=== PATIENT | male | born 1950 | race Caucasian/White ===

== ENCOUNTER 2017-09-28 17:55 | Emergency (ER) | payer OTHER ==
[~2017-09-28] VITALS: Ht 172.7 cm; Wt 102.0 kg
[~2017-09-28 17:55] MED LIST: ADVIN50050 INH; AMIO1TAB PO; ATOR-24 PO; CETI10TA84 PO; CMBIN INH; CRDCD240 PO; DXY/100 PO; GEMF600T5 PO; OXYSR20 PO; PRED20TA PO; PRLSR20 PO; SNG10 PO; TIOTCAP INH; WARF5TAB90 PO
[2017-09-28 17:56] VITALS: TEMP 36.8; Ht 172.7 cm; Wt 102.0 kg
[2017-09-28] MEDS ORDERED: ACETAMINOPHEN 500 MG TAB PO STA (18:18)
--- NOTE | 2017-09-28 18:27 | EMERGENCY ROOM VISIT NOTE ---
ED Visit Note First contact with patient: 18:11 CHIEF COMPLAINT: Left-sided rib pain HISTORY OF PRESENTING ILLNESS: This is a 66-year-old male who presents to the emergency department with complaint of left-sided rib pain that started today after an injury at 4 PM. Patient states that he was leaning over his tub to rinse his hair, and leaned onto his left anterior ribs, when he felt a "snap" and heard a "crack" followed by immediate pain in the front of his left-sided ribs. He states that the pain has been getting progressively worse since this injury, and he is having a lot of pain with breathing. Patient has a history of severe asthma/COPD, and states he has been on a prednisone taper for a recent asthma flare, states this is the second time he has been on prednisone this month, and he is prone to fractures because of the prednisone. He also is on Coumadin for history of A. fib. He does not feel more short of breath than usual and denies any cough or hemoptysis. He denies any dizziness or syncope. He denies any previously fractured ribs. REVIEW OF SYSTEMS: A complete 10 point review of systems was reviewed with the patient with pertinent positives and negatives as per history of present illness. All else were negative. PAST MEDICAL HISTORY: Reviewed in chart, see problem list below. SOCIAL HISTORY: Lives at home. He denies tobacco use. ALLERGIES: No known allergies. PHYSICAL EXAM: CONSTITUTIONAL: Pleasant and cooperative. No acute distress. Well appearing and well nourished. HEENT: Normocephalic, atraumatic. Pupils equal, round and reactive to light, EOMI. TMs normal. Pharynx normal. NECK: Supple, full active range of motion without discomfort. RESPIRATORY: Clear to auscultation bilaterally with no wheezing, crackles, rhonchi or stridor. Equal expansion bilaterally. CARDIOVASCULAR: Regular rate and rhythm with no murmurs, rubs or gallops. Normal peripheral perfusion. No edema. CHEST WALL: Tenderness to palpation of the left anterior and lateral ribs over and just below the nipple line. No ecchymosis, swelling, or abrasions. No palpable crepitus. GASTROINTESTINAL: Soft, nontender, nondistended. No palpable masses or HSM. Bowel sounds present in all quadrants. No CVA tenderness bilaterally. MUSCULOSKELETAL: Full range of motion of all joints without discomfort. INTEGUMENTARY: No rash or other significant dermatologic conditions noted. NEUROLOGIC: Alert and oriented X 4 with normal affect. Normal strength and sensation in all 4 extremities. No focal neurologic deficits noted. Normal speech. Normal gait observed. ED COURSE AND MEDICAL DECISION MAKING: CC: Patient presenting with complaint of left-sided rib pain DIFFERENTIAL DIAGNOSIS: Includes, but not limited to rib contusion, fracture, pneumothorax, hemothorax, costochondritis, among others. INTERPRETATION OF LABS: No leukocytosis, no anemia, normal platelets, no significant electrolyte abnormalities, normal renal function. Coagulation factors are therapeutic. IMAGING: CT (CHEST) THORAX WITH CLINICAL HISTORY: 66 years-old Male presenting with left rib pain, history of COPD, eval fracture, PTX, KACI. TECHNIQUE: Multidetector CT imaging of the chest was performed after the administration of intravenous contrast. IV contrast: 90 mL of Optiray 320. A dose lowering technique was used consistent with the principles of ALARA (as low as reasonably achievable). COMPARISON: 01/10/2006. CT DOSE (mGy.cm): The estimated cumulative dose is 752.31 mGy.cm. FINDINGS: Line Analyst topogram: Cardiomegaly. Hyperinflation. On soft tissue windows, coarse calcification noted in the left lobe of the thyroid. Thyroid otherwise normal. No axillary, supraclavicular, hilar, or mediastinal lymphadenopathy. Normal aorta. Multichamber enlargement of the heart. Coronary artery calcification. No pericardial or pleural effusion. Cholecystectomy clips noted. Moderate parenchymal atrophy of the pancreas. Hepatic veins not yet opacified. Several renal cysts noted. On lung windows, bronchial wall thickening and mild bronchiectasis most prominent in the right lower lobe. Respiratory motion artifact limits evaluation of the lung parenchyma. Focal consolidation in the medial basal left lower lobe measuring 3.2 cm in diameter. Few surrounding nodular foci. Incidental note made of an azygos fissure. Scattered tree-in-bud opacities in the anterior segment of the right upper lobe with associated mild bronchiectasis. Trace apical emphysema. Hyperinflation. Vague centrilobular nodules are also suggested at the apices. Central airways patent although subsegmental debris is noted in left lower lobe bronchi. No pneumothorax. On bone windows, degenerative changes of the spine. Superior endplate concavity at L1, unchanged since 2005. IMPRESSION: 1. Focal consolidation in the left lower lobe concerning for pneumonia. This should be followed to resolution to ensure there is no underlying neoplasm. 2. Multifocal bronchiectasis with limited tree-in-bud opacities. This is nonspecific but could suggest a history of chronic indolent infection such as mycobacterium avium intracellulare among other etiologies. Tree-in-bud opacities have significantly decreased since the prior exam. 3. Mild changes of smoking related lung injury likely present with trace emphysema, bronchitis and respiratory bronchiolitis. MEDICATION RECONCILIATION: I attest that I have personally reviewed the patient 's current medication list. INITIAL VITAL SIGNS REVIEW: I reviewed the patient's initial vital signs and interpret them as follows: T: Afebrile; BP: Hypertensive; HR: Within normal limits; RR: Within normal limits; Pulse Ox: Within normal limits on room air. Blood pressure screening: The patient was found to have an elevated blood pressure, which was felt to be situational. SUMMARY: Patient was evaluated at bedside, history and physical exam performed. Patient is alert and oriented, no acute distress, but does appear uncomfortable , resting calmly in the stretcher. Patient has tenderness to palpation of the left anterior and lateral ribs just below the nipple line. There is no left upper quadrant tenderness to palpation. Orders were placed at bedside for labs, p.o. Tylenol for pain, CT chest with IV contrast to evaluate for rib fracture or other trauma. Patient discussed with Dr. Pearl, who agrees with my assessment and plan. Labs and imaging reviewed as above, unremarkable. No evidence for pneumothorax or hemothorax. No obvious rib fractures noted on CT. CT does note a left lower lobe pneumonia, which does appear to be new when compared to previous imaging. Patient states that he started taking his rescue pack of doxycycline 2 days ago , but has only been taking 1 tablet per day, he did have one dose this morning. Patient was given an additional dose of doxycycline in the ED, and a prescription for doxycycline was sent to the pharmacy for continued treatment of his pneumonia. Patient continues to complain of pain, he was given a dose of p.o. oxycodone. Patient reassessed multiple times throughout ED stay, patient has remained stable, his pain is improved with the oxycodone, and he feels well to go home. Patient was given an incentive spirometer and was educated regarding its use. Small Rx for oxycodone was sent to the pharmacy for improved management of the patient's pain, he was educated regarding this medication. Patient was updated on all results and plan for discharge, he was encouraged to follow closely with his PC and to also follow-up with his supply chain analyst peer Patient was also given strict return precautions should his symptoms worsen, he verbalized understanding. Patient was discharged home in stable condition and ambulatory. Problem List Medical Problems: (1) ACUTE RESPIRATORY FAILURE Status: Resolved (2) ASTHMA, UNSPECIFIED, W (ACUTE) EXACERBATION Status: Chronic (3) ATRIAL FIBRILLATION Status: Chronic (4) HYPERTENSION NOS Status: Chronic (5) OBESITY, NOS Status: Chronic (6) PNEUMONIA, ORGANISM NOS Status: Resolved Current/Historical Medications Scheduled Amiodarone HCl (Pacerone), 200 MG PO DAILY Atorvastatin (Lipitor), 40 MG PO DAILY Cetirizine (Zyrtec), 10 MG PO DAILY Diltiazem Hcl Cd (Cardizem Cd *), 240 MG PO BID Doxycycline Hyclate (Vibramycin), 100 MG PO BID Fluticasone Prop/Salmeterol (Advair Diskus 500/50 Mcg *), 1 PUFF INH BID Gemfibrozil (Lopid), 600 MG PO BID Montelukast (Singulair *), 10 MG PO DAILY Omeprazole (Prilosec), 20 MG PO DAILY Oxycodone Hcl (Oxycontin (Ext Rel) *), 20 MG PO Q12 Tiotropium [place] (Spiriva Handihaler), 1 CAP INH DAILY Warfarin Sodium (Coumadin), 5 MG PO DAILY Scheduled PRN Doxycycline Hyclate (Doxycycline Hyclate), 100 MG PO Q12 PRN for COPD RESCUE PACK Ipratropium/Albuterol (Combivent *), 1 PUFFS INH Q6 PRN for cough,wheeze,sob, chest tightne Oxycodone Ir (Roxicodone Ir), 1 TAB PO Q4H PRN for svr Prednisone (Prednisone), 2 TAB PO UD PRN for COPD/ASTHMA RESCUE PACK Allergies Coded Allergies: No Known Allergies (Verified , 08/19/13) Vital Signs Date Time Temp Pulse Resp B/P (MAP) Pulse Ox O2 Delivery O2 Flow Rate FiO2 09/28/17 21:16 51 18 146/69 91 Room Air 8/22/18 19:54 53 18 144/70 92 Room Air 09/28/17 17:56 36.8 63 20 170/70 92 Room Air Laboratory Results 09/28/17 19:00 Red Blood Count 4.75, Mean Corpuscular Volume 90.1, Mean Corpuscular Hemoglobin 28.4, Mean Corpuscular Hemoglobin Concent 31.5, Mean Platelet Volume 9.8, Neutrophils (%) (Auto) 83.9, Lymphocytes (%) (Auto) 11.2, Monocytes (%) (Auto) 3.2, Eosinophils (%) (Auto) 0.3, Basophils (%) (Auto) 0.1, Neutrophils # (Auto) 6.31, Lymphocytes # (Auto) 0.84, Monocytes # (Auto) 0.24, Eosinophils # (Auto) 0.02, Basophils # (Auto) 0.01 09/28/17 19:00 Test 09/28/17 19:00 White Blood Count 7.52 K/uL (4.8-10.8) Red Blood Count 4.75 M/uL (4.7-6.1) Hemoglobin 13.5 g/dL (14.0-18.0) Hematocrit 42.8 % (42-52) Mean Corpuscular Volume 90.1 fL (80-100) Mean Corpuscular Hemoglobin 28.4 pg (25-34) Mean Corpuscular Hemoglobin Concent 31.5 g/dl (32-36) Platelet Count 204 K/uL (130-400) Mean Platelet Volume 9.8 fL (7.4-10.4) Neutrophils (%) (Auto) 83.9 % Lymphocytes (%) (Auto) 11.2 % Monocytes (%) (Auto) 3.2 % Eosinophils (%) (Auto) 0.3 % Basophils (%) (Auto) 0.1 % Neutrophils # (Auto) 6.31 K/uL (1.4-6.5) Lymphocytes # (Auto) 0.84 K/uL (1.2-3.4) Monocytes # (Auto) 0.24 K/uL (0.11-0.59) Eosinophils # (Auto) 0.02 K/uL (0-0.5) Basophils # (Auto) 0.01 K/uL (0-0.2) RDW Standard Deviation 47.6 fL (36.4-46.3) RDW Coefficient of Variation 14.4 % (11.5-14.5) Immature Granulocyte % (Auto) 1.3 % Immature Granulocyte # (Auto) 0.10 K/uL (0.00-0.02) Prothrombin Time 30.0 SECONDS (9.0-12.0) Prothromb Time International Ratio 2.9 (0.9-1.1) Anion Gap 7.0 mmol/L (3-11) Est Creatinine Clear Calc Drug Dose 68.4 ml/min Estimated GFR () 70.5 Estimated GFR (Non- 60.8 BUN/Creatinine Ratio 17.8 (10-20) Calcium Level 8.8 mg/dl (8.5-10.1) Medications Administered Medications (Trade) Dose Ordered Sig/Kareen Route Start Time Stop Time Status Last Admin Dose Admin Acetaminophen (Tylenol Tab) 1,000 mg NOW STAT PO 09/28/17 18:18 09/28/17 18:20 DC 09/28/17 18:59 1,000 MG Oxycodone HCl (Roxicodone Immediate Rel Tab) 5 mg NOW STAT PO 09/28/17 20:36 09/28/17 20:42 DC 09/28/17 20:48 5 MG Oxycodone HCl (Roxicodone Immediate Rel 5MG Home Pack) 1 homepack UD ONCE PO 09/28/17 20:45 09/28/17 20:46 DC 09/28/17 20:48 1 HOMEPACK Doxycycline Hyclate (Vibramycin Cap) 100 mg ONE ONCE PO 09/28/17 20:45 09/28/17 20:46 DC 09/28/17 20:48 100 MG Departure Information Impression Primary Impression: Contusion of rib on left side Additional Impression: LLL pneumonia Dispostion Home / Self-Care Condition GOOD Prescriptions Doxycycline Hyclate (VIBRAMYCIN) 100 Mg Cap 100 MG PO BID for 9 Days, #18 CAP Prov: Anne Marie Lucero CRNP 09/28/17 Oxycodone Ir (Roxicodone Ir) 5 Mg Tab 1 TAB PO Q4H Y for svr, #15 TAB For Initial Treatment Prov: Anne Marie Lucero CRNP 09/28/17 Referrals Paris Lizama M.D. (PCP) Patient Instructions ED Contusion Vs Minor Fx Rib, ED Pneumonia Adult, [facility] Additional Instructions You have been evaluated and treated in the Emergency Department for your rib pain. You were found to have a left-sided pneumonia on imaging today. You were prescribed doxycycline to be taken twice a day for 9 more days. This is an antibiotic to treat your pneumonia. All antibiotics have the potential to cause diarrhea. Stop this medication and contact a medical provider if you were to develop any significant adverse side effects including: wheezing, shortness of breath, passing out, vomiting, or a diffuse rash. Always take antibiotics as directed and COMPLETE the ENTIRE course regardless of the improvement of your symptoms. You have been prescribed oxycodone 5 mg tablets to be taken 1 tablet every 4-6 hours as needed for SEVERE pain. This is a narcotic medication. You cannot drive or consume alcohol while on this medicine. This medicine should only be used for pain that cannot be controlled with [id number] pain medicines. For additional pain control, you may take Extra strength (500mg/tab) Tylenol ( acetaminophen) 1-2 tabs every 6-8 hours as needed. Do not exceed 6 tablets in a 24 hour period. Avoid taking more than 3 grams (3000 mg) of Tylenol per day. This includes any other sources of acetaminophen you may take on a regular basis. If this is an acute injury, ice can be applied to the area of pain for the first 3 days to help decrease pain and inflammation. After the first 3 days, a heating pad can be used over the area for continued soothing relief. You should schedule a follow-up appointment in 1-2 days with your Primary Care Provider for further evaluation and treatment of your rib pain and pneumonia. You should also schedule a follow up with your supply chain analyst (lung specialist). Hugging a pillow while coughing or sneezing can help to reduce your pain. Be sure to continue taking occasional deep breaths and use the incentive spirometer as instructed to help expand your lungs to reduce the risk of developing worsening pneumonia. Return to the Emergency Department if your current symptoms worsen, or if you develop any of the following symptoms: Severe worsening pain, shortness of breath or inability to catch her breath, coughing up blood, development of a wet cough, development of fevers/chills/feeling ill, severe dizziness or passing out, or any other concerns. Problem Qualifiers Primary Impression: Contusion of rib on left side Encounter type: initial encounter Qualified Codes: S20.212A - Contusion of left front wall of thorax, initial encounter Additional Impression: LLL pneumonia Pneumonia type: due to unspecified organism Qualified Codes: J18.1 - Lobar pneumonia, unspecified organism
[2017-09-28] MEDS ORDERED: OPTIRAY 320 IV PRN (18:30)
[2017-09-28 19:21] LABS: BASO % 0.1 %; BASO ABS # 0.01 K/uL (0-0.2); EOS % 0.3 %; EOS ABS # 0.02 K/uL (0-0.5); HEMATOCRIT 42.8 % (42-52); HEMOGLOBIN 13.5 g/dL (14.0-18.0); LYMPH % 11.2 %; LYMPH ABS # 0.84 K/uL (1.2-3.4); MEAN CELL VOLUME 90.1 fL (80-100); MEAN CORPUSCULAR HEMOGLOBIN 28.4 pg (25-34); MEAN CORPUSCULAR HGB CONC 31.5 g/dl (32-36); MEAN PLATELET VOLUME 9.8 fL (7.4-10.4); MONO % 3.2 %; MONO ABS # 0.24 K/uL (0.11-0.59); NEUT % 83.9 %; NEUT ABS # 6.31 K/uL (1.4-6.5); PLATELET COUNT 204 K/uL (130-400); RED CELL DISTRIBUTION WIDTH CV 14.4 % (11.5-14.5); RED CELL DISTRIBUTION WIDTH SD 47.6 fL (36.4-46.3); WHITE BLOOD COUNT 7.52 K/uL (4.8-10.8)
[2017-09-28 19:36] LABS: INR 2.9 (0.9-1.1)
[2017-09-28 19:42] LABS: CALCIUM 8.8 mg/dl (8.5-10.1); CREATININE 1.23 mg/dl (0.60-1.40); POTASSIUM 4.2 mmol/L (3.5-5.1)
--- NOTE | 2017-09-28 20:25 | DIAGNOSTIC IMAGING REPORT ---
CT (CHEST) THORAX WITH CLINICAL HISTORY: 66 years-old Male presenting with left rib pain, history of COPD, eval fracture, PTX, KACI. TECHNIQUE: Multidetector CT imaging of the chest was performed after the administration of intravenous contrast. IV contrast: 90 mL of Optiray 320. A dose lowering technique was used consistent with the principles of ALARA (as low as reasonably achievable). COMPARISON: 01/10/2006. CT DOSE (mGy.cm): The estimated cumulative dose is 752.31 mGy.cm. FINDINGS: Cover Assembler topogram: Cardiomegaly. Hyperinflation. On soft tissue windows, coarse calcification noted in the left lobe of the thyroid. Thyroid otherwise normal. No axillary, supraclavicular, hilar, or mediastinal lymphadenopathy. Normal aorta. Multichamber enlargement of the heart. Coronary artery calcification. No pericardial or pleural effusion. Cholecystectomy clips noted. Moderate parenchymal atrophy of the pancreas. Hepatic veins not yet opacified. Several renal cysts noted. On lung windows, bronchial wall thickening and mild bronchiectasis most prominent in the right lower lobe. Respiratory motion artifact limits evaluation of the lung parenchyma. Focal consolidation in the medial basal left lower lobe measuring 3.2 cm in diameter. Few surrounding nodular foci. Incidental note made of an azygos fissure. Scattered tree-in-bud opacities in the anterior segment of the right upper lobe with associated mild bronchiectasis. Trace apical emphysema. Hyperinflation. Vague centrilobular nodules are also suggested at the apices. Central airways patent although subsegmental debris is noted in left lower lobe bronchi. No pneumothorax. On bone windows, degenerative changes of the spine. Superior endplate concavity at L1, unchanged since 2005. IMPRESSION: 1. Focal consolidation in the left lower lobe concerning for pneumonia. This should be followed to resolution to ensure there is no underlying neoplasm. 2. Multifocal bronchiectasis with limited tree-in-bud opacities. This is nonspecific but could suggest a history of chronic indolent infection such as mycobacterium avium intracellulare among other etiologies. Tree-in-bud opacities have significantly decreased since the prior exam. 3. Mild changes of smoking related lung injury likely present with trace emphysema, bronchitis and respiratory bronchiolitis. Electronically signed by: Chucky Lux M.D. 09/28/2017 8:24 PM Dictated Date/Time: 09/28/2017 8:17 PM
[2017-09-28] MEDS ORDERED: OXYCODONE HCL IR 5 MG TAB (IMMEDIATE RELEASE) PO STA (20:36)
[2017-09-28] MEDS ORDERED: DOXYCYCLINE HYCLATE 100 MG CAP PO ONE (20:45)
[2017-09-28] MEDS ORDERED: OXYCODONE IR HOME PACK PO ONE (20:45)
[2017-09-28] MEDS ORDERED: DOXY100C PO (21:01)
[2017-09-28] MEDS ORDERED: OXYC-90 PO (21:01)
--- NOTE | 2017-09-28 21:07 | EMERGENCY ROOM VISIT NOTE ---
ED Visit Note First contact with patient: 18:11 Staff note: I have reviewed the Patients chart and have discussed this case with my PA. I generally agree with the ED note and findings.
[2017-09-28 21:16] VITALS: BP 146/69; PULSE 51; O2SAT 91
== END 2017-09-28 21:26 | disposition home or self-care (01) ==
LOC: C.EDB 17:56 → C.EDD 21:26
DX: S20.212A Contusion of left front wall of thorax, initial encounter (principal); W22.8XXA Striking against or struck by other objects, initial encounter; Y92.012 Bathroom of single-family (private) house as the place of occurrence of the external cause; J18.1 Lobar pneumonia, unspecified organism; J45.909 Unspecified asthma, uncomplicated; I48.91 Unspecified atrial fibrillation; I10 Essential (primary) hypertension; J44.9 Chronic obstructive pulmonary disease, unspecified; Z79.52 Long term (current) use of systemic steroids; Z79.01 Long term (current) use of anticoagulants; Z79.899 Other long term (current) drug therapy

== ENCOUNTER 2020-05-21 17:24 | Inpatient (IN) ==
[2020-05-21 18:08] LABS: Basophils # (auto) 0.01 K/uL (0-0.2); Basophils % (auto) 0.1 %; Eosinophils # (auto) 0.06 K/uL (0-0.5); Eosinophils % (auto) 0.8 %; Hematocrit (blood only) 43.1 % (42-52); Hemoglobin 14.1 g/dL (14.0-18.0); Immature Granulocytes # (auto) 0.08 K/uL (0.00-0.02); Immature Granulocytes % (auto) 1.1 %; Lymphocytes % (auto) 12.4 %; Mean Corpuscular Hemoglobin 29.9 pg (25-34); Mean Corpuscular Hgb Conc 32.7 g/dL (32-36); Mean Corpuscular Volume 91.5 fL (80-100); Monocytes % (auto) 2.8 %; Neutrophils # (auto) 6.02 K/uL (1.4-6.5); Neutrophils % (auto) 82.8 %; Platelet Count 214 K/uL (130-400); RDW Coefficient of Variation 14.1 % (11.5-14.5); RDW Standard Deviation 47.7 fL (36.4-46.3); Red Blood Count 4.71 M/uL (4.7-6.1); White Blood Count 7.27 K/uL (4.8-10.8)
[2020-05-21 18:10] LABS: INR 2.4 (0.9-1.1); Partial Thromboplastin Ratio 1.3; Prothrombin Time 22.8 Seconds (9.0-12.0)
--- NOTE | 2020-05-21 18:20 | XRay Report ---
XR chest 1V portable CLINICAL HISTORY: Atypical chest pain. COMPARISON STUDY: Chest CT October 28, 2017. FINDINGS: There is no pneumothorax or pleural effusion. Cardiomegaly is unchanged. No consolidation i s identified to suggest pneumonia. The appearance of the chest is unchanged. IMPRESSION: No acute cardiopulmonary findings. No change in appearance of the chest. ACT 112: Negative or not required by law. Electronically signed by: Milan Oneal M.D. 05/21/2020 6:18 PM
[2020-05-21] MEDS ORDERED: NITROGLYCERIN SL 0.4 MG/TAB TAB SL STA (18:24)
[2020-05-21 18:28] LABS: Alanine Aminotransferase 34 U/L (12-78); Albumin Globulin Ratio 1.1 (0.9-2); Albumin Level 3.8 gm/dl (3.4-5.0); Alkaline Phosphatase 92 U/L (45-117); Aspartate Aminotransferase 18 U/L (15-37); BUN Creatinine Ratio 18.8 (10-20); Blood Urea Nitrogen 25 mg/dl (7-18); Calcium 9.3 mg/dl (8.5-10.1); Carbon Dioxide 29 mmol/L (21-32); Chloride 107 mmol/L (98-107); Est GFR (African American) 61.6; Est GFR (Non-African American) 53.2; Globulin 3.6 gm/dl (2.5-4.0); Glucose 118 mg/dl (70-99); Potassium 4.7 mmol/L (3.5-5.1); Sodium 140 mmol/L (136-145); Total Protein 7.4 gm/dl (6.4-8.2); Troponin I < 0.015 ng/ml (0-0.045)
[2020-05-21 19:27] LABS: Influenza A virus by PCR Negative (Neg); Influenza B virus by PCR Negative (Neg); RSV by PCR Negative (Neg); SARS CoV2 RNA(COVID-19) InHosp NEGATIVE (Negative)
[2020-05-21 19:34] LABS: Magnesium 1.9 mg/dl (1.8-2.4); Thyroid Stimulating Hormone 1.15 uIu/ml (0.300-4.500)
[2020-05-21] MEDS ORDERED: HYDROCODONE/ACETAMINOPHEN 7.5/325MG TAB PO STA (21:29)
--- NOTE | 2020-05-21 21:53 | History & Physical Report ---
Date of Service May 21, 2020 Assessment & Plan (1) Paroxysmal atrial fibrillation: PAF On Coumadin Chest pain Pt is 69 y/o M with PMH paroxysmal atrial fibrillation on amiodarone and Coumadin, nonischemic cardiomyopathy, nonobstructive CAD, asthma, h/o SVT s/p ablation, dyslipidemia, chronic back pain presented to ER with c/o Irregular heart beat and chest pressure x 1 day In ER afebrile, P: 65, R: 20, BP: 188/114 down to 142/68, 93% on RA. No leukocytosis. Initial troponin: negative. INR: 2.4. +afib. was given nitro SL x1 with moderate relief chest pressure -Current rate controlled -Monitor on tele -Continue home diltiazem 240mg BID (Pt Rx'd BID, however had been taking once [facility]) -Continue Coumadin -INR in AM -Lopressor prn HR>120 -Repeat EKG in am -Will trend troponin -Echo -lipid panel in am. Continue statin -Cardiology consult (2) Asthma: Recent asthma flare with increased wheezing and SOB. Pt started prednisone rescue pack with improvement CXR: no acute infiltrate. COVID 19 PCR and Influenza PCR are negative -Continue prednisone taper -Xopenex prn -Continue home inhalers (3) HTN (hypertension): -Continue diltiazem, losartan (4) HLD (hyperlipidemia): -Continue statin, gemfibrozil (5) Nonischemic cardiomyopathy: Nonobstructive CAD 2013 echo: EF: 40%, moderate global hypokinesis -Update echo (6) Chronic back pain: -Continue hydrocodone prn DVT Prophylaxis -On Coumadin, INR is therapeutic Full Code as per discussion with pt Follows with Dr Lizama for routine care Pt was seen and care coordinated with Dr Lowe. See addendum History of Present Illness Chief Complaint: "irregular heart beat" Primary Care Provider: Paris Lizama MD Pt is 69 y/o M with PMH paroxysmal atrial fibrillation on amiodarone and Coumadin, nonischemic cardiomyopathy, nonobstructive CAD, asthma, h/o SVT s/p ablation, dyslipidemia, chronic back pain presented to ER with c/o Irregular heart beat and chest pressure. Pt reports h/o paroxysmal A-fib and has intermittent episodes of sensation irregular heartbeat with mid chest pressure that lasts minutes to an hour and resolves. Pt states last night starting with palpitation and mid chest pressure that is non-radiating. Denies diaphoresis, dizziness. States felt pulse and irregular and his home pulse ox reading pulse from 60s -120's. Pt with recent cardiology visit with Dr Haider and in office EKG reported Afib rate 100 with nonspecific t wave abnormality. Of note at that time pt was to be taking diltiazem BID, however was only taking once daily. Pt reports for past week has been taking Dilitiazem BID. Pt reports increased wheezing and SOB with exertion and he started prednisone taper rescue pack. He currently has one day of 30mg remaining then goes to 20mg daily x 4 days, then 10mg daily x 4 days. He has not felt the need to use albuterol/combivent. He states in past he felt that those worsened his symptoms. Pt reports less SOB and wheezing since starting prednisone and feels he is back to his baseline. (pt states has chronic wheeze). Reports mild BLE edema. Denies fever/chills, N/V/D/C, RODRIGEZ, dizziness, syncope, vision changes, neck pain, orthopnea, hemoptysis, sore throat, choking, otalgia, rhinorrhea, abdominal pain, paresthesias, weakness, extremity weakness, rashes, urinary symptoms. Allergies Allergy/AdvReac Type Severity Reaction Status Date / Time cat dander Allergy Intermediate SNEEZING, Verified 05/21/20 19:43 CONGESTION pollen extracts Allergy Intermediate SNEEZING, Verified 05/21/20 19:43 CONGESTION Home Medications Medication Instructions Recorded Confirmed Type albuterol sulfate See Rx Instructions CONTINUOUS 09/18/18 05/21/20 History NEBULIZATION .COMPLEX PRN #3 ml amiodarone 200 mg tablet 200 mg PO DAILY tab 09/18/18 05/21/20 History atorvastatin 40 mg tablet 40 mg PO HS tab 09/18/18 05/21/20 History cetirizine 10 mg tablet 10 mg PO DAILY tab 09/18/18 05/21/20 History diltiazem HCl 240 mg 240 mg PO BID cap 09/18/18 05/21/20 History capsule,extended release 24 hr fluticasone propionate 50 2 sprays INTRANASAL DAILY #1 gm 09/18/18 05/21/20 History mcg/actuation nasal spray,suspension gemfibrozil 600 mg tablet 600 mg PO AC tab 09/18/18 05/21/20 History hydrocodone 7.5 mg-acetaminophen 1 tab PO Q6H PRN tab 09/18/18 05/21/20 History 325 mg tablet montelukast 10 mg tablet 10 mg PO DAILY tab 09/18/18 05/21/20 History omalizumab 150 mg subcutaneous 0 mg SUBCUT Q4WK #1 ea 09/18/18 05/21/20 History solution omeprazole 20 mg capsule,delayed 20 mg PO DAILYBB cap 09/18/18 05/21/20 History release oxybutynin chloride 5 mg tablet 5 mg PO DAILY tab 09/18/18 05/21/20 History prednisone 10 mg tablet 10 mg PO .COMPLEX PRN tab 09/18/18 05/21/20 History ipratropium 20 mcg-albuterol 100 See Rx Instructions .ROUTE 01/29/19 05/21/20 Rx mcg/actuation mist for inhalation .COMPLEX #3 inhaler azelastine [Astelin] 2 spray INTRANASAL BID PRN 05/21/20 05/21/20 History doxycycline hyclate 100 mg PO BID PRN 05/21/20 05/21/20 History fluticasone furoate-vilanterol 1 inh INHALATION BID 05/21/20 05/21/20 History [Breo Ellipta] losartan 50 mg PO DAILY 05/21/20 05/21/20 History omega-3 fatty acids 1,000 mg PO DAILY 05/21/20 05/21/20 History warfarin 2.5 mg PO DAILY 05/21/20 05/21/20 History Past Med/Surg History Medical History (Updated 05/21/20 @ 22:38 by Oc Velasquez M.D.) Asthma Chronic back pain GERD (gastroesophageal reflux disease) History of paroxysmal supraventricular tachycardia S/P ablation in 2009 HLD (hyperlipidemia) HTN (hypertension) Nonischemic cardiomyopathy 2013 echo: EF: 40%, moderate global hypokinesis Paroxysmal atrial fibrillation Surgical History H/O hernia repair S/P appendectomy S/P cholecystectomy Family History Other Asthma Social History (Updated 05/21/20 @ 21:59 by Nupur Smith PA-C) Smoking Status: Never smoker Second Hand Exposure: No; Do You Dip or Chew Tobacco: No; Tobacco Cessation Education Requested by Patient: No Hx Alcohol Use: No Hx Substance Use: No Preferred Language: Cuban Communication Ability: Effective Traveling Accountant Required: No Beliefs That Will Affect Care: None marital status: Current Living Situation: Family Current Living Situation Comment: Lives with two sons current occupational status: disabled Other Information That Helps Us Care for You: No Feels Safe at Home: Yes Safety Concerns: Feels Safe At This Time Assistive Devices: Denture - Upper Review of Systems Review of Systems: All systems reviewed & are unremarkable except as noted in HPI & below Physical Exam Physical Exam: General: no distress, obese Head: normocephalic, atraumatic Eyes: PERRL, EOM's intact, conjunctiva non-injected, anicteric ENT: normal inspection external ears, nose, mucous membranes moist Neck: supple, trachea midline Lungs:no respiratory distress, +scattered wheezing, no rhonchi/rales CV: irregularly irregular, rate 68, 1+ pretibial edema Abd: normal BS, protuberant, soft, non-tender Ext: no cyanosis, no calf tenderness Neuro: A&O x 3, no focal deficits noted, normal affect Skin: warm, dry Results & Data Results & Data ([facility]) Vital Signs (Past 12 Hours) Vital Signs Temp Pulse Pulse Resp BP BP Pulse Ox 05/21/20 21:01 58 L 15 142/68 H 93 05/21/20 21:00 59 L 24 93 05/21/20 20:31 42 L 20 146/65 H 92 05/21/20 20:30 56 L 15 92 05/21/20 20:00 63 20 123/67 92 05/21/20 19:30 42 L 17 94 05/21/20 19:14 93 05/21/20 19:02 63 14 92 05/21/20 19:01 67 13 120/63 92 05/21/20 19:00 64 14 92 05/21/20 18:40 72 13 142/70 H 92 05/21/20 18:39 69 12 142/70 H 93 05/21/20 18:30 78 16 92 05/21/20 18:27 84 19 92 05/21/20 18:19 75 19 228/170 H 92 05/21/20 18:01 70 20 221/87 H 98 05/21/20 17:34 36.8 C 65 20 188/114 H 92 Laboratory Results Short CBC 05/21/20 Range/Units 17:50 WBC 7.27 (4.8-10.8) K/uL Hgb 14.1 (14.0-18.0) g/dL Hct 43.1 (42-52) % Plt Count 214 (130-400) K/uL BMP 05/21/20 17:50 Sodium 140 Potassium 4.7 Chloride 107 Carbon Dioxide 29 BUN 25 H Creatinine 1.35 Glucose 118 H Calcium 9.3 Cardiac Enzymes 05/21/20 Range/Units 17:50 Troponin I < 0.015 (0-0.045) ng/ml Liver Function 05/21/20 Range/Units 17:50 Total Bilirubin 1.0 (0.2-1) mg/dl AST 18 (15-37) U/L ALT 34 (12-78) U/L Alkaline Phosphatase 92 (45-117) U/L Albumin 3.8 (3.4-5.0) gm/dl Diagnostic Findings Chest X-Ray 05/21/20 17:50 XR chest 1V portable CLINICAL HISTORY: Atypical chest pain. COMPARISON STUDY: Chest CT October 28, 2017. FINDINGS: There is no pneumothorax or pleural effusion. Cardiomegaly is unchanged. No consolidation is identified to suggest pneumonia. The appearance of the chest is unchanged. IMPRESSION: No acute cardiopulmonary findings. No change in appearance of the chest. ACT 112: Negative or not required by law. Electronically signed by: Milan Oneal M.D. 05/21/2020 6:18 PM Code Status & VTE Plan VTE Prophylaxis Plan VTE Prophylaxis will be ordered: Yes Supervising Physician Co-Signing Physician Notes Care coordinated with Nupur Smith PA-C. Agree with above note. Patient seen and examined. Please refer to her notes for full details. Vital signs reviewed. Physical exam: General exam: Alert and oriented. Not in acute distress. CVS: S1 and S2 heard, irregular rate and rhythm, no murmurs. RS: Clear to auscultation, no wheezing or crackles. ABD: Soft, bowel sounds present, nontender, no distention. OPEN DEVELOPER OPERATOR: Nonfocal. EXT: No edema, no erythema. Labs: Reviewed. Assessment and plan: 69M with hx of PAF, Hx of SVT s/p ablation, Non obstructive CAd, Hx of non ishemic cardiomyopathy prsents with feeling of irregular heart rate asscoaited with tacycardia and bradycardia. Also HAd chest discomfort in lowe chest which is resolved now. PAf Tachy starla syndrome? says had HR in 120 range and then it was in 30's. Currently heart rats in 40. Holding acrdizem on amiodarone and coumadin inr 2.4 will follow troponin, inr and echo cardiology consult monitor in med/tele chest pain resolved follow troponin and echo. prolonged qt avoid qt prolonging drugs. Chronic systolic chf on losartan ef 40% not on any diuretics will monitor Asthma currently stable complete prednisone taper Other diagnosis and plan of care as per Nupur Smith PA-C. Ed carlos MD.
--- NOTE | 2020-05-21 22:29 | Emergency Department Note ---
Impression & Plan Chest pain, Paroxysmal atrial fibrillation, Hypertensive urgency ED Provider Note Provider: Oc Velasquez MD DATE OF SERVICE: 05/21/2020 CHIEF COMPLAINT: Chest pain, irregular heartbeat HISTORY OF PRESENT ILLNESS: Patient is a 69-year-old with a past medical history of paroxysmal atrial fibrillation on amiodarone and Coumadin, nonischemic cardiopathy, CAD, SVT status post ablation, asthma, chronic back pain presenting complaining of an irregular heartbeat over the last approximately 1 to 2 days with chest pain developing overnight. States he monitors his heart rate at home with his pulse ox and has seen his high the 120s and his lowest 30s. States he developed some mid to slightly epigastric chest discomfort without associated nausea vomiting or diarrhea. States the pain is a little bit worse with deep breathing. Denies radiation to the back. States he has had some slight w orsening of his chronic shortness of breath as well. Denies significant new leg swelling. Denies any fainting or trauma. Denies recent illness. Is suffering with the grief of the recent loss of his several months ago. Patient follows with [facility] cardiology and states he has been taking his medication per his recommendations including twice daily diltiazem. Patient did recently start on a prednisone taper for the breathing and states his breathing has improved some with this. REVIEW OF SYSTEMS: A total of 10 review of systems was obtained and negative except as stated above in the HPI. PAST MEDICAL HISTORY: As noted above MEDICATIONS: Reviewed home medications SOCIAL HISTORY: Lives at home, recently PHYSICAL EXAM: GENERAL: alert and oriented seated on the stretcher. Head: normocephalic and atraumatic EYES: No injection, discharge or icterus. NECK: Trachea midline. Supple. ENT: Mucous membranes pink and moist. LUNGS: Airway patent. No retractions. Breath sounds clear with faint scattered wheeze HEART: Irregular rate and rhythm. No chest wall tenderness ABDOMEN: Soft and non-tender, without guarding or rebound. SKIN: Acyanotic, warm, dry, without rashes EXTREMITIES: Without significant tenderness or deformity with trace bilateral pedal edema. NEUROLOGICAL: No focal deficits. No aphasia. No facial droop or slurred speech. Ambulatory. EK bpm appears to be rapid atrial fibrillation. No acute ST segment elevation noted. QTC 542. EKG #2: 71 bpm sinus rhythm with occasional PVC. QTC 510. No acute ST segment elevation. CONTINUOUS CARDIAC MONITORING: was ordered and showed a heart rate of 40s-110s bpm in atrial fibrillation versus sinus rhythm PVC versus sinus bradycardia Patient's laboratory studies and imaging reviewed. Differential includes Cardiac ischemia, aortic dissection, pulmonary embolism, pneumothorax, pneumonia, pericarditis, myocarditis, esophageal rupture, GERD, cholecystitis, pancreatitis, musculoskeletal, as well as other pathologies. IMPRESSION/MEDICAL DECISION MAKING: Patient significantly hypertensive with chest discomfort here. Given a dose of nitroglycerin for this. Patient on Coumadin. EKG initially rapid A. fib but by the time evaluate in the room by myself to the weight caused by high volume in the department, the patient's with a rate controlled appears to be sinus rhythm with occasional PVC. At other times upon reevaluation the patient was in a sinus bradycardia. Patient's chest pain resolved and blood pressure significant improved with 1 dose of nitroglycerin. States he still felt just a little bit off when he walked to the bathroom but was able to complete this. Doubt aortic dissection given the significant improvement with blood pressure control of his pain. Doubt PE given the anticoagulation. Chest X without significant fluid overload or pneumonia. Covid test was negative. No significant leukocytosis and no anemia. No evidence of significant thyroid dysfunction or pancreatitis based on labs. No evidence acute hepatitis based on labs. Benign abdomen. Doubt acute abdominal pathology given his exam. Given the patient's report of variable heart rate and heart rate here vastly ranging from the 40s to the 110s at times as well as a significant hypertension initially felt that further evaluation would be reasonable and the patient was in agreement. Question of some component this could be to recent respiratory issues and the steroids used. Hospitalist was alerted DIAGNOSIS: Chest pain, shortness of breath, hypertensive urgency DISPOSITION: Hospitalist will evaluate Patient was agreeable with this plan. Past Med/Surg History Medical History (Updated 05/21/20 @ 22:38 by Oc Velasquez M.D.) Asthma Chronic back pain GERD (gastroesophageal reflux disease) History of paroxysmal supraventricular tachycardia S/P ablation in 2009 HLD (hyperlipidemia) HTN (hypertension) Nonischemic cardiomyopathy 2013 echo: EF: 40%, moderate global hypokinesis Paroxysmal atrial fibrillation Surgical History H/O hernia repair S/P appendectomy S/P cholecystectomy Family History Other Asthma Social History (Updated 05/21/20 @ 21:59 by Nupur Smith PA-C) Smoking Status: Never smoker Hx Alcohol Use: Yes Alcohol Intake Frequency: Monthly or Less Hx Substance Use: No marital status: Current Living Situation: Alone current occupational status: disabled Feels Safe at Home: Yes Allergies Allergies Allergy/AdvReac Type Severity Reaction Status Date / Time cat dander Allergy Intermediate SNEEZING, Verified 05/21/20 19:43 CONGESTION pollen extracts Allergy Intermediate SNEEZING, Verified 05/21/20 19:43 CONGESTION Home Meds Home Medications Medication Instructions Recorded Confirmed albuterol sulfate See Rx Instructions CONTINUOUS 09/18/18 05/21/20 NEBULIZATION .COMPLEX PRN #3 ml amiodarone 200 mg tablet 200 mg PO DAILY tab 09/18/18 05/21/20 atorvastatin 40 mg tablet 40 mg PO HS tab 09/18/18 05/21/20 cetirizine 10 mg tablet 10 mg PO DAILY tab 09/18/18 05/21/20 diltiazem HCl 240 mg 240 mg PO BID cap 09/18/18 05/21/20 capsule,extended release 24 hr fluticasone propionate 50 2 sprays INTRANASAL DAILY #1 gm 09/18/18 05/21/20 mcg/actuation nasal spray,suspension gemfibrozil 600 mg tablet 600 mg PO AC tab 09/18/18 05/21/20 hydrocodone 7.5 mg-acetaminophen 1 tab PO Q6H PRN tab 09/18/18 05/21/20 325 mg tablet montelukast 10 mg tablet 10 mg PO DAILY tab 09/18/18 05/21/20 omalizumab 150 mg subcutaneous 0 mg SUBCUT Q4WK #1 ea 09/18/18 05/21/20 solution omeprazole 20 mg capsule,delayed 20 mg PO DAILYBB cap 09/18/18 05/21/20 release oxybutynin chloride 5 mg tablet 5 mg PO DAILY tab 09/18/18 05/21/20 prednisone 10 mg tablet 10 mg PO .COMPLEX PRN tab 09/18/18 05/21/20 azelastine [Astelin] 2 spray INTRANASAL BID PRN 05/21/20 05/21/20 doxycycline hyclate 100 mg PO BID PRN 05/21/20 05/21/20 fluticasone furoate-vilanterol 1 inh INHALATION BID 05/21/20 05/21/20 [Breo Ellipta] losartan 50 mg PO DAILY 05/21/20 05/21/20 omega-3 fatty acids 1,000 mg PO DAILY 05/21/20 05/21/20 warfarin 2.5 mg PO DAILY 05/21/20 05/21/20 Previous Rx's Medication Instructions Recorded ipratropium 20 mcg-albuterol 100 See Rx Instructions .ROUTE 01/29/19 mcg/actuation mist for inhalation .COMPLEX #3 inhaler Results & Data (ED) Vital Signs Vital Signs - 24 hr 05/21/20 17:34 05/21/20 18:01 05/21/20 18:19 Temperature 36.8 C Temperature Source Temporal Artery Scan Pulse Rate 65 75 Pulse Rate [Left Finger] 70 Pulse Rate from SpO2 Sensor 38 L Respiratory Rate 20 20 19 Respiratory Effort / Characteristics Non-Labored Spontaneous Respiratory Depth Normal Blood Pressure 188/114 H 228/170 H Blood Pressure [Right Arm] 221/87 H Blood Pressure Mean 138 189 Blood Pressure Mean [Right Arm] 131 Blood Pressure Position [Right Arm] Sitting Pulse Oximetry 92 98 92 Oxygen Delivery Method Room Air Room Air Sepsis Recent Fever Within 48 Hours No Sepsis New/Unexplained Change in Mental Status No Sepsis Action Taken by Nursing No Action Required 05/21/20 18:27 05/21/20 18:30 05/21/20 18:39 Temperature Temperature Source Pulse Rate 84 78 Pulse Rate [Left Finger] 69 Pulse Rate from SpO2 Sensor 37 L 37 L Respiratory Rate 19 16 12 Respiratory Effort / Characteristics Respiratory Depth Blood Pressure Blood Pressure [Right Arm] 142/70 H Blood Pressure Mean Blood Pressure Mean [Right Arm] 94 Blood Pressure Position [Right Arm] Pulse Oximetry 92 92 93 Oxygen Delivery Method Room Air Sepsis Recent Fever Within 48 Hours Sepsis New/Unexplained Change in Mental Status Sepsis Action Taken by Nursing 05/21/20 18:40 05/21/20 19:00 05/21/20 19:01 Temperature Temperature Source Pulse Rate 72 64 67 Pulse Rate [Left Finger] Pulse Rate from SpO2 Sensor 53 L 40 L 38 L Respiratory Rate 13 14 13 Respiratory Effort / Characteristics Respiratory Depth Blood Pressure 142/70 H 120/63 Blood Pressure [Right Arm] Blood Pressure Mean 94 82 Blood Pressure Mean [Right Arm] Blood Pressure Position [Right Arm] Pulse Oximetry 92 92 92 Oxygen Delivery Method Sepsis Recent Fever Within 48 Hours Sepsis New/Unexplained Change in Mental Status Sepsis Action Taken by Nursing 05/21/20 19:02 05/21/20 19:14 05/21/20 19:30 Temperature Temperature Source Pulse Rate 63 42 L Pulse Rate [Left Finger] Pulse Rate from SpO2 Sensor 39 L 41 L Respiratory Rate 14 17 Respiratory Effort / Characteristics Respiratory Depth Blood Pressure Blood Pressure [Right Arm] Blood Pressure Mean Blood Pressure Mean [Right Arm] Blood Pressure Position [Right Arm] Pulse Oximetry 92 93 94 Oxygen Delivery Method Room Air Sepsis Recent Fever Within 48 Hours Sepsis New/Unexplained Change in Mental Status Sepsis Action Taken by Nursing 05/21/20 20:00 05/21/20 20:30 05/21/20 20:31 Temperature Temperature Source Pulse Rate 63 56 L 42 L Pulse Rate [Left Finger] Pulse Rate from SpO2 Sensor 42 L 42 L 42 L Respiratory Rate 20 15 20 Respiratory Effort / Characteristics Respiratory Depth Blood Pressure 123/67 146/65 H Blood Pressure [Right Arm] Blood Pressure Mean 85 92 Blood Pressure Mean [Right Arm] Blood Pressure Position [Right Arm] Pulse Oximetry 92 92 92 Oxygen Delivery Method Sepsis Recent Fever Within 48 Hours Sepsis New/Unexplained Change in Mental Status Sepsis Action Taken by Nursing 05/21/20 21:00 05/21/20 21:01 Temperature Temperature Source Pulse Rate 59 L 58 L Pulse Rate [Left Finger] Pulse Rate from SpO2 Sensor 40 L 40 L Respiratory Rate 24 15 Respiratory Effort / Characteristics Respiratory Depth Blood Pressure 142/68 H Blood Pressure [Right Arm] Blood Pressure Mean 92 Blood Pressure Mean [Right Arm] Blood Pressure Position [Right Arm] Pulse Oximetry 93 93 Oxygen Delivery Method Sepsis Recent Fever Within 48 Hours Sepsis New/Unexplained Change in Mental Status Sepsis Action Taken by Nursing Laboratory Data Result diagrams: 05/21/20 17:50 05/21/20 17:50 Lab Results 05/21/20 05/21/20 05/21/20 Range/Units 17:50 17:50 17:50 WBC 7.27 (4.8-10.8) K/uL RBC 4.71 (4.7-6.1) M/uL Hgb 14.1 (14.0-18.0) g/dL Hct 43.1 (42-52) % MCV 91.5 (80-100) fL MCH 29.9 (25-34) pg MCHC 32.7 (32-36) g/dL RDW Std Deviation 47.7 H (36.4-46.3) fL RDW Coeff of Danyell 14.1 (11.5-14.5) % Plt Count 214 (130-400) K/uL MPV 10.0 (7.4-10.4) fL Immature Gran % (Auto) 1.1 % Neut % (Auto) 82.8 % Lymph % (Auto) 12.4 % Frontier % (Auto) 2.8 % Eos % (Auto) 0.8 % Baso % (Auto) 0.1 % Neut # (Auto) 6.02 (1.4-6.5) K/uL Lymph # (Auto) 0.90 L (1.2-3.4) K/uL Frontier # (Auto) 0.20 (0.11-0.59) K/uL Eos # (Auto) 0.06 (0-0.5) K/uL Baso # (Auto) 0.01 (0-0.2) K/uL Immature Gran # (Auto) 0.08 H (0.00-0.02) K/uL PT 22.8 H (9.0-12.0) Seconds INR 2.4 H (0.9-1.1) APTT 35.0 H (21.0-31.0) Seconds PTT Ratio 1.3 Sodium 140 (136-145) mmol/L Potassium 4.7 (3.5-5.1) mmol/L Chloride 107 (98-107) mmol/L Carbon Dioxide 29 (21-32) mmol/L Anion Gap 4.0 (3-11) BUN 25 H (7-18) mg/dl Creatinine 1.35 (0.6-1.4) mg/dl Est Cr Clr Drug Dosing Not Reportable Est GFR ( Amer) 61.6 Est GFR (Non-Af Amer) 53.2 BUN/Creatinine Ratio 18.8 (10-20) Glucose 118 H (70-99) mg/dl Calcium 9.3 (8.5-10.1) mg/dl Magnesium (1.8-2.4) mg/dl Total Bilirubin 1.0 (0.2-1) mg/dl AST 18 (15-37) U/L ALT 34 (12-78) U/L Alkaline Phosphatase 92 (45-117) U/L Troponin I < 0.015 (0-0.045) ng/ml Total Protein 7.4 (6.4-8.2) gm/dl Albumin 3.8 (3.4-5.0) gm/dl Globulin 3.6 (2.5-4.0) gm/dl Albumin/Globulin Ratio 1.1 (0.9-2) Lipase (73-393) U/L TSH (0.300-4.500) uIu/ml Specimen Hemolysis COVID-19 Eval Order SARS-CoV-2 (PCR) (Negative) Influenza Type A (PCR) (Neg) Influenza Type B (PCR) (Neg) RSV (RT-PCR) (Neg) 05/21/20 05/21/20 05/21/20 Range/Units 18:25 18:25 18:55 WBC (4.8-10.8) K/uL RBC (4.7-6.1) M/uL Hgb (14.0-18.0) g/dL Hct (42-52) % MCV (80-100) fL MCH (25-34) pg MCHC (32-36) g/dL RDW Std Deviation (36.4-46.3) fL RDW Coeff of Danyell (11.5-14.5) % Plt Count (130-400) K/uL MPV (7.4-10.4) fL Immature Gran % (Auto) % Neut % (Auto) % Lymph % (Auto) % Frontier % (Auto) % Eos % (Auto) % Baso % (Auto) % Neut # (Auto) (1.4-6.5) K/uL Lymph # (Auto) (1.2-3.4) K/uL Frontier # (Auto) (0.11-0.59) K/uL Eos # (Auto) (0-0.5) K/uL Baso # (Auto) (0-0.2) K/uL Immature Gran # (Auto) (0.00-0.02) K/uL PT (9.0-12.0) Seconds INR (0.9-1.1) APTT (21.0-31.0) Seconds PTT Ratio Sodium (136-145) mmol/L Potassium (3.5-5.1) mmol/L Chloride (98-107) mmol/L Carbon Dioxide (21-32) mmol/L Anion Gap (3-11) BUN (7-18) mg/dl Creatinine (0.6-1.4) mg/dl Est Cr Clr Drug Dosing Est GFR ( Amer) Est GFR (Non-Af Amer) BUN/Creatinine Ratio (10-20) Glucose (70-99) mg/dl Calcium (8.5-10.1) mg/dl Magnesium 1.9 (1.8-2.4) mg/dl Total Bilirubin (0.2-1) mg/dl AST (15-37) U/L ALT (12-78) U/L Alkaline Phosphatase (45-117) U/L Troponin I (0-0.045) ng/ml Total Protein (6.4-8.2) gm/dl Albumin (3.4-5.0) gm/dl Globulin (2.5-4.0) gm/dl Albumin/Globulin Ratio (0.9-2) Lipase 85 (73-393) U/L TSH 1.150 (0.300-4.500) uIu/ml Specimen Hemolysis COVID-19 Eval Order [facility] at [facility] SARS-CoV-2 (PCR) NEGATIVE (Negative) Influenza Type A (PCR) Negative (Neg) Influenza Type B (PCR) Negative (Neg) RSV (RT-PCR) Negative (Neg) Administered Medications Discontinued Medications Hydrocodone Bitart/Acetaminophen (Hydrocodone/Acetaminophen 7.5/325mg Tab) 1 tab PO NOW STA Stop: 05/21/20 21:30 Last Admin: 05/21/20 21:43 Dose: 1 tab Documented by: [id number] Nitroglycerin (Nitroglycerin Sl 0.4 Mg/Tab Tab) 0.4 mg SL NOW STA Stop: 05/21/20 18:25 Last Admin: 05/21/20 18:29 Dose: 0.4 mg Documented by: [id number] Imaging Data Radiologist's Impression: Chest X-Ray 05/21/20 17:50 XR chest 1V portable CLINICAL HISTORY: Atypical chest pain. COMPARISON STUDY: Chest CT October 28, 2017. FINDINGS: There is no pneumothorax or pleural effusion. Cardiomegaly is unchanged. No consolidation is identified to suggest pneumonia. The appearance of the chest is unchanged. IMPRESSION: No acute cardiopulmonary findings. No change in appearance of the chest. ACT 112: Negative or not required by law. Electronically signed by: Milan Oneal M.D. 05/21/2020 6:18 PM Discharge Plan Visit Data Chief Complaint: Arrhythmia/Palpitations Stated Complaint: IRREGULAR HEART BEAT, ABDOMINAL PAIN ED Provider: Oc Velasquez Discharge Problem: Chest pain, Paroxysmal atrial fibrillation, Hypertensive urgency Patient Disposition: Being Evaluated by Hospitalist Forms Stand Alone Forms: [facility] Prescriptions Prescriptions: No Action ipratropium-albuterol [Combivent Respimat] 20-100 mcg/actuation mist See Rx Instructions .ROUTE .COMPLEX Qty: 3 RF: 3 albuterol sulfate 2.5 mg /3 mL (0.083 %) solution for nebulization See Rx Instructions continuous nebulization .COMPLEX PRN (Reason: shortness of breath or wheezing) Qty: 3 RF: 0 amiodarone 200 mg tablet 200 mg PO DAILY RF: 0 atorvastatin 40 mg tablet 40 mg PO HS RF: 0 cetirizine 10 mg tablet 10 mg PO DAILY RF: 0 diltiazem HCl 240 mg capsule,extended release 24hr 240 mg PO BID RF: 0 fluticasone propionate 50 mcg/actuation spray,suspension 2 sprays intranasal DAILY Qty: 1 RF: 0 gemfibrozil 600 mg tablet 600 mg PO AC RF: 0 hydrocodone-acetaminophen 7.5-325 mg tablet 1 tab PO Q6H PRN (Reason: pain) RF: 0 montelukast 10 mg tablet 10 mg PO DAILY RF: 0 omeprazole 20 mg capsule,delayed release(DR/EC) 20 mg PO DAILYBB RF: 0 oxybutynin chloride 5 mg tablet 5 mg PO DAILY RF: 0 prednisone 10 mg tablet 10 mg PO .COMPLEX PRN (Reason: RESCUE KIT) RF: 0 Xolair 150 mg recon soln 0 mg subcut Q4WK Qty: 1 RF: 0 losartan 50 mg Tablet 50 mg PO DAILY RF: 0 doxycycline hyclate 100 mg Capsule 100 mg PO BID PRN (Reason: RESCUE KIT) RF: 0 omega-3 fatty acids 1,000 mg Capsule 1,000 mg PO DAILY RF: 0 warfarin 2.5 mg tablet 2.5 mg PO DAILY RF: 0 azelastine [Astelin] 137 mcg (0.1 %) Aerosol,[place] 2 spray INTRANASAL BID PRN (Reason: NEEDED) RF: 0 Breo Ellipta 100-25 mcg/dose Blister With Device 1 inh INHALATION BID RF: 0 Referrals Referrals: Paris Lizama MD [Primary Care Provider] -
[2020-05-21] MEDS ORDERED: NITROGLYCERIN SL 0.4 MG/TAB TAB SL PRN (23:54)
[2020-05-21] MEDS ORDERED: NON-FORMULARY MEDICATION (Azelastine 137 mcg (0.1 %) Aerosol,Spray) INTNAS PRN (23:54)
[2020-05-21] MEDS ORDERED: ACETAMINOPHEN 325 MG TAB PO PRN (23:54)
[2020-05-21] MEDS ORDERED: dilTIAZem HCL 240 MG CAPCR PO SCH (23:54)
[2020-05-21] MEDS ORDERED: LEVALBUTEROL 1.25MG/0.5ML NEB NEB PRN (23:54)
[2020-05-21] MEDS ORDERED: METOPROLOL TARTRATE 1 MG/ML VIAL IV PRN (23:54)
[2020-05-22] MEDS ORDERED: IPRATROPIUM BROMIDE HFA INHALER INH PRN (00:30)
[2020-05-22] MEDS ORDERED: ALBUTEROL HFA 8 GM INHALER INH PRN (00:30)
[2020-05-22] MEDS ORDERED: amLODIPine BESYLATE 5 MG TAB PO ONE (00:57)
[2020-05-22] MEDS ORDERED: HYDROCODONE/ACETAMINOPHEN 7.5/325MG TAB PO PRN (03:00)
[2020-05-22] MEDS: PANTOprazole 40 MG TAB PO SCH (05:39)
[2020-05-22 06:38] LABS: Hematocrit (blood only) 37.9 % (42-52); Hemoglobin 12.6 g/dL (14.0-18.0); Mean Corpuscular Hgb Conc 33.2 g/dL (32-36); Mean Corpuscular Volume 90.2 fL (80-100); Mean Platelet Volume 9.4 fL (7.4-10.4); Platelet Count 206 K/uL (130-400); RDW Standard Deviation 46.3 fL (36.4-46.3); White Blood Count 9.74 K/uL (4.8-10.8)
[2020-05-22 06:49] LABS: INR 2.5 (0.9-1.1); Prothrombin Time 23.8 Seconds (9.0-12.0)
[2020-05-22 07:08] LABS: Blood Urea Nitrogen 24 mg/dl (7-18); Calcium 8.6 mg/dl (8.5-10.1); Carbon Dioxide 29 mmol/L (21-32); Chloride 107 mmol/L (98-107); Cholesterol 143 mg/dl (0-200); Creatinine Clr Calc Pharmacy 76.8 ml/min; Est GFR (Non-African American) 68.1; Glucose 87 mg/dl (70-99); Potassium 4.1 mmol/L (3.5-5.1); Sodium 140 mmol/L (136-145); Triglycerides 146 mg/dl (0-150); VLDL Cholesterol 29 mg/dl
[2020-05-22 07:12] LABS: Chol HDL Ratio 3; HDL Cholesterol 53 mg/dl; LDL Cholesterol Calculated 61 mg/dl; Troponin I < 0.015 ng/ml (0-0.045)
[2020-05-22] MEDS ORDERED: gemfibroziL 600 MG TAB PO SCH (07:30)
[2020-05-22] MEDS: FLUTICASONE/VILANTEROL 100/25MCG 14 PUFFS/INHALER INH SCH (08:01)
[2020-05-22] MEDS: FLUTICASONE PROPIONATE NA SPR 16 GM BTL NAE SCH (08:03)
[2020-05-22] MEDS: CETIRIZINE HCL 10 MG TABLET PO SCH (08:03)
[2020-05-22] MEDS: MONTELUKAST SODIUM 10 MG TABLET PO SCH (08:03)
[2020-05-22] MEDS: OXYBUTYNIN CHLORIDE 5 MG TAB PO SCH (08:03)
[2020-05-22] MEDS ORDERED: LOSARTAN POTASSIUM 50 MG TAB PO SCH (09:00)
[2020-05-22] MEDS ORDERED: predniSONE 10 MG TABLET PO SCH (09:00)
[2020-05-22] MEDS ORDERED: AMIODARONE 200 MG TAB PO SCH (09:00)
--- NOTE | 2020-05-22 10:40 | Cardiology Consultation ---
Date of Consultation May 22, 2020 Assessment & Plan (1) Chest pain: Patient is a 69-year-old male with underlying issues as outlined above including hypertension, nonischemic cardiomyopathy, paroxysmal atrial fibrillation and chronic obstructive lung disease who presents with symptoms of abdominal and chest pressure and tachypalpitations after initiating a course of therapy for COPD exacerbation. Assessment notable for hypertensive urgency but no acute cardiac ischemia by EKG or enzyme criteria. Echocardiogram demonstrates overall improved LV systolic function in comparison to prior studies. Patient has had some difficulties with his medications due to cost and emotional overlay Recommendations/plan: Increase amiodarone to 200 mg twice per day for control of arrhythmias, maintain chronic anticoagulation Resume diltiazem 240 mg once per day for hypertension rhythm control. Concerns regarding bradycardia present reflected only sinus bradycardia with no significant pauses. Reported heart rates of 40 reflect R to R interval increase in association with ventricular ectopy on single beats Treat hypertension by increasing losartan to 100 mg/day in addition to resuming diltiazem. Will give single dose of diuretic given mild abdominal distention, increased IVC size and weight gain Continue bronchodilators and treatment of underlying pulmonary disease Given use of diltiazem and amiodarone as well as an atorvastatin will discontinue gemfibrozil, continue atorvastatin current dosing Patient has been unable to self schedule for Covid vaccine. He should receive assistance in scheduling prior to discharge (2) Hypertensive urgency: (3) Paroxysmal atrial fibrillation: (4) Nonischemic cardiomyopathy: (5) HLD (hyperlipidemia): (6) Coronary artery disease: History of Present Illness Reason for Consultation: Chest pain, paroxysmal atrial fibrillation Requesting Physician: Dr. Carlson Attending Physician: Kassi Carlson MD History of Present Illness Patient is a 69-year-old male whose ongoing issues include 1. Paroxysmal atrial fibrillation generally controlled in sinus rhythm with combination of diltiazem and amiodarone 2. Nonischemic cardiomyopathy with initially severe LV dysfunction now near normal 3. Chronic obstructive lung disease 4. Nonobstructive coronary artery disease, last cardiac catheterization August 2013 5. Obesity 6. Chronic atrial ventricular ectopy 7. Hypertension 8. Hyperlipidemia Patient seen in referral after admission for symptoms of tachypalpitations and chest pain. He notes significant changes in the last several months including loss of significant other as well as loss of income which is resulted in reduced compliance with medical therapies. In the last week he has had exacerbation of underlying lung disease and was begun on prednisone taper. Yesterday patient experienced symptoms of chest pressure and abdominal pressure was nearly persistent. Symptoms were associated with intermittent tachypalpitations and patient presented to the emergency room where he was found to be in atrial fibrillation with rapid response. Patient spontaneously converted to sinus rhythm and is remained in sinus and sinus bradycardia overnight. No profound bradycardia arrhythmias or pauses observed Patient currently comfortable this morning other than the indigestion type sensation mid abdomen. No recent fevers or chills no productive cough. No melena hematochezia dysuria hematuria. Has been taking anticoagulation as prescribed. Patient is aware of a gradual weight gain of 10 to 15 pounds no signs of edema or orthopnea. Does feel emotional stress is tied into current complaints. Telemetry since admission has demonstrated sinus rhythm with atrial and ventricular ectopy. EKGs without acute ischemic changes troponins negative Echocardiogram demonstrates improved LV systolic function in comparison to prior study now near normal with underlying diastolic dysfunction Allergies Allergy/AdvReac Type Severity Reaction Status Date / Time cat dander Allergy Intermediate SNEEZING, Verified 05/21/20 19:43 CONGESTION pollen extracts Allergy Intermediate SNEEZING, Verified 05/21/20 19:43 CONGESTION Home Medications Medication Instructions Recorded Confirmed Type albuterol sulfate See Rx Instructions CONTINUOUS 09/18/18 05/21/20 History NEBULIZATION .COMPLEX PRN #3 ml amiodarone 200 mg tablet 200 mg PO DAILY tab 09/18/18 05/21/20 History atorvastatin 40 mg tablet 40 mg PO HS tab 09/18/18 05/21/20 History cetirizine 10 mg tablet 10 mg PO DAILY tab 09/18/18 05/21/20 History diltiazem HCl 240 mg 240 mg PO BID cap 09/18/18 05/21/20 History capsule,extended release 24 hr fluticasone propionate 50 2 sprays INTRANASAL DAILY #1 gm 09/18/18 05/21/20 History mcg/actuation nasal spray,suspension gemfibrozil 600 mg tablet 600 mg PO AC tab 09/18/18 05/21/20 History hydrocodone 7.5 mg-acetaminophen 1 tab PO Q6H PRN tab 09/18/18 05/21/20 History 325 mg tablet montelukast 10 mg tablet 10 mg PO DAILY tab 09/18/18 05/21/20 History omalizumab 150 mg subcutaneous 0 mg SUBCUT Q4WK #1 ea 09/18/18 05/21/20 History solution omeprazole 20 mg capsule,delayed 20 mg PO DAILYBB cap 09/18/18 05/21/20 History release oxybutynin chloride 5 mg tablet 5 mg PO DAILY tab 09/18/18 05/21/20 History prednisone 10 mg tablet 10 mg PO .COMPLEX PRN tab 09/18/18 05/21/20 History ipratropium 20 mcg-albuterol 100 See Rx Instructions .ROUTE 01/29/19 05/21/20 Rx mcg/actuation mist for inhalation .COMPLEX #3 inhaler azelastine [Astelin] 2 spray INTRANASAL BID PRN 05/21/20 05/21/20 History doxycycline hyclate 100 mg PO BID PRN 05/21/20 05/21/20 History fluticasone furoate-vilanterol 1 inh INHALATION BID 05/21/20 05/21/20 History [Breo Ellipta] losartan 50 mg PO DAILY 05/21/20 05/21/20 History omega-3 fatty acids 1,000 mg PO DAILY 05/21/20 05/21/20 History warfarin 2.5 mg PO DAILY 05/21/20 05/21/20 History Patient History Medical History Asthma Chronic back pain GERD (gastroesophageal reflux disease) History of paroxysmal supraventricular tachycardia S/P ablation in 2009 HLD (hyperlipidemia) HTN (hypertension) Nonischemic cardiomyopathy 2013 echo: EF: 40%, moderate global hypokinesis Paroxysmal atrial fibrillation Surgical History H/O hernia repair S/P appendectomy S/P cholecystectomy Family History Other Asthma Social History Smoking Status: Never smoker Second Hand Exposure: No; Do You Dip or Chew Tobacco: No; Tobacco Cessation Education Requested by Patient: No Hx Alcohol Use: No Hx Substance Use: No Preferred Language: Armenian Communication Ability: Effective Video Production Assistant Required: No Beliefs That Will Affect Care: None marital status: Current Living Situation: Family Current Living Situation Comment: Lives with two sons current occupational status: disabled Other Information That Helps Us Care for You: No Feels Safe at Home: Yes Safety Concerns: Feels Safe At This Time Assistive Devices: Denture - Upper Review of Systems Review of Systems: All systems reviewed & are unremarkable except as noted in HPI & below Physical Exam Constitutional: + obese; no acute distress Eyes: PERRL, conjunctivae normal, anicteric sclerae ENMT: external ear and nose normal, oropharynx normal Neck: trachea midline, no thyromegaly + thick neck Respiratory: Auscultation: + wheezes (Scattered with increased with cough especially anterior) Cardiovascular: Rate/Rhythm: regular rate and regular rhythm Heart Sounds: normal S1 and normal S2; no gallop and no murmur Palpation: normal PMI Vessels: normal carotid upstroke and radial pulses present; no JVD and no carotid bruit Extremities: no edema Gastrointestinal (Abdomen): normal bowel sounds, soft, nontender, no hepato splenomegaly Musculoskeletal: no cyanosis or clubbing, extremities motor strength 5/5 Skin: no rashes, warm and dry Neurologic: PERRL, EOMI, accommodation nl, no face palsy, no dysarthria Psychiatric: A+Ox3, euthymic affect Results & Data ([facility]) Vital Signs (Past 12 Hours) Vital Signs Temp Pulse Pulse Resp BP Pulse Ox Pulse Ox 05/22/20 07:34 36.6 C 55 L 18 186/78 H 95 05/22/20 04:08 44 L 05/22/20 03:15 36.9 C 51 L 18 156/76 H 92 05/22/20 02:08 48 L 18 167/82 H 93 05/22/20 00:37 37.0 C 46 L 20 198/94 H 96 05/21/20 23:54 37.0 C 61 20 199/75 H 96 96 Laboratory Results Laboratory Results - last 24 hr 05/21/20 05/21/20 05/21/20 17:50 17:50 17:50 WBC 7.27 RBC 4.71 Hgb 14.1 Hct 43.1 MCV 91.5 MCH 29.9 MCHC 32.7 RDW Std Deviation 47.7 H RDW Coeff of Danyell 14.1 Plt Count 214 MPV 10.0 Immature Gran % (Auto) 1.1 Neut % (Auto) 82.8 Lymph % (Auto) 12.4 [place] % (Auto) 2.8 Eos % (Auto) 0.8 Baso % (Auto) 0.1 Neut # (Auto) 6.02 Lymph # (Auto) 0.90 L [place] # (Auto) 0.20 Eos # (Auto) 0.06 Baso # (Auto) 0.01 Immature Gran # (Auto) 0.08 H PT 22.8 H INR 2.4 H APTT 35.0 H PTT Ratio 1.3 Sodium 140 Potassium 4.7 Chloride 107 Carbon Dioxide 29 Anion Gap 4.0 BUN 25 H Creatinine 1.35 Est Cr Clr Drug Dosing Not Reportable Est GFR ( Amer) 61.6 Est GFR (Non-Af Amer) 53.2 BUN/Creatinine Ratio 18.8 Glucose 118 H Calcium 9.3 Magnesium Total Bilirubin 1.0 AST 18 ALT 34 Alkaline Phosphatase 92 Troponin I < 0.015 Total Protein 7.4 Albumin 3.8 Globulin 3.6 Albumin/Globulin Ratio 1.1 Triglycerides Cholesterol LDL Cholesterol, Calc VLDL Cholesterol, Calc HDL Cholesterol Cholesterol/HDL Ratio Lipase TSH Specimen Hemolysis COVID-19 Eval Order SARS-CoV-2 (PCR) Influenza Type A (PCR) Influenza Type B (PCR) RSV (RT-PCR) 05/21/20 05/21/20 05/21/20 18:25 18:25 18:55 WBC RBC Hgb Hct MCV MCH MCHC RDW Std Deviation RDW Coeff of Danyell Plt Count MPV Immature Gran % (Auto) Neut % (Auto) Lymph % (Auto) [place] % (Auto) Eos % (Auto) Baso % (Auto) Neut # (Auto) Lymph # (Auto) [place] # (Auto) Eos # (Auto) Baso # (Auto) Immature Gran # (Auto) PT INR APTT PTT Ratio Sodium Potassium Chloride Carbon Dioxide Anion Gap BUN Creatinine Est Cr Clr Drug Dosing Est GFR ( Amer) Est GFR (Non-Af Amer) BUN/Creatinine Ratio Glucose Calcium Magnesium 1.9 Total Bilirubin AST ALT Alkaline Phosphatase Troponin I Total Protein Albumin Globulin Albumin/Globulin Ratio Triglycerides Cholesterol LDL Cholesterol, Calc VLDL Cholesterol, Calc HDL Cholesterol Cholesterol/HDL Ratio Lipase 85 TSH 1.150 Specimen Hemolysis COVID-19 Eval Order CovFluRsv at [facility] SARS-CoV-2 (PCR) NEGATIVE Influenza Type A (PCR) Negative Influenza Type B (PCR) Negative RSV (RT-PCR) Negative 05/22/20 05/22/20 05/22/20 00:29 06:19 06:19 WBC 9.74 RBC 4.20 L Hgb 12.6 L Hct 37.9 L MCV 90.2 MCH 30.0 MCHC 33.2 RDW Std Deviation 46.3 RDW Coeff of Danyell 14.0 Plt Count 206 MPV 9.4 Immature Gran % (Auto) Neut % (Auto) Lymph % (Auto) [place] % (Auto) Eos % (Auto) Baso % (Auto) Neut # (Auto) Lymph # (Auto) [place] # (Auto) Eos # (Auto) Baso # (Auto) Immature Gran # (Auto) PT 23.8 H INR 2.5 H APTT PTT Ratio Sodium Potassium Chloride Carbon Dioxide Anion Gap BUN Creatinine Est Cr Clr Drug Dosing Est GFR ( Amer) Est GFR (Non-Af Amer) BUN/Creatinine Ratio Glucose Calcium Magnesium Total Bilirubin AST ALT Alkaline Phosphatase Troponin I < 0.015 Total Protein Albumin Globulin Albumin/Globulin Ratio Triglycerides Cholesterol LDL Cholesterol, Calc VLDL Cholesterol, Calc HDL Cholesterol Cholesterol/HDL Ratio Lipase TSH Specimen Hemolysis COVID-19 Eval Order SARS-CoV-2 (PCR) Influenza Type A (PCR) Influenza Type B (PCR) RSV (RT-PCR) 05/22/20 06:19 WBC RBC Hgb Hct MCV MCH MCHC RDW Std Deviation RDW Coeff of Danyell Plt Count MPV Immature Gran % (Auto) Neut % (Auto) Lymph % (Auto) [place] % (Auto) Eos % (Auto) Baso % (Auto) Neut # (Auto) Lymph # (Auto) [place] # (Auto) Eos # (Auto) Baso # (Auto) Immature Gran # (Auto) PT INR APTT PTT Ratio Sodium 140 Potassium 4.1 Chloride 107 Carbon Dioxide 29 Anion Gap 4.0 BUN 24 H Creatinine 1.10 Est Cr Clr Drug Dosing 76.8 Est GFR ( Amer) 79.0 Est GFR (Non-Af Amer) 68.1 BUN/Creatinine Ratio 22.0 H Glucose 87 Calcium 8.6 Magnesium 2.0 Total Bilirubin AST ALT Alkaline Phosphatase Troponin I < 0.015 Total Protein Albumin Globulin Albumin/Globulin Ratio Triglycerides 146 Cholesterol 143 LDL Cholesterol, Calc 61 VLDL Cholesterol, Calc 29 HDL Cholesterol 53 Cholesterol/HDL Ratio 3 Lipase TSH Specimen Hemolysis COVID-19 Eval Order SARS-CoV-2 (PCR) Influenza Type A (PCR) Influenza Type B (PCR) RSV (RT-PCR) (1) Chest pain Chest pain type: unspecified Qualified Code(s): R07.9 - Chest pain, unspecified
[2020-05-22] MEDS ORDERED: FUROSEMIDE 20 MG TAB PO ONE (11:11)
[2020-05-22] MEDS: dilTIAZem HCL 240 MG CAPCR PO SCH (11:55)
[2020-05-22] MEDS ORDERED: XOPENEX/ATROVENT 1.25mg/0.5MG NEB COMBO NEB ONE (13:50)
[2020-05-22] MEDS ORDERED: IPRATROPIUM BROMIDE NEB SOLN 0.02% 2.5 ML VIAL INH ONE (13:51)
[2020-05-22] MEDS ORDERED: LEVALBUTEROL 1.25MG/0.5ML NEB INH ONE (14:00)
--- NOTE | 2020-05-22 15:16 | Hospitalist Progress Note ---
Date of Service May 22, 2020 Assessment & Plan (1) Paroxysmal atrial fibrillation: Pt is 69 y/o M with PMH paroxysmal atrial fibrillation on amiodarone and Coumadin, nonischemic cardiomyopathy, nonobstructive CAD, asthma, h/o SVT s/p ablation, dyslipidemia, chronic back pain presented to ER with c/o Irregular heart beat and chest pressure x 1 day Chest pain Secondary to A. fib RVR Currently heart rate with controlled with sinus rhythm Symptom has completely resolved, patient denies of chest heaviness or chest discomfort since admission Appreciate input from cardiology recommends to increase amiodarone to 200 mg twice daily, resume Cardizem to 40 mg once daily for hypertension/rhythm control Patient is continued with chronic anticoagulation with Coumadin Hypertensive urgency: Losartan dose increased to 50 mg twice daily Patient is continued with Cardizem Paroxysmal atrial fibrillation: Currently heart rate and rhythm controlled after adjusting of med HLD (hyperlipidemia): gemfibrozil discontinued by cardiology for drug interaction with diltiazem and amiodarone continue atorvastatin current dosing (2) Asthma: Recent asthma flare with increased wheezing and SOB. Pt started prednisone rescue pack with improvement CXR: no acute infiltrate. COVID 19 PCR and Influenza PCR are negative -Continue prednisone taper Ordered for nebulizer treatment with Xopenex Frequent PAC/PAT: Premature atrial tachycardia Possible secondary to underlying lung disease, Continue nebulizer treatment Medication for rhythm control adjusted as outlined above Monitor in telemetry (3) HTN (hypertension): -Continue diltiazem, losartan (4) HLD (hyperlipidemia): -Continue statin, Gemfibrozil discontinued secondary to drug interaction (5) Nonischemic cardiomyopathy: Nonobstructive CAD Repeat echo shows diastolic dysfunction, no wall motion abnormality (6) Chronic back pain: -Continue hydrocodone prn DVT Prophylaxis -On Coumadin, INR is therapeutic Full Code as per discussion with pt Disposition: Expected to be discharged home when medically stable Admission and Anticipated Discharge Date Admission Date: May 21, 2020 Subjective Follow-up visit for paroxysmal A. fib Patient denies of palpitation, no chest discomfort or chest heaviness Reports improvement of shortness of breath/dyspnea on exertion since yesterday No fever or chills Does not have any cough Review of Systems Review of Systems: All systems reviewed & are unremarkable except as noted in Subjective Physical Exam Physical Exam: Physical exam: General: No acute distress, alert awake oriented x3 Obese HEENT: PERRLA, EOMI, Heart: Regular S1-S2, no carotid bruit, no JVD, no lower extremity edema Lungs: Diminished breath sound, no wheeze or rales auscultated Abdomen: Soft nontender, no organomegaly Extremity: No cyanosis, no deformity, normal strength 5 out of 5 with upper and lower Neuro: No focal neurological deficit normal speech, normal visual field, Motor strength : normal both upper and lower extremity, sensation intact Psych: Alert awake oriented x3, normal affect Results & Data Results & Data ([facility]) Vital Signs (Past 12 Hours) Vital Signs Temp Pulse Pulse Resp BP Pulse Ox 05/22/20 15:11 58 L 18 93 05/22/20 15:00 36.7 C 41 L 18 159/65 H 93 05/22/20 11:48 36.7 C 52 L 18 146/70 H 92 05/22/20 07:34 36.6 C 55 L 18 186/78 H 95 05/22/20 04:08 44 L
[2020-05-22] MEDS ORDERED: WARFARIN SOD 2.5 MG TAB PO SCH (16:00)
[2020-05-22] MEDS: AMIODARONE 200 MG TAB PO SCH (20:37)
[2020-05-22] MEDS: LOSARTAN POTASSIUM 50 MG TAB PO SCH (20:37)
[2020-05-22] MEDS ORDERED: ATORVASTATIN 40 MG TAB PO SCH (21:00)
--- NOTE | 2020-05-23 06:06 | Electrocardiogram Report ---
Test Reason : Blood Pressure : / mmHG Vent. Rate : 119 BPM Atrial Rate : 234 BPM P-R Int : 000 ms QRS Dur : 100 ms QT Int : 386 ms P-R-T Axes : 000 061 048 degrees QTc Int : 542 ms Poor data quality, interpretation may be adversely affected Atrial fibrillation with rapid ventricular response Nonspecific ST abnormality Abnormal ECG When compared with ECG of 28-OCT-2017 19:07, Atrial fibrillation has replaced Sinus rhythm Vent. rate has increased BY 57 BPM T wave inversion no longer evident in Anterolateral leads Confirmed by Jm Rothman ([id number]) on 05/23/2020 6:06:23 AM Referred By: Chester Haider Confirmed By:Jm Rothman
--- NOTE | 2020-05-23 06:08 | Electrocardiogram Report ---
Test Reason : Blood Pressure : / mmHG Vent. Rate : 071 BPM Atrial Rate : 060 BPM P-R Int : 164 ms QRS Dur : 084 ms QT Int : 470 ms P-R-T Axes : 075 055 071 degrees QTc Int : 510 ms Sinus rhythm with frequent Premature ventricular complexes Septal infarct , age undetermined Prolonged QT Abnormal ECG When compared with ECG of 21-MAY-2020 17:39, Sinus rhythm has replaced Atrial fibrillation Vent. rate has decreased BY 48 BPM Septal infarct is now Present Confirmed by Jm Rothman ([id number]) on 05/23/2020 6:08:12 AM Referred By: Chester Haider Confirmed By:Jm Rothman
[2020-05-23] MEDS: PANTOprazole 40 MG TAB PO SCH (06:14)
--- NOTE | 2020-05-23 06:25 | Electrocardiogram Report ---
Test Reason : Blood Pressure : / mmHG Vent. Rate : 058 BPM Atrial Rate : 051 BPM P-R Int : 162 ms QRS Dur : 106 ms QT Int : 502 ms P-R-T Axes : 075 051 069 degrees QTc Int : 492 ms Sinus bradycardia Premature atrial complexes with aberrant conduction Nonspecific T wave abnormality Prolonged QT Abnormal ECG When compared with ECG of 21-May-2020 18:44, Septal infarct is no longer Present Confirmed by Jm Rothman ([id number]) on 05/23/2020 6:25:07 AM Referred By: Chester Haider Confirmed By:Jm Rothman
[2020-05-23 07:27] LABS: INR 2.3 (0.9-1.1); Prothrombin Time 21.9 Seconds (9.0-12.0)
[2020-05-23] MEDS: FLUTICASONE PROPIONATE NA SPR 16 GM BTL NAE SCH (08:03)
[2020-05-23] MEDS: FLUTICASONE/VILANTEROL 100/25MCG 14 PUFFS/INHALER INH SCH (08:03)
[2020-05-23] MEDS: CETIRIZINE HCL 10 MG TABLET PO SCH (08:07)
[2020-05-23] MEDS: OXYBUTYNIN CHLORIDE 5 MG TAB PO SCH (08:07)
[2020-05-23] MEDS: MONTELUKAST SODIUM 10 MG TABLET PO SCH (08:07)
[2020-05-23] MEDS: LOSARTAN POTASSIUM 50 MG TAB PO SCH (08:08)
[2020-05-23] MEDS ORDERED: predniSONE 20 MG TAB PO SCH (09:00)
--- NOTE | 2020-05-23 10:40 | Cardiology Progress Note ---
Date of Service May 23, 2020 Assessment & Plan (1) Chest pain: Patient is a 69-year-old male with underlying issues as outlined above including hypertension, nonischemic cardiomyopathy, paroxysmal atrial fibrillation and chronic obstructive lung disease who presents with symptoms of abdominal and chest pressure and tachypalpitations after initiating a course of therapy for COPD exacerbation. Assessment notable for hypertensive urgency but no acute cardiac ischemia by EKG or enzyme criteria. Echocardiogram demonstrates overall improved LV systolic function in comparison to prior studies. Patient has had some difficulties with his medications due to cost and emotional overlay Recommendations/plan: Continue amiodarone 200 mg twice per day.. Concerns regarding bradycardia present reflected only sinus bradycardia with no significant pauses. Reported heart rates of 40 reflect R to R interval increase in association with ventricular ectopy on single beats Change diltiazem dosing to 240 mg p.m. hopefully aid in early a.m. arrhythmias Continue increased dose of losartan 50 twice daily Check BMP today given brisk response to single dose of oral furosemide yesterday. Will likely require once or twice weekly dosing post discharge but will not order Will need close clinical follow-up with cardiology post discharge reestablishment with coag clinic (2) Hypertensive urgency: (3) Paroxysmal atrial fibrillation: (4) Nonischemic cardiomyopathy: (5) HLD (hyperlipidemia): (6) Coronary artery disease: Admission and Anticipated Discharge Date Admission Date: May 21, 2020 Subjective Patient was seen and examined, chart, medications, telemetry reviewed Feels improved overnight. No wheezing or cough. Had brisk response to oral diuretic single dose with weight down 2 kg Blood pressure is much better control Did have an episode of approximate 1-1/2 hours of atrial fibrillation at 615 this morning with spontaneous return to sinus rhythm. Patient unaware Amiodarone held due to lower heart rate. No profound bradycardia arrhythmias on review of telemetry No chest pains or discomfort no dizziness or lightheadedness. Review of Systems Review of Systems: All systems reviewed & are unremarkable except as noted in HPI & below Physical Exam Constitutional: + obese; no acute distress Eyes: PERRL, conjunctivae normal, anicteric sclerae ENMT: external ear and nose normal, oropharynx normal Neck: trachea midline, no thyromegaly + thick neck Respiratory: Auscultation: no wheezes (Improved from day prior) Cardiovascular: Rate/Rhythm: regular rate and regular rhythm Heart Sounds: normal S1 and normal S2; no gallop and no murmur Palpation: normal PMI Vessels: normal carotid upstroke and radial pulses present; no JVD and no carotid bruit Extremities: no edema Gastrointestinal (Abdomen): normal bowel sounds, soft, nontender, no hepatosplenomegaly Musculoskeletal: no cyanosis or clubbing, extremities motor strength 5/5 Skin: no rashes, warm and dry Neurologic: PERRL, EOMI, accommodation nl, no face palsy, no dysarthria Psychiatric: A+Ox3, euthymic affect Results & Data ([facility]) Vital Signs (Past 12 Hours) Vital Signs Temp Pulse Pulse Resp BP BP Pulse Ox 05/23/20 07:35 36.6 C 16 137/87 94 05/23/20 04:21 36.8 C 49 L 18 146/77 H 92 05/22/20 23:00 36.4 C L 52 L 18 138/70 92 05/22/20 22:44 56 L Laboratory Results Laboratory Results - last 24 hr 05/23/20 07:03 PT 21.9 H INR 2.3 H (1) Chest pain Chest pain type: unspecified Qualified Code(s): R07.9 - Chest pain, unspecified
[2020-05-23] MEDS: AMIODARONE 200 MG TAB PO SCH ×2 (10:55→11:21)
[2020-05-23] MEDS: dilTIAZem HCL 240 MG CAPCR PO SCH (10:55)
[2020-05-23 11:41] LABS: BUN Creatinine Ratio 20.5 (10-20); Calcium 8.5 mg/dl (8.5-10.1); Creatinine Clr Calc Pharmacy 66.9 ml/min; Est GFR (African American) 67.7; Est GFR (Non-African American) 58.4
--- NOTE | 2020-05-23 14:32 | Discharge Summary ---
Date of Service May 23, 2020 Admission HPI Per Admitting Provider Pt is 69 y/o M with PMH paroxysmal atrial fibrillation on amiodarone and Coumadin, nonischemic cardiomyopathy, nonobstructive CAD, asthma, h/o SVT s/p ablation, dyslipidemia, chronic back pain presented to ER with c/o Irregular heart beat and chest pressure. Pt reports h/o paroxysmal A-fib and has intermittent episodes of sensation irregular heartbeat with mid chest pressure that lasts minutes to an hour and resolves. Pt states last night starting with palpitation and mid chest pressure that is non-radiating. Denies diaphoresis, dizziness. States felt pulse and irregular and his home pulse ox reading pulse from 60s -120's. Pt with recent cardiology visit with Dr Haider and in office EKG reported Afib rate 100 with nonspecific t wave abnormality. Of note at that time pt was to be taking diltiazem BID, however was only taking once daily. Pt reports for past week has been taking Dilitiazem BID. Pt reports increased wheezing and SOB with exertion and he started prednisone taper rescue pack. He currently has one day of 30mg remaining then goes to 20mg daily x 4 days, then 10mg daily x 4 days. He has not felt the need to use albuterol/combivent. He states in past he felt that those worsened his symptoms. Pt reports less SOB and wheezing since starting prednisone and feels he is back to his baseline. (pt states has chronic wheeze). Reports mild BLE edema. Denies fever/chills, N/V/D/C, RODRIGEZ, dizziness, syncope, vision changes, neck pain, orthopnea, hemoptysis, sore throat, choking, otalgia, rhinorrhea, abdominal pain, paresthesias, weakness, extremity weakness, rashes, urinary symptoms. Principal Diagnosis Atrial Fibrillation chronic asthma/COPD Hypertensive urgency -resolved Discharge Exam Physical exam: General: No acute distress, alert awake oriented x3 HEENT: PERRLA, EOMI, Heart: Regular S1-S2, no carotid bruit, no JVD, no lower extremity edema Lungs: Clear to auscultate, no wheeze or rales Abdomen: Soft nontender, no organomegaly Extremity: No cyanosis, no deformity, normal strength 5 out of 5 with upper and lower Neuro: No focal neurological deficit normal speech, normal visual field, Motor strength : normal both upper and lower extremity, sensation intact Psych: Alert awake oriented x3, normal affect Discharge Data Allergies Allergy/AdvReac Type Severity Reaction Status Date / Time cat dander Allergy Intermediate SNEEZING, Verified 05/21/20 19:43 CONGESTION pollen extracts Allergy Intermediate SNEEZING, Verified 05/21/20 19:43 CONGESTION Consultations 05/21/20 19:44 ED Decision to Admit Stat 05/22/20 08:00 Consult Cardiology Routine Hospital Course (1) Paroxysmal atrial fibrillation: Pt is 69 y/o M with PMH paroxysmal atrial fibrillation on amiodarone and Coumadin, nonischemic cardiomyopathy, nonobstructive CAD, asthma, h/o SVT s/p ablation, dyslipidemia, chronic back pain presented to ER with c/o Irregular heart beat and chest pressure x 1 day Chest pain no further complain Secondary to A. fib RVR Currently heart rate with controlled with sinus rhythm Symptom has completely resolved, patient denies of chest heaviness or chest discomfort since admission Appreciate input from cardiology recommends to increase amiodarone to 200 mg twice daily, cardizem dose adjusted to 240 mg HS to prevent morning arrythmia Patient is continued with chronic anticoagulation with Coumadin INR theraputic appreciate input from Cardiology stable to be discharged home with above change of meds Hypertensive urgency: on Losartan 50 mg PO BID Patient is continued with Cardizem Paroxysmal atrial fibrillation: Currently heart rate and rhythm controlled after adjusting of med HLD (hyperlipidemia): gemfibrozil discontinued by cardiology for drug interaction with diltiazem and amiodarone continue atorvastatin current dosing (2) Asthma: Recent asthma flare with increased wheezing and SOB. Pt started prednisone rescue pack with improvement CXR: no acute infiltrate. COVID 19 PCR and Influenza PCR are negative -Continue prednisone taper Ordered for nebulizer treatment with Xopenex Frequent PAC/PAT: Premature atrial tachycardia Possible secondary to underlying lung disease, cont PO Cardizem 240 hs /amiodarone dose increased to 200 mg BID (3) HTN (hypertension): -Continue diltiazem, losartan (4) HLD (hyperlipidemia): -Continue statin, Gemfibrozil discontinued secondary to drug interaction (5) Nonischemic cardiomyopathy: Nonobstructive CAD Repeat echo shows diastolic dysfunction, no wall motion abnormality (6) Chronic back pain: -Continue hydrocodone prn DVT Prophylaxis -On Coumadin, INR is therapeutic Full Code as per discussion with pt Disposition: stable to be discharged home today Total Time Total Time Spent Total Time Spent (In Minutes): approx 40 mins Total Time Includes: Examination of the Patient, Discharge Planning and Medication Reconciliation Discharge Plan Discharge Items Patient Disposition: Home - Self-Care Reason For Visit: CP Discharge Diagnosis: Atrial Fibrillation chronic asthma/COPD Hypertensive urgency -resolved Activity: Resume your previous activity Non-emergency contact: Primary Care Provider Call non-emergency contact if: you have any medication questions Follow-up/Referrals: Paris Lizama MD [Primary Care Provider] - (Date & Time 05/27/2020 11:00 AM Provider William Martinez MD Department General Internal Medicine [facility] Covid 19 Vaccination: 05/28/2020 1:00 PM Covid19 Vaccine 1st Dose Department [address] ) Diet: Heart Healthy [facility] Attending Provider Instructions: Please take all medications as instructed on discharge list below. It is recommended that you follow-up with your primary care physician within 1-2 weeks of hospital discharge to ensure you are still doing well. Please call if you have any questions or problems. You can reach a [facility] hospitalist on duty at [facility] 24 hours a day by calling [phone] Kamilla [employer] Provider Instructions: Medication changes : please take Cardizem tablet at night ( once daily ) Your Amiodarone tablet 200 mg increased to twice daily ( you were taking it once daily ) New Medication added for blood pressure control Losartan 50 mg tablet twice daily Do not take Gemfibrozil -it can cause drug interaction between Amiodarone on higher dose Pending Studies at Discharge: No Stand-Alone Forms: My [facility], Smoking Cessation Medications and DC Order Prescriptions: New losartan 50 mg Tablet 50 mg PO BID Qty: 60 RF: 0 diltiazem HCl 240 mg capsule,extended release 24hr 240 mg PO PM Qty: 30 RF: 0 Continued ipratropium-albuterol [Combivent Respimat] 20-100 mcg/actuation mist See Rx Instructions .ROUTE .COMPLEX Qty: 3 RF: 3 albuterol sulfate 2.5 mg /3 mL (0.083 %) solution for nebulization See Rx Instructions continuous nebulization .COMPLEX PRN (Reason: shortness of breath or wheezing) Qty: 3 RF: 0 atorvastatin 40 mg tablet 40 mg PO HS RF: 0 cetirizine 10 mg tablet 10 mg PO DAILY RF: 0 fluticasone propionate 50 mcg/actuation spray,suspension 2 sprays intranasal DAILY Qty: 1 RF: 0 hydrocodone-acetaminophen 7.5-325 mg tablet 1 tab PO Q6H PRN (Reason: pain) RF: 0 montelukast 10 mg tablet 10 mg PO DAILY RF: 0 omeprazole 20 mg capsule,delayed release(DR/EC) 20 mg PO DAILYBB RF: 0 oxybutynin chloride 5 mg tablet 5 mg PO DAILY RF: 0 omalizumab 150 mg recon soln 0 mg subcut Q4WK Qty: 1 RF: 0 doxycycline hyclate 100 mg Capsule 100 mg PO BID PRN (Reason: RESCUE KIT) RF: 0 omega-3 fatty acids 1,000 mg Capsule 1,000 mg PO DAILY RF: 0 warfarin 2.5 mg tablet 2.5 mg PO DAILY RF: 0 azelastine 137 mcg (0.1 %) Aerosol,[place] 2 spray INTRANASAL BID PRN (Reason: NEEDED) RF: 0 Breo Ellipta 100-25 mcg/dose Blister With Device 1 inh INHALATION BID RF: 0 Changed amiodarone 200 mg tablet 200 mg PO BID Qty: 60 RF: 0 Discontinued diltiazem HCl 240 mg capsule,extended release 24hr 240 mg PO BID RF: 0 gemfibrozil 600 mg tablet 600 mg PO AC RF: 0 prednisone 10 mg tablet 10 mg PO .COMPLEX PRN (Reason: RESCUE KIT) RF: 0 Discharge Orders: Discharge Order (Routine); Ordered 05/23/20 Ordered By: Kassi Carlson Admission Data Admit Date/Time: 05/21/20 21:02 Attending Provider: Kassi Carlson Admit Provider: Ed Lowe Primary Care Provider: Paris Lizama Other Providers: Ed Lowe ; Magdaleno Lara Other Interventions: Discharge Summary Assessment (RN) Last Done: 05/23/20 12:51
[2020-05-23] MEDS ORDERED: dilTIAZem HCL 240 MG CAPCR PO SCH (21:00)
== END 2020-05-23 14:45 | disposition home or self-care (01) | DRG 309 ==
LOC: ED 17:24 → 2N 21:02 → SUATTDRO 21:02 → 2N 23:42

== ENCOUNTER 2020-09-30 13:49 | Inpatient (IN) ==
--- NOTE | 2020-09-30 14:26 | Emergency Department Note ---
Impression & Plan Hypoxia, Breath shortness ED Provider Note NAME: JUDITH CROWDER AGE: 69 SEX: M : 1950 ARRIVES VIA: Walk-In INFORMANT: Patient ED PROVIDER(S): Perez Pearl DO CHIEF COMPLAINT: Shortness of breath HPI: Patient is a 69-year-old male who presents the ER for shortness of breath. Patient notes that this has been present for the past 3 months. Is associated with a cough which is slightly changed over the past 24 hours and has gotten thicker. He denies any headache or change in vision. No belly pain, nausea, vomiting, or diarrhea. He notes he is following with cardiology and he had a monitor which showed that he had a 3-second pause and they are trying to set him up for a pacemaker. He notes his shortness of breath is only with exertion and recently over the past 24 hours has been staying much longer after he exerts himself. This is very atypical. Does not normally wear oxygen. ROS: See above HPI for pertinent positives & negatives. A total of 10 systems reviewed and were otherwise negative. PAST MEDICAL HISTORY:See Below PAST SURGICAL HISTORY:See Below FAMILY HISTORY:See Below SOCIAL HISTORY:See Below HOME MEDICATIONS:See Below ALLERGIES:See Below VITALS:See Below PHYSICAL EXAMINATION: GENERAL: Sitting up in bed, alert, well appearing, well nourished, no distress, non-toxic EYE EXAM: normal conjunctiva. OROPHARYNX: no exudate, no erythema, lips, buccal mucosa, and tongue normal and mucous membranes are moist NECK: supple, no nuchal rigidity, no adenopathy, non-tender LUNGS: Clear to auscultation. Normal chest wall mechanics HEART: no murmurs, S1 normal and S2 normal ABDOMEN: abdomen soft, non-tender, normo-active bowel sounds, no masses, no rebound or guarding. UPPER EXTREMITIES: upper extremities are grossly normal. LOWER EXTREMITIES: Pitting edema bilateral lower extremities NEURO EXAM: Normal sensorium, cranial nerves II-XII grossly intact, normal speech, no gross weakness of arms, no gross weakness of legs. MEDICAL DECISION MAKING: Patient is a 69-year-old male who presents ER for exertional shortness of breath which has been worsening over the past several months. IV was established blood work is obtained. He was hypoxic at 83% on room air. He does not wear oxygen. He was placed on 3 L nasal cannula. IV was established blood work was obtained. Labs show no significant leukocytosis or anemia. INR at 4.3. Considered PE but did not pursue any further with a significantly elevated INR. BMP slightly elevated chloride. LFTs bilirubin were unremarkable. Lipase was normal. Troponin was negative. proBNP only 78. Covid was negative. Chest x-ray appears unchanged from previous. EKG was nondiagnostic. He was updated bedside. He was never smoker. There is no wheezing. He was discussed with the hospitalist admitted for further work-up. Triage Nursing notes reviewed. Limited review of prior medical records performed Vital Signs: reviewed and remarkable for bradycardia Differential diagnosis: Differential diagnoses includes but is not limited to pneumonia, bronchitis, COPD/Asthma exacerbation, pneumothorax, pulmonary embolism, congestive heart failure, acute coronary syndrome ER treatment provided: See below Diagnostics interpreted by me: ECG: Sinus bradycardia rate of 59 Normal axis Poor baseline QTC 447 Cardiac Monitoring: An order was placed for continuous cardiac monitoring. The monitor shows a rate of 52 with sinus rhythm. Laboratory studies: As stated above and show below. Imaging studies: Portable AP upright 1 view the chest shows no focal infiltrate or pneumothorax Consultation(s): none Procedures: none Critical Care: I have personally spent 33 minutes of critical care time in the direct management of this patient. This includes bedside care, interpretation of diagnostic studies, and testing, discussion with consultants, patient, and [facility] members, and other required patient management activities. This 33 minutes is in excess of all separately billable procedures. Past Med/Surg History Medical History Asthma Chronic back pain GERD (gastroesophageal reflux disease) History of paroxysmal supraventricular tachycardia S/P ablation in 2009 HLD (hyperlipidemia) HTN (hypertension) Nonischemic cardiomyopathy 2013 echo: EF: 40%, moderate global hypokinesis Paroxysmal atrial fibrillation Surgical History H/O hernia repair S/P appendectomy S/P cholecystectomy Family History Other Asthma Social History Smoking Status: Never smoker Second Hand Exposure: No; Hx Alcohol Use: No Hx Substance Use: No Preferred Language: Malay Communication Ability: Effective Radiation Oncology Manager Required: No Beliefs That Will Affect Care: None marital status: Current Living Situation: Family Current Living Situation Comment: Lives with two sons current occupational status: disabled Feels Safe at Home: Yes Assistive Devices: None Allergies Allergies Allergy/AdvReac Type Severity Reaction Status Date / Time cat dander Allergy Intermediate SNEEZING, Verified 09/30/20 16:05 CONGESTION pollen extracts Allergy Intermediate SNEEZING, Verified 09/30/20 16:05 CONGESTION Home Meds Home Medications Medication Instructions Recorded Confirmed albuterol sulfate See Rx Instructions CONTINUOUS 09/18/18 09/30/20 NEBULIZATION .COMPLEX PRN #3 ml cetirizine 10 mg tablet 10 mg PO DAILY tab 09/18/18 09/30/20 fluticasone propionate 50 2 sprays INTRANASAL DAILY #1 gm 09/18/18 09/30/20 mcg/actuation nasal spray,suspension hydrocodone 7.5 mg-acetaminophen 1 tab PO Q6H PRN tab 09/18/18 09/30/20 325 mg tablet montelukast 10 mg tablet 10 mg PO DAILY tab 09/18/18 09/30/20 omalizumab 150 mg subcutaneous 0 mg SUBCUT Q4WK #1 ea 09/18/18 09/30/20 solution omeprazole 20 mg capsule,delayed 20 mg PO DAILYBB cap 09/18/18 09/30/20 release azelastine 137 mcg (0.1 %) nasal 2 spray INTRANASAL BID PRN 05/21/20 09/30/20 spray aerosol doxycycline hyclate 100 mg capsule 100 mg PO BID PRN 05/21/20 09/30/20 fluticasone furoate 100 1 inh INHALATION BID 05/21/20 09/30/20 mcg-vilanterol 25 mcg/dose inhalation powder (Breo Ellipta) omega-3 fatty acids 1,000 mg 1,000 mg PO DAILY 05/21/20 09/30/20 capsule warfarin 2.5 mg tablet 2.5 mg PO DAILY 05/21/20 09/30/20 amiodarone 200 mg tablet 200 mg PO DAILY 09/30/20 09/30/20 atorvastatin 80 mg tablet 80 mg PO HS 09/30/20 09/30/20 furosemide 20 mg tablet 20 mg PO .1-2 TIMES PER WEEK 09/30/20 09/30/20 ipratropium 20 mcg-albuterol 100 1 puff INHALATION Q6 PRN 09/30/20 09/30/20 mcg/actuation mist for inhalation (Combivent Respimat) losartan 50 mg tablet 50 mg PO DAILY 09/30/20 09/30/20 Previous Rx's Medication Instructions Recorded diltiazem HCl 240 mg 240 mg PO PM #30 cap 05/23/20 capsule,extended release 24 hr Results & Data (ED) Vital Signs Vital Signs - 24 hr 09/30/20 13:50 09/30/20 13:55 09/30/20 14:07 Temperature 36.9 C Temperature Source Temporal Artery Scan Pulse Rate 56 L 59 L Pulse Rate [Right Finger] Pulse Rate from SpO2 Sensor Respiratory Rate 15 26 H Respiratory Effort / Characteristics Non-Labored Spontaneous Respiratory Depth Normal Blood Pressure 139/74 Blood Pressure Mean 95 Blood Pressure Position Sitting Pulse Oximetry 90 Oxygen Delivery Method Nasal Cannula Room Air Oxygen Flow Rate 2 Sepsis Recent Fever Within 48 Hours No Sepsis New/Unexplained Change in Mental Status N/A Sepsis Action Taken by Nursing No Action Required 09/30/20 14:25 09/30/20 15:00 09/30/20 15:31 Temperature Temperature Source Pulse Rate 50 L 51 L Pulse Rate [Right Finger] Pulse Rate from SpO2 Sensor 50 L 51 L Respiratory Rate 17 22 Respiratory Effort / Characteristics Respiratory Depth Blood Pressure 163/82 H 144/77 H Blood Pressure Mean 109 99 Blood Pressure Position Pulse Oximetry 96 96 96 Oxygen Delivery Method Nasal Cannula Oxygen Flow Rate 2 Sepsis Recent Fever Within 48 Hours Sepsis New/Unexplained Change in Mental Status Sepsis Action Taken by Nursing 09/30/20 16:01 09/30/20 16:31 09/30/20 17:24 Temperature Temperature Source Pulse Rate 54 L 49 L Pulse Rate [Right Finger] 58 L Pulse Rate from SpO2 Sensor 54 L 49 L Respiratory Rate 18 16 18 Respiratory Effort / Characteristics Non-Labored Spontaneous Respiratory Depth Blood Pressure 143/86 H 154/90 H Blood Pressure Mean 105 111 Blood Pressure Position Pulse Oximetry 96 95 95 Oxygen Delivery Method Nasal Cannula Oxygen Flow Rate 2 Sepsis Recent Fever Within 48 Hours Sepsis New/Unexplained Change in Mental Status Sepsis Action Taken by Nursing Laboratory Data Result diagrams: 09/30/20 14:39 09/30/20 14:39 Lab Results 09/30/20 09/30/20 09/30/20 Range/Units 14:39 14:39 14:39 WBC 8.52 (4.8-10.8) K/uL RBC 4.45 L (4.7-6.1) M/uL Hgb 13.5 L (14.0-18.0) g/dL Hct 41.4 L (42-52) % MCV 93.0 (80-100) fL MCH 30.3 (25-34) pg MCHC 32.6 (32-36) g/dL RDW Std Deviation 51.6 H (36.4-46.3) fL RDW Coeff of Danyell 15.1 H (11.5-14.5) % Plt Count 166 (130-400) K/uL MPV 9.8 (7.4-10.4) fL Immature Gran % (Auto) 0.4 % Neut % (Auto) 87.9 % Lymph % (Auto) 8.8 % Frederick % (Auto) 1.8 % Eos % (Auto) 0.7 % Baso % (Auto) 0.4 % Neut # (Auto) 7.50 H (1.4-6.5) K/uL Lymph # (Auto) 0.75 L (1.2-3.4) K/uL Frederick # (Auto) 0.15 (0.11-0.59) K/uL Eos # (Auto) 0.06 (0-0.5) K/uL Baso # (Auto) 0.03 (0-0.2) K/uL Immature Gran # (Auto) 0.03 H (0.00-0.02) K/uL PT 39.1 H (9.0-12.0) Seconds INR 4.3 H (0.9-1.1) APTT 44.3 H (21.0-31.0) Seconds PTT Ratio 1.7 Sodium 143 (136-145) mmol/L Potassium 4.7 (3.5-5.1) mmol/L Chloride 108 H (98-107) mmol/L Carbon Dioxide 31 (21-32) mmol/L Anion Gap 4.0 (3-11) BUN 16 (7-18) mg/dl Creatinine 1.21 (0.6-1.4) mg/dl Est Cr Clr Drug Dosing 66.2 ml/min Est GFR ( Amer) 70.4 ml/min Est GFR (Non-Af Amer) 60.7 ml/min BUN/Creatinine Ratio 13.3 (10-20) Glucose 127 H (70-99) mg/dl Calcium 9.1 (8.5-10.1) mg/dl Total Bilirubin 0.9 (0.2-1) mg/dl AST 34 (15-37) U/L ALT 66 (12-78) U/L Alkaline Phosphatase 98 (45-117) U/L Troponin I < 0.015 (0-0.045) ng/ml NT-Pro-B Natriuret Pep (0-900) pg/ml Total Protein 7.4 (6.4-8.2) gm/dl Albumin 3.6 (3.4-5.0) gm/dl Globulin 3.8 (2.5-4.0) gm/dl Albumin/Globulin Ratio 0.9 (0.9-2) Lipase 117 (73-393) U/L Procalcitonin (0-0.5) ng/ml TSH (0.300-4.500) uIu/ml COVID-19 Eval Order SARS-CoV-2 (PCR) (Negative) 09/30/20 09/30/20 09/30/20 Range/Units 14:39 14:39 15:16 WBC (4.8-10.8) K/uL RBC (4.7-6.1) M/uL Hgb (14.0-18.0) g/dL Hct (42-52) % MCV (80-100) fL MCH (25-34) pg MCHC (32-36) g/dL RDW Std Deviation (36.4-46.3) fL RDW Coeff of Danyell (11.5-14.5) % Plt Count (130-400) K/uL MPV (7.4-10.4) fL Immature Gran % (Auto) % Neut % (Auto) % Lymph % (Auto) % Frederick % (Auto) % Eos % (Auto) % Baso % (Auto) % Neut # (Auto) (1.4-6.5) K/uL Lymph # (Auto) (1.2-3.4) K/uL Frederick # (Auto) (0.11-0.59) K/uL Eos # (Auto) (0-0.5) K/uL Baso # (Auto) (0-0.2) K/uL Immature Gran # (Auto) (0.00-0.02) K/uL PT (9.0-12.0) Seconds INR (0.9-1.1) APTT (21.0-31.0) Seconds PTT Ratio Sodium (136-145) mmol/L Potassium (3.5-5.1) mmol/L Chloride (98-107) mmol/L Carbon Dioxide (21-32) mmol/L Anion Gap (3-11) BUN (7-18) mg/dl Creatinine (0.6-1.4) mg/dl Est Cr Clr Drug Dosing ml/min Est GFR ( Amer) ml/min Est GFR (Non-Af Amer) ml/min BUN/Creatinine Ratio (10-20) Glucose (70-99) mg/dl Calcium (8.5-10.1) mg/dl Total Bilirubin (0.2-1) mg/dl AST (15-37) U/L ALT (12-78) U/L Alkaline Phosphatase (45-117) U/L Troponin I (0-0.045) ng/ml NT-Pro-B Natriuret Pep 78 (0-900) pg/ml Total Protein (6.4-8.2) gm/dl Albumin (3.4-5.0) gm/dl Globulin (2.5-4.0) gm/dl Albumin/Globulin Ratio (0.9-2) Lipase (73-393) U/L Procalcitonin < 0.05 (0-0.5) ng/ml TSH 2.610 (0.300-4.500) uIu/ml COVID-19 Eval Order Covid19 at [facility] SARS-CoV-2 (PCR) (Negative) 09/30/20 Range/Units 15:16 WBC (4.8-10.8) K/uL RBC (4.7-6.1) M/uL Hgb (14.0-18.0) g/dL Hct (42-52) % MCV (80-100) fL MCH (25-34) pg MCHC (32-36) g/dL RDW Std Deviation (36.4-46.3) fL RDW Coeff of Danyell (11.5-14.5) % Plt Count (130-400) K/uL MPV (7.4-10.4) fL Immature Gran % (Auto) % Neut % (Auto) % Lymph % (Auto) % Frederick % (Auto) % Eos % (Auto) % Baso % (Auto) % Neut # (Auto) (1.4-6.5) K/uL Lymph # (Auto) (1.2-3.4) K/uL Frederick # (Auto) (0.11-0.59) K/uL Eos # (Auto) (0-0.5) K/uL Baso # (Auto) (0-0.2) K/uL Immature Gran # (Auto) (0.00-0.02) K/uL PT (9.0-12.0) Seconds INR (0.9-1.1) APTT (21.0-31.0) Seconds PTT Ratio Sodium (136-145) mmol/L Potassium (3.5-5.1) mmol/L Chloride (98-107) mmol/L Carbon Dioxide (21-32) mmol/L Anion Gap (3-11) BUN (7-18) mg/dl Creatinine (0.6-1.4) mg/dl Est Cr Clr Drug Dosing ml/min Est GFR ( Amer) ml/min Est GFR (Non-Af Amer) ml/min BUN/Creatinine Ratio (10-20) Glucose (70-99) mg/dl Calcium (8.5-10.1) mg/dl Total Bilirubin (0.2-1) mg/dl AST (15-37) U/L ALT (12-78) U/L Alkaline Phosphatase (45-117) U/L Troponin I (0-0.045) ng/ml NT-Pro-B Natriuret Pep (0-900) pg/ml Total Protein (6.4-8.2) gm/dl Albumin (3.4-5.0) gm/dl Globulin (2.5-4.0) gm/dl Albumin/Globulin Ratio (0.9-2) Lipase (73-393) U/L Procalcitonin (0-0.5) ng/ml TSH (0.300-4.500) uIu/ml COVID-19 Eval Order SARS-CoV-2 (PCR) NEGATIVE (Negative) Administered Medications Discontinued Medications Albuterol (Albut/Ipratrop 3mg/0.5mg Neb 3 Ml Vial) 3 ml NEB NOW STA Stop: 09/30/20 17:14 Last Admin: 09/30/20 17:24 Dose: 3 ml Documented by: [id number] Furosemide (Furosemide 40 Mg/4 Ml Vial) 20 mg IV NOW STA Stop: 09/30/20 17:14 Last Admin: 09/30/20 17:32 Dose: 20 mg Documented by: [id number] Methylprednisolone (Methylprednisolone 125 Mg/2 Ml Vial) 60 mg IV NOW STA Stop: 09/30/20 17:14 Last Admin: 09/30/20 17:32 Dose: 60 mg Documented by: [id number] Imaging Data Radiologist's Impression: Chest X-Ray 09/30/20 14:25 XR chest 1V portable CLINICAL HISTORY: Chest pain. COMPARISON STUDY: Chest CT October 28, 2017. Chest radiograph May 21, 2020. FINDINGS: Lung volumes are normal. Incidental note is made of an azygos fissure. There is no pneumothorax or pleural effusion. Cardiomegaly is unchanged. There is no consolidation. No evidence for pulmonary edema. The appearance of the chest is unchanged. Subtle lower lung interstitial thickening is unchanged. IMPRESSION: No acute cardiopulmonary findings. No change in appearance of the chest. ACT 112: Negative or not required by law. Electronically signed by: Milan Oneal M.D. 09/30/2020 3:52 PM Discharge Plan Visit Data Chief Complaint: Chest Pain Stated Complaint: CHEST PAIN ED Provider: Perez Pearl Discharge Problem: Hypoxia, Breath shortness Forms Stand Alone Forms: My [facility] Prescriptions Prescriptions: No Action albuterol sulfate 2.5 mg /3 mL (0.083 %) solution for nebulization See Rx Instructions continuous nebulization .COMPLEX PRN (Reason: shortness of breath or wheezing) Qty: 3 RF: 0 cetirizine 10 mg tablet 10 mg PO DAILY RF: 0 fluticasone propionate 50 mcg/actuation spray,suspension 2 sprays intranasal DAILY Qty: 1 RF: 0 hydrocodone-acetaminophen 7.5-325 mg tablet 1 tab PO Q6H PRN (Reason: pain) RF: 0 montelukast 10 mg tablet 10 mg PO DAILY RF: 0 omeprazole 20 mg capsule,delayed release(DR/EC) 20 mg PO DAILYBB RF: 0 omalizumab 150 mg recon soln 0 mg subcut Q4WK Qty: 1 RF: 0 doxycycline hyclate 100 mg Capsule 100 mg PO BID PRN (Reason: RESCUE KIT) RF: 0 omega-3 fatty acids 1,000 mg Capsule 1,000 mg PO DAILY RF: 0 warfarin 2.5 mg tablet 2.5 mg PO DAILY RF: 0 azelastine 137 mcg (0.1 %) Aerosol,[place] 2 spray INTRANASAL BID PRN (Reason: NEEDED) RF: 0 Breo Ellipta 100-25 mcg/dose Blister With Device 1 inh INHALATION BID RF: 0 diltiazem HCl 240 mg capsule,extended release 24hr 240 mg PO PM Qty: 30 RF: 0 atorvastatin 80 mg tablet 80 mg PO HS RF: 0 furosemide 20 mg tablet 20 mg PO .1-2 TIMES PER WEEK RF: 0 Combivent Respimat 20-100 mcg/actuation mist 1 puff inhalation Q6 PRN (Reason: as needed) RF: 0 losartan 50 mg tablet 50 mg PO DAILY RF: 0 amiodarone 200 mg tablet 200 mg PO DAILY RF: 0 Referrals Referrals: Paris Lizama MD [Primary Care Provider] -
[2020-09-30 14:49] LABS: Basophils # (auto) 0.03 K/uL (0-0.2); Basophils % (auto) 0.4 %; Eosinophils # (auto) 0.06 K/uL (0-0.5); Eosinophils % (auto) 0.7 %; Hematocrit (blood only) 41.4 % (42-52); Hemoglobin 13.5 g/dL (14.0-18.0); Immature Granulocytes # (auto) 0.03 K/uL (0.00-0.02); Immature Granulocytes % (auto) 0.4 %; Lymphocytes # (auto) 0.75 K/uL (1.2-3.4); Lymphocytes % (auto) 8.8 %; Mean Corpuscular Hemoglobin 30.3 pg (25-34); Mean Corpuscular Hgb Conc 32.6 g/dL (32-36); Mean Platelet Volume 9.8 fL (7.4-10.4); Monocytes # (auto) 0.15 K/uL (0.11-0.59); Monocytes % (auto) 1.8 %; Neutrophils % (auto) 87.9 %; Platelet Count 166 K/uL (130-400); RDW Coefficient of Variation 15.1 % (11.5-14.5); RDW Standard Deviation 51.6 fL (36.4-46.3); Red Blood Count 4.45 M/uL (4.7-6.1); White Blood Count 8.52 K/uL (4.8-10.8)
[2020-09-30 15:06] LABS: Alanine Aminotransferase 66 U/L (12-78); Albumin Level 3.6 gm/dl (3.4-5.0); Aspartate Aminotransferase 34 U/L (15-37); BUN Creatinine Ratio 13.3 (10-20); Blood Urea Nitrogen 16 mg/dl (7-18); Calcium 9.1 mg/dl (8.5-10.1); Carbon Dioxide 31 mmol/L (21-32); Chloride 108 mmol/L (98-107); Creatinine Clr Calc Pharmacy 66.2 ml/min; Est GFR (African American) 70.4 ml/min; Est GFR (Non-African American) 60.7 ml/min; Glucose 127 mg/dl (70-99); Lipase 117 U/L (73-393); Potassium 4.7 mmol/L (3.5-5.1); Sodium 143 mmol/L (136-145)
[2020-09-30 15:10] LABS: INR 4.3 (0.9-1.1); Partial Thromboplastin Ratio 1.7; Partial Thromboplastin Time 44.3 Seconds (21.0-31.0); Prothrombin Time 39.1 Seconds (9.0-12.0)
[2020-09-30 15:11] LABS: Albumin Globulin Ratio 0.9 (0.9-2); Alkaline Phosphatase 98 U/L (45-117); Bilirubin,Total 0.9 mg/dl (0.2-1); Globulin 3.8 gm/dl (2.5-4.0); Total Protein 7.4 gm/dl (6.4-8.2); Troponin I < 0.015 ng/ml (0-0.045)
--- NOTE | 2020-09-30 15:53 | XRay Report ---
XR chest 1V portable CLINICAL HISTORY: Chest pain. COMPARISON STUDY: Chest CT October 28, 2017. Chest radiograph May 21, 2020. FINDINGS: Lung volumes are normal. Incidental note is made of an azygos fissure. There is no pneumoth orax or pleural effusion. Cardiomegaly is unchanged. There is no consolidation. No evidence for pulmo nary edema. The appearance of the chest is unchanged. Subtle lower lung interstitial thickening is un changed. IMPRESSION: No acute cardiopulmonary findings. No change in appearance of the chest. ACT 112: Negative or not required by law. Electronically signed by: Milan Oneal M.D. 09/30/2020 3:52 PM
[2020-09-30 17:01] LABS: Thyroid Stimulating Hormone 2.61 uIu/ml (0.300-4.500)
[2020-09-30] MEDS ORDERED: FUROSEMIDE 40 MG/4 ML VIAL IV STA (17:13)
[2020-09-30] MEDS ORDERED: ALBUT/IPRATROP 3MG/0.5MG NEB 3 ML VIAL NEB STA (17:13)
[2020-09-30] MEDS ORDERED: methylPREDNISolone 125 MG/2 ML VIAL IV STA (17:13)
--- NOTE | 2020-09-30 17:52 | History & Physical Report ---
Date of Service September 30, 2020 Assessment & Plan (1) Hypoxia: (2) SOB (shortness of breath): (3) COPD exacerbation: Plan: This is a 69-year-old male who has significant past medical history of PAF anticoagulated on warfarin, nonobstructive CAD, HTN, HLD, history of nonischemic cardiomyopathy ejection fraction now improved, prediabetes, COPD, CKD stage III who presents ED secondary to worsening shortness of breath for months. Sx consistent with COPD exac. Pt with increased sputum production, SOB and hypoxia. Give solu-medrol 60mg IV x 1 now (pt took home dose of oral prednisone this morning) Duoneb x 1. Give IV lasix 20mg x 1 03/11 to lower ext edema. Last PFT 2018 revealed severe obstructive disease. CXR negative for infection admit to PCU (03/11 to known TBS w/o pacemaker placement yet) solumedrol 60mg IV x 1 now; then 40mg IV bid doxycycline 100mg po bid pulmonary toilet with incentive spirometry, duoneb continue breo consult pulm pt may benefit from 2 step prior to discharge as he may require chronic o2 - he states home o2 ranges 88-92 on room air (4) Tachy-starla syndrome: Plan: pt recently seen by cardiology Dr. Swain concern for TBS, zio patch in 05/2020 revealed episodes of pauses x 2, longest 3.3 sec recommendation is for pacemaker placement, pt still deciding given increase in SOB will consult our cardiology colleagues I feel most SOB sx related to pulmonary etiology but will appreciate their input keep on PCU and monitor on tele for arrhythmia (5) Paroxysmal atrial fibrillation: Plan: INR supratherapeutic hold warfarin this evening (home regimen 2.5mg daily) repeat INR in a.m. 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 Paris Lizama FULL CODE Pt was seen and examined in collaboration with Dr. Dill, please see addendum History of Present Illness Chief Complaint: SOB x months. Primary Care Provider: Paris Lizama MD This is a 69-year-old male who has significant past medical history of PAF anticoagulated on warfarin, nonobstructive CAD, HTN, HLD, history of nonischemic cardiomyopathy ejection fraction now improved, prediabetes, COPD, CKD stage III who presents ED secondary to worsening shortness of breath for months. He complains of chronic shortness with exertion but has noticed a progressive decline in breathing status over the last 2 to 3 months. Over the last 2 to 3 months he has noticed increasing shortness of breath with decreasing in activity. This morning when he woke up just walking from the kitchen to the living room made him extremely short of breath requiring him to rest. Symptoms improve and resolve with rest. He further complains of a chronic productive cough but states of late has noted his cough to be increasingly more productive and sputum is purulent. He has known severe asthma/COPD and is a nontobacco user. He has been compliant with Breo and has been taking Combivent 2-3 times a day which does help his symptoms intermittently. He also has been taking albuterol approximately once a day, due to lack of supply. He is concerned with the worsening of his breathing. Also of significance he is following with electrophysiology due to abnormal Zio patch in May 2020. There is concern for tachybradycardia syndrome for which 2 pauses were noted, 1 of 3.3 seconds. He was seen by Dr. Swain on 09/09 who recommended pacemaker placement. Patient elicits that it could have been done the next day, but patient declined and is currently, "thinking about it." He denies any fever, chills, sweats, lightheadedness, dizziness, chest pain, shortness breath at rest, hemoptysis, nausea, vomiting, abdominal pain, change in bowel or urinary habits He denies any weight change, but does have mild lower extremity swelling which is chronic per patient. He feels it is not worse. He has been compliant with his medications. In ED patient made hemodynamically stable although was mildly hypoxic requiring 2 L of oxygen. CBC notable for H&H 13.5 and 41.4, to BC 8.52 glucose 166 INR 4.3, BUN 16, creatinine 1.21, proBNP 78, procal WNL. Chest x-ray negative for acute abnormality. Of significance Last PFT noted 12/20/2018 severe obstructive airway disease with FVC 100% of predicted FEV1 was 44% of predicted. He follows with Editing Intern Dr. Salvador and receives Xolair injections. Allergies Allergy/AdvReac Type Severity Reaction Status Date / Time cat dander Allergy Intermediate SNEEZING, Verified 09/30/20 16:05 CONGESTION pollen extracts Allergy Intermediate SNEEZING, Verified 09/30/20 16:05 CONGESTION Home Medications Medication Instructions Recorded Confirmed Type albuterol sulfate See Rx Instructions CONTINUOUS 09/18/18 09/30/20 History NEBULIZATION .COMPLEX PRN #3 ml cetirizine 10 mg tablet 10 mg PO DAILY tab 09/18/18 09/30/20 History fluticasone propionate 50 2 sprays INTRANASAL DAILY #1 gm 09/18/18 09/30/20 History mcg/actuation nasal spray,suspension hydrocodone 7.5 mg-acetaminophen 1 tab PO Q6H PRN tab 09/18/18 09/30/20 History 325 mg tablet montelukast 10 mg tablet 10 mg PO DAILY tab 09/18/18 09/30/20 History omalizumab 150 mg subcutaneous 0 mg SUBCUT Q4WK #1 ea 09/18/18 09/30/20 History solution omeprazole 20 mg capsule,delayed 20 mg PO DAILYBB cap 09/18/18 09/30/20 History release azelastine 137 mcg (0.1 %) nasal 2 spray INTRANASAL BID PRN 05/21/20 09/30/20 History spray aerosol doxycycline hyclate 100 mg capsule 100 mg PO BID PRN 05/21/20 09/30/20 History fluticasone furoate 100 1 inh INHALATION BID 05/21/20 09/30/20 History mcg-vilanterol 25 mcg/dose inhalation powder (Breo Ellipta) omega-3 fatty acids 1,000 mg 1,000 mg PO DAILY 05/21/20 09/30/20 History capsule warfarin 2.5 mg tablet 2.5 mg PO DAILY 05/21/20 09/30/20 History diltiazem HCl 240 mg 240 mg PO PM #30 cap 05/23/20 09/30/20 Rx capsule,extended release 24 hr amiodarone 200 mg tablet 200 mg PO DAILY 09/30/20 09/30/20 History atorvastatin 80 mg tablet 80 mg PO HS 09/30/20 09/30/20 History furosemide 20 mg tablet 20 mg PO .1-2 TIMES PER WEEK 09/30/20 09/30/20 History ipratropium 20 mcg-albuterol 100 1 puff INHALATION Q6 PRN 09/30/20 09/30/20 History mcg/actuation mist for inhalation (Combivent Respimat) losartan 50 mg tablet 50 mg PO DAILY 09/30/20 09/30/20 History Past Med/Surg History Medical History Asthma Chronic back pain GERD (gastroesophageal reflux disease) History of paroxysmal supraventricular tachycardia S/P ablation in 2009 HLD (hyperlipidemia) HTN (hypertension) Nonischemic cardiomyopathy 2013 echo: EF: 40%, moderate global hypokinesis Paroxysmal atrial fibrillation Surgical History H/O hernia repair S/P appendectomy S/P cholecystectomy Family History Other Asthma Social History Smoking Status: Never smoker Second Hand Exposure: No; Hx Alcohol Use: No Hx Substance Use: No Preferred Language: Armenian Communication Ability: Effective Assembler Engine Required: No Beliefs That Will Affect Care: None marital status: Current Living Situation: Family Current Living Situation Comment: Lives with two sons current occupational status: disabled Other Information That Helps Us Care for You: No Feels Safe at Home: Yes Safety Concerns: Feels Safe At This Time Assistive Devices: None Review of Systems Review of Systems: All systems reviewed & are unremarkable except as noted in HPI & below Physical Exam Physical Exam: Constitutional: WD/WN, M, nontoxic appearing, vitals as above, NAD, sitting up in bed, pleasant, conversing easily Head: Normocephalic, Atraumatic Eyes: PERRL, conjunctivae normal, anicteric sclerae ENMT: external ear and nose normal, oropharynx normal Neck: trachea midline, no thyromegaly normal visual inspection Respiratory: normal respiratory effort, decreased aeration throughout all lung kraus, prolonged exp phase with wheezing noted, no rales, rhonchi. Normal insp/exp effort, no accessory muscle use on 2L of O2 via NC Cardiovascular: RRR, no murmur, +1 pretibial/ankle edema Vessels: no JVD or carotid bruit Chest: normal inspection of chest Abdomen: normal bowel sounds, soft, nontender, no hepatosplenomegaly Musculoskeletal: no cyanosis or clubbing, extremities motor strength 5/5 Skin: no rashes, warm and dry normal turgor Neurologic: PERRL, EOMI, accommodation nl, no face palsy, no dysarthria CN's II-XI intact bilaterally and moves all extremities Psychiatric: A+Ox3, euthymic affect Lymphatic: no cervical or axillary lymphadenopathy : deferred Results & Data Results & Data ([facility]) Vital Signs (Past 12 Hours) Vital Signs Temp Pulse Resp BP Pulse Ox 09/30/20 16:01 54 L 18 143/86 H 96 09/30/20 15:31 51 L 22 144/77 H 96 09/30/20 15:00 50 L 17 163/82 H 96 09/30/20 14:25 96 09/30/20 14:07 36.9 C 59 L 26 H 90 09/30/20 13:55 56 L 15 139/74 Diagnostic Findings Chest X-Ray 09/30/20 14:25 XR chest 1V portable CLINICAL HISTORY: Chest pain. COMPARISON STUDY: Chest CT October 28, 2017. Chest radiograph May 21, 2020. FINDINGS: Lung volumes are normal. Incidental note is made of an azygos fissure. There is no pneumothorax or pleural effusion. Cardiomegaly is unchanged. There is no consolidation. No evidence for pulmonary edema. The appearance of the chest is unchanged. Subtle lower lung interstitial thickening is unchanged. IMPRESSION: No acute cardiopulmonary findings. No change in appearance of the chest. ACT 112: Negative or not required by law. Electronically signed by: Milan Oneal M.D. 09/30/2020 3:52 PM Medications Administered Medication List Discontinued Medications Albuterol (Albut/Ipratrop 3mg/0.5mg Neb 3 Ml Vial) 3 ml NEB NOW STA Stop: 09/30/20 17:14 Last Admin: 09/30/20 17:24 Dose: 3 ml Documented by: [id number] Furosemide (Furosemide 40 Mg/4 Ml Vial) 20 mg IV NOW STA Stop: 09/30/20 17:14 Last Admin: 09/30/20 17:32 Dose: 20 mg Documented by: [id number] Methylprednisolone (Methylprednisolone 125 Mg/2 Ml Vial) 60 mg IV NOW STA Stop: 09/30/20 17:14 Last Admin: 09/30/20 17:32 Dose: 60 mg Documented by: [id number] ECG Rate (beats per minute): 59 Rhythm: sinus bradycardia Findings: + nonspecific-ST abn COVID-19 Results Results COVID-19 Adm Lab Results: RBC 4.29 M/uL (4.7-6.1) L 10/01/20 WBC 8.20 K/uL (4.8-10.8) 10/01/20 Hgb 12.7 g/dL (14.0-18.0) L 10/01/20 Hct 38.6 % (42-52) L 10/01/20 Plt Count 174 K/uL (130-400) 10/01/20 Neutrophils (%) (Auto) 87.0 % 10/01/20 Lymphocytes (%) (Auto) 10.2 % 10/01/20 Monocytes # (Auto) 0.21 K/uL (0.11-0.59) 10/01/20 Eosinophils # (Auto) 0.00 K/uL (0-0.5) 10/01/20 Immature Granulocyte % (Auto) 0.2 % 10/01/20 Neutrophils # (Auto) 7.13 K/uL (1.4-6.5) H 10/01/20 Lymphocytes # (Auto) 0.84 K/uL (1.2-3.4) L 10/01/20 Monocytes # (Auto) 0.21 K/uL (0.11-0.59) 10/01/20 Eosinophils # (Auto) 0.00 K/uL (0-0.5) 10/01/20 Basophils # (Auto) 0.00 K/uL (0-0.2) 10/01/20 Immature Granulocyte # (Auto) 0.02 K/uL (0.00-0.02) 10/01/20 Na 142 mmol/L (136-145) 10/01/20 K 4.3 mmol/L (3.5-5.1) 10/01/20 Cl 106 mmol/L (98-107) 10/01/20 CO2 27 mmol/L (21-32) 10/01/20 Anion Gap 9.0 (3-11) 10/01/20 BUN 20 mg/dl (7-18) H 10/01/20 Creatinine 1.25 mg/dl (0.6-1.4) 10/01/20 BUN/Creatinine Ratio 16.2 (10-20) 10/01/20 Glucose Level 121 mg/dl (70-99) H 10/01/20 Ca 9.1 mg/dl (8.5-10.1) 10/01/20 Total Bilirubin 0.9 mg/dl (0.2-1) 09/30/20 AST/SGOT 34 U/L (15-37) 09/30/20 ALT/SGPT 66 U/L (12-78) 09/30/20 Alkaline Phosphatase 98 U/L (45-117) 09/30/20 Total Protein 7.4 gm/dl (6.4-8.2) 09/30/20 Albumin 3.6 gm/dl (3.4-5.0) 09/30/20 Globulin 3.8 gm/dl (2.5-4.0) 09/30/20 Albumin/Globulin Ratio 0.9 (0.9-2) 09/30/20 Troponin I < 0.015 ng/ml (0-0.045) 09/30/20 NM-[id number]-Type Natriuretic Pep 78 pg/ml (0-900) 09/30/20 Procalcitonin < 0.05 ng/ml (0-0.5) 09/30/20 PTT 44.3 Seconds (21.0-31.0) H 09/30/20 INR 3.6 (0.9-1.1) H 10/01/20 COVID-19 PCR NEGATIVE (Negative) 09/30/20 Chest X-Ray 09/30/20 Code Status & VTE Plan Code Status Full Code VTE Prophylaxis Plan VTE Prophylaxis will be ordered: No Supervising Physician Co-Signing Physician Notes Attending Addendum: care coordinated with RAMOS Denney please refer to her notes for full details, I agree with her notes patient seen and examined, records reviewed by myself as well on exam, patient seen sitting up in bed, comfortable, not in distress on 2 L NC states he has not ambulated yet to determine if he still has dyspnea on exertion otherwise, no dyspnea at rest during exam no other symptoms VS noted and reviewed oriented x 3, not in distress, speaks in sentences with no effort nor accessory muscle use normal rate, regular rhythm, no murmurs mild expiratory wheeze bilaterally non distended, soft, nontender mild bipedal edema, erythema, warmth no neuro deficits WBC 8.2 Hg 12 Crea 1.25 cxr: FINDINGS: Lung volumes are normal. Incidental note is made of an azygos fissure. There is no pneumothorax or pleural effusion. Cardiomegaly is unchanged. There is no consolidation. No evidence for pulmonary edema. The appearance of the chest is unchanged. Subtle lower lung interstitial thickening is unchanged. IMPRESSION: No acute cardiopulmonary findings. No change in appearance of the chest. ASSESSMENT AND PLAN HYPOXIA, DYSPNEA ON EXERTION LIKELY SECONDARY TO COPD EXACERBATION POSSIBLE MILD ACUTE CHF COMPONENT - Solumedrol, Nebs, Doxycycline - Lasix 20mg IV one dose - Pulm and Cardio consult other diagnoses and plan of care as per RAMOS Denney notes Jorge Dill MD
[2020-09-30] MEDS ORDERED: ACETAMINOPHEN 325 MG TAB PO PRN (18:35)
[2020-09-30] MEDS ORDERED: IPRATROPIUM BROMIDE/ALBUTEROL respimat INH INH PRN (18:35)
[2020-09-30] MEDS ORDERED: POLYETHYLENE (MIRALAX) 17 GM PACK PO PRN (18:35)
[2020-09-30] MEDS ORDERED: MAGNESIUM HYDROXIDE SUSP 30 ML UDC PO PRN (18:35)
[2020-09-30] MEDS ORDERED: ONDANSETRON INJ 2 MG/ML 2 ML VIAL IV PRN (18:35)
[2020-09-30] MEDS ORDERED: ALUMINUM/MAGNESIUM SUSP 30 ML UDC PO PRN (18:35)
[2020-09-30] MEDS ORDERED: Albuterol HFA 8 GM Inhaler (Combivent Respimat P&T Subs) INH PRN (19:14)
[2020-09-30] MEDS ORDERED: Ipratropium HFA Inhaler (Combivent Respimat P&T Subs) INH PRN (19:14)
[2020-09-30] MEDS: ALBUT/IPRATROP 3MG/0.5MG NEB 3 ML VIAL NEB SCH (19:23)
[2020-09-30] MEDS: ATORVASTATIN 40 MG TAB PO SCH (22:51)
[2020-09-30] MEDS: DOXYCYCLINE HYCLATE 100 MG CAP PO SCH (22:52)
[2020-09-30] MEDS: dilTIAZem HCL 240 MG CAPCR PO SCH (22:52)
[2020-09-30] MEDS: FLUTICASONE/VILANTEROL 100/25MCG 14 PUFFS/INHALER INH SCH (22:53)
[2020-09-30] MEDS: HYDROCODONE/ACETAMINOPHEN 7.5/325MG TAB PO PRN (22:58)
[2020-10-01] MEDS: AZELASTINE SCH ×4 (00:23→21:12)
[2020-10-01] MEDS: PANTOprazole 40 MG TAB PO SCH (06:13)
[2020-10-01] MEDS: HYDROCODONE/ACETAMINOPHEN 7.5/325MG TAB PO PRN ×2 (06:13→19:58)
[2020-10-01 06:18] LABS: Hematocrit (blood only) 38.6 % (42-52); Hemoglobin 12.7 g/dL (14.0-18.0); Immature Granulocytes # (auto) 0.02 K/uL (0.00-0.02); Immature Granulocytes % (auto) 0.2 %; Lymphocytes # (auto) 0.84 K/uL (1.2-3.4); Lymphocytes % (auto) 10.2 %; Mean Corpuscular Hemoglobin 29.6 pg (25-34); Mean Corpuscular Hgb Conc 32.9 g/dL (32-36); Mean Platelet Volume 10.1 fL (7.4-10.4); Monocytes # (auto) 0.21 K/uL (0.11-0.59); Monocytes % (auto) 2.6 %; Neutrophils # (auto) 7.13 K/uL (1.4-6.5); Platelet Count 174 K/uL (130-400); RDW Coefficient of Variation 15.1 % (11.5-14.5); RDW Standard Deviation 48.8 fL (36.4-46.3); Red Blood Count 4.29 M/uL (4.7-6.1)
[2020-10-01 06:37] LABS: INR 3.6 (0.9-1.1); Prothrombin Time 32.6 Seconds (9.0-12.0)
[2020-10-01 06:52] LABS: BUN Creatinine Ratio 16.2 (10-20); Calcium 9.1 mg/dl (8.5-10.1); Creatinine Clr Calc Pharmacy 64.6 ml/min; Est GFR (African American) 67.7 ml/min; Est GFR (Non-African American) 58.4 ml/min; Magnesium 1.9 mg/dl (1.8-2.4); Potassium 4.3 mmol/L (3.5-5.1)
[2020-10-01] MEDS: ALBUT/IPRATROP 3MG/0.5MG NEB 3 ML VIAL NEB SCH ×4 (07:10→19:21)
[2020-10-01] MEDS ORDERED: methylPREDNISolone 40 MG in SYRINGE 0 ML IV SCH (08:00)
[2020-10-01] MEDS: CETIRIZINE HCL 10 MG TABLET PO SCH (08:15)
[2020-10-01] MEDS: OMEGA-3 (PURIFIED FISH OIL) 1 GM CAP PO SCH (08:16)
[2020-10-01] MEDS: FLUTICASONE PROPIONATE NA SPR 16 GM BTL SCH (08:17)
[2020-10-01] MEDS: LOSARTAN POTASSIUM 50 MG TAB PO SCH (08:18)
[2020-10-01] MEDS: MONTELUKAST SODIUM 10 MG TABLET PO SCH (08:18)
[2020-10-01] MEDS: FLUTICASONE/VILANTEROL 100/25MCG 14 PUFFS/INHALER INH SCH ×2 (08:19→19:59)
[2020-10-01] MEDS: DOXYCYCLINE HYCLATE 100 MG CAP PO SCH ×2 (08:57→21:12)
[2020-10-01] MEDS ORDERED: AMIODARONE 200 MG TAB PO SCH (09:00)
[2020-10-01] MEDS ORDERED: dilTIAZem HCl 60 MG TAB PO ONE (10:10)
--- NOTE | 2020-10-01 10:19 | Cardiology Consultation ---
Date of Consultation October 01, 2020 Assessment & Plan (1) COPD exacerbation: (2) Paroxysmal atrial fibrillation: (3) Tachy-starla syndrome: Electrocardiogram performed yesterday at 1416 with tracing reviewed independently revealed sinus bradycardia 59 bpm, nonspecific repolarization changes noted unchanged compared to previous baseline, QTC 447 ms. Sinus bradycardia in sinus rhythm noted overnight on telemetry with rates in the range of 50 to 60 bpm. The patient had recently been reassessed by electrophysiology (Dr. Swain) as an outpatient. There are concerns of his recent easy fatigability may be related to tachycardia-bradycardia syndrome. A 14-day manager monitoring was pe rformed in May, with predominant rhythm of sinus bradycardia, average heart of 50 bpm, paroxysmal atrial fibrillation, 12% burden noted with average atrial fibrillation rate of 91 bpm. 2 pauses occurred, the longest of which was 3.3 seconds. Frequent supraventricular ectopy was noted. Elective pacemaker implantation was discussed the patient, and he has been thinking about this. At present we will continue diltiazem. One time dose of short acting as his CD was held for HR less than 60 overnight. I changed the hold parameter to hold for less than 50 bpm. Discontinue amiodarone. As noted, the patient has been on this medication since 2011. He had previously undergone a tricuspid isthmus ablation for treatment of right-sided typical atrial flutter, which was effective, but had recurrent episodes of symptomatic atrial fibrillation, and as previously documented in his notes, although he has been considered to be a poor candidate for amiodarone due to his underlying lung disease, it has been the only effective medication noted. He is not a candidate for A1c agent given his underlying coronary heart disease and past cardiomyopathy. Sotalol is likely to worsen his wheezing and cause fluid retention. And is considered a poor candidate for dofetilide due to past issues with regards to concerns of his QT interval, need for antibiotic therapy, and I think cost would be a limiting factor for this medication as well. The patient and I both have concerns with regards to his risk of amiodarone toxicity moving forward, and therefore I have discontinued amiodarone. Future considerations include placing permanent pacemaker, and if atrial fibrillation episodes persist and are symptomatic despite escalation of calcium channel kenyon, trial of cardioselective beta-kenyon, could consider an AV junction ablation in the future. Hold coumadin for supratherapeutic INR of 4.3 on presentation 3.6 today. With all this being said, I believe the actual substrate for what brought him to the hospital is a lung exacerbation, and would continue his course of corticosteroids. As noted he had previously been hospitalized with concerns of congestive heart failure, and his been prescribed furosemide to take 1 to 2 days/week on an as- needed basis, he is not examined is being volume overloaded at present. History of Present Illness Reason for Consultation: Shortness of breath, history of atrial fibrillation, tachycardia-bradycardia syndrome Requesting Physician: Praveena Benjamin PA-C of the [facility] service Attending Physician: Govind Brasher MD History of Present Illness Mr Springer is a 69-year-old male who presented via the emergency room yesterday due to worsening shortness of breath. He is well-known to the undersigned as I have followed him as an outpatient since November,. He has a longstanding history of chronic obstructive pulmonary disease with what in the past has been described as a reactive airway component. Referring back to my initial consultation from November 2008 he described at that time that his brother due to complications of an asthma attack at the age of 49. He has a longstanding history of highly symptomatic atrial arrhythmias including paroxysmal atrial fibrillation and atrial flutter, and in [id number] he had been seen by the undersigned on multiple occasions for recurrent tachycardia. At the time of his November 2008 visit he was treated with diltiazem CD 240 mg daily and Multaq 400 mg twice daily. He was referred to [facility] electrophysiology and underwent cavotricuspid isthmus ablation of atrial flutter in July, performed by Dr. Ortiz. He has a history of what was previously deemed a nonischemic cardiomyopathy, with presentation of congestive heart failure, moderate left ventricular systolic dysfunction in 2013, cardiac catheterization performed at that time it [facility] in 2013 revealed nonobstructive coronary heart disease 50% mid LAD, which was relatively unchanged compared to his previous cardiac catheterization dating back to 2008. With medical therapy, his left ventricular ejection fraction improved, LVEF 50 to 55% May,, grade 2 diastolic dysfunction noted at that time, Doppler findings do not suggest pulmonary hypertension. He presents this hospital stay with worsening shortness of breath. He states his last course of prednisone was several weeks ago. He notes breathlessness with minimal activity such as walking. As previously described, as long time significant other, kary, after a long illness in the fall 2019, and Mr Gian had a very difficult time after that in terms of grief, and also had financial difficulties. He had been off his medications for quite some time but has been doing better to this regard recently. Allergies Allergy/AdvReac Type Severity Reaction Status Date / Time cat dander Allergy Intermediate SNEEZING, Verified 09/30/20 16:05 CONGESTION pollen extracts Allergy Intermediate SNEEZING, Verified 09/30/20 16:05 CONGESTION Home Medications Medication Instructions Recorded Confirmed Type albuterol sulfate See Rx Instructions CONTINUOUS 09/18/18 09/30/20 History NEBULIZATION .COMPLEX PRN #3 ml cetirizine 10 mg tablet 10 mg PO DAILY tab 09/18/18 09/30/20 History fluticasone propionate 50 2 sprays INTRANASAL DAILY #1 gm 09/18/18 09/30/20 History mcg/actuation nasal spray,suspension hydrocodone 7.5 mg-acetaminophen 1 tab PO Q6H PRN tab 09/18/18 09/30/20 History 325 mg tablet montelukast 10 mg tablet 10 mg PO DAILY tab 09/18/18 09/30/20 History omalizumab 150 mg subcutaneous 0 mg SUBCUT Q4WK #1 ea 09/18/18 09/30/20 History solution omeprazole 20 mg capsule,delayed 20 mg PO DAILYBB cap 09/18/18 09/30/20 History release azelastine 137 mcg (0.1 %) nasal 2 spray INTRANASAL BID PRN 05/21/20 09/30/20 History spray aerosol doxycycline hyclate 100 mg capsule 100 mg PO BID PRN 05/21/20 09/30/20 History fluticasone furoate 100 1 inh INHALATION BID 05/21/20 09/30/20 History mcg-vilanterol 25 mcg/dose inhalation powder (Breo Ellipta) omega-3 fatty acids 1,000 mg 1,000 mg PO DAILY 05/21/20 09/30/20 History capsule warfarin 2.5 mg tablet 2.5 mg PO DAILY 05/21/20 09/30/20 History diltiazem HCl 240 mg 240 mg PO PM #30 cap 05/23/20 09/30/20 Rx capsule,extended release 24 hr amiodarone 200 mg tablet 200 mg PO DAILY 09/30/20 09/30/20 History atorvastatin 80 mg tablet 80 mg PO HS 09/30/20 09/30/20 History furosemide 20 mg tablet 20 mg PO .1-2 TIMES PER WEEK 09/30/20 09/30/20 History ipratropium 20 mcg-albuterol 100 1 puff INHALATION Q6 PRN 09/30/20 09/30/20 History mcg/actuation mist for inhalation (Combivent Respimat) losartan 50 mg tablet 50 mg PO DAILY 09/30/20 09/30/20 History Patient History Medical History Asthma Chronic back pain GERD (gastroesophageal reflux disease) History of paroxysmal supraventricular tachycardia S/P ablation in 2009 HLD (hyperlipidemia) HTN (hypertension) Nonischemic cardiomyopathy 2013 echo: EF: 40%, moderate global hypokinesis Paroxysmal atrial fibrillation Surgical History H/O hernia repair S/P appendectomy S/P cholecystectomy Family History Other Asthma Social History Smoking Status: Never smoker Second Hand Exposure: No; Hx Alcohol Use: No Hx Substance Use: No Preferred Language: Mongolian Communication Ability: Effective Hand Alterations Seamstress Required: No Beliefs That Will Affect Care: None marital status: Current Living Situation: Family Current Living Situation Comment: Lives with two sons current occupational status: disabled Other Information That Helps Us Care for You: No Feels Safe at Home: Yes Safety Concerns: Feels Safe At This Time Assistive Devices: None Review of Systems Review of Systems: All systems reviewed & are unremarkable except as noted in HPI & below Physical Exam Physical Exam: Temp Pulse Resp BP Pulse Ox 36.5 C 57 L 16 180/92 H 93 10/01/20 08:06 10/01/20 11:10 10/01/20 11:10 10/01/20 08:06 10/01/20 11:10 Constitutional: + obese; no acute distress Respiratory: Auscultation: + wheezes (Bilateral mid and apical wheezing) Cardiovascular: RRR, no murmur, no edema Gastrointestinal (Abdomen): normal bowel sounds, soft, nontender, no hepatosplenomegaly Neurologic: PERRL, EOMI, accommodation nl, no face palsy, no dysarthria Results & Data ([facility]) Vital Signs (Past 12 Hours) Vital Signs Temp Pulse Pulse Resp BP Pulse Ox 10/01/20 08:06 36.5 C 72 22 180/92 H 91 10/01/20 07:11 59 L 16 91 10/01/20 02:29 36.7 C 57 L 20 167/78 H 95 09/30/20 23:01 36.8 C 58 L 18 156/78 H 96 09/30/20 23:00 64
--- NOTE | 2020-10-01 16:24 | CT Scan Report ---
CT OF THE CHEST WITHOUT IV CONTRAST CLINICAL HISTORY: Shortness of breath. Evaluate for infiltrate. COMPARISON STUDY: Chest CT October 28, 2017. Chest radiograph September 30, 2020. CT DOSE: 834.13 mGy.cm TECHNIQUE: Axial images of the chest were obtained without IV contrast. Images were reviewed in the axial, sagittal, and coronal planes. IV contrast was not administered for this examination. Automat ed exposure control was utilized for the study. A dose lowering technique was utilized adhering to t he principles of ALARA. FINDINGS: No enlarged axillary, mediastinal or hilar lymph nodes are present. Cardiac size is at the upper limits of normal. There is moderate coronary artery calcification. There is no pneumothorax or pleural effusion. The central airways are patent. Note is made of lower lobe predominant bronchial w all thickening with bronchiectasis and scattered tree-in-bud nodules, decreased in extent when compar ed to prior chest CT of October 28, 2017. No confluent consolidation is present. There are no suspi cious pulmonary nodules. There is mild multifocal mucus plugging. No acute fracture or suspicious les ion is identified within visualized portions of the bony thorax. The gallbladder is surgically absent . IMPRESSION: Lower lobe predominant bronchial wall thickening, mild bronchiectasis, mucus plugging an d scattered tree-in-bud nodules, decreased in extent when compared to prior CT of October 28, 2017. The findings favor an infectious process which may be chronic. The CT appearance is nonspecific but could be seen in the setting of an atypical mycobacterial infection. ACT 112: Negative or not required by law. Electronically signed by: Milan Oneal M.D. 10/01/2020 4:23 PM
[2020-10-01] MEDS: methylPREDNISolone 40 MG in SYRINGE 0 ML IV SCH (16:29)
--- NOTE | 2020-10-01 17:42 | Hospitalist Progress Note ---
Date of Service October 01, 2020 Assessment & Plan (1) Hypoxia: (2) SOB (shortness of breath): (3) COPD exacerbation: Plan: Patient is a 69 yr male with H/O PAF anticoagulated on warfarin, nonobstructive CAD, HTN, HLD, history of nonischemic cardiomyopathy ejection fraction now improved, prediabetes, COPD, CKD stage III who presents ED secondary to worsening shortness of breath for months. Acute COPD Exacerbation Saturating Low 90s on room air CXR:No acute cardiopulmonary findings. No change in appearance of the chest. Last PFT 2018 revealed severe obstructive disease. Continue IV Solumderol Continue Nebs Continue home inhalers Pulmonology Consulted On doxycycline 100mg po bid Continue pulmonary hygiene May need 2 step prior to discharge (4) Tachy-starla syndrome: Plan: Tachybradycardia syndrome Recently evaluated by cardiology Dr. 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 last echo 05/2020 EF 50 to 55%, grade 2 diastolic dysfunction, RV mildly dilated, mild MR and TR continue atorvastatin, losartan On lasix 20mg 1-2x/wk at home (7) HTN (hypertension): Plan: BP mildly elevated continue losartan, diltiazem monitor (8) DVT prophylaxis: Plan: SQ Lovenox Code Status FULL CODE Admission and Anticipated Discharge Date Admission Date: September 30, 2020 Subjective Patient is seen and examined at bedside States having dyspnea on minimal exertion Less cough today Offers no other complaints Denies chest pain, dizziness, nausea, abdominal pain Review of Systems Review of Systems: All systems reviewed & are unremarkable except as noted in Subjective Physical Exam Physical Exam: Physical Exam: Vitals signs as noted above General Appearance:Obese, no apparent distress Head: normocephalic, Atraumatic Eyes: normal inspection, EOMI Neck: supple, Trachea midline Respiratory/Chest: Decreased breath sounds, B/L minimal wheezing Cardiovascular: S1, S2, No murmur Abdomen/GI:Soft, Non tender, Bowel sounds present Extremities/Musculoskeletal:normal inspection, 1+ B/L LE edema Neurologic/Psych:AAOX3, grossly no focal neurological deficits Skin: normal color, warm Results & Data Results & Data ([facility]) Vital Signs (Past 12 Hours) Vital Signs Temp Pulse Pulse Resp BP Pulse Ox 10/01/20 15:47 36.6 C 65 17 146/72 H 93 10/01/20 15:32 60 18 92 10/01/20 11:33 36.5 C 65 21 173/79 H 93 10/01/20 11:10 57 L 16 93 10/01/20 08:06 36.5 C 72 22 180/92 H 91 10/01/20 08:00 63 10/01/20 07:11 59 L 16 91 Laboratory Results Short CBC 10/01/20 Range/Units 05:39 WBC 8.20 (4.8-10.8) K/uL Hgb 12.7 L (14.0-18.0) g/dL Hct 38.6 L (42-52) % Plt Count 174 (130-400) K/uL BMP 10/01/20 05:39 Sodium 142 Potassium 4.3 Chloride 106 Carbon Dioxide 27 BUN 20 H Creatinine 1.25 Glucose 121 H Calcium 9.1
--- NOTE | 2020-10-01 18:21 | Pulmonary Consultation ---
Date of Consultation October 01, 2020 Assessment & Plan (1) SOB (shortness of breath): (2) Asthma: CT chest 10/01/2020 personally reviewed: Necessary right upper accessory lobe Cylindrical bronchiectasis appreciated right upper lobe small cysts appreciated bilaterally upper and lower lobes, bronchiectasis bilateral lower lobes No mediastinal adenopathy --Shortness of breath Multifactorial HFpEF grade 2 diastolic dysfunction, EF 55%, along with asthma playing a role Patient also has bronchiectasis appreciated even on the CAT scan 2017 --Bilateral bronchiectasis with mucous plugging ADAM is a possibility I will order AFB sputum I will also order autoimmune work-up with rheumatoid factor anti-CCP Alpha-1 antitrypsin level --Asthma Patient is on Breo at home Recommend increasing the Breo dose to 200-25 General daily basis PFTs as an outpatient Absolute eosinophil count 60, has been as high as 270 back 10/28/2017 --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 fib On amiodarone Plan: Follow-up autoimmune work-up Continue with steroids Add flutter valve and Mucinex Please note the above document was generated using voice recognition software. It may contain grammatical, syntax or spelling errors.Any formal questions or concerns about the content, text or information contained within the body of this dictation should be directly addressed to the provider for clarification. History of Present Illness Attending Physician: Govind Brasher MD History of Present Illness 69-year-old male past medical history of paroxysmal A. fib on warfarin, hypertension, dyslipidemia, history of nonischemic cardiomyopathy with HFpEF, asthma/COPD presented to the hospital with complaints of shortness of breath going progressively worse since last couple of weeks. Pulmonary consulted for the same At the time of examination patient stated since last couple of weeks he has not started to notice increased swelling in his legs. He was also getting progressively short of breath. It was associated with wheezing. Denied any chest pain or dizziness at the time. Has been coughing but is not bringing up any phlegm. Has chest congestion. Feels that he is unable to bring up phlegm. Denies any hemoptysis. Has gained weight in the last couple of months. Social history: Non-smoker. 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 No exposure to any chemicals or fumes Pets: Dog. No birds or poultry nearby Allergies Allergy/AdvReac Type Severity Reaction Status Date / Time cat dander Allergy Intermediate SNEEZING, Verified 09/30/20 16:05 CONGESTION pollen extracts Allergy Intermediate SNEEZING, Verified 09/30/20 16:05 CONGESTION Home Medications Medication Instructions Recorded Confirmed Type albuterol sulfate See Rx Instructions CONTINUOUS 09/18/18 09/30/20 History NEBULIZATION .COMPLEX PRN #3 ml cetirizine 10 mg tablet 10 mg PO DAILY tab 09/18/18 09/30/20 History fluticasone propionate 50 2 sprays INTRANASAL DAILY #1 gm 09/18/18 09/30/20 History mcg/actuation nasal spray,suspension hydrocodone 7.5 mg-acetaminophen 1 tab PO Q6H PRN tab 09/18/18 09/30/20 History 325 mg tablet montelukast 10 mg tablet 10 mg PO DAILY tab 09/18/18 09/30/20 History omalizumab 150 mg subcutaneous 0 mg SUBCUT Q4WK #1 ea 09/18/18 09/30/20 History solution omeprazole 20 mg capsule,delayed 20 mg PO DAILYBB cap 09/18/18 09/30/20 History release azelastine 137 mcg (0.1 %) nasal 2 spray INTRANASAL BID PRN 05/21/20 09/30/20 History spray aerosol doxycycline hyclate 100 mg capsule 100 mg PO BID PRN 05/21/20 09/30/20 History fluticasone furoate 100 1 inh INHALATION BID 05/21/20 09/30/20 History mcg-vilanterol 25 mcg/dose inhalation powder (Breo Ellipta) omega-3 fatty acids 1,000 mg 1,000 mg PO DAILY 05/21/20 09/30/20 History capsule warfarin 2.5 mg tablet 2.5 mg PO DAILY 05/21/20 09/30/20 History diltiazem HCl 240 mg 240 mg PO PM #30 cap 05/23/20 09/30/20 Rx capsule,extended release 24 hr amiodarone 200 mg tablet 200 mg PO DAILY 09/30/20 09/30/20 History atorvastatin 80 mg tablet 80 mg PO HS 09/30/20 09/30/20 History furosemide 20 mg tablet 20 mg PO .1-2 TIMES PER WEEK 09/30/20 09/30/20 History ipratropium 20 mcg-albuterol 100 1 puff INHALATION Q6 PRN 09/30/20 09/30/20 History mcg/actuation mist for inhalation (Combivent Respimat) losartan 50 mg tablet 50 mg PO DAILY 09/30/20 09/30/20 History Patient History Medical History Asthma Chronic back pain GERD (gastroesophageal reflux disease) History of paroxysmal supraventricular tachycardia S/P ablation in 2009 HLD (hyperlipidemia) HTN (hypertension) Nonischemic cardiomyopathy 2013 echo: EF: 40%, moderate global hypokinesis Paroxysmal atrial fibrillation Surgical History H/O hernia repair S/P appendectomy S/P cholecystectomy Family History Other Asthma Social History Smoking Status: Never smoker Second Hand Exposure: No; Hx Alcohol Use: No Hx Substance Use: No Preferred Language: Micronesian Communication Ability: Effective Insole Channeler Required: No Beliefs That Will Affect Care: None marital status: Current Living Situation: Family Current Living Situation Comment: Lives with two sons current occupational status: disabled Other Information That Helps Us Care for You: No Feels Safe at Home: Yes Safety Concerns: Feels Safe At This Time Assistive Devices: None Review of Systems Review of Systems: All systems reviewed & are unremarkable except as noted in HPI & below Physical Exam Physical Exam: Constitutional: No acute distress HEENT: EOMI, PERRLA, thick neck Respiratory system: Decreased air entry bilaterally, no wheeze, no rhonchi, minimal crackles bilateral lower lobes CVS: S1-S2 positive, no murmurs or gallops, distant heart sounds Abdomen: Soft, nontender, nondistended, positive bowel sounds x4, obese Extremities: +2 pulses bilaterally radialis/ dorsalis pedis, no cyanosis, +1 pitting edema bilateral lower extremity Neuro: Awake alert oriented x3 Psych: Normal mood and affect G/U: No Parry Skin: no rashes, warm and dry Lymphatic: no cervical or axillary lymphadenopathy Results & Data Results & Data ([facility]) Vital Signs (Past 12 Hours) Vital Signs Temp Pulse Pulse Resp BP Pulse Ox 10/01/20 15:47 36.6 C 65 17 146/72 H 93 10/01/20 15:32 60 18 92 10/01/20 11:33 36.5 C 65 21 173/79 H 93 10/01/20 11:10 57 L 16 93 10/01/20 08:06 36.5 C 72 22 180/92 H 91 10/01/20 08:00 63 10/01/20 07:11 59 L 16 91 10/01/20 05:39 10/01/20 05:39 PG Care Time/CCT Total # of Minutes Spent Total Time Spent with Patient: Total time spent is greater than 50% in coordination of care (as documented) at patient's floor/unit and/or counseling patient: Coding Level of Care Code 55043 Initial Inpt Care Lvl 3 Diagnoses SOB (shortness of breath) R06.02 Asthma J45.909
[2020-10-01] MEDS: dilTIAZem HCL 240 MG CAPCR PO SCH (19:58)
[2020-10-01] MEDS: ATORVASTATIN 40 MG TAB PO SCH (19:58)
[2020-10-01] MEDS: guaiFENesin 600 MG TABCR PO SCH (21:12)
[2020-10-02] MEDS: methylPREDNISolone 40 MG in SYRINGE 0 ML IV SCH ×2 (04:30→15:59)
[2020-10-02] MEDS: PANTOprazole 40 MG TAB PO SCH (04:31)
[2020-10-02 06:18] LABS: INR 3.3 (0.9-1.1); Prothrombin Time 30.2 Seconds (9.0-12.0)
[2020-10-02] MEDS: ALBUT/IPRATROP 3MG/0.5MG NEB 3 ML VIAL NEB SCH ×4 (07:21→19:48)
[2020-10-02] MEDS: AZELASTINE SCH ×2 (08:14→15:24)
[2020-10-02] MEDS: FLUTICASONE PROPIONATE NA SPR 16 GM BTL SCH (08:15)
[2020-10-02] MEDS: LOSARTAN POTASSIUM 50 MG TAB PO SCH (08:15)
[2020-10-02] MEDS: DOXYCYCLINE HYCLATE 100 MG CAP PO SCH ×2 (08:16→21:10)
[2020-10-02] MEDS: CETIRIZINE HCL 10 MG TABLET PO SCH (08:16)
[2020-10-02] MEDS: MONTELUKAST SODIUM 10 MG TABLET PO SCH (08:16)
[2020-10-02] MEDS: FLUTICASONE/VILANTEROL 100/25MCG 14 PUFFS/INHALER INH SCH ×2 (08:17→21:11)
[2020-10-02] MEDS: guaiFENesin 600 MG TABCR PO SCH ×2 (08:17→21:11)
[2020-10-02] MEDS: OMEGA-3 (PURIFIED FISH OIL) 1 GM CAP PO SCH (08:17)
--- NOTE | 2020-10-02 10:03 | Pulmonology Progress Note ---
Date of Service October 02, 2020 Assessment & Plan (1) SOB (shortness of breath): (2) Asthma: Plan: CT chest 10/01/2020 personally reviewed: Accessary right upper accessory lobe Cylindrical bronchiectasis appreciated right upper lobe small cysts appreciated bilaterally upper and lower lobes, bronchiectasis bilateral lower lobes No mediastinal adenopathy --Shortness of breath Multifactorial HFpEF grade 2 diastolic dysfunction, EF 55%, along with asthma playing a role Patient also has bronchiectasis appreciated even on the CAT scan 2017 --Bilateral bronchiectasis with mucous plugging ADAM is a possibility Follow-up AFB sputum I will also order autoimmune work-up with rheumatoid factor anti-CCP Alpha-1 antitrypsin level --Asthma Patient is on Breo at home Recommend increasing the Breo dose to 200-25 daily basis PFTs as an outpatient Absolute eosinophil count 60, has been as high as 270 back 10/28/2017 --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 fib On amiodarone Plan: Follow-up autoimmune work-up Continue with steroids Continue with flutter well, Mucinex. Hypertonic saline nebulized will also be added for the bronchiectasis Trial of BiPAP / nightly Please note the above document was generated using voice recognition software. It may contain grammatical, syntax or spelling errors.Any formal questions or concerns about the content, text or information contained within the body of this dictation should be directly addressed to the provider for clarification. Admission and Anticipated Discharge Date Admission Date: September 30, 2020 Subjective Patient seen and examined at bedside. No acute distress, no symptoms overnight. Patient said he is doing okay. He was getting breathing treatment at time of examination He is diuresing well. Denies any chest pain, no headache, no nausea, no vomiting. Fair appetite. Review of Systems Review of Systems: All systems reviewed & are unremarkable except as noted in Subjective Physical Exam Physical Exam: Constitutional: No acute distress HEENT: EOMI, PERRLA, thick neck Respiratory system: Decreased air entry bilaterally, no wheeze, no rhonchi, minimal crackles bilateral lower lobes CVS: S1-S2 positive, no murmurs or gallops, distant heart sounds Abdomen: Soft, nontender, nondistended, positive bowel sounds x4, obese Extremities: +2 pulses bilaterally radialis/ dorsalis pedis, no cyanosis, +1 pitting edema bilateral lower extremity Neuro: Awake alert oriented x3 Psych: Normal mood and affect G/U: No Parry Skin: no rashes, warm and dry Lymphatic: no cervical or axillary lymphadenopathy Results & Data Results & Data ([facility]) Vital Signs (Past 12 Hours) Vital Signs Temp Pulse Pulse Resp BP Pulse Ox 10/02/20 07:59 36.6 C 58 L 20 164/90 H 93 10/02/20 07:21 56 L 18 94 10/02/20 04:30 36.6 C 55 L 18 128/56 L 94 10/01/20 23:16 58 L 10/01/20 23:04 36.7 C 55 L 16 143/76 H 93 10/01/20 05:39 10/01/20 05:39 PG Care Time/CCT Total # of Minutes Spent Total Time Spent with Patient: Total time spent is greater than 50% in coordination of care (as documented) at patient's floor/unit and/or counseling patient: Coding Level of Care Code 94079 Subseq Hosp Care Lvl 3 Diagnoses SOB (shortness of breath) R06.02 Asthma J45.909
[2020-10-02] MEDS ORDERED: METOPROLOL TARTRATE 25 MG TAB PO ONE (14:37)
--- NOTE | 2020-10-02 14:41 | Cardiology Progress Note ---
Date of Service October 02, 2020 Assessment & Plan (1) COPD exacerbation: (2) Paroxysmal atrial fibrillation: (3) Tachy-starla syndrome: Plan: No imminent need for pacemaker at present. Through process of shared decision making, the patient and I discussed his ongoi ng use of amiodarone, and for now he elects to remain off of it. Case discussed with Dr. Bai of pulmonary, bronchiectasis noted on CT, without evident CT findings to suggest amiodarone toxicity however in an effort to avoid future potential lung toxicity will proceed without amiodarone for now. Continue chronic dose of diltiazem. Add low-dose metoprolol tartrate with caution. From atrial fibrillation standpoint, future considerations include pacemaker implantation to allow titration of AV yessenia blockers, and AV junction ablation if necessary in the future. Hypertensioncontinue losartan, diltiazem, and metoprolol. If blood pressure remains elevated tomorrow we will consider a dose of furosemide. Admission and Anticipated Discharge Date Admission Date: September 30, 2020 Subjective Patient seen in cardiology follow-up of his chief complaint of shortness of clover th. He states that perhaps he feels a little bit better, but he has really not walked much. Telemetry reveals sinus rhythm in the 60s and 70s with occasional isolated PVCs. No sustained arrhythmias, no atrial fibrillation or atrial flutter. Review of Systems Review of Systems: All systems reviewed & are unremarkable except as noted in HPI & below Physical Exam Physical Exam: Temp Pulse Resp BP Pulse Ox 36.5 C 57 L 16 180/92 H 93 10/01/20 08:06 10/01/20 11:10 10/01/20 11:10 10/01/20 08:06 10/01/20 11:10 Constitutional: + obese; no acute distress Respiratory: Auscultation: + wheezes (Mild bilateral apical wheezing, improved compared to 10/01) Cardiovascular: RRR, no murmur, no edema Gastrointestinal (Abdomen): normal bowel sounds, soft, nontender, no hepatosplenomegaly Neurologic: PERRL, EOMI, accommodation nl, no face palsy, no dysarthria Results & Data ([facility]) Vital Signs (Past 12 Hours) Vital Signs Temp Pulse Resp BP Pulse Ox 10/02/20 12:05 36.4 C L 69 20 167/94 H 92 10/02/20 10:53 78 18 93 10/02/20 07:59 36.6 C 58 L 20 164/90 H 93 10/02/20 07:21 56 L 18 94 10/02/20 04:30 36.6 C 55 L 18 128/56 L 94
--- NOTE | 2020-10-02 17:54 | Hospitalist Progress Note ---
Date of Service October 02, 2020 Assessment & Plan (1) Hypoxia: (2) SOB (shortness of breath): (3) COPD exacerbation: Plan: Patient is a 69 yr male with H/O PAF anticoagulated on warfarin, nonobstructive CAD, HTN, HLD, history of nonischemic cardiomyopathy ejection fraction now improved, prediabetes, COPD, CKD stage III who presents ED secondary to worsening shortness of breath for months. Acute COPD Exacerbation B/L bronchiectasis with mucous plugging DD: ADAM -CT Chest:Lower lobe predominant bronchial wall thickening, mild bronchiectasis, mucus plugging and scattered tree-in-bud nodules, decreased in extent when compared to prior CT of October 28, 2017. The findings favor an infectious process which may be chronic. The CT appearance is nonspecific but could be seen in the setting of an atypical mycobacterial infection. -Last PFT 2018 revealed severe obstructive disease. -Sputum AFB pending -Immunoglobulin work-up, alpha-1 antitrypsin levels pending Continue IV Solumderol Continue Nebs Continue home inhalers Appreciate Pulmonology Input On doxycycline 100mg po bid Continue pulmonary hygiene May need 2 step prior to discharge Increased Breo to 200-25 daily Consider adding Incruse Needs PFTs as outpatient Right upper lobe fissure ? congenital (4) Tachy-starla syndrome: Plan: Tachybradycardia syndrome Recently evaluated by cardiology Dr. 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 last echo 05/2020 EF 50 to 55%, grade 2 diastolic dysfunction, RV mildly dilated, mild MR and TR continue atorvastatin, losartan On lasix 20mg 1-2x/wk at home (7) HTN (hypertension): Plan: BP mildly elevated continue losartan, diltiazem Added Metoprolol monitor (8) DVT prophylaxis: Plan: INR supratherapeutic Resume coumadin as able Code Status FULL CODE Admission and Anticipated Discharge Date Admission Date: September 30, 2020 Subjective Patient is seen and examined at bedside Less cough today No significant dyspnea on minimal exertion Denies chest pain, dizziness, nausea, abdominal pain Offers no other complaints Review of Systems Review of Systems: All systems reviewed & are unremarkable except as noted in Subjective Physical Exam Physical Exam: Physical Exam: Vitals signs as noted above General Appearance:Obese, no apparent distress Head: normocephalic, Atraumatic Eyes: normal inspection, EOMI Neck: supple, Trachea midline Respiratory/Chest: Decreased breath sounds, CTA Cardiovascular: S1, S2, No murmur Abdomen/GI:Soft, Non tender, Bowel sounds present Extremities/Musculoskeletal:normal inspection, 1+ B/L LE edema Neurologic/Psych:AAOX3, grossly no focal neurological deficits Skin: normal color, warm Results & Data Results & Data ([facility]) Vital Signs (Past 12 Hours) Vital Signs Temp Pulse Resp BP Pulse Ox 10/02/20 16:27 36.6 C 54 L 16 160/87 H 94 10/02/20 15:04 55 L 18 93 10/02/20 12:05 36.4 C L 69 20 167/94 H 92 10/02/20 10:53 78 18 93 10/02/20 07:59 36.6 C 58 L 20 164/90 H 93 10/02/20 07:21 56 L 18 94
[2020-10-02] MEDS: SODIUM CHLOR 7% 4 ML NEB NEB SCH (19:48)
[2020-10-02] MEDS: dilTIAZem HCL 240 MG CAPCR PO SCH (21:10)
[2020-10-02] MEDS: ATORVASTATIN 40 MG TAB PO SCH (21:12)
[2020-10-03] MEDS: methylPREDNISolone 40 MG in SYRINGE 0 ML IV SCH (04:38)
[2020-10-03] MEDS: AZELASTINE SCH ×2 (04:38→08:04)
[2020-10-03 06:11] LABS: Hematocrit (blood only) 38.8 % (42-52); Hemoglobin 12.6 g/dL (14.0-18.0); Immature Granulocytes # (auto) 0.08 K/uL (0.00-0.02); Immature Granulocytes % (auto) 0.5 %; Lymphocytes # (auto) 0.82 K/uL (1.2-3.4); Lymphocytes % (auto) 5.1 %; Mean Corpuscular Hemoglobin 29.7 pg (25-34); Mean Corpuscular Hgb Conc 32.5 g/dL (32-36); Mean Corpuscular Volume 91.5 fL (80-100); Mean Platelet Volume 9.8 fL (7.4-10.4); Monocytes # (auto) 0.77 K/uL (0.11-0.59); Monocytes % (auto) 4.7 %; Neutrophils # (auto) 14.56 K/uL (1.4-6.5); Neutrophils % (auto) 89.7 %; Platelet Count 186 K/uL (130-400); RDW Coefficient of Variation 15.9 % (11.5-14.5); RDW Standard Deviation 53.3 fL (36.4-46.3); Red Blood Count 4.24 M/uL (4.7-6.1); White Blood Count 16.23 K/uL (4.8-10.8)
[2020-10-03 06:20] LABS: INR 2.9 (0.9-1.1); Prothrombin Time 27.4 Seconds (9.0-12.0)
[2020-10-03] MEDS: PANTOprazole 40 MG TAB PO SCH (06:22)
[2020-10-03 06:45] LABS: BUN Creatinine Ratio 24.9 (10-20); Calcium 9.2 mg/dl (8.5-10.1); Creatinine Clr Calc Pharmacy 54.6 ml/min; Est GFR (African American) 55.2 ml/min; Est GFR (Non-African American) 47.6 ml/min; Potassium 4.5 mmol/L (3.5-5.1)
[2020-10-03] MEDS: HYDROCODONE/ACETAMINOPHEN 7.5/325MG TAB PO PRN (07:18)
[2020-10-03] MEDS: ALBUT/IPRATROP 3MG/0.5MG NEB 3 ML VIAL NEB SCH ×3 (07:20→16:07)
[2020-10-03] MEDS: SODIUM CHLOR 7% 4 ML NEB NEB SCH (07:20)
[2020-10-03] MEDS: FLUTICASONE PROPIONATE NA SPR 16 GM BTL SCH (08:05)
[2020-10-03] MEDS: MONTELUKAST SODIUM 10 MG TABLET PO SCH (08:07)
[2020-10-03] MEDS: LOSARTAN POTASSIUM 50 MG TAB PO SCH (08:08)
[2020-10-03] MEDS: DOXYCYCLINE HYCLATE 100 MG CAP PO SCH (08:09)
[2020-10-03] MEDS: guaiFENesin 600 MG TABCR PO SCH (08:09)
[2020-10-03] MEDS: CETIRIZINE HCL 10 MG TABLET PO SCH (08:09)
[2020-10-03] MEDS: OMEGA-3 (PURIFIED FISH OIL) 1 GM CAP PO SCH (08:09)
[2020-10-03] MEDS ORDERED: FLUTICASONE/VILANTEROL 200/25MCG 14 PUFFS/INHALER INH SCH (09:00)
[2020-10-03] MEDS ORDERED: METOPROLOL TARTRATE 25 MG TAB PO SCH (09:00)
--- NOTE | 2020-10-03 12:27 | Cardiology Progress Note ---
Date of Service October 03, 2020 Assessment & Plan (1) COPD exacerbation: (2) Paroxysmal atrial fibrillation: (3) Tachy-starla syndrome: Plan: No imminent need for pacemaker at present. Through process of shared decision making, the patient and I discussed his ongoi ng use of amiodarone, and for now he elects to remain off of it. Case discussed with Dr. Bai of pulmonary, bronchiectasis noted on CT, without evident CT findings to suggest amiodarone toxicity however in an effort to avoid future potential lung toxicity will proceed without amiodarone for now. Discharge on prior to hospital dose of diltiazem CD, 240 mg daily, Toprol tartrate 12.5 mg twice daily. From atrial fibrillation standpoint, future considerations include pacemaker implantation to allow titration of AV yessenia blockers, and AV junction ablation if necessary in the future. But at present this does not need to be addressed this hospital stay. Hypertensioncontinue losartan, diltiazem, and metoprolol. BP improved. Admission and Anticipated Discharge Date Admission Date: September 30, 2020 Subjective Patient seen in follow-up of his chief complaint of shortness of breath. He believes he is trending toward improvement. Sinus bradycardia in sinus rhythm in the 50s to 60s noted on telemetry. Physical Exam Physical Exam: Temp Pulse Resp BP Pulse Ox 36.5 C 57 L 16 180/92 H 93 10/01/20 08:06 10/01/20 11:10 10/01/20 11:10 10/01/20 08:06 10/01/20 11:10 Constitutional: + obese; no acute distress Respiratory: Auscultation: + wheezes (Mild bilateral apical wheezing, improved compared to 10/01) Cardiovascular: RRR, no murmur, no edema Gastrointestinal (Abdomen): normal bowel sounds, soft, nontender, no hepatosplenomegaly Neurologic: PERRL, EOMI, accommodation nl, no face palsy, no dysarthria Results & Data ([facility]) Vital Signs (Past 12 Hours) Vital Signs Temp Pulse Pulse Resp BP Pulse Ox 10/03/20 11:14 51 L 18 94 10/03/20 07:42 50 L 10/03/20 07:21 76 18 95 10/03/20 07:00 36.8 C 86 18 120/63 95 10/03/20 03:32 36.5 C 53 L 18 146/74 H 93 10/03/20 01:50 66 15 94 10/03/20 00:38 51 L Laboratory Results INR 2.9
--- NOTE | 2020-10-03 12:38 | Pulmonology Progress Note ---
Date of Service October 03, 2020 Assessment & Plan (1) SOB (shortness of breath): (2) Asthma: Plan: CT chest 10/01/2020 personally reviewed: Accessary right upper accessory lobe Cylindrical bronchiectasis appreciated right upper lobe small cysts appreciated bilaterally upper and lower lobes, bronchiectasis bilateral lower lobes No mediastinal adenopathy --Shortness of breath Multifactorial HFpEF grade 2 diastolic dysfunction, EF 55%, along with asthma playing a role Patient also has bronchiectasis appreciated even on the CAT scan 2017 --Bilateral bronchiectasis with mucous plugging ADAM is a possibility Follow-up AFB sputum autoimmune work-up with rheumatoid factor anti-CCP ordered Alpha-1 antitrypsin level --Asthma Patient is on Breo at home PFTs as an outpatient Absolute eosinophil count 60, has been as high as 270 back 10/28/2017 --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 fib On amiodarone Plan: Follow-up autoimmune work-up Patient is Breo at home. On discharge I would recommend Trelegy [address] Breo to be used on a daily basis Start tapering prednisone as of tomorrow, 40 mg for 3 days followed by 20 mg for 3 days and then stop Patient will benefit from PFTs as an outpatient Recommend continuing with hypertonic saline nebulized for bronchiectasis along with flutter valve Patient will benefit from outpatient polysomnography. No further recommendations from pulmonary perspective. Please call directly with any questions. Please note the above document was generated using voice recognition software. It may contain grammatical, syntax or spelling errors.Any formal questions or concerns about the content, text or information contained within the body of this dictation should be directly addressed to the provider for clarification. Admission and Anticipated Discharge Date Admission Date: September 30, 2020 Subjective Seen and examined examined at bedside. No acute distress. Vitals events overnight. Patient was having breakfast just prior to examination Says that the breathing is better controlled. Did try to use BiPAP at night but was not able to tolerate it well. Denies any chest pain, no headache, no nausea, no vomiting. Fair appetite. Has been urinating well. Review of Systems Review of Systems: All systems reviewed & are unremarkable except as noted in Subjective Physical Exam Physical Exam: Constitutional: No acute distress HEENT: EOMI, PERRLA, thick neck Respiratory system: Decreased air entry bilaterally, positive wheezing, no rhonchi, minimal crackles bilateral lower lobes CVS: S1-S2 positive, no murmurs or gallops, distant heart sounds Abdomen: Soft, nontender, nondistended, positive bowel sounds x4, obese Extremities: +2 pulses bilaterally radialis/ dorsalis pedis, no cyanosis, +1 pitting edema bilateral lower extremity Neuro: Awake alert oriented x3 Psych: Normal mood and affect G/U: No Parry Skin: no rashes, warm and dry Lymphatic: no cervical or axillary lymphadenopathy Results & Data Results & Data ([facility]) Vital Signs (Past 12 Hours) Vital Signs Temp Pulse Pulse Resp BP Pulse Ox 10/03/20 11:14 51 L 18 94 10/03/20 07:42 50 L 10/03/20 07:21 76 18 95 10/03/20 07:00 36.8 C 86 18 120/63 95 10/03/20 03:32 36.5 C 53 L 18 146/74 H 93 10/03/20 01:50 66 15 94 10/03/20 00:38 51 L 10/03/20 05:25 10/03/20 05:25 PG Care Time/CCT Total # of Minutes Spent Total Time Spent with Patient: Total time spent is greater than 50% in coordination of care (as documented) at patient's floor/unit and/or counseling patient: Coding Level of Care Code 13402 Subseq Hosp Care Lvl 3 Diagnoses SOB (shortness of breath) R06.02 Asthma J45.909
--- NOTE | 2020-10-03 13:35 | Hospitalist Progress Note ---
Date of Service October 03, 2020 Assessment & Plan (1) Hypoxia: (2) SOB (shortness of breath): (3) COPD exacerbation: Plan: Patient is a 69 yr male with H/O PAF anticoagulated on warfarin, nonobstructive CAD, HTN, HLD, history of nonischemic cardiomyopathy ejection fraction now improved, prediabetes, COPD, CKD stage III who presents ED secondary to worsening shortness of breath for months. Acute COPD Exacerbation B/L bronchiectasis with mucous plugging DD: ADAM -CT Chest:Lower lobe predominant bronchial wall thickening, mild bronchiectasis, mucus plugging and scattered tree-in-bud nodules, decreased in extent when compared to prior CT of October 28, 2017. The findings favor an infectious process which may be chronic. The CT appearance is nonspecific but could be seen in the setting of an atypical mycobacterial infection. -Last PFT 2018 revealed severe obstructive disease. -Sputum AFB pending -Immunoglobulin work-up, alpha-1 antitrypsin levels pending Received IV Solumderol--Plan to transition to Prednisone upon discharge Continue Nebs Continue home inhalers Appreciate Pulmonology Input On doxycycline 100mg po bid Continue pulmonary hygiene Change Breo to Trelegy 200 as recommended by Pulm. Needs PFTs as outpatient Needs follow-up with pulmonology upon discharge Also needs outpatient polysomnography. Right upper lobe fissure ? congenital (4) Tachy-starla syndrome: Plan: Tachybradycardia syndrome Recently evaluated by cardiology Dr. 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 Cough only minimal Dyspnea resolved Denies chest pain, dizziness, nausea, abdominal pain Offers no other complaints Review of Systems Review of Systems: All systems reviewed & are unremarkable except as noted in Subjective Physical Exam Physical Exam: Physical Exam: Vitals signs as noted above General Appearance:Obese, no apparent distress Head: normocephalic, Atraumatic Eyes: normal inspection, EOMI Neck: supple, Trachea midline Respiratory/Chest: Decreased breath sounds, CTA Cardiovascular: S1, S2, No murmur Abdomen/GI:Soft, Non tender, Bowel sounds present Extremities/Musculoskeletal:normal inspection, 1+ B/L LE edema Neurologic/Psych:AAOX3, grossly no focal neurological deficits Skin: normal color, warm Results & Data Results & Data ([facility]) Vital Signs (Past 12 Hours) Vital Signs Temp Pulse Pulse Resp BP Pulse Ox 10/03/20 11:14 51 L 18 94 10/03/20 11:00 36.8 C 72 16 142/76 H 92 10/03/20 07:42 50 L 10/03/20 07:21 76 18 95 10/03/20 07:00 36.8 C 86 18 120/63 95 10/03/20 03:32 36.5 C 53 L 18 146/74 H 93 10/03/20 01:50 66 15 94 Laboratory Results Short CBC 10/03/20 Range/Units 05:25 WBC 16.23 H (4.8-10.8) K/uL Hgb 12.6 L (14.0-18.0) g/dL Hct 38.8 L (42-52) % Plt Count 186 (130-400) K/uL BMP 10/03/20 05:25 Sodium 140 Potassium 4.5 Chloride 109 H Carbon Dioxide 27 BUN 37 H D Creatinine 1.48 H Glucose 108 H Calcium 9.2
--- NOTE | 2020-10-03 13:49 | Discharge Summary ---
Date of Service October 03, 2020 Admission HPI Per Admitting Provider This is a 69-year-old male who has significant past medical history of PAF anticoagulated on warfarin, nonobstructive CAD, HTN, HLD, history of nonischemic cardiomyopathy ejection fraction now improved, prediabetes, COPD, CKD stage III who presents ED secondary to worsening shortness of breath for months. He complains of chronic shortness with exertion but has noticed a progressive decline in breathing status over the last 2 to 3 months. Over the last 2 to 3 months he has noticed increasing shortness of breath with decreasing in activity. This morning when he woke up just walking from the kitchen to the living room made him extremely short of breath requiring him to rest. Symptoms improve and resolve with rest. He further complains of a chronic productive cough but states of late has noted his cough to be increasingly more productive and sputum is purulent. He has known severe asthma/COPD and is a nontobacco user. He has been compliant with Breo and has been taking Combivent 2-3 times a day which does help his symptoms intermittently. He also has been taking albuterol approximately once a day, due to lack of supply. He is concerned with the worsening of his breathing. Also of significance he is following with electrophysiology due to abnormal Zio patch in May 2020. There is concern for tachybradycardia syndrome for which 2 pauses were noted, 1 of 3.3 seconds. He was seen by Dr. Swain on 09/09 who recommended pacemaker placement. Patient elicits that it could have been done the next day, but patient declined and is currently, "thinking about it." He denies any fever, chills, sweats, lightheadedness, dizziness, chest pain, shortness breath at rest, hemoptysis, nausea, vomiting, abdominal pain, change in bowel or urinary habits He denies any weight change, but does have mild lower extremity swelling which is chronic per patient. He feels it is not worse. He has been compliant with his medications. In ED patient made hemodynamically stable although was mildly hypoxic requiring 2 L of oxygen. CBC notable for H&H 13.5 and 41.4, to BC 8.52 glucose 166 INR 4.3, BUN 16, creatinine 1.21, proBNP 78, procal WNL. Chest x-ray negative for acute abnormality. Of significance Last PFT noted 12/20/2018 severe obstructive airway disease with FVC 100% of predicted FEV1 was 44% of predicted. He follows with Telecommunicator Dr. Salvador and receives Xolair injections. Admission Exam Per Admitting Provider Constitutional: WD/WN, M, nontoxic appearing, vitals as above, NAD, sitting up in bed, pleasant, conversing easily Head: Normocephalic, Atraumatic Eyes: PERRL, conjunctivae normal, anicteric sclerae ENMT: external ear and nose normal, oropharynx normal Neck: trachea midline, no thyromegaly normal visual inspection Respiratory: normal respiratory effort, decreased aeration throughout all lung kraus, prolonged exp phase with wheezing noted, no rales, rhonchi. Normal insp/exp effort, no accessory muscle use on 2L of O2 via NC Cardiovascular: RRR, no murmur, +1 pretibial/ankle edema Vessels: no JVD or carotid bruit Chest: normal inspection of chest Abdomen: normal bowel sounds, soft, nontender, no hepatosplenomegaly Musculoskeletal: no cyanosis or clubbing, extremities motor strength 5/5 Skin: no rashes, warm and dry normal turgor Neurologic: PERRL, EOMI, accommodation nl, no face palsy, no dysarthria CN's II-XI intact bilaterally and moves all extremities Psychiatric: A+Ox3, euthymic affect Lymphatic: no cervical or axillary lymphadenopathy : deferred Principal Diagnosis Acute COPD Exacerbation Tachybradycardia syndrome Discharge Data Allergies Allergy/AdvReac Type Severity Reaction Status Date / Time cat dander Allergy Intermediate SNEEZING, Verified 09/30/20 16:05 CONGESTION pollen extracts Allergy Intermediate SNEEZING, Verified 09/30/20 16:05 CONGESTION Consultations 09/30/20 16:14 ED Decision to Admit Stat 09/30/20 17:24 Consult Pulmonology Routine 09/30/20 18:35 Consult Cardiology Routine Ordered Studies 10/01/20 14:35 CT chest diagnostic wo con Urgent Hospital Course (1) Hypoxia: (2) SOB (shortness of breath): (3) COPD exacerbation: Patient is a 69 yr male with H/O PAF anticoagulated on warfarin, nonobstructive CAD, HTN, HLD, history of nonischemic cardiomyopathy ejection fraction now improved, prediabetes, COPD, CKD stage III who presents ED secondary to worsening shortness of breath for months. Acute COPD Exacerbation B/L bronchiectasis with mucous plugging DD: ADAM -CT Chest:Lower lobe predominant bronchial wall thickening, mild bronchiectasis, mucus plugging and scattered tree-in-bud nodules, decreased in extent when compared to prior CT of October 28, 2017. The findings favor an infectious process which may be chronic. The CT appearance is nonspecific but could be seen in the setting of an atypical mycobacterial infection. -Last PFT 2018 revealed severe obstructive disease. -Sputum AFB pending -Immunoglobulin work-up, alpha-1 antitrypsin levels pending Received IV Solumderol--Plan to transition to Prednisone upon discharge Continue Nebs Continue home inhalers Appreciate Pulmonology Input On doxycycline 100mg po bid Continue pulmonary hygiene Change Breo to Trelegy 200 as recommended by Pulm. Needs PFTs as outpatient Needs follow-up with pulmonology upon discharge Also needs outpatient polysomnography. Right upper lobe fissure ? congenital (4) Tachy-starla syndrome: Tachybradycardia syndrome Recently evaluated by cardiology Dr. 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, EF now improved last echo 05/2020 EF 50 to 55%, grade 2 diastolic dysfunction, RV mildly dilated, mild MR and TR continue atorvastatin, losartan On lasix 20mg 1-2x/wk at home (7) HTN (hypertension): BP mildly elevated continue losartan, diltiazem Added Metoprolol monitor (8) DVT prophylaxis: INR therapeutic Resume Coumadin Code Status FULL CODE Total Time Total Time Spent Total Time Spent (In Minutes): 46 minutes Discharge Plan Discharge Items Patient Disposition: Home - Self-Care Reason For Visit: KNOWN TBS; SOB Discharge Diagnosis: Acute COPD Exacerbation Tachybradycardia syndrome Activity: Per Instructions section Exercise/Sports: Wait until after follow-up appointment Non-emergency contact: Primary Care Provider, Photography Assistant and [place] Actor Call non-emergency contact if: you have any medication questions, your symptoms worsen, your pain is concerning for you and you have a fever Follow-up/Referrals: Marialuisa Bai MD [Physician] - 10/30/20 11:15 am ([facility] Pulmonology Kamran Lyons PA-C) Chester Haider DO [Photography Assistant] - (Date & Time 10/22/2020 8:30 Ligia Haider [facility] Cardiology, [facility] ) Paris Lizama MD [Primary Care Provider] - (Date & Time 10/08/2020 10:40 Ligia Ramos [facility] General Internal Medicine [facility] ) Diet: Heart Healthy and Low Sodium (2gm) Addtl Attending Provider Instructions: Follow up with your primary care physician Dr. Paris Lizama on 10/08/2020 10:40 AM Follow-up with your senior recruitment consultant Dr. Haider as recommended Follow-up with your puppy trainer Dr. Bai in 4 weeks Follow-up with Coumadin clinic for monitoring your PT/INR and adjustment of Coumadin dosing as needed. Get lung function tests, polysomnography as outpatient as recommended by your puppy trainer. Prednisone Taper Course: Take prednisone 40 mg daily for 3 days, then 20 mg for 3 days and stop. --Your immunological work-up is pending at the time of discharge. Follow-up with your physician for results. Seek immediate medical attention if your symptoms reoccur or worsen Please take all medications as instructed on discharge list below. Please call if you have any questions or problems. You can reach a [facility] hospitalist on duty at [facility] 24 hours a day by calling [phone] Pending Studies at Discharge: Yes Studies:: Immunoglobulin work-up, alpha-1 antitrypsin levels Stand-Alone Forms: My [facility], Smoking Cessation Medications and DC Order Prescriptions: Anthony Baeza Ellipta 200-62.5-25 mcg blister with device 1 inh inhalation DAILY Qty: 60 RF: 0 doxycycline hyclate 100 mg Capsule 100 mg PO BID Qty: 4 RF: 0 metoprolol tartrate 25 mg Tablet 12.5 mg PO BID Qty: 60 RF: 1 prednisone 10 mg tablet 10 mg PO UD Qty: 18 RF: 0 Continued albuterol sulfate 2.5 mg /3 mL (0.083 %) solution for nebulization See Rx Instructions continuous nebulization .COMPLEX PRN (Reason: shortness of breath or wheezing) Qty: 3 RF: 0 cetirizine 10 mg tablet 10 mg PO DAILY RF: 0 hydrocodone-acetaminophen 7.5-325 mg tablet 1 tab PO Q6H PRN (Reason: pain) RF: 0 montelukast 10 mg tablet 10 mg PO DAILY RF: 0 omeprazole 20 mg capsule,delayed release(DR/EC) 20 mg PO DAILYBB RF: 0 omalizumab 150 mg recon soln 0 mg subcut Q4WK Qty: 1 RF: 0 omega-3 fatty acids 1,000 mg Capsule 1,000 mg PO DAILY RF: 0 warfarin 2.5 mg tablet 2.5 mg PO DAILY RF: 0 azelastine 137 mcg (0.1 %) Aerosol,Horatio 2 spray INTRANASAL BID PRN (Reason: NEEDED) RF: 0 diltiazem HCl 240 mg capsule,extended release 24hr 240 mg PO PM Qty: 30 RF: 0 atorvastatin 80 mg tablet 80 mg PO HS RF: 0 furosemide 20 mg tablet 20 mg PO .1-2 TIMES PER WEEK RF: 0 Combivent Respimat 20-100 mcg/actuation mist 1 puff inhalation Q6 PRN (Reason: as needed) RF: 0 losartan 50 mg tablet 50 mg PO DAILY RF: 0 Discontinued fluticasone propionate 50 mcg/actuation spray,suspension 2 sprays intranasal DAILY Qty: 1 RF: 0 doxycycline hyclate 100 mg Capsule 100 mg PO BID PRN (Reason: RESCUE KIT) RF: 0 Breo Ellipta 100-25 mcg/dose Blister With Device 1 inh INHALATION BID RF: 0 amiodarone 200 mg tablet 200 mg PO DAILY RF: 0 Discharge Orders: Discharge Order (Routine); Ordered 10/03/20 Ordered By: Govind Bynum/Other Patient Handouts: Shortness of Breath Coping Admission Data Admit Date/Time: 09/30/20 21:56 Attending Provider: Govind Brasher Admit Provider: Jorge Dill Primary Care Provider: Paris Lizama Other Providers: Marialuisa Bai ; Jorge Dill ; Chester Haider Other Interventions: Discharge Summary Assessment (RN) Last Done: 10/03/20 14:00
--- NOTE | 2020-10-03 15:33 | Electrocardiogram Report ---
Test Reason : Blood Pressure : / mmHG Vent. Rate : 059 BPM Atrial Rate : 059 BPM P-R Int : 172 ms QRS Dur : 098 ms QT Int : 452 ms P-R-T Axes : 064 057 043 degrees QTc Int : 447 ms Poor data quality, interpretation may be adversely affected Sinus bradycardia Nonspecific ST and T wave abnormality Abnormal ECG When compared with ECG of 22-MAY-2020 06:14, Premature atrial complexes are no longer Present Confirmed by Joshua Souza ([id number]) on 10/03/2020 3:33:20 PM Referred By: REFERRED SELF Confirmed By:Joshua Souza
[2020-10-03] MEDS ORDERED: WARFARIN SOD 1 MG TAB PO SCH (16:00)
[2020-10-04 00:05] LABS: Angiotensin Converting Enzyme 28 U/L (9-67); Anti Nuclear Antibody Screen NEGATIVE (NEGATIVE); Anti-SS-A <1.0 NEG AI (<1.0 NEG); Anti-SS-B <1.0 NEG AI (<1.0 NEG); Cyclic Citrullinated Pep IgG <16 UNITS; Rheumatoid Factor <14 IU/mL (<14)
[2020-10-04] MEDS ORDERED: predniSONE 20 MG TAB PO SCH (09:00)
[2020-10-13 01:31] LABS: Alpha 1 Antitrypsin 156 mg/dL (83-199)
== END 2020-10-03 16:58 | disposition home or self-care (01) | DRG 191 ==
LOC: ED 13:49 → 2S 13:49 → SUATTDRO 21:56

== ENCOUNTER 2021-03-01 10:32 | Inpatient (IN) ==
--- NOTE | 2021-03-01 11:08 | Emergency Department Note ---
Impression & Plan Acute respiratory failure with hypoxia, COVID-19, HTN (hypertension), HLD (hyperlipidemia), Acute exacerbation of chronic obstructive pulmonary disease (COPD) ED Provider Note NAME: JUDITH CROWDER AGE: 70 SEX: M : 1950 ARRIVES VIA: Walk-In INFORMANT: Patient, ED PROVIDER(S): Avery Shook MD Chief Complaint: Shortness of breath, cough HPI: Patient does present with above complaints. The patient did test positive for COVID on 113 but may be symptomatic just prior. The patient is vaccinated for COVID-19 but without booster. The patient believes that he got it from his son's he also had COVID-19. Patient states that he does have a history of COPD. The patient does have chronic lower extremity edema but this is unchanged from prior. Patient states he has been compliant with his medications. Patient denies any fevers or chills loss of taste or smell or decreased appetite. The patient does not smoke. Patient denies any recent travel but the son was not known sick contact. Patient denies any orthopnea. The patient denies any prior history of DVT or PE. The patient does take Coumadin for history of A. fib. The patient does follow with Dr. Kelley with cardiology. The patient denies any chest pains. The patient did have some dry heaves earlier in the week but denies any abdominal pain or vomiting. Patient has been able to have bowel movements and is urinating. The patient does state that he did have a pacemaker placed a month prior and this was due to palpitations. ROS: See HPI for pertinent positives and negatives. A total of 10 systems were reviewed and otherwise negative. Past medical history: See below Surgical history: See below Social history: See below Physical Exam: GENERAL: Mildly ill in appearance, wearing a mask, nasal cannula in place. EYE EXAM: Normal conjunctiva. PERRL, no anisocoria and EOM's grossly intact w/o pain. NECK: Supple, no nuchal rigidity, no adenopathy, non-tender. No signs of meningismus. LUNGS: Scant inspiratory and expiratory wheezes throughout with associated bibasilar crackles. Mild tachypnea noted. HEART: NSR, no MRG. ABDOMEN: Abdomen soft, non-tender, normo-active bowel sounds, no masses, no rebound or guarding. BACK: No CVA TTP. SKIN: No rashes and no bruising. UPPER EXTREMITIES: Upper extremities are grossly normal. LOWER EXTREMITIES: Grossly normal, 1-2+ bilateral symmetric lower extremity edema without any erythema NEURO EXAM: A&O x3, cranial nerves II-XII grossly intact, normal speech, moves all 4 extremities on command w/o issue. Differential diagnoses: Reactive airway disease, pneumonia, pneumothorax, COPD, CHF, infections, cardiac ischemia, pulmonary embolism, musculoskeletal, gastrointestinal, as well as other pathologies. Course: Patient was seen and evaluated the bedside. Full history physical exam was performed. [EKG interpreted by me] AV dual paced rhythm, rate of 80, QRS is normal, normal axis. Imaging Studies: See Below [Cardiac monitoring: An order was placed for continuous cardiac monitoring. The monitor shows a rate of 65 with paced rhythm.] MDM: Patient does present due to concern for shortness of breath. Blood work is obtained. Patient was treated symptomatically for COVID/COPD. Patient did receive steroids mag and duo nebs. The patient does have a white count of 7 with hemoglobin 13.1. Platelet count is unremarkable. Patient is therapeutic with anticoagulation INR 2.2. Kidney function unremarkable with normal electrolytes. Borderline elevations in AST and ALT. Troponin is not checked well. COVID-positive. Chest x-ray interstitial thickening unchanged from prior. Given the patient's hypoxia and oxygen requirement I did speak to the on-call hospitalist. Patient was admitted to the medicine service by Dr. Dill. Critical Care: I have personally spent 55 minutes of critical care time in direct management of this patient. This includes bedside care, interpretation of diagnostic studies, and testing, discussion with consultants, patient, and family members, and other require inpatient management activities. This 55 minutes is in excess of all separately billable procedures. Past Med/Surg History Medical History Chronic back pain Chronic diastolic heart failure CKD (chronic kidney disease), stage III GERD (gastroesophageal reflux disease) History of paroxysmal supraventricular tachycardia S/P ablation in 2009 HLD (hyperlipidemia) HTN (hypertension) Nocturnal dyspnea Nonischemic cardiomyopathy 2013 echo: EF: 40%, moderate global hypokinesis Paroxysmal atrial fibrillation Visit for monitoring Xolair therapy Surgical History H/O hernia repair S/P appendectomy S/P cholecystectomy Family History Other Asthma Social History Smoking Status: Never smoker Second Hand Exposure: No; Hx Alcohol Use: No Hx Substance Use: No Preferred Language: Sudanese Communication Ability: Effective 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 Beliefs That Will Affect Care: None marital status: Current Living Situation: Family Current Living Situation Comment: Lives with two sons current occupational status: disabled Other Information That Helps Us Care for You: No Feels Safe at Home: Yes Safety Concerns: Feels Safe At This Time Assistive Devices: Denture - Upper and Denture - Lower Immunizations: Vaccinated for COVID-19 but without booster Allergies Allergies Allergy/AdvReac Type Severity Reaction Status Date / Time cat dander Allergy Intermediate SNEEZING, Verified 09/30/20 16:05 CONGESTION pollen extracts Allergy Intermediate SNEEZING, Verified 09/30/20 16:05 CONGESTION morphine Allergy Unknown Verified 01/07/21 10:12 Home Meds Home Medications Medication Instructions Recorded Confirmed cetirizine 10 mg tablet 10 mg PO DAILY PRN tab 09/18/18 03/01/21 hydrocodone 7.5 mg-acetaminophen 1 tab PO Q6H PRN tab 09/18/18 03/01/21 325 mg tablet montelukast 10 mg tablet 10 mg PO DAILY tab 09/18/18 03/01/21 omeprazole 20 mg capsule,delayed 20 mg PO DAILYBB cap 09/18/18 03/01/21 release azelastine 137 mcg (0.1 %) nasal 2 spray INTRANASAL BID PRN 05/21/20 03/01/21 spray aerosol warfarin 2.5 mg tablet 2.5 mg PO [id number] 05/21/20 03/01/21 atorvastatin 80 mg tablet 80 mg PO HS 09/30/20 03/01/21 losartan 50 mg tablet 50 mg PO DAILY 09/30/20 03/01/21 doxycycline hyclate 100 mg tablet 100 mg PO BID PRN 01/07/21 03/01/21 oxybutynin chloride 5 mg tablet 5 mg PO TID 01/07/21 03/01/21 amiodarone 200 mg tablet 200 mg PO DAILY 03/01/21 03/01/21 metoprolol tartrate 25 mg tablet 12.5 mg PO BID 03/01/21 03/01/21 Previous Rx's Medication Instructions Recorded diltiazem HCl 240 mg 240 mg PO PM #30 cap 05/23/20 capsule,extended release 24 hr prednisone 10 mg tablet 10 mg PO UD #18 tab 10/03/20 fluticasone fur. 200 mcg-umeclid 1 inh INHALATION DAILY #60 ea 10/27/20 62.5 mcg-vilant 25 mcg inhalat.powder (Trelegy Ellipta) albuterol sulfate See Rx Instructions CONTINUOUS 11/04/20 NEBULIZATION .COMPLEX PRN #90 ml Results & Data (ED) Vital Signs Vital Signs - 24 hr 03/01/21 10:42 03/01/21 10:50 03/01/21 11:00 Temperature 36.8 C Temperature Source Temporal Artery Scan Pulse Rate 72 61 Pulse Rate [Apical] Pulse Rate from SpO2 Sensor 61 Respiratory Rate 20 22 Respiratory Effort / Characteristics Blood Pressure 153/91 H Blood Pressure Mean 111 Pulse Oximetry 90 86 L 94 Oxygen Delivery Method Room Air Nasal Cannula Nasal Cannula Oxygen Flow Rate 0 4 Sepsis Recent Fever Within 48 Hours No Sepsis New/Unexplained Change in Mental Status No Sepsis Action Taken by Nursing No Action Required Oxygen Flow Rate - Titration 2 Pulse Oximetry Post Tiitration 94 03/01/21 11:26 03/01/21 11:30 03/01/21 12:00 Temperature Temperature Source Pulse Rate 60 60 Pulse Rate [Apical] Pulse Rate from SpO2 Sensor 60 61 Respiratory Rate 19 22 Respiratory Effort / Characteristics Blood Pressure 146/66 H Blood Pressure Mean 92 Pulse Oximetry 96 93 Oxygen Delivery Method Nasal Cannula Nasal Cannula Nasal Cannula Oxygen Flow Rate 2 4 4 Sepsis Recent Fever Within 48 Hours Sepsis New/Unexplained Change in Mental Status Sepsis Action Taken by Nursing Oxygen Flow Rate - Titration Pulse Oximetry Post Tiitration 03/01/21 12:07 03/01/21 12:30 03/01/21 13:00 Temperature Temperature Source Pulse Rate 62 61 Pulse Rate [Apical] 60 Pulse Rate from SpO2 Sensor 62 62 Respiratory Rate 21 24 21 Respiratory Effort / Characteristics Spontaneous Blood Pressure 145/104 H Blood Pressure Mean 117 Pulse Oximetry 95 94 95 Oxygen Delivery Method Nasal Cannula Nebulizer Nasal Cannula Oxygen Flow Rate 2 6 3 Sepsis Recent Fever Within 48 Hours Sepsis New/Unexplained Change in Mental Status Sepsis Action Taken by Nursing Oxygen Flow Rate - Titration Pulse Oximetry Post Tiitration 03/01/21 13:30 Temperature Temperature Source Pulse Rate 82 Pulse Rate [Apical] Pulse Rate from SpO2 Sensor 81 Respiratory Rate 21 Respiratory Effort / Characteristics Blood Pressure Blood Pressure Mean Pulse Oximetry 91 Oxygen Delivery Method Nasal Cannula Oxygen Flow Rate 2 Sepsis Recent Fever Within 48 Hours Sepsis New/Unexplained Change in Mental Status Sepsis Action Taken by Nursing Oxygen Flow Rate - Titration Pulse Oximetry Post Tiitration Home Medications Current Medication List: was personally reviewed by me Laboratory Data Attestation: I reviewed the patient's lab results. Result diagrams: 03/01/21 11:45 03/01/21 11:45 Lab Results 03/01/21 03/01/21 03/01/21 Range/Units 11:45 11:45 11:45 WBC 7.58 (4.8-10.8) K/uL RBC 4.37 L (4.7-6.1) M/uL Hgb 13.1 L (14.0-18.0) g/dL Hct 41.0 L (42-52) % MCV 93.8 (80-100) fL MCH 30.0 (25-34) pg MCHC 32.0 (32-36) g/dL RDW Std Deviation 50.9 H (36.4-46.3) fL RDW Coeff of Danyell 14.9 H (11.5-14.5) % Plt Count 132 (130-400) K/uL MPV 9.8 (7.4-10.4) fL Immature Gran % (Auto) 0.4 % Neut % (Auto) 85.9 % Lymph % (Auto) 6.7 % [place] % (Auto) 6.7 % Eos % (Auto) 0.3 % Baso % (Auto) 0.0 % Neut # (Auto) 6.51 H (1.4-6.5) K/uL Lymph # (Auto) 0.51 L (1.2-3.4) K/uL [place] # (Auto) 0.51 (0.11-0.59) K/uL Eos # (Auto) 0.02 (0-0.5) K/uL Baso # (Auto) 0.00 (0-0.2) K/uL Immature Gran # (Auto) 0.03 H (0.00-0.02) K/uL PT 21.0 H (9.0-12.0) Seconds INR 2.2 H (0.9-1.1) APTT 40.6 H (21.0-31.0) Seconds PTT Ratio 1.5 Sodium 138 (136-145) mmol/L Potassium 4.1 (3.5-5.1) mmol/L Chloride 101 (98-107) mmol/L Carbon Dioxide 30 (21-32) mmol/L Anion Gap 7 (3-11) BUN 18 (6-23) mg/dl Creatinine 1.27 (0.6-1.4) mg/dl Est Cr Clr Drug Dosing 64.5 ml/min Est GFR ( Amer) 65.9 ml/min Est GFR (Non-Af Amer) 56.9 ml/min BUN/Creatinine Ratio 14.2 (10-20) Glucose 156 H (70-99(Fasting)) mg/dl Calcium 8.6 (8.5-10.1) mg/dl Magnesium 1.7 (1.7-2.4) mg/dl Total Bilirubin 0.7 (0.2-1.0) mg/dl AST 40 H (13-39) U/L ALT 56 H (7-52) U/L Alkaline Phosphatase 77 (34-104) U/L Troponin I < 0.03 (0-0.04) ng/ml C-Reactive Protein (0-0.5) mg/dl Total Protein 6.7 (6.0-8.3) gm/dl Albumin 3.7 (3.4-5.0) gm/dl Globulin 3.0 (2.5-4.0) gm/dl Albumin/Globulin Ratio 1.2 (0.9-2) SARS-CoV-2, RNA, NAAT (NEGATIVE) 03/01/21 03/01/21 Range/Units 11:45 11:45 WBC (4.8-10.8) K/uL RBC (4.7-6.1) M/uL Hgb (14.0-18.0) g/dL Hct (42-52) % MCV (80-100) fL MCH (25-34) pg MCHC (32-36) g/dL RDW Std Deviation (36.4-46.3) fL RDW Coeff of Danyell (11.5-14.5) % Plt Count (130-400) K/uL MPV (7.4-10.4) fL Immature Gran % (Auto) % Neut % (Auto) % Lymph % (Auto) % [place] % (Auto) % Eos % (Auto) % Baso % (Auto) % Neut # (Auto) (1.4-6.5) K/uL Lymph # (Auto) (1.2-3.4) K/uL [place] # (Auto) (0.11-0.59) K/uL Eos # (Auto) (0-0.5) K/uL Baso # (Auto) (0-0.2) K/uL Immature Gran # (Auto) (0.00-0.02) K/uL PT (9.0-12.0) Seconds INR (0.9-1.1) APTT (21.0-31.0) Seconds PTT Ratio Sodium (136-145) mmol/L Potassium (3.5-5.1) mmol/L Chloride (98-107) mmol/L Carbon Dioxide (21-32) mmol/L Anion Gap (3-11) BUN (6-23) mg/dl Creatinine (0.6-1.4) mg/dl Est Cr Clr Drug Dosing ml/min Est GFR ( Amer) ml/min Est GFR (Non-Af Amer) ml/min BUN/Creatinine Ratio (10-20) Glucose (70-99(Fasting)) mg/dl Calcium (8.5-10.1) mg/dl Magnesium (1.7-2.4) mg/dl Total Bilirubin (0.2-1.0) mg/dl AST (13-39) U/L ALT (7-52) U/L Alkaline Phosphatase (34-104) U/L Troponin I (0-0.04) ng/ml C-Reactive Protein 3.42 H (0-0.5) mg/dl Total Protein (6.0-8.3) gm/dl Albumin (3.4-5.0) gm/dl Globulin (2.5-4.0) gm/dl Albumin/Globulin Ratio (0.9-2) SARS-CoV-2, RNA, NAAT POSITIVE A* (NEGATIVE) Administered Medications Hydrocodone Bitart/Acetaminophen (Hydrocodone/Acetaminophen 7.5/325mg Tab) 1 tab PO Q6H PRN PRN Reason: pain Stop: 03/15/21 14:14 Last Admin: 03/01/21 16:53 Dose: 1 tab Documented by: [id number] Amiodarone HCl (Amiodarone 200 Mg Tab) 200 mg PO DAILY WILLY Stop: 03/31/21 14:44 Last Admin: 03/01/21 15:05 Dose: 200 mg Documented by: [id number] Losartan Potassium (Losartan Potassium 50 Mg Tab) 50 mg PO DAILY WILLY Stop: 03/31/21 14:14 Last Admin: 03/01/21 15:05 Dose: 50 mg Documented by: [id number] Metoprolol Tartrate (Metoprolol Tartrate 25 Mg Tab) 12.5 mg PO BID WILLY Stop: 03/31/21 14:44 Last Admin: 03/01/21 15:05 Dose: 12.5 mg Documented by: [id number] Warfarin Sodium (Warfarin Sod 2.5 Mg Tab) 2.5 mg PO [id number] WILLY Stop: 03/31/21 15:59 Last Admin: 03/01/21 16:52 Dose: 2.5 mg Documented by: [id number] Discontinued Medications Albuterol (Albut/Ipratrop 3mg/0.5mg Neb 3 Ml Vial) 12 ml INH ONE STA Stop: 03/01/21 11:16 Last Admin: 03/01/21 12:07 Dose: 12 ml Documented by: [id number] Magnesium Sulfate/Dextrose (Magnesium Sulfate / D5w) 1 gm in 100 mls @ 50 mls/hr IV ONE ONE Stop: 03/01/21 13:14 Last Infusion: 03/01/21 12:53 Dose: 0 mls/hr Documented by: [id number] Admin: 03/01/21 11:51 Dose: 50 mls/hr Documented by: [id number] Methylprednisolone (Methylprednisolone 125 Mg/2 Ml Vial) 125 mg IV NOW STA Stop: 03/01/21 11:16 Last Admin: 03/01/21 11:48 Dose: 125 mg Documented by: [id number] Imaging Data Radiologist's Impression: Chest X-Ray 03/01/21 11:15 XR chest 1V portable CLINICAL HISTORY: Dyspnea TECHNIQUE: Single frontal radiograph of the chest was obtained. Comparison: Comparison is made to chest one view 01/07/2021 FINDINGS: No lines and tubes are seen. Cardiomegaly is noted. Azygos fissure is incidentally noted. Interstitial thickening is seen in the bilateral lower lungs. No evidence of pleural effusion or pneumothorax. IMPRESSION: Stable interstitial thickening in the bilateral lower lungs. ACT 112: Negative or not required by law. Electronically signed by: David Martin M.D. 03/01/2021 12:08 PM Discharge Plan Visit Data Chief Complaint: Shortness of Breath/Dyspnea Stated Complaint: SOB,+COVID 02/19 Discharge Problem: Acute respiratory failure with hypoxia, COVID-19, HTN (hypertension), HLD (hyperlipidemia), Acute exacerbation of chronic obstructive pulmonary disease (COPD) Discharge Instructions Interventions: ED Discharge Assessment Last Done: 03/01/21 14:20
[2021-03-01] MEDS ORDERED: ALBUT/IPRATROP 3MG/0.5MG NEB 3 ML VIAL INH STA (11:15)
[2021-03-01] MEDS ORDERED: MAGNESIUM SULFATE / D5W 1 GM/100 ML BAG IV ONE (11:15)
[2021-03-01] MEDS ORDERED: methylPREDNISolone 125 MG/2 ML VIAL IV STA (11:15)
[2021-03-01 11:59] LABS: Eosinophils # (auto) 0.02 K/uL (0-0.5); Eosinophils % (auto) 0.3 %; Hemoglobin 13.1 g/dL (14.0-18.0); Immature Granulocytes # (auto) 0.03 K/uL (0.00-0.02); Immature Granulocytes % (auto) 0.4 %; Lymphocytes # (auto) 0.51 K/uL (1.2-3.4); Lymphocytes % (auto) 6.7 %; Mean Corpuscular Volume 93.8 fL (80-100); Mean Platelet Volume 9.8 fL (7.4-10.4); Monocytes # (auto) 0.51 K/uL (0.11-0.59); Monocytes % (auto) 6.7 %; Neutrophils # (auto) 6.51 K/uL (1.4-6.5); Neutrophils % (auto) 85.9 %; Platelet Count 132 K/uL (130-400); RDW Coefficient of Variation 14.9 % (11.5-14.5); RDW Standard Deviation 50.9 fL (36.4-46.3); Red Blood Count 4.37 M/uL (4.7-6.1); White Blood Count 7.58 K/uL (4.8-10.8)
[2021-03-01 12:10] LABS: INR 2.2 (0.9-1.1); Partial Thromboplastin Ratio 1.5; Partial Thromboplastin Time 40.6 Seconds (21.0-31.0)
--- NOTE | 2021-03-01 12:10 | XRay Report ---
XR chest 1V portable CLINICAL HISTORY: Dyspnea TECHNIQUE: Single frontal radiograph of the chest was obtained. Comparison: Comparison is made to chest one view 01/07/2021 FINDINGS: No lines and tubes are seen. Cardiomegaly is noted. Azygos fissure is incidentally noted. Interstitia l thickening is seen in the bilateral lower lungs. No evidence of pleural effusion or pneumothorax. IMPRESSION: Stable interstitial thickening in the bilateral lower lungs. ACT 112: Negative or not required by law. Electronically signed by: David Martin M.D. 03/01/2021 12:08 PM
[2021-03-01 12:23] LABS: Troponin I < 0.03 ng/ml (0-0.04)
[2021-03-01 12:28] LABS: Alanine Aminotransferase 56 U/L (7-52); Albumin Globulin Ratio 1.2 (0.9-2); Albumin Level 3.7 gm/dl (3.4-5.0); Alkaline Phosphatase 77 U/L (34-104); Anion Gap 7 (3-11); Aspartate Aminotransferase 40 U/L (13-39); BUN Creatinine Ratio 14.2 (10-20); Bilirubin,Total 0.7 mg/dl (0.2-1.0); Blood Urea Nitrogen 18 mg/dl (6-23); Calcium 8.6 mg/dl (8.5-10.1); Carbon Dioxide 30 mmol/L (21-32); Chloride 101 mmol/L (98-107); Creatinine Clr Calc Pharmacy 64.5 ml/min; Est GFR (African American) 65.9 ml/min; Est GFR (Non-African American) 56.9 ml/min; Glucose 156 mg/dl (70-99(Fasting)); Magnesium 1.7 mg/dl (1.7-2.4); Potassium 4.1 mmol/L (3.5-5.1); Sodium 138 mmol/L (136-145); Total Protein 6.7 gm/dl (6.0-8.3)
--- NOTE | 2021-03-01 13:49 | History & Physical Report ---
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 Acute hypoxic respiratory failure Covid 19 pneumonia Underlying severe asthma and COPD Positive home test 02/19, symptomatic since 02/16 Hypoxic at 86% on room air, improved to 94 on 2L NC CXR with stable interstitial thickening in the bilateral lower lungs Has been on 4 days of prednisone taper and doxycycline as an outpatient Given 125mg IV solu-medrol today. Continue with IV dexamethasone Outside of window for remdesivir Continue home nebs, inhalers, supplemental O2 Covid isolation precautions Tachy-starla syndrome S/p dual chamber permanent pacemaker Jan [address] Swain Device interrogated on 01/16/21showing an 89.2% atrial pacing burden Paroxysmal Atrial fibrillation, A flutter History of highly symptomatic atrial arrhythmias per recent cards note Continue amiodarone AM, diltiazem HS, Lopressor BID - given missed AM doses Therapeutic on coumadin for anticoag- continue, daily INRs Chronic back pain Continue home [place] Q6H PRN, bowel regimen HTN Normotensive. Continue losartan, Lopressor CAD Non-obstructive CAD on cath from 01/20. Continue statin, lopressor Chronic diastolic HF PRN Lasix on home med rec, has not been requiring CKD III Cr 1.27 today, at baseline. Continue to monitor with daily BMP Severe GREGG, not on CPAP In the midst of outpatient stress test, recommended to use 2L NC O2 HS DVT Ppx: Coumadin Code status: FULL PCP: Lizama Dispo: Admitted to med/tele Patient seen in collaboration with Dr. Dill. Please see addendum. 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 Started having symptoms of lethargy on 02/19 with positive home rapid test. Patient is vaccinated for COVID- 19 but without booster.Since then has noted worsening SOB and chest tightness. Also had dry heaves this morning but denies any persistent nausea or abdominal pain. Appetite has been fine. Not on oxygen at baseline. Started a rescue prednisone taper at home and completed 5 days - took 40mg x 2 days, 30mg x 2 days and 20mg x 1 day. Also started rescue doxycycline 100mg BID 4 days ago. No fever, chills, body aches, nausea, vomiting, abdominal pain, dysuria, diarrhea or constipation. Did not take any home medications today prior to arrival. Allergies Allergy/AdvReac Type Severity Reaction Status Date / Time cat dander Allergy Intermediate SNEEZING, Verified 09/30/20 16:05 CONGESTION pollen extracts Allergy Intermediate SNEEZING, Verified 09/30/20 16:05 CONGESTION morphine Allergy Unknown Verified 01/07/21 10:12 Home Medications Medication Instructions Recorded Confirmed Type cetirizine 10 mg tablet 10 mg PO DAILY PRN tab 09/18/18 03/01/21 History hydrocodone 7.5 mg-acetaminophen 1 tab PO Q6H PRN tab 09/18/18 03/01/21 History 325 mg tablet montelukast 10 mg tablet 10 mg PO DAILY tab 09/18/18 03/01/21 History omeprazole 20 mg capsule,delayed 20 mg PO DAILYBB cap 09/18/18 03/01/21 History release azelastine 137 mcg (0.1 %) nasal 2 spray INTRANASAL BID PRN 05/21/20 03/01/21 History spray aerosol warfarin 2.5 mg tablet 2.5 mg PO [id number] 05/21/20 03/01/21 History diltiazem HCl 240 mg 240 mg PO PM #30 cap 05/23/20 03/01/21 Rx capsule,extended release 24 hr atorvastatin 80 mg tablet 80 mg PO HS 09/30/20 03/01/21 History losartan 50 mg tablet 50 mg PO DAILY 09/30/20 03/01/21 History prednisone 10 mg tablet 10 mg PO UD #18 tab 10/03/20 03/01/21 Rx fluticasone fur. 200 mcg-umeclid 1 inh INHALATION DAILY #60 ea 10/27/20 03/01/21 Rx 62.5 mcg-vilant 25 mcg inhalat.powder (Trelegy Ellipta) albuterol sulfate See Rx Instructions CONTINUOUS 11/04/20 03/01/21 Rx NEBULIZATION .COMPLEX PRN #90 ml doxycycline hyclate 100 mg tablet 100 mg PO BID PRN 01/07/21 03/01/21 History oxybutynin chloride 5 mg tablet 5 mg PO TID 01/07/21 03/01/21 History amiodarone 200 mg tablet 200 mg PO DAILY 03/01/21 03/01/21 History metoprolol tartrate 25 mg tablet 12.5 mg PO BID 03/01/21 03/01/21 History Past Med/Surg History Medical History Chronic back pain Chronic diastolic heart failure CKD (chronic kidney disease), stage III GERD (gastroesophageal reflux disease) History of paroxysmal supraventricular tachycardia S/P ablation in 2009 HLD (hyperlipidemia) HTN (hypertension) Nocturnal dyspnea Nonischemic cardiomyopathy 2013 echo: EF: 40%, moderate global hypokinesis Paroxysmal atrial fibrillation Visit for monitoring Xolair therapy Surgical History H/O hernia repair S/P appendectomy S/P cholecystectomy Family History Other Asthma Social History Smoking Status: Never smoker Second Hand Exposure: No; Hx Alcohol Use: No Hx Substance Use: No Preferred Language: Maltese Communication Ability: Effective Scrap Handler Required: No Beliefs That Will Affect Care: None marital status: Current Living Situation: Family Current Living Situation Comment: Lives with two sons current occupational status: disabled How many Children do You have: 2 Other Information That Helps Us Care for You: No Feels Safe at Home: Yes Safety Concerns: Feels Safe At This Time Assistive Devices: Nebulizer Review of Systems Review of Systems: At least ten systems reviewed and negative except as noted in the HPI. Physical Exam Physical Exam: Please see Dr. Dill's addendum for physical exam. Results & Data Results & Data ([facility]) Vital Signs (Past 12 Hours) Vital Signs Temp Pulse Pulse Resp BP Pulse Ox 03/01/21 13:00 61 21 145/104 H 95 03/01/21 12:30 62 24 94 03/01/21 12:07 60 21 95 03/01/21 12:00 60 22 146/66 H 93 03/01/21 11:30 60 19 96 03/01/21 11:00 61 22 94 03/01/21 10:50 86 L 03/01/21 10:42 36.8 C 72 20 153/91 H 90 Laboratory Results Short CBC 03/01/21 Range/Units 11:45 WBC 7.58 (4.8-10.8) K/uL Hgb 13.1 L (14.0-18.0) g/dL Hct 41.0 L (42-52) % Plt Count 132 (130-400) K/uL BMP 03/01/21 11:45 Sodium 138 Potassium 4.1 Chloride 101 Carbon Dioxide 30 BUN 18 Creatinine 1.27 Glucose 156 H Calcium 8.6 Cardiac Enzymes 03/01/21 Range/Units 11:45 Troponin I < 0.03 (0-0.04) ng/ml Liver Function 03/01/21 Range/Units 11:45 Total Bilirubin 0.7 (0.2-1.0) mg/dl AST 40 H (13-39) U/L ALT 56 H (7-52) U/L Alkaline Phosphatase 77 (34-104) U/L Albumin 3.7 (3.4-5.0) gm/dl Diagnostic Findings Chest X-Ray 03/01/21 11:15 XR chest 1V portable CLINICAL HISTORY: Dyspnea TECHNIQUE: Single frontal radiograph of the chest was obtained. Comparison: Comparison is made to chest one view 01/07/2021 FINDINGS: No lines and tubes are seen. Cardiomegaly is noted. Azygos fissure is incidentally noted. Interstitial thickening is seen in the bilateral lower lungs. No evidence of pleural effusion or pneumothorax. IMPRESSION: Stable interstitial thickening in the bilateral lower lungs. ACT 112: Negative or not required by law. Electronically signed by: David Martin M.D. 03/01/2021 12:08 PM Supervising Physician Co-Signing Physician Notes Attending Addendum: delayed entry date of service noted above care coordinated with RANDI Wilkinson please refer to her notes for full details, I agree with her notes patient seen and examined, records reviewed by myself as well on exam, patient sitting up in bed, on 2 L of oxygen via nasal cannula Comfortable, not in distress States he feels improved compared to earlier Has cough productive of white sputum No chest pain, leg pain no other symptoms VS noted and reviewed oriented x3, not in distress, speaks in sentences with no effort nor accessory muscle use normal rate, regular rhythm, no murmurs Positive mild wheeze scattered bilaterally non distended, soft, nontender no bipedal edema, erythema, warmth no neuro deficits All labs noted and reviewed ASSESSMENT AND PLAN Acute hypoxic respiratory failure secondary to COVID-19 pneumonia COPD exacerbation, acute, secondary to above Decadron started Patient out of the window for remdesivir Mucinex, incentive spirometry, flutter valve, already on Coumadin Proximal atrial fibrillation Continue usual medications including Coumadin other diagnoses and plan of care as per RANDI Wilkinson's notes Jorge Dill MD
[2021-03-01] MEDS ORDERED: HYDROCODONE/ACETAMINOPHEN 7.5/325MG TAB PO PRN (14:14)
[2021-03-01] MEDS: LOSARTAN POTASSIUM 50 MG TAB PO SCH (15:05)
[2021-03-01] MEDS: METOPROLOL TARTRATE 25 MG TAB PO SCH ×2 (15:05→22:21)
[2021-03-01] MEDS: AMIODARONE 200 MG TAB PO SCH (15:05)
[2021-03-01] MEDS ORDERED: CETIRIZINE HCL 10 MG TABLET PO PRN (15:43)
[2021-03-01] MEDS ORDERED: POLYETHYLENE (MIRALAX) 17 GM PACK PO PRN (15:43)
[2021-03-01] MEDS ORDERED: ACETAMINOPHEN 325 MG TAB PO PRN (15:43)
[2021-03-01] MEDS ORDERED: ONDANSETRON INJ 2 MG/ML 2 ML VIAL IV PRN (15:43)
[2021-03-01] MEDS ORDERED: ALBUTEROL 0.083% NEBU SOLN 3 ML VIAL NEB PRN (15:43)
[2021-03-01] MEDS: WARFARIN SOD 2.5 MG TAB PO SCH (16:52)
[2021-03-01] MEDS: HYDROCODONE/ACETAMINOPHEN 7.5/325MG TAB PO PRN (16:53)
[2021-03-01] MEDS ORDERED: FUROSEMIDE INJ 20 MG/2 ML VIAL IV ONE (17:09)
--- NOTE | 2021-03-01 20:27 | Electrocardiogram Report ---
Test Reason : Blood Pressure : / mmHG Vent. Rate : 080 BPM Atrial Rate : 082 BPM P-R Int : 000 ms QRS Dur : 096 ms QT Int : 442 ms P-R-T Axes : 000 048 052 degrees QTc Int : 509 ms Poor data quality, interpretation may be adversely affected AV dual-paced rhythm Abnormal ECG When compared with ECG of 07-JAN-2021 11:14, Electronic ventricular pacemaker has replaced Electronic atrial pacemaker Confirmed by Nicola Goncalves ([id number]) on 03/01/2021 8:26:58 PM Referred By: REFERRED SELF Confirmed By:Shree Goncalves
[2021-03-01] MEDS ORDERED: METOPROLOL TARTRATE 25 MG TAB PO SCH (21:00)
[2021-03-01] MEDS: OXYBUTYNIN CHLORIDE 5 MG TAB PO SCH (22:20)
[2021-03-01] MEDS: ATORVASTATIN 40 MG TAB PO SCH (22:21)
[2021-03-01] MEDS: dilTIAZem HCL 240 MG CAPCR PO SCH (22:22)
[2021-03-02] MEDS: PANTOprazole 40 MG TAB PO SCH (06:13)
[2021-03-02 06:44] LABS: Hematocrit (blood only) 41.2 % (42-52); Hemoglobin 13.3 g/dL (14.0-18.0); Mean Corpuscular Hemoglobin 29.8 pg (25-34); Mean Corpuscular Hgb Conc 32.3 g/dL (32-36); Mean Corpuscular Volume 92.4 fL (80-100); Mean Platelet Volume 10.4 fL (7.4-10.4); Platelet Count 152 K/uL (130-400); RDW Coefficient of Variation 14.9 % (11.5-14.5); RDW Standard Deviation 50.2 fL (36.4-46.3); Red Blood Count 4.46 M/uL (4.7-6.1); White Blood Count 5.06 K/uL (4.8-10.8)
[2021-03-02 06:57] LABS: Prothrombin Time 18.9 Seconds (9.0-12.0)
[2021-03-02 07:04] LABS: BUN Creatinine Ratio 19.2 (10-20); Calcium 8.9 mg/dl (8.5-10.1); Creatinine Clr Calc Pharmacy 67.6 ml/min; Est GFR (African American) 70.6 ml/min; Est GFR (Non-African American) 60.9 ml/min; Potassium 4.5 mmol/L (3.5-5.1)
[2021-03-02] MEDS: dexAMETHasone 6 MG in SYRINGE 0 ML IV SCH (08:16)
[2021-03-02] MEDS: METOPROLOL TARTRATE 25 MG TAB PO SCH ×2 (08:17→19:59)
[2021-03-02] MEDS: AMIODARONE 200 MG TAB PO SCH (08:18)
[2021-03-02] MEDS: UMECLIDINIUM/VILANTEROL 62.5/25MCG 7 PUFFS/INHALER INH SCH (08:19)
[2021-03-02] MEDS: LOSARTAN POTASSIUM 50 MG TAB PO SCH (08:19)
[2021-03-02] MEDS: FLUTICASONE FUROATE 100MCG 14 PUFFS/INHALER INH SCH (08:20)
[2021-03-02] MEDS: OXYBUTYNIN CHLORIDE 5 MG TAB PO SCH ×3 (08:21→19:59)
[2021-03-02] MEDS: MONTELUKAST SODIUM 10 MG TABLET PO SCH (08:24)
[2021-03-02] MEDS: HYDROCODONE/ACETAMINOPHEN 7.5/325MG TAB PO PRN ×2 (08:35→20:07)
[2021-03-02] MEDS ORDERED: AMIODARONE 200 MG TAB PO SCH (09:00)
[2021-03-02] MEDS: guaiFENesin 600 MG TABCR PO SCH ×2 (10:14→19:58)
[2021-03-02] MEDS: WARFARIN SOD 2.5 MG TAB PO SCH (16:11)
--- NOTE | 2021-03-02 17:33 | Hospitalist Progress Note ---
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 Acute hypoxic respiratory failure Covid 19 pneumonia Underlying severe asthma and COPD Positive home test 02/19, symptomatic since 02/16 Hypoxic at 86% on room air, improved to 94 on 2L NC CXR with stable interstitial thickening in the bilateral lower lungs Has been on 4 days of prednisone taper and doxycycline as an outpatient Given 125mg IV solu-medrol today. Continue with IV dexamethasone Outside of window for remdesivir Continue home nebs, inhalers, supplemental O2 Covid isolation precautions 03/02/2021 Patient remains on 2 L of nasal cannula, 94% O2 saturation Decadron day #2 Out of the window of remdesivir Continue Mucinex, incentive spirometry, flutter valve Give Lasix 20 mg IV Monitor closely Tachy-starla syndrome S/p dual chamber permanent pacemaker Jan [address] Swain Device interrogated on 01/16/21showing an 89.2% atrial pacing burden Paroxysmal Atrial fibrillation, A flutter History of highly symptomatic atrial arrhythmias per recent cards note Continue amiodarone AM, diltiazem HS, Lopressor BID -INR 2.0 Monitor Chronic back pain Continue home [place] Q6H PRN, bowel regimen HTN Normotensive. Continue losartan, Lopressor CAD Non-obstructive CAD on cath from 01/20. Continue statin, lopressor Chronic diastolic HF PRN Lasix on home med rec, has not been requiring CKD III Cr 1.27 today, at baseline. Continue to monitor with daily BMP Severe GREGG, not on CPAP In the midst of outpatient stress test, recommended to use 2L NC O2 HS DVT Ppx: Coumadin Code status: FULL PCP: Dl Dispo: anticipate d/c home when medically stable may need O2 supplement at rest and ambulation Admission and Anticipated Discharge Date Admission Date: March 01, 2021 Subjective Follow-up for acute hypoxic respiratory failure, sleep exacerbation, COVID-19 pneumonia, etc. Seen sitting up in bedside chair, on 2 L of oxygen, comfortable, not in distress States he continues to feel improved No active shortness of breath, cough improving No chest pain, leg pain No abdominal pain, nausea vomiting No other symptoms Review of Systems Review of Systems: all noted and negative except for above Physical Exam Physical Exam: General- oriented x 3, not in distress, speaks in sentences with no effort or accessory muscle use Eyes- anicteric Neck- no JVD Lungs-faint wheeze bilaterally, diminished but overall good air entry bilaterally Heart- normal rate, regular rhythm; no murmurs Abdomen- normal bowel sounds, nondistended, soft, nontender Extremities- trace pretibial edema, no calf tenderness Neuro- alert, oriented x 3; no gross focal neurologic deficits Skin- warm & dry Results & Data Results & Data ([facility]) Vital Signs (Past 12 Hours) Vital Signs Temp Pulse Pulse Resp BP Pulse Ox 03/02/21 15:28 36.4 C L 67 19 120/79 92 03/02/21 12:16 102 H 03/02/21 11:16 36.8 C 67 21 136/81 94 03/02/21 06:32 36.6 C 94 H 22 161/98 H 92 all noted and reviewed including below (1) HTN (hypertension) Hypertension type: unspecified Qualified Code(s): I10 - Essential (primary) hypertension
[2021-03-02] MEDS ORDERED: FUROSEMIDE 20 MG TAB PO ONE (17:35)
[2021-03-02] MEDS: DOXYCYCLINE HYCLATE 100 MG CAP PO SCH (19:57)
[2021-03-02] MEDS: ATORVASTATIN 40 MG TAB PO SCH (19:59)
[2021-03-02] MEDS: dilTIAZem HCL 240 MG CAPCR PO SCH (19:59)
[2021-03-03 06:31] LABS: Hematocrit (blood only) 40.3 % (42-52); Mean Corpuscular Hemoglobin 29.6 pg (25-34); Mean Corpuscular Hgb Conc 32.3 g/dL (32-36); Mean Corpuscular Volume 91.8 fL (80-100); Mean Platelet Volume 9.8 fL (7.4-10.4); Platelet Count 151 K/uL (130-400); RDW Coefficient of Variation 14.9 % (11.5-14.5); RDW Standard Deviation 50.4 fL (36.4-46.3); Red Blood Count 4.39 M/uL (4.7-6.1); White Blood Count 12.49 K/uL (4.8-10.8)
[2021-03-03] MEDS: PANTOprazole 40 MG TAB PO SCH (06:39)
[2021-03-03 06:40] LABS: INR 2.7 (0.9-1.1); Prothrombin Time 25.7 Seconds (9.0-12.0)
[2021-03-03 06:58] LABS: Calcium 8.8 mg/dl (8.5-10.1); Creatinine Clr Calc Pharmacy 78.6 ml/min; Est GFR (African American) 84.9 ml/min; Est GFR (Non-African American) 73.3 ml/min; Potassium 4.9 mmol/L (3.5-5.1)
[2021-03-03] MEDS: METOPROLOL TARTRATE 25 MG TAB PO SCH ×2 (09:54→20:56)
[2021-03-03] MEDS: MONTELUKAST SODIUM 10 MG TABLET PO SCH (09:54)
[2021-03-03] MEDS: OXYBUTYNIN CHLORIDE 5 MG TAB PO SCH ×3 (09:54→20:56)
[2021-03-03] MEDS: DOXYCYCLINE HYCLATE 100 MG CAP PO SCH ×2 (09:54→21:00)
[2021-03-03] MEDS: guaiFENesin 600 MG TABCR PO SCH ×2 (09:55→20:58)
[2021-03-03] MEDS: LOSARTAN POTASSIUM 50 MG TAB PO SCH (09:55)
[2021-03-03] MEDS: AMIODARONE 200 MG TAB PO SCH (09:55)
[2021-03-03] MEDS: UMECLIDINIUM/VILANTEROL 62.5/25MCG 7 PUFFS/INHALER INH SCH (09:55)
[2021-03-03] MEDS: dexAMETHasone 6 MG in SYRINGE 0 ML IV SCH (09:55)
[2021-03-03] MEDS: FLUTICASONE FUROATE 100MCG 14 PUFFS/INHALER INH SCH (09:56)
--- NOTE | 2021-03-03 14:42 | Hospitalist Progress Note ---
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 Acute hypoxic respiratory failure Covid 19 pneumonia Underlying severe asthma and COPD Positive home test 02/19, symptomatic since 02/16 Hypoxic at 86% on room air, improved to 94 on 2L NC CXR with stable interstitial thickening in the bilateral lower lungs Has been on 4 days of prednisone taper and doxycycline as an outpatient Given 125mg IV solu-medrol today. Continue with IV dexamethasone Outside of window for remdesivir Continue home nebs, inhalers, supplemental O2 Covid isolation precautions 03/03/2021 Patient remains on 2 L of nasal cannula, 94% O2 saturation Decadron day #3 Out of the window of remdesivir Continue Mucinex, incentive spirometry, flutter valve Given Lasix 20 mg IV x 2 improving overall, continue to monitor for any deterioration in the next 1 to 2 days Complete Decadron p.o. course on discharge Also two-step exercise test Tachy-staral syndrome S/p dual chamber permanent pacemaker Jan [address] Swain Device interrogated on 01/16/21showing an 89.2% atrial pacing burden Paroxysmal Atrial fibrillation, A flutter History of highly symptomatic atrial arrhythmias per recent cards note Continue amiodarone AM, diltiazem HS, Lopressor BID -INR 2.7 Monitor Chronic back pain Continue home [place] Q6H PRN, bowel regimen HTN Normotensive. Continue losartan, Lopressor CAD Non-obstructive CAD on cath from 01/20. Continue statin, lopressor Chronic diastolic HF given Lasix 20mg IV x 2 for mild leg edema may need Lasix 20mg every other day on discharge CKD III Cr 1.0 Severe GREGG, not on CPAP In the midst of outpatient stress test, recommended to use 2L NC O2 HS DVT Ppx: Coumadin Code status: FULL PCP: Dl Dispo: anticipate d/c home when medically stable Will need two-step O2 exercise test upon discharge Admission and Anticipated Discharge Date Admission Date: March 01, 2021 Subjective Follow-up for COVID-19 pneumonia, acute hypoxic respiratory failure, etc. Seen resting in bed, comfortable, on 2 L of oxygen by nasal cannula Not in distress States he feels that he is continue to improve Breathing easier Less cough No chest pain, palpitation, dizziness abdominal pain, nausea vomiting, leg pain No other symptoms Review of Systems Review of Systems: all noted and negative except for above Physical Exam Physical Exam: General- oriented x 3, not in distress, speaks in sentences with no effort or accessory muscle use Eyes- anicteric Neck- no JVD Lungs-mild rales at the bases, no wheezing, good air entry bilaterally, no crackles Heart- normal rate, regular rhythm; no murmurs Abdomen- normal bowel sounds, nondistended, soft, nontender Extremities- no pretibial edema, no calf tenderness Neuro- alert, oriented x 3; no gross focal neurologic deficits Skin- warm & dry Results & Data Results & Data ([facility]) Vital Signs (Past 12 Hours) Vital Signs Temp Pulse Pulse Resp BP BP Pulse Ox 03/03/21 11:07 36.6 C 67 19 118/74 94 03/03/21 10:15 60 03/03/21 07:35 36.5 C 75 20 160/96 H 91 03/03/21 02:38 36.5 C 64 16 145/72 H 96 all noted and reviewed including below (1) HTN (hypertension) Hypertension type: unspecified Qualified Code(s): I10 - Essential (primary) hypertension
[2021-03-03] MEDS: HYDROCODONE/ACETAMINOPHEN 7.5/325MG TAB PO PRN (18:51)
[2021-03-03] MEDS: dilTIAZem HCL 240 MG CAPCR PO SCH (20:58)
[2021-03-03] MEDS: ATORVASTATIN 40 MG TAB PO SCH (20:58)
[2021-03-04] MEDS: PANTOprazole 40 MG TAB PO SCH (05:56)
[2021-03-04] MEDS: ALBUTEROL 0.083% NEBU SOLN 3 ML VIAL NEB PRN ×2 (06:01→08:12)
[2021-03-04] MEDS ORDERED: CHLORASEPTIC 1.4% SOLN 180 ML BTL MT PRN (06:02)
[2021-03-04] MEDS ORDERED: ALBUTEROL 0.083% NEBU SOLN 3 ML VIAL NEB SCH (07:00)
[2021-03-04] MEDS: FLUTICASONE FUROATE 100MCG 14 PUFFS/INHALER INH SCH (08:35)
[2021-03-04] MEDS: guaiFENesin 600 MG TABCR PO SCH ×2 (08:35→20:52)
[2021-03-04] MEDS: LOSARTAN POTASSIUM 50 MG TAB PO SCH (08:35)
[2021-03-04] MEDS: dexAMETHasone 6 MG in SYRINGE 0 ML IV SCH (08:35)
[2021-03-04] MEDS: OXYBUTYNIN CHLORIDE 5 MG TAB PO SCH ×3 (08:36→20:50)
[2021-03-04] MEDS: METOPROLOL TARTRATE 25 MG TAB PO SCH ×2 (08:36→20:51)
[2021-03-04] MEDS: UMECLIDINIUM/VILANTEROL 62.5/25MCG 7 PUFFS/INHALER INH SCH (08:36)
[2021-03-04] MEDS: MONTELUKAST SODIUM 10 MG TABLET PO SCH (08:36)
[2021-03-04] MEDS: AMIODARONE 200 MG TAB PO SCH (08:36)
[2021-03-04] MEDS: DOXYCYCLINE HYCLATE 100 MG CAP PO SCH ×2 (09:29→21:08)
[2021-03-04] MEDS: WARFARIN SOD 2.5 MG TAB PO SCH (16:05)
--- NOTE | 2021-03-04 19:35 | Hospitalist Progress Note ---
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 Acute hypoxic respiratory failure Covid 19 pneumonia Underlying severe asthma and COPD Positive home test 02/19, symptomatic since 02/16 Hypoxic at 86% on room air, improved to 94 on 2L NC CXR with stable interstitial thickening in the bilateral lower lungs He was on 4 days of prednisone taper and doxycycline as an outpatient Given 125mg IV solu-medrol today. Continue with IV dexamethasone Tested positive for COVID-19 Vaccinated but did not receive the booster dose Continue IV Decadron day 4 Does not meet the criteria for remdesivir due to symptoms onset duration Continue incentive spirometry and flutter valve and Mucinex Continue oxygen supplement We will consider two-step exercise prior to discharge Continue monitor closely i Tachy-starla syndrome S/p dual chamber permanent pacemaker Jan [address] Swain Device interrogated on 01/16/21showing an 89.2% atrial pacing burden Paroxysmal Atrial fibrillation, A flutter History of highly symptomatic atrial arrhythmias per recent cards note Continue amiodarone AM, diltiazem HS, Lopressor BID -INR 2.7 Monitor Chronic back pain Continue home [place] Q6H PRN, bowel regimen HTN Normotensive. Continue losartan, Lopressor CAD Non-obstructive CAD on cath from 01/20. Continue statin, lopressor Chronic diastolic HF given Lasix 20mg IV x 2 for mild leg edema may need Lasix 20mg every other day on discharge CKD III Cr 1.0 Severe GREGG, not on CPAP In the midst of outpatient stress test, recommended to use 2L NC O2 HS DVT Ppx: Coumadin Code status: FULL PCP: Dl Dispo: anticipate d/c home when medically stable Will need two-step O2 exercise test upon discharge Admission and Anticipated Discharge Date Admission Date: March 01, 2021 Subjective Patient was seen and examined for follow-up of shortness of breath due to COVID- 19 Sitting in chair with no acute distress Patient is very anxious to go home. He already made up his mind to leave tomorrow morning He is very reluctant to use oxygen supplement if needed when discharge Denies any chest pain, palpitation, dizziness, shortness of breath. Review of Systems Review of Systems: All systems reviewed & are unremarkable except as noted in Subjective Physical Exam Physical Exam: General- No acute distress Head- atraumatic Eyes- PERRL, EOMI, ENT- oropharynx clear Neck- supple, no JVD Lungs- +diminished breath sound Heart- regular rhythm; no murmur Abdomen- normal bowel sounds, soft, nontender Extremities- no calf tenderness Neuro- alert, oriented x 3; PERRL, EOMI; no facial palsy; no dysarthria Skin- warm & dry Results & Data Results & Data ([facility]) Vital Signs (Past 12 Hours) Vital Signs Temp Pulse Pulse Resp BP Pulse Ox 03/04/21 19:00 36.5 C 70 20 137/76 97 03/04/21 16:34 81 03/04/21 15:08 36.6 C 77 20 133/78 90 03/04/21 11:24 36.6 C 95 H 20 130/76 90 03/04/21 08:15 95 H 18 90 (1) HTN (hypertension) Hypertension type: unspecified Qualified Code(s): I10 - Essential (primary) hypertension
[2021-03-04] MEDS: dilTIAZem HCL 240 MG CAPCR PO SCH (20:52)
[2021-03-04] MEDS: ATORVASTATIN 40 MG TAB PO SCH (20:52)
[2021-03-04] MEDS: HYDROCODONE/ACETAMINOPHEN 7.5/325MG TAB PO PRN (21:08)
[2021-03-05 04:19] VITALS: O2SAT 92
[2021-03-05] MEDS: PANTOprazole 40 MG TAB PO SCH (05:52)
[2021-03-05] MEDS: LOSARTAN POTASSIUM 50 MG TAB PO SCH (08:17)
[2021-03-05] MEDS: guaiFENesin 600 MG TABCR PO SCH (08:17)
[2021-03-05] MEDS: AMIODARONE 200 MG TAB PO SCH (08:17)
[2021-03-05] MEDS: MONTELUKAST SODIUM 10 MG TABLET PO SCH (08:17)
[2021-03-05] MEDS: METOPROLOL TARTRATE 25 MG TAB PO SCH (08:17)
[2021-03-05] MEDS: OXYBUTYNIN CHLORIDE 5 MG TAB PO SCH (08:17)
[2021-03-05] MEDS: dexAMETHasone 6 MG in SYRINGE 0 ML IV SCH (08:18)
[2021-03-05] MEDS: FLUTICASONE FUROATE 100MCG 14 PUFFS/INHALER INH SCH (08:18)
[2021-03-05] MEDS: UMECLIDINIUM/VILANTEROL 62.5/25MCG 7 PUFFS/INHALER INH SCH (08:18)
[2021-03-05] MEDS: DOXYCYCLINE HYCLATE 100 MG CAP PO SCH (09:18)
[2021-03-05 11:40] VITALS: PULSE 74; TEMP 98.1
--- NOTE | 2021-03-05 13:45 | Discharge Summary ---
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 Started having symptoms of lethargy on 02/19 with positive home rapid test. Patient is vaccinated for COVID- 19 but without booster.Since then has noted worsening SOB and chest tightness. Also had dry heaves this morning but denies any persistent nausea or abdominal pain. Appetite has been fine. Not on oxygen at baseline. Started a rescue prednisone taper at home and completed 5 days - took 40mg x 2 days, 30mg x 2 days and 20mg x 1 day. Also started rescue doxycycline 100mg BID 4 days ago. No fever, chills, body aches, nausea, vomiting, abdominal pain, dysuria, diarrhea or constipation. Did not take any home medications today prior to arrival. Admission Exam Per Admitting Provider General: oriented x3, not in distress, speaks in sentences with no effort nor accessory muscle use normal rate, regular rhythm, no murmurs Positive mild wheeze scattered bilaterally non distended, soft, nontender no bipedal edema, erythema, warmth no neuro deficits Principal Diagnosis (1) Acute respiratory failure with hypoxia: (2) COVID-19: (3) Severe persistent asthma, poorly-controlled: (4) Tachy-starla syndrome: (5) Paroxysmal atrial fibrillation: (6) Chronic back pain: (7) HTN (hypertension): (8) Coronary artery disease: (9) Chronic diastolic heart failure: (10) CKD (chronic kidney disease), stage III: (11) Severe obstructive sleep apnea Discharge Data Allergies Allergy/AdvReac Type Severity Reaction Status Date / Time cat dander Allergy Intermediate SNEEZING, Verified 09/30/20 16:05 CONGESTION pollen extracts Allergy Intermediate SNEEZING, Verified 09/30/20 16:05 CONGESTION morphine Allergy Unknown Verified 01/07/21 10:12 Consultations 03/01/21 12:52 ED Decision to Admit Stat Ordered Studies XR chest 1V portable CLINICAL HISTORY: Dyspnea TECHNIQUE: Single frontal radiograph of the chest was obtained. Comparison: Comparison is made to chest one view 01/07/2021 FINDINGS: No lines and tubes are seen. Cardiomegaly is noted. Azygos fissure is incidentally noted. Interstitial thickening is seen in the bilateral lower lungs. No evidence of pleural effusion or pneumothorax. IMPRESSION: Stable interstitial thickening in the bilateral lower lungs. ACT 112: Negative or not required by law. Electronically signed by: David Martin M.D. 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 Acute hypoxic respiratory failure Covid 19 pneumonia Underlying severe asthma and COPD Positive home test 02/19, symptomatic since 02/16 Hypoxic at 86% on room air, improved to 94 on 2L NC CXR with stable interstitial thickening in the bilateral lower lungs He was on 4 days of prednisone taper and doxycycline as an outpatient Given 125mg IV solu-medrol today. Continue with IV dexamethasone Tested positive for COVID-19 Vaccinated but did not receive the booster dose Continue IV Decadron day 4 Does not meet the criteria for remdesivir due to symptoms onset duration Continue incentive spirometry and flutter valve and Mucinex Continue oxygen supplement two-step exercise done and pt requires 2 L oxygen with ambulation Continue monitor closely Tachy-starla syndrome S/p dual chamber permanent pacemaker Jan [address] Swain Device interrogated on 01/16/21showing an 89.2% atrial pacing burden Paroxysmal Atrial fibrillation, A flutter History of highly symptomatic atrial arrhythmias per recent cards note Continue amiodarone AM, diltiazem HS, Lopressor BID On Coumadin, INR 2.7 Continue monitor INR Chronic back pain Continue home Stanford Q6H PRN, bowel regimen HTN Normotensive. Continue losartan, Lopressor CAD Non-obstructive CAD on cath from 01/20. Continue statin, lopressor Chronic diastolic HF given Lasix 20mg IV x 2 for mild leg edema may need Lasix 20mg every other day on discharge CKD III Cr 1.0 Severe GREGG, not on CPAP In the midst of outpatient stress test, recommended to use 2L NC O2 HS DVT Ppx: Coumadin Code status: FULL PCP: Dl Dispo: anticipate d/c home when medically stable Total Time Total Time Spent Total Time Spent (In Minutes): 35 minutes Discharge Plan Discharge Items Patient Disposition: Home - Self-Care Reason For Visit: HYPOXIA, COVID Discharge Diagnosis: (1) Acute respiratory failure with hypoxia: (2) COVID-19: (3) Severe persistent asthma, poorly-controlled: (4) Tachy-starla syndrome: (5) Paroxysmal atrial fibrillation: (6) Chronic back pain: (7) HTN (hypertension): (8) Coronary artery disease: (9) Chronic diastolic heart failure: (10) CKD (chronic kidney disease), stage III: (11) Severe obstructive sleep apnea: Activity: Resume your previous activity Non-emergency contact: Primary Care Provider Call non-emergency contact if: you have any medication questions and your symptoms worsen Follow-up/Referrals: Paris Lizama MD [Primary Care Provider] - (Date & Time 03/12/2021 9:00 AM Provider Paris Lizama MD Department General Internal Medicine [facility] ) Diet: Heart Healthy Addtl Attending Provider Instructions: Follow up with your primary care provider on 03/12/2021 @ 9:00 AM at the General Internal Medicine [facility] Follow up with the coumadin clinic to monitor PT/INR Continue oxygen supplement with 2 liter nasal canula oxygen supplement Continue incentive spirometry and flutter valve Continue to wear mask and practice social distance Seek medical attention if your symptoms worsening or develop any shortness of breath Fall precaution Home Isolation COVID-19 Instructions The following information about Home Isolation is from the CDC Website: https://www.cdc.gov/coronavirus/2019-ncov/hcp/khpskkrb-agueqea-dmdasb.html Stay home except to get medical care People who are mildly ill with COVID-19 are able to isolate at home during their illness. You should restrict activities outside your home, except for getting medical care. Do not go to work, school, or public areas. Avoid using public transportation, ride-sharing, or taxis. Separate yourself from other people and animals in your home People: As much as possible, you should stay in a specific room and away from other people in your home. Also, you should use a separate bathroom, if available. Animals: You should restrict contact with pets and other animals while you are sick with COVID-19, just like you would around other people. Although there have not been reports of pets or other animals becoming sick with COVID-19, it is still recommended that people sick with COVID-19 limit contact with animals until more information is known about the virus. When possible, have another member of your household care for your animals while you are sick. If you are sick with COVID-19, avoid contact with your pet, including petting, snuggling, being kissed or licked, and sharing food. If you must care for your pet or be around animals while you are sick, wash your hands before and after you interact with pets and wear a face mask. Call ahead before visiting your doctor If you have a medical appointment, call the healthcare provider and tell them that you have or may have COVID-19. This will help the healthcare providers office take steps to keep other people from getting infected or exposed. Wear a face mask You should wear a face mask when you are around other people (e.g., sharing a room or vehicle) or pets and before you enter a healthcare providers office. If you are not able to wear a face mask (for example, because it causes trouble breathing), then people who live with you should not stay in the same room with you, or they should wear a face mask if they enter your room. Cover your coughs and sneezes Cover your mouth and nose with a tissue when you cough or sneeze. Throw used tissues in a lined trash can. Immediately wash your hands with soap and water for at least 20 seconds or, if soap and water are not available, clean your hands with an alcohol-based hand general supervisor that contains at least 60% alcohol. Clean your hands often Wash your hands often with soap and water for at least 20 seconds, especially after blowing your nose, coughing, or sneezing; going to the bathroom; and before eating or preparing food. If soap and water are not readily available, use an alcohol-based hand general supervisor with at least 60% alcohol, covering all surfaces of your hands and rubbing them together until they feel dry. Soap and water are the best option if hands are visibly dirty. Avoid touching your eyes, nose, and mouth with unwashed hands. Avoid sharing personal household items You should not share dishes, drinking glasses, cups, eating utensils, towels, or bedding with other people or pets in your home. After using these items, they should be washed thoroughly with soap and water. Clean all high-touch surfaces everyday High touch surfaces include counters, tabletops, doorknobs, bathroom fixtures, toilets, phones, keyboards, tablets, and bedside tables. Also, clean any surfaces that may have blood, stool, or body fluids on them. Use a household cleaning spray or wipe, according to the label instructions. Labels contain instructions for safe and effective use of the cleaning product including precautions you should take when applying the product, such as wearing gloves and making sure you have good ventilation during use of the product. Monitor your symptoms Seek prompt medical attention if your illness is worsening (e.g., difficulty breathing).Beforeseeking care, call your healthcare provider and tell them that you have, or are being evaluated for, COVID-19. Put on a face mask before you enter the facility. These steps will help the healthcare providers office to keep other people in the office or waiting room from getting infected or exposed. Ask your healthcare provider to call the local or state health department. Persons who are placed under active monitoring or facilitated self- monitoring should follow instructions provided by their local health department or occupational health professionals, as appropriate. When working with your local health department check their available hours. If you have a medical emergency and need to call 911, notify the dispatch personnel that you have, or are being evaluated for COVID-19. If possible, put on a face mask before emergency medical services arrive. Discontinuing home isolation Patients with confirmed COVID-19 should remain under home isolation precautions until the risk of secondary transmission to others is thought to be low. The decision to discontinue home isolation precautions should be made on a [id number] basis, in consultation with healthcare providers and state and local health departments. Coronavirus disease 2019 (COVID-19) is a virus that causes a respiratory illness. It is caused by a coronavirus called 2019 novel coronavirus (2019- nCoV). There are many types of coronavirus. Coronaviruses are a very common cause of bronchitis. They may sometimes cause lung infection(pneumonia). Symptoms can range from mild to severe respiratory illness. These viruses are also foundin some animals. COVID-19 was first found in people in [facility], in late 2018. In 2019, several cases of COVID-19 have been confirmed in the [place] Public health officials are working to find the source. How the virus spreads is not yet fully known. It may be spread through droplets of fluid that a person coughs or sneezes into the air. It may be spread if you touch a surface with virus on it, such as a handle or object, and then touch your mouth. What are the symptoms of COVID-19? Some people have no symptoms or mild symptoms. Symptoms may appear 2 to 14 days after contact with the virus. Symptoms can include: Fever Coughing Trouble breathing What are possible complications from COVID-19? In many cases, this virus can cause infection (pneumonia) in both lungs. In some cases, this can cause . How is COVID-19 diagnosed? Your healthcare provider will ask about your symptoms. He or she will also ask about your recent travel and contact with sick people. Testing for the virus is only done through the CDC. If yourhealthcare provider thinks you may have COVID- 19, he or she will work with your local health department and the CDC on testing. Follow all instructions from your healthcare provider. COVID-19 is diagnosed by: Nasal and throat swab. A cotton-tipped swab is wiped inside your nose or throat. This is done to check for viruses in your nasal mucus. Sputum culture. A small sample of mucus coughed from your lungs (sputum) is collected if you have a cough. It is checked for the virus. How is COVID-19 treated? There is currently no medicine to treat the virus. Treatment is done to help your body while it fights the virus. This is known as supportive care. Supportive care may include: Pain medicine. These include acetaminophen and ibuprofen. They are used to help ease pain and reduce fever. Bed rest. This helps your body fight the illness. For severe illness, you may need to stay in the hospital. Care during severe illness may include: IV (intravenous) fluids.These are given through a vein to help keep your body hydrated. Oxygen. Supplemental oxygen or ventilation with a breathing machine (ventilator) may be given. This is done to keep enough oxygen in your body. Are you at risk for COVID-19? If youve been to a place where people have been sick with this virus, you are at risk for infection. You are at risk if you: Recently traveled to an affected area Had contact with a sick person who recently traveled to this area Had contact with a person who was diagnosed with COVID-19 How can COVID-19 be prevented? There is no vaccine yet. The best prevention is to not have contact with the virus. The CDC advises that people should not travel to areas where there are COVID-19 outbreaks right now for any reason that is not urgent. To help prevent spreading the infection, wash your hands often, or use an alcohol-basedhand general supervisor. If you are in an area with COVID-19: Wash your hands often. Or use an alcohol-based hand general supervisor often. Only touch your eyes, nose, or mouth with clean hands. Dont have contact with people who are sick. Follow local instructions about being in public. For example, you may be told to not use public transport for a period of time. Stay away from markets that have live or animals. Wash your hands after touching any animals. Don't touch animals that may be sick. Dont share eating or drinking tools with sick people. Dont kiss someone who is sick. Clean surfaces often with disinfectant. If you were in an area with COVID-19 in the last 14 days: Call your healthcare provider. He or she can talk with local health staff to see what action may be needed. Follow all instructions from your provider. Take your temperature every morning and evening for at least 14 days. This is to check for fever. Keep a record of the readings. Keep watch for symptoms of the virus. Tell your provider right away if you have symptoms. If you were in an area with COVID-19 and have a fever or other symptoms: Dont panic. Keep in mind that other illnesses can cause similar symptoms. Stay away from work, school, and public places. Limit physical contact with family members. Don't kiss anyone or share eating or drinking utensils. Clean surfaces you touch with disinfectant. This is to help prevent the virus from spreading. Call your healthcare provider. Explain that you have been exposed to COVID-19 and have symptoms. Do this before going to any hospital. Wait for instructions. Keep in mind that healthcare staff may wear protective equipment such as masks, gowns, gloves, and eye protection. You may be put in a separate room. This is to prevent the possible virus from spreading. Tell the healthcare staff about recent travel. This includes local travel on public transport. Staff may need to find other people you have been in contact with. Follow all instructions the healthcare staff give you. If you have been diagnosed with COVID-19 Follow all instructions from your healthcare provider. Dont leave your home, except to get medical care. Call your healthcare providers office before going. They can prepare and give you instructions. This will help prevent the virus from spreading. Dont go to work, school, or public areas. Dont use public transport or taxis. Stay away from other people in your home. Have them wear face masks around you. Dont share household items or food. Wear a face mask if you can. This includes at home or in a medical facility. Cover your face with a tissue when you cough or sneeze. Throw the tissue away. Wash your hands. Wash your hands often. Caregivers should: Follow all instructions from healthcare staff. Wear a face mask and protective clothing as advised. Wash hands often. Keep track of the sick persons symptoms. Clean surfaces, fabrics, and laundry thoroughly. Keep other people away from the sick person. When to call your healthcare provider Call your healthcare provider: If youve recently traveled and have symptoms If you have been diagnosed with COVID-19 and your symptoms are worse To learn more To find out more about COVID-19, visit the CDC website at www.cdc.gov/coronavirus/2019-ncov/index.html. 4365-[address] [employer] [place] [address]. All rights reserved. This information is not intended as a substitute for professional medical care. Always follow your healthcare professional's instructions. This information has been adapted from [employer] Pending Studies at Discharge: No Stand-Alone Forms: [facility], Smoking Cessation Medications and DC Order Prescriptions: New guaifenesin 200 mg tablet 200 mg PO TID PRN (Reason: congestion/cough) Qty: 30 RF: 0 Continued Trelegy Ellipta 200-62.5-25 mcg blister with device 1 inh inhalation DAILY Qty: 60 RF: 5 albuterol sulfate 2.5 mg /3 mL (0.083 %) solution for nebulization See Rx Instructions continuous nebulization .COMPLEX PRN (Reason: shortness of breath or wheezing) Qty: 90 RF: 11 cetirizine 10 mg tablet 10 mg PO DAILY PRN (Reason: Allergy Symptoms) RF: 0 hydrocodone-acetaminophen 7.5-325 mg tablet 1 tab PO Q6H PRN (Reason: pain) RF: 0 montelukast 10 mg tablet 10 mg PO DAILY RF: 0 omeprazole 20 mg capsule,delayed release(DR/EC) 20 mg PO DAILYBB RF: 0 amiodarone 200 mg tablet 200 mg PO DAILY RF: 0 metoprolol tartrate 25 mg tablet 12.5 mg PO BID RF: 0 prednisone 10 mg tablet 10 mg PO UD Qty: 13 RF: 0 warfarin 2.5 mg tablet 2.5 mg PO [id number] RF: 0 azelastine 137 mcg (0.1 %) Aerosol,[place] 2 spray INTRANASAL BID PRN (Reason: NEEDED) RF: 0 diltiazem HCl 240 mg capsule,extended release 24hr 240 mg PO PM Qty: 30 RF: 0 atorvastatin 80 mg tablet 80 mg PO HS RF: 0 losartan 50 mg tablet 50 mg PO DAILY RF: 0 oxybutynin chloride 5 mg Tablet 5 mg PO TID RF: 0 Discontinued doxycycline hyclate 100 mg Tablet 100 mg PO BID PRN (Reason: Respiratory Distress) RF: 0 Discharge Orders: Discharge Order (Routine); Ordered 03/05/21 Ordered By: Odessa Emmanuel Admission Data Admit Date/Time: 03/01/21 13:53 Attending Provider: Odessa Emmanuel Admit Provider: Jorge Dill Primary Care Provider: Paris Lizama Other Providers: Jorge Dill Other Interventions: Discharge Summary Assessment (RN) Last Done: 03/05/21 13:54
[2021-03-05 13:56] VITALS: BP 158/82
== END 2021-03-05 14:15 | disposition home or self-care (01) | DRG 177 ==
LOC: ED 10:32 → EDINP 13:53 → SUATTDRO 13:53 → 2W 19:43

== ENCOUNTER 2021-09-30 18:46 | Inpatient (IN) ==
[2021-09-30 19:24] LABS: Basophils # (auto) 0.05 K/uL (0-0.2); Basophils % (auto) 0.6 %; Eosinophils # (auto) 0.09 K/uL (0-0.50); Eosinophils % (auto) 1.1 %; Hematocrit (blood only) 41.1 % (40.1-51.0); Hemoglobin 13.5 g/dl (14.0-18.0); Immature Granulocytes # (auto) 0.12 K/uL (0.00-0.02); Immature Granulocytes % (auto) 1.5 %; Lymphocytes # (auto) 0.96 K/uL (1.2-3.4); Lymphocytes % (auto) 12.2 %; Mean Corpuscular Hemoglobin 29.5 pg (25.0-34.0); Mean Corpuscular Hgb Conc 32.8 g/dL (32.0-36.0); Mean Corpuscular Volume 89.9 fL (80.0-100.0); Monocytes # (auto) 0.37 K/uL (0.24-0.82); Monocytes % (auto) 4.7 %; Neutrophils # (auto) 6.27 K/uL (1.4-6.5); Neutrophils % (auto) 79.9 %; Platelet Count 187 K/uL (130-400); RDW Coefficient of Variation 15.2 % (11.5-14.5); RDW Standard Deviation 49.4 fL (36.4-46.3); Red Blood Count 4.57 M/uL (4.63-6.08); White Blood Count 7.86 K/ul (4.8-10.8)
--- NOTE | 2021-09-30 19:36 | XRay Report ---
XR chest 1V portable HISTORY: Atypical Chest Pain COMPARISON: Chest 03/01/2021. FINDINGS: No pneumothorax. Hyperexpanded lungs with apical predominant emphysematous changes. Interst itial thickening at the lung bases persists and favors vascular crowding from the emphysema. Otherwis e, no new focal lung consolidations to suggest pneumonia. No evidence for pulmonary edema. The heart remains mildly enlarged. Is left-sided dual-chamber pacemaker. IMPRESSION: No significant change compared to the prior study. No acute process. Cardiomegaly and emphysema again noted. ACT 112: Negative or not required by law. Electronically signed by: Ar Benson M.D. 09/30/2021 7:34 PM
[2021-09-30 19:37] LABS: INR 2.7 (0.9-1.1); Partial Thromboplastin Ratio 1.3; Prothrombin Time 27.4 Seconds (9.0-12.0)
[2021-09-30 20:02] LABS: Troponin I High Sensitivity 8.3 pg/ml (0-20)
[2021-09-30 20:03] LABS: Albumin Globulin Ratio 1.4 (0.9-2); BUN Creatinine Ratio 18.8 (10-20); Calcium 8.9 mg/dl (8.5-10.1); Creatinine Clr Calc Pharmacy 73.8 ml/min; Est GFR (African American) 76.7 ml/min; Est GFR (Non-African American) 66.2 ml/min; Globulin 2.8 gm/dl (2.5-4.0); Potassium 4.8 mmol/L (3.5-5.1); Total Protein 6.8 gm/dl (6.0-8.3)
[2021-09-30] MEDS ORDERED: methylPREDNISolone 125 MG/2 ML VIAL IV STA (22:24)
[2021-09-30] MEDS ORDERED: ALBUT/IPRATROP 3MG/0.5MG NEB 3 ML VIAL NEB STA (22:25)
--- NOTE | 2021-09-30 22:36 | Emergency Department Note ---
History of Present Illness General Chief complaint: Chest Pain Stated complaint: CHEST PAIN, SOB, BLURRY VISION Time Seen by Provider: 09/30/21 22:10 Source: patient and family (Son who is at the bedside) Mode of arrival: ambulatory Limitations: no limitations History of Present Illness Maximum Pain Intensity: 6 This patient is a 70-year-old male who has a history of asthma and CHF, comes in after having worsening of his breathing since last week and got acutely worse today. He has a burning in the central chest as well. He says he has pain across his chest. He gets this when he gets pneumonia and he was worried about that although he has had no cough or fever. He did have COVID at the end of last year. He denies any nausea or vomiting he felt generally weak in his legs earlier. He does have some chronic mild lower extremity edema which may have been a little bit worse so he took some fluid pills today he does have oxygen 2 L that he supposed to wear all the time but does not see, wears it as needed. He also has steroids and antibiotics that he takes if he has a flareup which he started 3 days ago. He is on Coumadin which she takes for A. fib and pacemaker. Denies history of PE or DVT. No syncope. No fall or trauma. He is use Combivent 3-4 times a day has not helped much. His symptoms are significantly worse when he walks. Home Medications Medication Instructions Recorded Confirmed Type cetirizine 10 mg tablet 10 mg PO DAILY 09/18/18 09/30/21 History hydrocodone 7.5 mg-acetaminophen 1 tab PO Q6H PRN pain 09/18/18 09/30/21 History 325 mg tablet montelukast 10 mg tablet 10 mg PO DAILY 09/18/18 09/30/21 History omeprazole 20 mg capsule,delayed 20 mg PO DAILYBB 09/18/18 09/30/21 History release warfarin 2.5 mg tablet 2.5 mg PO QPM 05/21/20 09/30/21 History diltiazem HCl 240 mg 240 mg PO PM #30 caps 05/23/20 09/30/21 Rx capsule,extended release 24 hr atorvastatin 80 mg tablet 80 mg PO HS 09/30/20 09/30/21 History losartan 50 mg tablet 50 mg PO BID 09/30/20 09/30/21 History oxybutynin chloride 5 mg tablet 5 mg PO TID 01/07/21 09/30/21 History amiodarone 200 mg tablet 200 mg PO QAM 03/01/21 09/30/21 History metoprolol tartrate 25 mg tablet 12.5 mg PO BID 03/01/21 09/30/21 History guaifenesin 200 mg tablet 200 mg PO TID PRN congestion/cough 03/05/21 09/30/21 Rx #30 tabs fluticasone fur. 200 mcg-umeclid 1 inh inhalation DAILY #60 ea 07/20/21 09/30/21 Rx 62.5 mcg-vilant 25 mcg inhalat.powder (Trelegy Ellipta) albuterol sulfate 2.5 mg/3 mL 3 mg continuous nebulization DAILY 09/30/21 09/30/21 History (0.083 %) solution for nebulization PRN shortness of breath or wheezing aluminum-mag hydroxide-simethicone 15 ml PO Q6 PRN indigestion or 09/30/21 09/30/21 History 400 mg-400 mg-40 mg/5 mL oral susp epigastric burning famotidine 20 mg tablet 20 mg PO QAM 09/30/21 09/30/21 History fluticasone propionate 50 2 spray intranasal QAM 09/30/21 09/30/21 History mcg/actuation nasal spray,suspension furosemide 20 mg tablet 20 mg PO .1-2 DAYS PER WEEK 09/30/21 09/30/21 History ipratropium 20 mcg-albuterol 100 1 puff inhalation .EVERY 4-6 HRS 09/30/21 09/30/21 History mcg/actuation mist for inhalation PRN respiratory sx omalizumab 150 mg/mL subcutaneous 1.2 mg subcut .EVERY 4 WEEKS 09/30/21 09/30/21 History syringe omega-3 fatty acids 1,000 mg 1,000 mg PO DAILY 09/30/21 09/30/21 History capsule potassium chloride 10 mEq 10 meq PO .TAKE WITH LASIX 09/30/21 09/30/21 History tablet,extended release(part/cryst) (Klor-Con M) prednisone 10 mg tablet 10 mg PO UD PRN rescue kit 09/30/21 09/30/21 History Allergies Allergy/AdvReac Type Severity Reaction Status Date / Time cat dander Allergy Intermediate SNEEZING, Verified 09/30/21 23:56 CONGESTION pollen extracts Allergy Intermediate SNEEZING, Verified 09/30/21 23:56 CONGESTION morphine Allergy Unknown Verified 09/30/21 23:56 Past Med/Surg History Medical History Acute exacerbation of chronic obstructive pulmonary disease (COPD) Acute respiratory failure with hypoxia COVID-19 GERD (gastroesophageal reflux disease) History of paroxysmal supraventricular tachycardia S/P ablation in 2009 HLD (hyperlipidemia) HTN (hypertension) Nocturnal dyspnea Nonischemic cardiomyopathy 2013 echo: EF: 40%, moderate global hypokinesis Paroxysmal atrial fibrillation Visit for monitoring Xolair therapy Surgical History H/O hernia repair S/P appendectomy S/P cholecystectomy Family History Other Asthma Social History Smoking Status: Never smoker Second Hand Exposure: No; Hx Alcohol Use: No Hx Substance Use: No Preferred Language: Swedish Communication Ability: Effective Hangar Attendant Required: No Beliefs That Will Affect Care: None marital status: Current Living Situation: Family Current Living Situation Comment: Lives with two sons current occupational status: disabled How many Children do You have: 2 Feels Safe at Home: Yes Assistive Devices: Oxygen - Continuous Review of Systems A total of 10 systems reviewed and were otherwise negative Physical Exam Vital Signs Vital Signs - 24 hr 09/30/21 18:48 09/30/21 22:41 09/30/21 22:41 Temperature 36.9 C Temperature Source Temporal Artery Scan Pulse Rate 97 H Pulse Rate [Finger] 61 Respiratory Rate 19 18 Respiratory Effort / Characteristics Non-Labored Spontaneous Non-Labored Spontaneous Respiratory Depth Normal Normal Blood Pressure 164/92 H Blood Pressure [Right Arm] 156/86 H Blood Pressure Mean 116 Blood Pressure Mean [Right Arm] 109 Blood Pressure Position [Right Arm] Sitting Pulse Oximetry 89 L 96 96 Oxygen Delivery Method Room Air Room Air Room Air Sepsis Recent Fever Within 48 Hours No Sepsis New/Unexplained Change in Mental Status N/A Sepsis Action Taken by Nursing No Action Required 09/30/21 23:43 09/30/21 23:43 10/01/21 00:30 Temperature Temperature Source Pulse Rate 74 Pulse Rate [Finger] 71 Respiratory Rate 18 18 Respiratory Effort / Characteristics Non-Labored Spontaneous Respiratory Depth Normal Blood Pressure Blood Pressure [Right Arm] 144/100 H Blood Pressure Mean Blood Pressure Mean [Right Arm] 114 Blood Pressure Position [Right Arm] Sitting Pulse Oximetry 94 94 93 Oxygen Delivery Method Room Air Room Air Room Air Sepsis Recent Fever Within 48 Hours Sepsis New/Unexplained Change in Mental Status Sepsis Action Taken by Nursing 10/01/21 00:32 Temperature Temperature Source Pulse Rate 65 Pulse Rate [Finger] Respiratory Rate 18 Respiratory Effort / Characteristics Respiratory Depth Blood Pressure Blood Pressure [Right Arm] Blood Pressure Mean Blood Pressure Mean [Right Arm] Blood Pressure Position [Right Arm] Pulse Oximetry 93 Oxygen Delivery Method Room Air Sepsis Recent Fever Within 48 Hours Sepsis New/Unexplained Change in Mental Status Sepsis Action Taken by Nursing General: Well developed well nourished older male who is wearing supplemental oxygen but in no acute distress, breathing comfortably on room air. Normal speech HEENT: Normal cephalic atraumatic. Pupils are equal round and reactive to light. Extraocular movements are intact. Oropharynx is pink with moist mucous membranes. No swelling of the mouth lips or tongue. Neck: Supple with a midline trachea. No meningeal signs or stiffness, no JVD or bruits. No Stridor. Chest: Tattered wheezes and faint breath sounds bilaterally. No retractions. No increased work of breathing. Heart: Regular rate and rhythm without murmurs or gallops. Abdomen: Soft nontender, nondistended without rebound guarding or rigidity. Extremities: No cyanosis clubbing. Trace to 1+ bilateral lower extremity edema. No calf tenderness or assymetry Spine/Back. Non tender to palpation. No CVA tenderness Skin: Good turgor without rashes. Neurologic exam: Cranial nerves two through 12 are intact. Motor and sensation are intact and symmetrical throughout. Course Administered Medications Discontinued Medications Albuterol (Albut/Ipratrop 3mg/0.5mg Neb 3 Ml Vial) 3 ml NEB NOW STA; Protocol Stop: 09/30/21 22:26 Last Admin: 09/30/21 22:38 Dose: 3 ml Documented By: CC Furosemide (Furosemide Inj 20 Mg/2 Ml Vial) 20 mg IV ONE ONE Stop: 10/01/21 00:04 Last Admin: 10/01/21 00:29 Dose: Not Given Documented By: CC Famotidine (Pepcid 20mg Iv Push) 20 mg in 5 mls @ 2.5 mls/min IV NOW STA Stop: 09/30/21 23:57 Last Admin: 10/01/21 00:27 Dose: 2.5 mls/min Documented By: CC Ioversol (Optiray 300 500ml) 112 ml IV ONCE ONE Stop: 09/30/21 23:10 Last Admin: 09/30/21 23:10 Dose: 112 ml Documented By: RHD Methylprednisolone (Methylprednisolone 125 Mg/2 Ml Vial) 125 mg IV NOW STA Stop: 09/30/21 22:25 Last Admin: 09/30/21 22:32 Dose: 125 mg Documented By: CC Medical Decision Making Differential Diagnosis COPD exacerbation, pneumonia, CHF, bronchitis, PE, acute coronary syndrome, arrhythmia, electrolyte or metabolic abnormality Medical Records Attestation: I reviewed the patient's medical records. Home Medications Current Medication List: was personally reviewed by me Laboratory Data Attestation: I reviewed the patient's lab results. Result diagrams: 09/30/21 19:13 09/30/21 19:13 Lab Results 09/30/21 09/30/21 09/30/21 Range/Units 19:13 19:13 19:13 WBC 7.86 (4.8-10.8) K/ul RBC 4.57 L (4.63-6.08) M/uL Hgb 13.5 L (14.0-18.0) g/dl Hct 41.1 (40.1-51.0) % MCV 89.9 (80.0-100.0) fL MCH 29.5 (25.0-34.0) pg MCHC 32.8 (32.0-36.0) g/dL RDW Std Deviation 49.4 H (36.4-46.3) fL RDW Coeff of Danyell 15.2 H (11.5-14.5) % Plt Count 187 (130-400) K/uL MPV 10.0 (9.4-12.4) fL Immature Gran % (Auto) 1.5 % Neut % (Auto) 79.9 % Lymph % (Auto) 12.2 % [place] % (Auto) 4.7 % Eos % (Auto) 1.1 % Baso % (Auto) 0.6 % Neut # (Auto) 6.27 (1.4-6.5) K/uL Lymph # (Auto) 0.96 L (1.2-3.4) K/uL [place] # (Auto) 0.37 (0.24-0.82) K/uL Eos # (Auto) 0.09 (0-0.50) K/uL Baso # (Auto) 0.05 (0-0.2) K/uL Immature Gran # (Auto) 0.12 H (0.00-0.02) K/uL PT 27.4 H (9.0-12.0) Seconds INR 2.7 H (0.9-1.1) APTT 37.0 H (21.0-31.0) Seconds PTT Ratio 1.3 ABG pH (7.35-7.45) ABG pCO2 (35-46) mmHg ABG pO2 (80-95) mmHg ABG HCO3 (19-24) mmol/L ABG O2 Saturation (90-95) % ABG Base Excess (-9-1.8) mEq/L [place] Test (Pos) Oxygen Given Sodium 139 (136-145) mmol/L Potassium 4.8 (3.5-5.1) mmol/L Chloride 105 (98-107) mmol/L Carbon Dioxide 27 (21-32) mmol/L Anion Gap 7 (3-11) BUN 21 (6-23) mg/dl Creatinine 1.12 (0.6-1.4) mg/dl Est Cr Clr Drug Dosing 73.8 ml/min Est GFR ( Amer) 76.7 ml/min Est GFR (Non-Af Amer) 66.2 ml/min BUN/Creatinine Ratio 18.8 (10-20) Glucose 131 H (70-99(Fasting)) mg/dl Calcium 8.9 (8.5-10.1) mg/dl Magnesium 2.1 (1.7-2.4) mg/dl Total Bilirubin 1.0 (0.2-1.0) mg/dl AST 24 (13-39) U/L ALT 34 (7-52) U/L Alkaline Phosphatase 99 (34-104) U/L Troponin I High Sens 8.3 (0-20) pg/ml B-Natriuretic Peptide (0-100) pg/ml Total Protein 6.8 (6.0-8.3) gm/dl Albumin 4.0 (3.4-5.0) gm/dl Globulin 2.8 (2.5-4.0) gm/dl Albumin/Globulin Ratio 1.4 (0.9-2) SARS-CoV-2, RNA, NAAT (NEGATIVE) 09/30/21 09/30/21 09/30/21 Range/Units 19:13 22:33 22:40 WBC (4.8-10.8) K/ul RBC (4.63-6.08) M/uL Hgb (14.0-18.0) g/dl Hct (40.1-51.0) % MCV (80.0-100.0) fL MCH (25.0-34.0) pg MCHC (32.0-36.0) g/dL RDW Std Deviation (36.4-46.3) fL RDW Coeff of Danyell (11.5-14.5) % Plt Count (130-400) K/uL MPV (9.4-12.4) fL Immature Gran % (Auto) % Neut % (Auto) % Lymph % (Auto) % [place] % (Auto) % Eos % (Auto) % Baso % (Auto) % Neut # (Auto) (1.4-6.5) K/uL Lymph # (Auto) (1.2-3.4) K/uL [place] # (Auto) (0.24-0.82) K/uL Eos # (Auto) (0-0.50) K/uL Baso # (Auto) (0-0.2) K/uL Immature Gran # (Auto) (0.00-0.02) K/uL PT (9.0-12.0) Seconds INR (0.9-1.1) APTT (21.0-31.0) Seconds PTT Ratio ABG pH (7.35-7.45) ABG pCO2 (35-46) mmHg ABG pO2 (80-95) mmHg ABG HCO3 (19-24) mmol/L ABG O2 Saturation (90-95) % ABG Base Excess (-9-1.8) mEq/L Grant Test (Pos) Oxygen Given Sodium (136-145) mmol/L Potassium (3.5-5.1) mmol/L Chloride (98-107) mmol/L Carbon Dioxide (21-32) mmol/L Anion Gap (3-11) BUN (6-23) mg/dl Creatinine (0.6-1.4) mg/dl Est Cr Clr Drug Dosing ml/min Est GFR ( Amer) ml/min Est GFR (Non-Af Amer) ml/min BUN/Creatinine Ratio (10-20) Glucose (70-99(Fasting)) mg/dl Calcium (8.5-10.1) mg/dl Magnesium (1.7-2.4) mg/dl Total Bilirubin (0.2-1.0) mg/dl AST (13-39) U/L ALT (7-52) U/L Alkaline Phosphatase (34-104) U/L Troponin I High Sens 6.5 (0-20) pg/ml B-Natriuretic Peptide 64 (0-100) pg/ml Total Protein (6.0-8.3) gm/dl Albumin (3.4-5.0) gm/dl Globulin (2.5-4.0) gm/dl Albumin/Globulin Ratio (0.9-2) SARS-CoV-2, RNA, NAAT NEGATIVE (NEGATIVE) 09/30/21 Range/Units 23:37 WBC (4.8-10.8) K/ul RBC (4.63-6.08) M/uL Hgb (14.0-18.0) g/dl Hct (40.1-51.0) % MCV (80.0-100.0) fL MCH (25.0-34.0) pg MCHC (32.0-36.0) g/dL RDW Std Deviation (36.4-46.3) fL RDW Coeff of Danyell (11.5-14.5) % Plt Count (130-400) K/uL MPV (9.4-12.4) fL Immature Gran % (Auto) % Neut % (Auto) % Lymph % (Auto) % [place] % (Auto) % Eos % (Auto) % Baso % (Auto) % Neut # (Auto) (1.4-6.5) K/uL Lymph # (Auto) (1.2-3.4) K/uL [place] # (Auto) (0.24-0.82) K/uL Eos # (Auto) (0-0.50) K/uL Baso # (Auto) (0-0.2) K/uL Immature Gran # (Auto) (0.00-0.02) K/uL PT (9.0-12.0) Seconds INR (0.9-1.1) APTT (21.0-31.0) Seconds PTT Ratio ABG pH 7.42 (7.35-7.45) ABG pCO2 48 H (35-46) mmHg ABG pO2 66 L (80-95) mmHg ABG HCO3 31 H (19-24) mmol/L ABG O2 Saturation 95.8 H (90-95) % ABG Base Excess 5.5 H (-9-1.8) mEq/L Grant Test Pos (Pos) Oxygen Given ROOM AIR Sodium (136-145) mmol/L Potassium (3.5-5.1) mmol/L Chloride (98-107) mmol/L Carbon Dioxide (21-32) mmol/L Anion Gap (3-11) BUN (6-23) mg/dl Creatinine (0.6-1.4) mg/dl Est Cr Clr Drug Dosing ml/min Est GFR ( Amer) ml/min Est GFR (Non-Af Amer) ml/min BUN/Creatinine Ratio (10-20) Glucose (70-99(Fasting)) mg/dl Calcium (8.5-10.1) mg/dl Magnesium (1.7-2.4) mg/dl Total Bilirubin (0.2-1.0) mg/dl AST (13-39) U/L ALT (7-52) U/L Alkaline Phosphatase (34-104) U/L Troponin I High Sens (0-20) pg/ml B-Natriuretic Peptide (0-100) pg/ml Total Protein (6.0-8.3) gm/dl Albumin (3.4-5.0) gm/dl Globulin (2.5-4.0) gm/dl Albumin/Globulin Ratio (0.9-2) SARS-CoV-2, RNA, NAAT (NEGATIVE) Imaging Data Attestation: I personally reviewed and interpreted this imaging study as follows: My Impression: Chest x-ray, cardiomegaly but no acute infiltrate, failure, pneumothorax seen. There is a pacemaker Radiologist's Impression: Chest X-Ray 09/30/21 18:53 XR chest 1V portable HISTORY: Atypical Chest Pain COMPARISON: Chest 03/01/2021. FINDINGS: No pneumothorax. Hyperexpanded lungs with apical predominant emphysematous changes. Interstitial thickening at the lung bases persists and favors vascular crowding from the emphysema. Otherwise, no new focal lung consolidations to suggest pneumonia. No evidence for pulmonary edema. The heart remains mildly enlarged. Is left-sided dual-chamber pacemaker. IMPRESSION: No significant change compared to the prior study. No acute process. Cardiomegaly and emphysema again noted. ACT 112: Negative or not required by law. Electronically signed by: Ar Benson M.D. 09/30/2021 7:34 PM Stat radCTA of the chest. No PE. There is some bronchiectasis. Please refer to report ECG Data Attestation: I personally reviewed and interpreted this ECG as follows: Indication: + chest pain and + SOB/dyspnea Rate (beats per minute): 61 Rhythm: + other (Atrial paced rhythm) ECG Intervals/blocks: + Normal QRS and + Normal QT ECG [place]: + Normal ECG ST segments: + Normal ST segments ECG Findings: no PACs or no PVCs Comparison ECG Date: from (03/01/21) Change: no significant change MDM Narrative This patient comes in as described above. He was placed on a compliance monitor room C2. He has a history of COPD and CHF as well as infections. He looks well at rest but he is hypoxemic and he is significantly symptomatic with exertion. I did order DuoNeb IV steroids 125 Solu-Medrol. He does have scattered wheezes. EKG shows a paced rhythm without any ischemic changes. Chest x-ray shows no acute congestive heart failure pneumonia or pneumothorax. his BNP is not elevated as well which would further go against a significant congestive heart failure component. He has no fever or white count to suggest infection. he has no significant anemia and has nothing to suggest electrolyte or metabolic abnormalities. I did also COVID test him and ordered a CTA of the chest. COVID testing was negative. CTA of the chest shows no PE there is some bronchiectasis. I think his symptoms are likely from reactive airway/COPD exacerbation he may have a CHF component as well. I did add a second troponin and it was also negative but acute coronary syndrome would also be still in the differential I have consulted Dr. Narvaez to see him in the ER for these measures and likely admission/observation. Continuous cardiac monitoring: Orders placed in EMR for continuous cardiac monitoring. Upon my interpretation the patient has been a paced rhythm with a rate of 70 Impression & Plan SOB (shortness of breath), Pacemaker, Asthma exacerbation, Hypoxemia, Lab test negative for COVID-19 virus Discharge Plan Visit Data Chief Complaint: Chest Pain Stated Complaint: CHEST PAIN, SOB, BLURRY VISION ED Provider: Andrew Gabriel Discharge Problem: SOB (shortness of breath), Pacemaker, Asthma exacerbation, Hypoxemia, Lab test negative for COVID-19 virus Forms Stand Alone Forms: My [facility] Prescriptions Prescriptions: No Action Trelegy Ellipta 200-62.5-25 mcg blister with device 1 inh inhalation DAILY Qty: 60 5RF cetirizine 10 mg tablet 10 mg PO DAILY hydrocodone-acetaminophen 7.5-325 mg tablet 1 tab PO Q6H PRN (Reason: pain) montelukast 10 mg tablet 10 mg PO DAILY omeprazole 20 mg capsule,delayed release(DR/EC) 20 mg PO DAILYBB Label Comments: 20 mg PO 1 hour prior to the first meal of the day; Rx Instructions: 20 mg PO 1 hour prior to the first meal of the day; amiodarone 200 mg tablet 200 mg PO QAM metoprolol tartrate 25 mg tablet 12.5 mg PO BID guaifenesin 200 mg tablet 200 mg PO TID PRN (Reason: congestion/cough) Qty: 30 0RF prednisone 10 mg tablet 10 mg PO UD PRN (Reason: rescue kit) Rx Instructions: take 4 tablets daily for 4 days, then 3 tablets daily for 4 days then 2 tablet daily for 4 days,1 daily for 4 days albuterol sulfate 2.5 mg /3 mL (0.083 %) solution for nebulization 3 mg continuous nebulization DAILY PRN (Reason: shortness of breath or wheezing) Rx Instructions: use in place of rescue inhaler omega-3 fatty acids 1,000 mg Capsule 1,000 mg PO DAILY famotidine 20 mg Tablet 20 mg PO QAM furosemide 20 mg tablet 20 mg PO .1-2 DAYS PER WEEK potassium chloride [Klor-Con M10] 10 mEq tablet,ER particles/crystals 10 meq PO .TAKE WITH LASIX Rx Instructions: take with furosemide 1 - 2 days per week fluticasone propionate [Flonase] 50 mcg/actuation [place],Suspension 2 spray INTRANASAL QAM Rx Instructions: administer into each nostril alum-mag hydroxide-simeth 400-400-40 mg/5 mL Suspension 15 ml PO Q6 PRN (Reason: indigestion or epigastric burning) ipratropium-albuterol 20-100 mcg/actuation Mist 1 puff INHALATION .EVERY 4-6 HRS MDD 6doses PRN (Reason: respiratory sx) Rx Instructions: space evenly during waking hours omalizumab 150 mg/mL Syringe 1.2 mg SUBCUT .EVERY 4 WEEKS warfarin 2.5 mg tablet 2.5 mg PO QPM Rx Instructions: take daily or as directed by [facility] diltiazem HCl 240 mg capsule,extended release 24hr 240 mg PO PM Qty: 30 0RF atorvastatin 80 mg tablet 80 mg PO HS losartan 50 mg tablet 50 mg PO BID oxybutynin chloride 5 mg Tablet 5 mg PO TID Referrals Referrals: Paris Lizama MD [Primary Care Provider] -
[2021-09-30] MEDS ORDERED: OPTIRAY 300 500mL IV ONE (23:09)
--- NOTE | 2021-09-30 23:15 | History & Physical Report ---
Date of Service September 30, 2021 Assessment & Plan (1) Acute hypoxemic respiratory failure: Plan: Multifactorial: COPD/asthma exacerbation, patient toxic/not septic Mild CHF, patient presenting with fluid retention symptoms, possible right-sided heart failure given normal BNP/absent congestion on CXR, hx GREGG/CPAP noncompliance secondary to financial constraints as per patient Epigastric discomfort secondary to uncontrolled GERD SSS status post PPM on Coumadin, paced rhythm, INR therapeutic hx nonobstructive CAD as per records hypertension, slight elevated hyperlipidemia on statin Rx prediabetes, hemoglobin A1c of 5.13 Jun 2021 chronic anemia, hemoglobin at baseline Medical telemetry Supplemental O2 Baseline ABG Steroid course, nebs RTC No indication for antibiotics right now. Pulmonary consult if without improvement IV Lasix 1 dose now, fluid restriction, strict I/Os, daily weights, CHF education Patient considering follow-up with [facility] sleep specialist upon discharge to review CPAP options given financial constraints Increase Pepcid dose to twice daily for now for uncontrolled GERD. Continue current PPI dose, increase to twice daily dosing if Pepcid dose change ineffective. DVT prophylaxis. Coumadin INR goal between 2 and 3 Full code Patient son requesting updates from providers. Claudia Cruz Jr Gian., contact #[phone]. Text document was generated using [employer] voice recognition software. It may contain grammatical or spelling errors. Kindly contact undersigned for clarification of any documentation item in question. History of Present Illness Chief Complaint: Worsening shortness of breath, epigastric discomfort Primary Care Provider: Paris Lizama MD History obtained from patient, family, and records. Medical history significant for chronic diastolic heart failure (EF 50 to 54%, TTE 2021), SSS status post PPM on Coumadin, nonobstructive CAD as per records, hypertension, hyperlipidemia, COPD/asthma, GERD, GREGG (CPAP noncompliance ), prediabetes, chronic anemia (baseline hemoglobin of 13), chronic back pain. Last confinement February 2021 for respiratory failure secondary to severe COVID-19 pneumonia. Patient completed Decadron course. 3 days history of dry cough symptoms associated with burning epigastric discomfort. No actual chest pain. Worsening shortness of breath. No known sick contacts. Patient completed COVID-19 vaccination. Patient son thinks he might be retaining fluid. Patient compliant with home medications. O2 sats noted to be 80s at home as per patient. Solu-Medrolsmith treatment given at the ER. MEDICAL HISTORY: SURGICAL HISTORY: cholecystectomy, appendectomy, PPM, hernia repair FAMILY HISTORY: There is a family history of asthma, sarcoidosis PERSONAL AND SOCIAL HISTORY: Nonsmoker. 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 Allergies Allergy/AdvReac Type Severity Reaction Status Date / Time cat dander Allergy Intermediate SNEEZING, Verified 09/30/21 23:56 CONGESTION pollen extracts Allergy Intermediate SNEEZING, Verified 09/30/21 23:56 CONGESTION morphine Allergy Unknown Verified 09/30/21 23:56 Home Medications Medication Instructions Recorded Confirmed Type cetirizine 10 mg tablet 10 mg PO DAILY 09/18/18 09/30/21 History hydrocodone 7.5 mg-acetaminophen 1 tab PO Q6H PRN pain 09/18/18 09/30/21 History 325 mg tablet montelukast 10 mg tablet 10 mg PO DAILY 09/18/18 09/30/21 History omeprazole 20 mg capsule,delayed 20 mg PO DAILYBB 09/18/18 09/30/21 History release warfarin 2.5 mg tablet 2.5 mg PO QPM 05/21/20 09/30/21 History diltiazem HCl 240 mg 240 mg PO PM #30 caps 05/23/20 09/30/21 Rx capsule,extended release 24 hr atorvastatin 80 mg tablet 80 mg PO HS 09/30/20 09/30/21 History losartan 50 mg tablet 50 mg PO BID 09/30/20 09/30/21 History oxybutynin chloride 5 mg tablet 5 mg PO TID 01/07/21 09/30/21 History amiodarone 200 mg tablet 200 mg PO QAM 03/01/21 09/30/21 History metoprolol tartrate 25 mg tablet 12.5 mg PO BID 03/01/21 09/30/21 History guaifenesin 200 mg tablet 200 mg PO TID PRN congestion/cough 03/05/21 09/30/21 Rx #30 tabs fluticasone fur. 200 mcg-umeclid 1 inh inhalation DAILY #60 ea 07/20/21 09/30/21 Rx 62.5 mcg-vilant 25 mcg inhalat.powder (Trelegy Ellipta) albuterol sulfate 2.5 mg/3 mL 3 mg continuous nebulization DAILY 09/30/21 09/30/21 History (0.083 %) solution for nebulization PRN shortness of breath or wheezing aluminum-mag hydroxide-simethicone 15 ml PO Q6 PRN indigestion or 09/30/21 09/30/21 History 400 mg-400 mg-40 mg/5 mL oral susp epigastric burning famotidine 20 mg tablet 20 mg PO QAM 09/30/21 09/30/21 History fluticasone propionate 50 2 spray intranasal QAM 09/30/21 09/30/21 History mcg/actuation nasal spray,suspension furosemide 20 mg tablet 20 mg PO .1-2 DAYS PER WEEK 09/30/21 09/30/21 History ipratropium 20 mcg-albuterol 100 1 puff inhalation .EVERY 4-6 HRS 09/30/21 History mcg/actuation mist for inhalation PRN respiratory sx omalizumab 150 mg/mL subcutaneous 1.2 mg subcut .EVERY 4 WEEKS 09/30/21 09/30/21 History syringe omega-3 fatty acids 1,000 mg 1,000 mg PO DAILY 09/30/21 09/30/21 History capsule potassium chloride 10 mEq 10 meq PO .TAKE WITH LASIX 09/30/21 09/30/21 History tablet,extended release(part/cryst) (Klor-Con M) prednisone 10 mg tablet 10 mg PO UD PRN rescue kit 09/30/21 09/30/21 History Past Med/Surg History Medical History Acute exacerbation of chronic obstructive pulmonary disease (COPD) Acute respiratory failure with hypoxia COVID-19 GERD (gastroesophageal reflux disease) History of paroxysmal supraventricular tachycardia S/P ablation in 2009 HLD (hyperlipidemia) HTN (hypertension) Nocturnal dyspnea Nonischemic cardiomyopathy 2013 echo: EF: 40%, moderate global hypokinesis Paroxysmal atrial fibrillation Visit for monitoring Xolair therapy Surgical History H/O hernia repair S/P appendectomy S/P cholecystectomy Family History Other Asthma Social History Smoking Status: Never smoker Second Hand Exposure: No; Hx Alcohol Use: Yes (occasionally) Alcohol type: wine Alcohol Intake Frequency: Monthly or Less Hx Substance Use: No Preferred Language: Mohawk Communication Ability: Effective Bellman Captain Required: No Beliefs That Will Affect Care: None marital status: Current Living Situation: Other Current Living Situation Comment: 2 sons and 1 sons gf current occupational status: disabled How many Children do You have: 2 Feels Safe at Home: Yes Assistive Devices: None Review of Systems 2 Review of Systems: As per HPI, all other systems reviewed and negative Physical Exam Physical Exam: GENERAL: Comfortable, pleasant, obese, slightly hard of hearing, no respiratory distress SKIN: Normal color, warm HEENT: [place] palpebral conjunctivae, no ptosis, moist buccal mucosa NECK : Supple, short neck, no tenderness CHEST : Decreased breath sounds, no tenderness HEART : RRR, no obvious murmurs ABDOMEN: Some distention, nontender EXTREMITIES : Minimal LE swelling, no LE tenderness, no other conspicuous deformities noted NEUROLOGIC : Coherent, no facial asymmetry, slightly hard of hearing, no other gross focality Results & Data Results & Data ([facility]) Vital Signs (Past 12 Hours) Vital Signs Temp Pulse Pulse Resp BP BP Pulse Ox 09/30/21 22:41 96 09/30/21 22:41 61 18 156/86 H 96 09/30/21 18:48 36.9 C 97 H 19 164/92 H 89 L O2 Del Method 09/30/21 22:41 Room Air 09/30/21 22:41 Room Air 09/30/21 18:48 Room Air Laboratory Results Laboratory Results WBC 9.92 K/ul (4.8-10.8) 10/01/21 05:59 RBC 4.68 M/uL (4.63-6.08) 10/01/21 05:59 Hgb 13.8 g/dl (14.0-18.0) L 10/01/21 05:59 Hct 41.7 % (40.1-51.0) 10/01/21 05:59 MCV 89.1 fL (80.0-100.0) 10/01/21 05:59 MCH 29.5 pg (25.0-34.0) 10/01/21 05:59 MCHC 33.1 g/dL (32.0-36.0) 10/01/21 05:59 RDW Std Deviation 48.9 fL (36.4-46.3) H 10/01/21 05:59 RDW Coeff of Danyell 15.0 % (11.5-14.5) H 10/01/21 05:59 Plt Count 192 K/uL (130-400) 10/01/21 05:59 MPV 10.0 fL (9.4-12.4) 10/01/21 05:59 Immature Gran % (Auto) 1.2 % 10/01/21 05:59 Neut % (Auto) 89.8 % 10/01/21 05:59 Lymph % (Auto) 8.3 % 10/01/21 05:59 Maverick % (Auto) 0.6 % 10/01/21 05:59 Eos % (Auto) 0.0 % 10/01/21 05:59 Baso % (Auto) 0.1 % 10/01/21 05:59 Neut # (Auto) 8.91 K/uL (1.4-6.5) H 10/01/21 05:59 Lymph # (Auto) 0.82 K/uL (1.2-3.4) L 10/01/21 05:59 Maverick # (Auto) 0.06 K/uL (0.24-0.82) L 10/01/21 05:59 Eos # (Auto) 0.00 K/uL (0-0.50) 10/01/21 05:59 Baso # (Auto) 0.01 K/uL (0-0.2) 10/01/21 05:59 Immature Gran # (Auto) 0.12 K/uL (0.00-0.02) H 10/01/21 05:59 PT 26.7 Seconds (9.0-12.0) H 10/01/21 05:59 INR 2.6 (0.9-1.1) H 10/01/21 05:59 APTT 37.0 Seconds (21.0-31.0) H 09/30/21 19:13 PTT Ratio 1.3 09/30/21 19:13 ABG pH 7.42 (7.35-7.45) 09/30/21 23:37 ABG pCO2 48 mmHg (35-46) H 09/30/21 23:37 ABG pO2 66 mmHg (80-95) L 09/30/21 23:37 ABG HCO3 31 mmol/L (19-24) H 09/30/21 23:37 ABG O2 Saturation 95.8 % (90-95) H 09/30/21 23:37 ABG Base Excess 5.5 mEq/L (-9-1.8) H 09/30/21 23:37 Grant Test Pos (Pos) 09/30/21 23:37 Oxygen Given ROOM AIR 09/30/21 23:37 Sodium 139 mmol/L (136-145) 10/01/21 05:59 Potassium 4.7 mmol/L (3.5-5.1) 10/01/21 05:59 Chloride 100 mmol/L (98-107) 10/01/21 05:59 Carbon Dioxide 31 mmol/L (21-32) 10/01/21 05:59 Anion Gap 8 (3-11) 10/01/21 05:59 BUN 23 mg/dl (6-23) 10/01/21 05:59 Creatinine 1.20 mg/dl (0.6-1.4) 10/01/21 05:59 Est Cr Clr Drug Dosing 68.8 ml/min 10/01/21 05:59 Est GFR ( Amer) 70.6 ml/min 10/01/21 05:59 Est GFR (Non-Af Amer) 60.9 ml/min 10/01/21 05:59 BUN/Creatinine Ratio 19.2 (10-20) 10/01/21 05:59 Glucose 159 mg/dl (70-99(Fasting)) H 10/01/21 05:59 Calcium 9.0 mg/dl (8.5-10.1) 10/01/21 05:59 Magnesium 2.1 mg/dl (1.7-2.4) 09/30/21 19:13 Total Bilirubin 1.0 mg/dl (0.2-1.0) 09/30/21 19:13 AST 24 U/L (13-39) 09/30/21 19:13 ALT 34 U/L (7-52) 09/30/21 19:13 Alkaline Phosphatase 99 U/L (34-104) 09/30/21 19:13 Troponin I High Sens 6.5 pg/ml (0-20) 09/30/21 22:33 B-Natriuretic Peptide 64 pg/ml (0-100) 09/30/21 19:13 Total Protein 6.8 gm/dl (6.0-8.3) 09/30/21 19:13 Albumin 4.0 gm/dl (3.4-5.0) 09/30/21 19:13 Globulin 2.8 gm/dl (2.5-4.0) 09/30/21 19:13 Albumin/Globulin Ratio 1.4 (0.9-2) 09/30/21 19:13 SARS-CoV-2, RNA, NAAT NEGATIVE (NEGATIVE) 09/30/21 22:40 Impressions Chest X-Ray 09/30/21 18:53 XR chest 1V portable HISTORY: Atypical Chest Pain COMPARISON: Chest 03/01/2021. FINDINGS: No pneumothorax. Hyperexpanded lungs with apical predominant emphysematous changes. Interstitial thickening at the lung bases persists and favors vascular crowding from the emphysema. Otherwise, no new focal lung consolidations to suggest pneumonia. No evidence for pulmonary edema. The heart remains mildly enlarged. Is left-sided dual-chamber pacemaker. IMPRESSION: No significant change compared to the prior study. No acute process. Cardiomeg armando and emphysema again noted. ACT 112: Negative or not required by law. Electronically signed by: Ar Benson M.D. 09/30/2021 7:[address] chest initial read: No acute pulmonaryembolismvisualized. Trace bilateral pleural effusionswith lower lobe predominant bronchiectasiswith minimal mucus plugging and mild multifocal opacities and tree-in-bud opacities in the basilar lower lobes, slightly increased fromprior. EKG as per my interpretation : Rate 60, paced rhythm
[2021-09-30 23:40] LABS: Magnesium 2.1 mg/dl (1.7-2.4)
[2021-09-30 23:44] LABS: Base Excess ABG 5.5 mEq/L (-9-1.8); HCO3 ABG 31 mmol/L (19-24); Oxygen Saturation ABG 95.8 % (90-95); PCO2 ABG 48 mmHg (35-46); PO2 ABG 66 mmHg (80-95); pH ABG 7.42 (7.35-7.45)
[2021-09-30 23:45] LABS: Allen Test Pos (Pos)
[2021-09-30] MEDS ORDERED: FAMOTIDINE 20MG IV PUSH 20 MG/5 ML SYR IV STA (23:56)
[2021-10-01] MEDS ORDERED: FUROSEMIDE INJ 20 MG/2 ML VIAL IV ONE (00:03)
[2021-10-01] MEDS ORDERED: guaiFENesin 200 MG TAB PO PRN (01:53)
[2021-10-01] MEDS ORDERED: ACETAMINOPHEN 325 MG TAB PO PRN (01:53)
[2021-10-01 06:27] LABS: Basophils # (auto) 0.01 K/uL (0-0.2); Basophils % (auto) 0.1 %; Hematocrit (blood only) 41.7 % (40.1-51.0); Hemoglobin 13.8 g/dl (14.0-18.0); Immature Granulocytes # (auto) 0.12 K/uL (0.00-0.02); Immature Granulocytes % (auto) 1.2 %; Lymphocytes # (auto) 0.82 K/uL (1.2-3.4); Lymphocytes % (auto) 8.3 %; Mean Corpuscular Hemoglobin 29.5 pg (25.0-34.0); Mean Corpuscular Hgb Conc 33.1 g/dL (32.0-36.0); Mean Corpuscular Volume 89.1 fL (80.0-100.0); Monocytes # (auto) 0.06 K/uL (0.24-0.82); Monocytes % (auto) 0.6 %; Neutrophils # (auto) 8.91 K/uL (1.4-6.5); Neutrophils % (auto) 89.8 %; Platelet Count 192 K/uL (130-400); RDW Standard Deviation 48.9 fL (36.4-46.3); Red Blood Count 4.68 M/uL (4.63-6.08); White Blood Count 9.92 K/ul (4.8-10.8)
--- NOTE | 2021-10-01 06:44 | CT Scan Report ---
CT ANGIOGRAPHY OF THE CHEST, PULMONARY EMBOLUS PROTOCOL CLINICAL HISTORY: Shortness of breath. Chest pain. Evaluate for pulmonary embolus. COMPARISON STUDY: Chest CT October 01, 2021. Chest radiograph performed earlier today. TECHNIQUE: Following IV administration of 112 mL of Optiray, helical axial images of the chest were o btained utilizing the pulmonary embolus protocol. Maximal intensity projections and sagittal and cor onal reformats were viewed on an independent 3D workstation. IV contrast was administered without co mplication. Automated exposure control was utilized for the study. A dose lowering technique was ut ilized adhering to the principles of ALARA. CT DOSE: 959.52 mGy.cm FINDINGS: Dual lead left subclavian pacer is in place. No pulmonary emboli are identified. There is no thoracic aortic dissection. Size of the heart is normal. There is moderate coronary artery calcifi cation. There is no pericardial effusion. No enlarged axillary, mediastinal or hilar lymph nodes are present. Note is made of lower lobe predominant bronchiectasis, bronchial wall thickening and scatter ed tree-in-bud nodules. These tree-in-bud nodules have increased since CT of October 01, 2020. A few n odular densities within the right lower lobe measure up to 8 mm. There is also likely infectious. No pneumothorax or pleural effusion is noted. No acute fracture within the bony thorax. Gallbladder is s urgically absent. Visualized portions of the upper abdomen are unremarkable. IMPRESSION: 1. No pulmonary emboli identified. 2. Lower lobe predominant bronchiectasis, bronchial wall thickening and tree in nodules which are inc reased since exam of October 01, 2020. The findings favor an infectious process which may be chronic. The appearance is nonspecific but could be seen in the setting of atypical mycobacterial infection. ACT 112: Negative or not required by law. Electronically signed by: Milan Oneal M.D. 10/01/2021 6:42 AM
[2021-10-01 06:54] LABS: INR 2.6 (0.9-1.1); Prothrombin Time 26.7 Seconds (9.0-12.0)
[2021-10-01] MEDS: IPRATROPIUM BROMIDE NEB SOLN 0.02% 2.5 ML VIAL INH SCH ×3 (06:54→20:28)
[2021-10-01] MEDS: LEVALBUTEROL 1.25MG/0.5ML NEB INH SCH ×3 (06:54→20:28)
[2021-10-01] MEDS ORDERED: XOPENEX/ATROVENT 1.25mg/0.5MG NEB COMBO NEB SCH (07:00)
[2021-10-01 07:03] LABS: BUN Creatinine Ratio 19.2 (10-20); Creatinine Clr Calc Pharmacy 68.8 ml/min; Est GFR (African American) 70.6 ml/min; Est GFR (Non-African American) 60.9 ml/min; Potassium 4.7 mmol/L (3.5-5.1)
[2021-10-01] MEDS: PANTOprazole 40 MG TAB PO SCH (07:18)
[2021-10-01] MEDS: FLUTICASONE FUROATE 200MCG 14 PUFFS/INHALER INH SCH (08:52)
[2021-10-01] MEDS: DOXYCYCLINE HYCLATE 100 MG CAP PO SCH ×2 (08:52→21:22)
[2021-10-01] MEDS: UMECLIDINIUM/VILANTEROL 62.5/25MCG 7 PUFFS/INHALER INH SCH (08:53)
[2021-10-01] MEDS: METOPROLOL TARTRATE 25 MG TAB PO SCH ×2 (08:54→21:21)
[2021-10-01] MEDS: guaiFENesin 600 MG TABCR PO SCH ×2 (08:55→21:23)
[2021-10-01] MEDS: predniSONE 20 MG TAB PO SCH (08:55)
[2021-10-01] MEDS: MONTELUKAST SODIUM 10 MG TABLET PO SCH (08:55)
[2021-10-01] MEDS: FAMOTIDINE 20 MG TAB PO SCH ×2 (08:56→21:22)
[2021-10-01] MEDS: LOSARTAN POTASSIUM 50 MG TAB PO SCH ×2 (08:56→21:22)
[2021-10-01] MEDS: OXYBUTYNIN CHLORIDE 5 MG TAB PO SCH ×3 (08:56→21:22)
[2021-10-01] MEDS: AMIODARONE 200 MG TAB PO SCH (08:57)
[2021-10-01] MEDS: CETIRIZINE HCL 10 MG TABLET PO SCH (08:57)
[2021-10-01] MEDS ORDERED: NON-FORMULARY MEDICATION (Fluticasone-Umeclidin-Vilanter [Trelegy Ellipta] 200-62.5-25 mcg INH SCH (09:00)
[2021-10-01] MEDS: FLUTICASONE PROPIONATE NA SPR 16 GM BTL SCH (09:12)
[2021-10-01] MEDS: HYDROCODONE/ACETAMINOPHEN 7.5/325MG TAB PO PRN ×2 (09:12→19:36)
[2021-10-01] MEDS: cefTRIAXone SODIUM 2,000 MG in DEXTROSE 5% 50 ML IV SCH (09:33)
--- NOTE | 2021-10-01 16:12 | Electrocardiogram Report ---
Test Reason : Blood Pressure : / mmHG Vent. Rate : 061 BPM Atrial Rate : 061 BPM P-R Int : 224 ms QRS Dur : 092 ms QT Int : 438 ms P-R-T Axes : 000 043 056 degrees QTc Int : 440 ms Poor data quality, interpretation may be adversely affected Atrial-paced rhythm with prolonged AV conduction Abnormal ECG When compared with ECG of 30-SEP-2021 19:05, No significant change was found Confirmed by Bart Galloway ([id number]) on 10/01/2021 4:12:43 PM Referred By: REFERRED SELF Confirmed By:Bart Galloway
--- NOTE | 2021-10-01 16:51 | Electrocardiogram Report ---
Test Reason : Blood Pressure : / mmHG Vent. Rate : 061 BPM Atrial Rate : 258 BPM P-R Int : 226 ms QRS Dur : 088 ms QT Int : 480 ms P-R-T Axes : 000 042 059 degrees QTc Int : 483 ms Poor data quality, interpretation may be adversely affected Atrial-paced rhythm with prolonged AV conduction Abnormal ECG When compared with ECG of 01-MAR-2021 11:33, Electronic atrial pacemaker has replaced Electronic ventricular pacemaker Confirmed by Bart Galloway ([id number]) on 10/01/2021 4:50:41 PM Referred By: REFERRED SELF Confirmed By:Bart Galloway
--- NOTE | 2021-10-01 17:42 | Hospitalist Progress Note ---
Date of Service October 01, 2021 Assessment & Plan (1) Acute hypoxemic respiratory failure: Plan: Multifactorial: COPD/asthma exacerbation -Patient denies any history of smoking -Currently off oxygen supplementation -CT chest: 1. No pulmonary emboli identified. 2. Lower lobe predominant bronchiectasis, bronchial wall thickening and tree in nodules which are increased since exam of October 01, 2020. The findings favor an infectious process which may be chronic. The appearance is nonspecific but could be seen in the setting of atypical mycobacterial infection. -Sputum culture: Pending Ceftriaxone plus doxycycline Continue nebs [id number] Continue prednisone 40 mg p.o. daily Will consult pulmonary service Epigastric discomfort secondary to uncontrolled GERD --Famotidine increased to twice daily SSS status post PPM on Coumadin, paced rhythm, INR therapeutic hx nonobstructive CAD as per records hypertension, slight elevated hyperlipidemia on statin Rx prediabetes, hemoglobin A1c of 5.13 Jun 2021 chronic anemia, hemoglobin at baseline DVT prophylaxis. Continue Coumadin Full code Disposition Anticipate discharge to home medically stable Will need two-step exercise stress Admission and Anticipated Discharge Date Admission Date: September 30, 2021 Subjective Follow-up for COPD exacerbation, etc. Seen sitting up in bedside chair, watching TV States he feels improved compared to admission Breathing is improving, has dry cough No chest pain, palpitations, dizziness No fevers or chills States he has not had any improvement with breathing with Trelegy Ellipta No other symptoms Review of Systems Review of Systems: all noted and negative except for above Physical Exam Physical Exam: General- oriented x 3, not in distress, speaks in sentences with no effort or accessory muscle use Eyes- anicteric Neck- no JVD Lungs-diminished breath sounds bilaterally, no wheezing No crackles Heart- normal rate, regular rhythm; no murmurs Abdomen- normal bowel sounds, nondistended, soft, nontender Extremities- no pretibial edema, no calf tenderness Neuro- alert, oriented x 3; no gross focal neurologic deficits Skin- warm & dry Results & Data Results & Data ([facility]) Vital Signs (Past 12 Hours) Vital Signs Pulse Resp BP Pulse Ox O2 Del Method 10/01/21 12:57 63 16 92 Room Air 10/01/21 07:21 70 20 144/83 H 92 Room Air 10/01/21 06:54 66 16 94 Room Air 10/01/21 06:28 64 17 150/90 H 95 Room Air all noted and reviewed including below
[2021-10-01] MEDS: dilTIAZem HCL 240 MG CAPCR PO SCH (21:22)
[2021-10-01] MEDS: ATORVASTATIN 40 MG TAB PO SCH (21:22)
[2021-10-02] MEDS: LEVALBUTEROL 1.25MG/0.5ML NEB INH SCH ×2 (01:08→07:04)
[2021-10-02] MEDS: IPRATROPIUM BROMIDE NEB SOLN 0.02% 2.5 ML VIAL INH SCH ×2 (01:09→07:04)
[2021-10-02] MEDS: HYDROCODONE/ACETAMINOPHEN 7.5/325MG TAB PO PRN ×2 (02:53→19:12)
[2021-10-02] MEDS: PANTOprazole 40 MG TAB PO SCH (06:29)
[2021-10-02 06:41] LABS: INR 2.7 (0.9-1.1); Prothrombin Time 27.7 Seconds (9.0-12.0)
[2021-10-02] MEDS ORDERED: IPRATROPIUM BROMIDE NEB SOLN 0.02% 2.5 ML VIAL INH PRN (07:36)
[2021-10-02] MEDS ORDERED: LEVALBUTEROL 1.25MG/0.5ML NEB INH PRN (07:45)
[2021-10-02] MEDS: METOPROLOL TARTRATE 25 MG TAB PO SCH ×2 (08:12→20:13)
[2021-10-02] MEDS: LOSARTAN POTASSIUM 50 MG TAB PO SCH ×2 (08:12→20:13)
[2021-10-02] MEDS: CETIRIZINE HCL 10 MG TABLET PO SCH (08:13)
[2021-10-02] MEDS: MONTELUKAST SODIUM 10 MG TABLET PO SCH (08:13)
[2021-10-02] MEDS: predniSONE 20 MG TAB PO SCH (08:13)
[2021-10-02] MEDS: OXYBUTYNIN CHLORIDE 5 MG TAB PO SCH ×3 (08:13→20:13)
[2021-10-02] MEDS: FAMOTIDINE 20 MG TAB PO SCH ×2 (08:13→20:14)
[2021-10-02] MEDS: AMIODARONE 200 MG TAB PO SCH (08:13)
[2021-10-02] MEDS: DOXYCYCLINE HYCLATE 100 MG CAP PO SCH ×2 (08:14→20:14)
[2021-10-02] MEDS: guaiFENesin 600 MG TABCR PO SCH ×2 (08:14→20:13)
[2021-10-02] MEDS: UMECLIDINIUM/VILANTEROL 62.5/25MCG 7 PUFFS/INHALER INH SCH (08:16)
[2021-10-02] MEDS: FLUTICASONE FUROATE 200MCG 14 PUFFS/INHALER INH SCH (08:17)
[2021-10-02] MEDS: FLUTICASONE PROPIONATE NA SPR 16 GM BTL SCH (08:17)
--- NOTE | 2021-10-02 08:17 | Pulmonary Consultation ---
Date of Consultation October 02, 2021 Assessment & Plan (1) Asthma-COPD overlap syndrome: (2) Asthma exacerbation: (3) SOB (shortness of breath): (4) GREGG (obstructive sleep apnea): (5) Morbid obesity: Plan CT chest 09/30/2021 personally reviewed: Accessory right upper lobe Tree-in-bud opacities appreciated in the right upper as well as bilateral lower lobes along with cylindrical bronchiectasis Small cysts appreciated bilaterally No mediastinal lymphadenopathy --Shortness of breath Multifactorial Asthma-COPD overlap syndrome exacerbation HFpEF grade 2 diastolic dysfunction, EF 55% Patient also has bronchiectasis appreciated even on the CAT scan 2017 --Bilateral bronchiectasis with mucous plugging There is worsening compared to CT chest done September 2020 ADAM is a possibility Continue with hypertonic saline nebulized and flutter valve Autoimmune work-up negative 10/01/2020 including RF, anti-CCP, SS A/B, PRISCILLA Alpha-1 antitrypsin level 156 on 10/03/2019 --Asthma-COPD overlap syndrome History of asthma since 5 years of age Used to work in [employer] for approximately 10 years On [employer] at home PFTs as an outpatient Patient is apparently getting Xolair shots every year as per the note from Dr. 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 fib On amiodarone Plan: Follow sputum culture as well as sputum AFB Add hypertonic saline nebulized treatment along with flutter valve CPAP with 11 cm H2O nightly Continue with diuresis to keep the patient negative balance Case was discussed with RN Tien Please note the above document was generated using voice recognition software. It may contain grammatical, syntax or spelling errors.Any formal questions or concerns about the content, text or information contained within the body of th is dictation should be directly addressed to the provider for clarification. History of Present Illness Attending Physician: Jorge Dill MD History of Present Illness 70-year-old male presented to the hospital with complaints of shortness of breath going progressively worse since last couple of weeks. Past medical history of paroxysmal A. fib on warfarin, hypertension, dyslipidemia, history of nonischemic cardiomyopathy with HFpEF, asthma/COPD, GREGG not on CPAP Pulmonary consulted for the same Patient said he has been having issues with his breathing for approximately 10- 14 days He started prednisone approximately 3 days ago but there was no benefit is the reason he came to the hospital Complains of chest tightness and wheezing. Denies any cough. Does complain of chest congestion unable to bring up the phlegm. No fever or chills No dysuria, no diarrhea No hematuria, no hematochezia No headache, no blurry vision Social history: Non-smoker.Used to work in [employer] in [place]. Worked for [employer] for approximately 10 years. No exposure to any chemicals or fumes Pets: Dog. No birds or poultry nearby Allergies Allergy/AdvReac Type Severity Reaction Status Date / Time cat dander Allergy Intermediate SNEEZING, Verified 09/30/21 23:56 CONGESTION pollen extracts Allergy Intermediate SNEEZING, Verified 09/30/21 23:56 CONGESTION morphine Allergy Unknown Verified 09/30/21 23:56 Home Medications Medication Instructions Recorded Confirmed Type cetirizine 10 mg tablet 10 mg PO DAILY 09/18/18 09/30/21 History hydrocodone 7.5 mg-acetaminophen 1 tab PO Q6H PRN pain 09/18/18 09/30/21 History 325 mg tablet montelukast 10 mg tablet 10 mg PO DAILY 09/18/18 09/30/21 History omeprazole 20 mg capsule,delayed 20 mg PO DAILYBB 09/18/18 09/30/21 History release warfarin 2.5 mg tablet 2.5 mg PO QPM 05/21/20 09/30/21 History diltiazem HCl 240 mg 240 mg PO PM #30 caps 05/23/20 09/30/21 Rx capsule,extended release 24 hr atorvastatin 80 mg tablet 80 mg PO HS 09/30/20 09/30/21 History losartan 50 mg tablet 50 mg PO BID 09/30/20 09/30/21 History oxybutynin chloride 5 mg tablet 5 mg PO TID 01/07/21 09/30/21 History amiodarone 200 mg tablet 200 mg PO QAM 03/01/21 09/30/21 History metoprolol tartrate 25 mg tablet 12.5 mg PO BID 03/01/21 09/30/21 History guaifenesin 200 mg tablet 200 mg PO TID PRN congestion/cough 03/05/21 09/30/21 Rx #30 tabs fluticasone fur. 200 mcg-umeclid 1 inh inhalation DAILY #60 ea 07/20/21 09/30/21 Rx 62.5 mcg-vilant 25 mcg inhalat.powder (Trelegy Ellipta) albuterol sulfate 2.5 mg/3 mL 3 mg continuous nebulization DAILY 09/30/21 09/30/21 History (0.083 %) solution for nebulization PRN shortness of breath or wheezing aluminum-mag hydroxide-simethicone 15 ml PO Q6 PRN indigestion or 09/30/21 09/30/21 History 400 mg-400 mg-40 mg/5 mL oral susp epigastric burning famotidine 20 mg tablet 20 mg PO QAM 09/30/21 09/30/21 History fluticasone propionate 50 2 spray intranasal QAM 09/30/21 09/30/21 History mcg/actuation nasal spray,suspension furosemide 20 mg tablet 20 mg PO .1-2 DAYS PER WEEK 09/30/21 09/30/21 History ipratropium 20 mcg-albuterol 100 1 puff inhalation .EVERY 4-6 HRS 09/30/21 09/30/21 History mcg/actuation mist for inhalation PRN respiratory sx omalizumab 150 mg/mL subcutaneous 1.2 mg subcut .EVERY 4 WEEKS 09/30/21 09/30/21 History syringe omega-3 fatty acids 1,000 mg 1,000 mg PO DAILY 09/30/21 09/30/21 History capsule potassium chloride 10 mEq 10 meq PO .TAKE WITH LASIX 09/30/21 09/30/21 History tablet,extended release(part/cryst) (Klor-Con M) prednisone 10 mg tablet 10 mg PO UD PRN rescue kit 09/30/21 09/30/21 History Patient History Medical History Acute exacerbation of chronic obstructive pulmonary disease (COPD) Acute respiratory failure with hypoxia COVID-19 GERD (gastroesophageal reflux disease) History of paroxysmal supraventricular tachycardia S/P ablation in 2009 HLD (hyperlipidemia) HTN (hypertension) Nocturnal dyspnea Nonischemic cardiomyopathy 2013 echo: EF: 40%, moderate global hypokinesis Paroxysmal atrial fibrillation Visit for monitoring Xolair therapy Surgical History H/O hernia repair S/P appendectomy S/P cholecystectomy Family History Other Asthma Social History Smoking Status: Never smoker Second Hand Exposure: No; Hx Alcohol Use: Yes (occasionally) Alcohol type: wine Alcohol Intake Frequency: Monthly or Less Hx Substance Use: No Preferred Language: Croatian Communication Ability: Effective Consulting Database Administrator Required: No Beliefs That Will Affect Care: None marital status: Current Living Situation: Other Current Living Situation Comment: 2 sons and 1 sons gf current occupational status: disabled How many Children do You have: 2 Feels Safe at Home: Yes Assistive Devices: None Review of Systems Review of Systems: All systems reviewed & are unremarkable except as noted in HPI & below Physical Exam Physical Exam: Constitutional: No acute distress HEENT: EOMI, PERRLA Respiratory system: Decreased air entry bilaterally, no rhonchi, mild expiratory wheeze, mild crackles bilateral lower lobes CVS: S1-S2 positive, no murmurs or gallops Abdomen: Soft, nontender, nondistended, positive bowel sounds x4, obese Extremities: +2 pulses bilaterally radialis/ dorsalis pedis, no cyanosis, +2 pitting edema bilateral lower extremity Neuro: Awake alert oriented x3 Psych: Normal mood and affect G/U: No Parry Skin: no rashes, warm and dry Lymphatic: no cervical or axillary lymphadenopathy Results & Data Results & Data ([facility]) Vital Signs (Past 12 Hours) Vital Signs Temp Pulse Pulse Resp BP Pulse Ox O2 Del Method 10/02/21 08:00 36.9 C 81 20 124/78 94 10/02/21 07:05 77 18 94 Room Air 10/02/21 02:58 36.7 C 66 18 129/64 93 Room Air 10/02/21 01:09 63 18 93 Room Air 10/01/21 22:45 65 10/01/21 23:13 36.6 C 71 18 126/73 92 Room Air 10/01/21 20:28 68 18 93 Room Air Laboratory Results 10/01/21 05:59 10/01/21 05:59 PG Care Time/CCT Total # of Minutes Spent Total Time Spent with Patient: Total time spent is greater than 50% in coordination of care (as documented) at patient's floor/unit and/or counseling patient: [place] [address] Initial Inpt Care Lvl 3 Patient Type New Diagnoses Asthma-COPD overlap syndrome J44.9 Asthma exacerbation J45.901 SOB (shortness of breath) R06.02 GREGG (obstructive sleep apnea) G47.33 Morbid obesity E66.01
[2021-10-02] MEDS ORDERED: FUROSEMIDE 40 MG/4 ML VIAL IV ONE (10:03)
[2021-10-02] MEDS: cefTRIAXone SODIUM 2,000 MG in DEXTROSE 5% 50 ML IV SCH (10:25)
--- NOTE | 2021-10-02 15:30 | Hospitalist Progress Note ---
Date of Service October 02, 2021 Assessment & Plan (1) Acute hypoxemic respiratory failure: Plan: Multifactorial: COPD/asthma exacerbation -Patient denies any history of smoking -Currently off oxygen supplementation -CT chest: 1. No pulmonary emboli identified. 2. Lower lobe predominant bronchiectasis, bronchial wall thickening and tree in nodules which are increased since exam of October 01, 2020. The findings favor an infectious process which may be chronic. The appearance is nonspecific but could be seen in the setting of atypical mycobacterial infection. -Sputum culture: Pending Gradually improving Ceftriaxone plus doxycycline Continue nebs [id number] Continue prednisone 40 mg p.o. daily Pulmonary service consulted Recommend to continue above treatment Recommend CPAP based on outpatient sleep studies Epigastric discomfort secondary to uncontrolled GERD --Famotidine increased to twice daily SSS status post PPM on Coumadin, paced rhythm, INR therapeutic hx nonobstructive CAD as per records hypertension, stable hyperlipidemia on statin Rx prediabetes, hemoglobin A1c of 5.13 Jun 2021 chronic anemia, hemoglobin at baseline DVT prophylaxis. Continue Coumadin Full code Disposition Anticipate discharge to home medically stable Will need two-step exercise stress Admission and Anticipated Discharge Date Admission Date: September 30, 2021 Subjective Follow-up for asthma/COPD exacerbation, diastolic CHF exacerbation, etc. Seen sitting up in bed, watching TV, comfortable, not in distress States he continues to feel better overall Breathing is improving, less cough, nonproductive, no chest pain, palpitations, dizziness No fevers or chills No other symptoms Review of Systems Review of Systems: all noted and negative except for above Physical Exam Physical Exam: General- oriented x 3, not in distress, speaks in sentences with no effort or accessory muscle use Eyes- anicteric Neck- no JVD Lungs-faint scattered wheeze bilaterally, good air entry bilaterally Heart- normal rate, regular rhythm; no murmurs Abdomen- normal bowel sounds, nondistended, soft, nontender Extremities-mild lower extremityedema, no calf tenderness Neuro- alert, oriented x 3; no gross focal neurologic deficits Skin- warm & dry Results & Data Results & Data ([facility]) Vital Signs (Past 12 Hours) Vital Signs Temp Pulse Resp BP Pulse Ox O2 Del Method 10/02/21 08:00 Room Air 10/02/21 08:00 36.9 C 81 20 124/78 94 10/02/21 07:05 77 18 94 Room Air all noted and reviewed including below
[2021-10-02] MEDS: SODIUM CHLOR 7% 4 ML NEB NEB SCH (19:26)
[2021-10-02] MEDS: ATORVASTATIN 40 MG TAB PO SCH (20:14)
[2021-10-02] MEDS: dilTIAZem HCL 240 MG CAPCR PO SCH (20:14)
[2021-10-03] MEDS: HYDROCODONE/ACETAMINOPHEN 7.5/325MG TAB PO PRN ×2 (01:24→11:46)
[2021-10-03] MEDS: PANTOprazole 40 MG TAB PO SCH (05:29)
[2021-10-03 06:24] LABS: INR 2.2 (0.9-1.1)
[2021-10-03] MEDS: SODIUM CHLOR 7% 4 ML NEB NEB SCH (07:39)
[2021-10-03 09:21] LABS: BUN Creatinine Ratio 26.5 (10-20); Calcium 9.2 mg/dl (8.5-10.1); Creatinine Clr Calc Pharmacy 45.3 ml/min; Est GFR (African American) 42.9 ml/min; Est GFR (Non-African American) 37.1 ml/min; Potassium 4.4 mmol/L (3.5-5.1)
[2021-10-03] MEDS: MONTELUKAST SODIUM 10 MG TABLET PO SCH (09:30)
[2021-10-03] MEDS: CETIRIZINE HCL 10 MG TABLET PO SCH (09:30)
[2021-10-03] MEDS: METOPROLOL TARTRATE 25 MG TAB PO SCH (09:30)
[2021-10-03] MEDS: predniSONE 20 MG TAB PO SCH (09:31)
[2021-10-03] MEDS: FLUTICASONE FUROATE 200MCG 14 PUFFS/INHALER INH SCH (09:31)
[2021-10-03] MEDS: LOSARTAN POTASSIUM 50 MG TAB PO SCH (09:31)
[2021-10-03] MEDS: UMECLIDINIUM/VILANTEROL 62.5/25MCG 7 PUFFS/INHALER INH SCH (09:31)
[2021-10-03] MEDS: FAMOTIDINE 20 MG TAB PO SCH (09:32)
[2021-10-03] MEDS: AMIODARONE 200 MG TAB PO SCH (09:32)
[2021-10-03] MEDS: DOXYCYCLINE HYCLATE 100 MG CAP PO SCH (09:32)
[2021-10-03] MEDS: guaiFENesin 600 MG TABCR PO SCH (09:32)
[2021-10-03] MEDS: FLUTICASONE PROPIONATE NA SPR 16 GM BTL SCH (09:33)
[2021-10-03] MEDS: OXYBUTYNIN CHLORIDE 5 MG TAB PO SCH (09:33)
[2021-10-03] MEDS: IPRATROPIUM BROMIDE NEB SOLN 0.02% 2.5 ML VIAL INH SCH ×2 (10:10→13:00)
[2021-10-03] MEDS: LEVALBUTEROL 1.25MG/0.5ML NEB INH SCH ×2 (10:10→13:00)
--- NOTE | 2021-10-03 10:25 | Pulmonology Progress Note ---
Date of Service October 03, 2021 Assessment & Plan (1) Asthma-COPD overlap syndrome: (2) Asthma exacerbation: (3) SOB (shortness of breath): (4) GREGG (obstructive sleep apnea): (5) Morbid obesity: Plan CT chest 09/30/2021 personally reviewed: Accessory right upper lobe Tree-in-bud opacities appreciated in the right upper as well as bilateral lower lobes along with cylindrical bronchiectasis Small cysts appreciated bilaterally No mediastinal lymphadenopathy --Shortness of breath Multifactorial Asthma-COPD overlap syndrome exacerbation HFpEF grade 2 diastolic dysfunction, EF 55% Patient also has bronchiectasis appreciated even on the CAT scan 2017 --Bilateral bronchiectasis with mucous plugging There is worsening compared to CT chest done September 2020 ADAM is a possibility Continue with hypertonic saline nebulized and flutter valve Autoimmune work-up negative 10/01/2020 including RF, anti-CCP, SS A/B, PRISCILLA Alpha-1 antitrypsin level 156 on 10/03/2019 --Asthma-COPD overlap syndrome History of asthma since 5 years of age Used to work in [employer] for approximately 10 years On [employer] at home PFTs as an outpatient Patient is apparently getting Xolair shots every year as per the note from Dr. 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 fib On amiodarone Plan: Recommend prednisone 40 mg for 3 days followed by 20 mg for 3 days and then stop Flutter valve along with hypertonic saline at home Check if the patient needs oxygen at home prior to discharge Case was discussed with RN Tien Please note the above document was generated using voice recognition software. It may contain grammatical, syntax or spelling errors.Any formal questions or concerns about the content, text or information contained within the body of this dictation should be directly addressed to the provider for clarification. Admission and Anticipated Discharge Date Admission Date: September 30, 2021 Subjective Patient seen and examined at bedside. No acute distress, no adverse events overnight. Overall he feels better. He says he always wheezes. He did use CPAP overnight and he did not like the nasal pillow. Denies any headache, no nausea, no vomiting Fair appetite Is able to bring up the phlegm. Review of Systems Review of Systems: All systems reviewed & are unremarkable except as noted in Subjective Physical Exam Physical Exam: Constitutional: No acute distress HEENT: EOMI, PERRLA Respiratory system: Decreased air entry bilaterally, no rhonchi, mild expiratory wheeze, mild crackles bilateral lower lobes CVS: S1-S2 positive, no murmurs or gallops Abdomen: Soft, nontender, nondistended, positive bowel sounds x4, obese Extremities: +2 pulses bilaterally radialis/ dorsalis pedis, no cyanosis, +2 pitting edema bilateral lower extremity Neuro: Awake alert oriented x3 Psych: Normal mood and affect G/U: No Parry Skin: no rashes, warm and dry Lymphatic: no cervical or axillary lymphadenopathy Results & Data Results & Data ([facility]) Vital Signs (Past 12 Hours) Vital Signs Temp Pulse Pulse Pulse Pulse Pulse Pulse 10/03/21 10:07 99 H 99 H 85 103 H 10/03/21 07:39 67 10/03/21 07:19 37.1 C 60 10/03/21 03:42 36.9 C 61 10/02/21 22:50 74 10/03/21 03:44 10/03/21 01:50 10/02/21 23:03 37.1 C 74 Pulse Resp Resp Resp Resp Resp Resp 10/03/21 10:07 80 20 20 18 18 16 10/03/21 07:39 16 10/03/21 07:19 19 10/03/21 03:42 20 10/02/21 22:50 10/03/21 03:44 16 10/03/21 01:50 22 10/02/21 23:03 20 BP BP Pulse Ox Pulse Ox Pulse Ox Pulse Ox Pulse Ox 10/03/21 10:07 88 L 91 87 L 90 10/03/21 07:39 96 10/03/21 07:19 118/71 92 10/03/21 03:42 155/79 H 94 10/02/21 22:50 10/03/21 03:44 10/03/21 01:50 95 10/02/21 23:03 114/69 92 Pulse Ox O2 Del Method O2 Flow Rate O2 Flow Rate O2 Flow Rate 10/03/21 10:07 92 1 2 10/03/21 07:39 Room Air 10/03/21 07:19 Room Air 10/03/21 03:42 BiPAP 10/02/21 22:50 10/03/21 03:44 2 10/03/21 01:50 2 10/02/21 23:03 Laboratory Results 10/01/21 05:59 10/03/21 05:38 PG Care Time/CCT Total # of Minutes Spent Total Time Spent with Patient: Total time spent is greater than 50% in coordination of care (as documented) at patient's floor/unit and/or counseling patient: Coding Level of Care Code 06080 Subseq Hosp Care Lvl 2 Diagnoses Asthma-COPD overlap syndrome J44.9 Asthma exacerbation J45.901 SOB (shortness of breath) R06.02 GREGG (obstructive sleep apnea) G47.33 Morbid obesity E66.01
[2021-10-03] MEDS: cefTRIAXone SODIUM 2,000 MG in DEXTROSE 5% 50 ML IV SCH (11:47)
[2021-10-03] MEDS ORDERED: SODIUM CHLORIDE 0.9% 1000ML 500 ML IV ONE (13:46)
--- NOTE | 2021-10-03 19:24 | Hospitalist Progress Note ---
Date of Service October 03, 2021 delayed entry date of service noted above Assessment & Plan (1) Acute hypoxemic respiratory failure: Plan: Multifactorial: COPD/asthma exacerbation -Patient denies any history of smoking -Currently off oxygen supplementation -CT chest: 1. No pulmonary emboli identified. 2. Lower lobe predominant bronchiectasis, bronchial wall thickening and tree in nodules which are increased since exam of October 01, 2020. The findings favor an infectious process which may be chronic. The appearance is nonspecific but could be seen in the setting of atypical mycobacterial infection. Gradually improved Wheezing resolved Given ceftriaxone plus doxycycline x2 days As well as nebs [id number] and prednisone 40 mg p.o. daily Pulmonary service consulted Recommend patient cleared for discharge Discharge medications: Prednisone taper 40 mg x 3 days, 20 mg for 3 days then stop Hypertonic saline nebs every 12 hours x14 days Doxycycline x5 more days to complete 7-day course Will need oxygen 2 L via nasal cannula while ambulating based on two-step exercise test performed while admitted Recommend CPAP based on outpatient sleep studies--> Nikhil bilingual patient support caseworker to be notified Follow-up with PCP in 1 week Possible acute diastolic heart failure Acute kidney injury Given Lasix x2 days Creatinine increased from 1.4-1.8 Hold Lasix for now Patient prefers to go home and follow-up with PCP this coming week Hold losartan, changed to hydralazine for now until creatinine improves Advised to increase fluid intake Check basic metabolic profile this coming week on follow-up with PCP Epigastric discomfort secondary to uncontrolled GERD --Famotidine increased to twice daily SSS status post PPM on Coumadin, paced rhythm, INR therapeutic hx nonobstructive CAD as per records hypertension, stable hyperlipidemia on statin Rx prediabetes, hemoglobin A1c of 5.13 Jun 2021 chronic anemia, hemoglobin at baseline DVT prophylaxis. Continue Coumadin Full code Disposition Discharge to home Follow-up with PCP in 1 week plan of care discussed with patient in detail and at length all questions answered he is understanding, agreeable, comfortable with the plan of care Admission and Anticipated Discharge Date Admission Date: September 30, 2021 Subjective ff up for asthma exacerbation, etc seen resting in bedside chair comfortable states he feels much better overall Breathing is better, coughing minimally No chest pain No problems with urination Review of Systems Review of Systems: all noted and negative except for above Physical Exam Physical Exam: General- oriented x 3, not in distress, speaks in sentences with no effort or accessory muscle use Eyes- anicteric Neck- no JVD Lungs- clear breath sounds bilaterally, no rales/wheezes Heart- normal rate, regular rhythm; no murmurs Abdomen- normal bowel sounds, nondistended, soft, nontender Extremities- no pretibial edema, no calf tenderness Neuro- alert, oriented x 3; no gross focal neurologic deficits Skin- warm & dry Results & Data Results & Data ([facility]) Vital Signs (Past 12 Hours) Vital Signs Temp Pulse Pulse Pulse Pulse Pulse Pulse 10/03/21 14:33 10/03/21 14:26 36.7 C 68 10/03/21 11:41 36.7 C 68 10/03/21 08:00 10/03/21 10:07 99 H 99 H 85 103 H 80 10/03/21 07:39 67 Resp Resp Resp Resp Resp Resp BP 10/03/21 14:33 137/74 10/03/21 14:26 19 10/03/21 11:41 19 94/59 L 10/03/21 08:00 10/03/21 10:07 20 20 18 18 16 10/03/21 07:39 16 Pulse Ox Pulse Ox Pulse Ox Pulse Ox Pulse Ox Pulse Ox O2 Del Method 10/03/21 14:33 10/03/21 14:26 92 10/03/21 11:41 92 Room Air 10/03/21 08:00 Room Air 10/03/21 10:07 88 L 91 87 L 90 92 10/03/21 07:39 96 Room Air O2 Flow Rate O2 Flow Rate 10/03/21 14:33 10/03/21 14:26 10/03/21 11:41 10/03/21 08:00 10/03/21 10:07 1 2 10/03/21 07:39 all noted and reviewed including below
--- NOTE | 2021-10-03 19:25 | Discharge Summary ---
Date of Service October 03, 2021 delayed entry date of service noted above Admission HPI Per Admitting Provider History obtained from patient, family, and records. Medical history significant for chronic diastolic heart failure (EF 50 to 54%, TTE 2021), SSS status post PPM on Coumadin, nonobstructive CAD as per records, hypertension, hyperlipidemia, COPD/asthma, GERD, GREGG (CPAP noncompliance ), prediabetes, chronic anemia (baseline hemoglobin of 13), chronic back pain. Last confinement February 2021 for respiratory failure secondary to severe COVID-19 pneumonia. Patient completed Decadron course. 3 days history of dry cough symptoms associated with burning epigastric discomfort. No actual chest pain. Worsening shortness of breath. No known sick contacts. Patient completed COVID-19 vaccination. Patient son thinks he might be retaining fluid. Patient compliant with home medications. O2 sats noted to be 80s at home as per patient. Solu-Medrol, neb treatment given at the ER. MEDICAL HISTORY: SURGICAL HISTORY: cholecystectomy, appendectomy, PPM, hernia repair FAMILY HISTORY: There is a family history of asthma, sarcoidosis PERSONAL AND SOCIAL HISTORY: Nonsmoker. 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 Principal Diagnosis ACUTE ASTHMA/COPD EXACERBATION MILD ACUTE ON CHRONIC DIASTOLIC CHF EXACERBATION Discharge Exam General- oriented x 3, not in distress, speaks in sentences with no effort or accessory muscle use Eyes- anicteric Neck- no JVD Lungs- clear breath sounds bilaterally, no rales/wheezes Heart- normal rate, regular rhythm; no murmurs Abdomen- normal bowel sounds, nondistended, soft, nontender Extremities- no pretibial edema, no calf tenderness Neuro- alert, oriented x 3; no gross focal neurologic deficits Skin- warm & dry Discharge Data Allergies Allergy/AdvReac Type Severity Reaction Status Date / Time cat dander Allergy Intermediate SNEEZING, Verified 09/30/21 23:56 CONGESTION pollen extracts Allergy Intermediate SNEEZING, Verified 09/30/21 23:56 CONGESTION morphine Allergy Unknown Verified 09/30/21 23:56 Consultations 09/30/21 23:17 ED Decision to Admit Stat 10/02/21 07:58 Consult Pulmonology Routine Ordered Studies 09/30/21 22:24 CT angio chest PE protocol Urgent COMPARISON STUDY: Chest CT October 01, 2021. Chest radiograph performed earlier today. TECHNIQUE: Following IV administration of 112 mL of Optiray, helical axial images of the chest were obtained utilizing the pulmonary embolus protocol. Maximal intensity projections and sagittal and coronal reformats were viewed on an independent 3D workstation. IV contrast was administered without complication. Automated exposure control was utilized for the study. A dose lowering technique was utilized adhering to the principles of ALARA. CT DOSE: 959.52 mGy.cm FINDINGS: Dual lead left subclavian pacer is in place. No pulmonary emboli are identified. There is no thoracic aortic dissection. Size of the heart is normal. There is moderate coronary artery calcification. There is no pericardial effusion. No enlarged axillary, mediastinal or hilar lymph nodes are present. Note is made of lower lobe predominant bronchiectasis, bronchial wall thickening and scattered tree-in-bud nodules. These tree-in-bud nodules have increased since CT of October 01, 2020. A few nodular densities within the right lower lobe measure up to 8 mm. There is also likely infectious. No pneumothorax or pleural effusion is noted. No acute fracture within the bony thorax. Gallbladder is surgically absent. Visualized portions of the upper abdomen are unremarkable. IMPRESSION: 1. No pulmonary emboli identified. 2. Lower lobe predominant bronchiectasis, bronchial wall thickening and tree in nodules which are increased since exam of October 01, 2020. The findings favor an infectious process which may be chronic. The appearance is nonspecific but could be seen in the setting of atypical mycobacterial infection. ACT 112: Negative or not required by law. Hospital Course (1) Acute hypoxemic respiratory failure: Multifactorial: COPD/asthma exacerbation -Patient denies any history of smoking -Currently off oxygen supplementation -CT chest: 1. No pulmonary emboli identified. 2. Lower lobe predominant bronchiectasis, bronchial wall thickening and tree in nodules which are increased since exam of October 01, 2020. The findings favor an infectious process which may be chronic. The appearance is nonspecific but could be seen in the setting of atypical mycobacterial infection. Gradually improved Wheezing resolved Given ceftriaxone plus doxycycline x2 days As well as nebs [id number] and prednisone 40 mg p.o. daily Pulmonary service consulted Recommend patient cleared for discharge Discharge medications: Prednisone taper 40 mg x 3 days, 20 mg for 3 days then stop Hypertonic saline nebs every 12 hours x14 days Doxycycline x5 more days to complete 7-day course Will need oxygen 2 L via nasal cannula while ambulating based on two-step exercise test performed while admitted Recommend CPAP based on outpatient sleep studies--> Nikhil telehealth case manager to be notified Follow-up with PCP in 1 week Possible acute diastolic heart failure Acute kidney injury Given Lasix x2 days Creatinine increased from 1.4-1.8 Hold Lasix for now Patient prefers to go home and follow-up with PCP this coming week Hold losartan, changed to hydralazine for now until creatinine improves Advised to increase fluid intake Check basic metabolic profile this coming week on follow-up with PCP Epigastric discomfort secondary to uncontrolled GERD --Famotidine increased to twice daily SSS status post PPM on Coumadin, paced rhythm, INR therapeutic hx nonobstructive CAD as per records hypertension, stable hyperlipidemia on statin Rx prediabetes, hemoglobin A1c of 5.13 Jun 2021 chronic anemia, hemoglobin at baseline DVT prophylaxis. Continue Coumadin Full code Disposition Discharge to home Follow-up with PCP in 1 week plan of care discussed with patient in detail and at length all questions answered he is understanding, agreeable, comfortable with the plan of care Total Time Total Time Spent Total Time Spent (In Minutes): >30 MINUTES Discharge Plan Discharge Items Patient Disposition: Home - Self-Care Reason For Visit: RESP FAILURE Discharge Diagnosis: ASTHMA/COPD EXACERBATION PNEUMONIA Activity: Resume your previous activity Activity Comment: INCREASE ACTIVITY GRADUALLY TOLERATED Driving/Machine Use: NO DRIVING UNTIL RE-EVALUATED AND ALLOWED BY PRIMARY CARE PHYSICIAN Non-emergency contact: Primary Care Provider Call non-emergency contact if: you have any medication questions, your symptoms worsen, your pain is not controlled, your pain is worsening, your pain is unusual for you, your pain is concerning for you and you have a fever Follow-up/Referrals: Marialuisa Bai MD [Physician] - Paris Lizama MD [Primary Care Provider] - Diet: Heart Healthy Addtl Attending Provider Instructions: PLEASE REFER TO YOUR NEW MEDICATION LIST AND FOLLOW INSTRUCTIONS CAREFULLY. YOUR NEW MEDICATIONS INCLUDE: PREDNISONE TAPER- steroids for asthma/copd exacerbation DOXYCYCLINE- antibiotic for pneumonia HYPERTONIC SALINE NEBULIZATION, MUCINEX- to loosen mucus in your lungs HYDRALAZINE- FOR BLOOD PRESSURE CONTROL DO NOT TAKE LASIX AND POTASSIUM FOR NOW. HOLD LOSARTAN FOR NOW, AND TAKE HYDRALAZINE INSTEAD. DO NOT TAKE ANY NEW MEDICINES WITHOUT TALKING TO YOUR PHYSICIAN. DRINK AT LEAST 8 GLASSES OF WATER PER DAY. CHECK YOUR BLOOD PRESSURE DAILY. CALL YOUR PRIMARY CARE PHYSICIAN IMMEDIATELY IF YOUR BLOOD PRESSURE (TOP NUMBER) IS PERSISTENTLY ABOVE 150. PLEASE CALL YOUR PRIMARY CARE PHYSICIAN OR RETURN TO THE ER IF WITH WORSENING OF SYMPTOMS, INCLUDING COUGH, SHORTNESS OF BREATH, CHEST PAIN, FEVER, CHANGES WITH URINATION. FOLLOW UP WITH PRIMARY CARE PHYSICIAN IN 1 WEEK. THE CLINIC WILL BE CALLING YOU SOON FOR THE APPOINTMENT SCHEDULE. FOLLOW UP WITH DR. BAI- LUNG SPECIALIST IN 2 WEEKS. PLS CALL HIS OFFICE TO SCHEDULE AN APPOINTMENT. CONTACT INFORMATION OUTLINED ABOVE. Pending Studies at Discharge: Yes Studies:: REPEAT BASIC METABOLIC PROFILE NEXT WEEK ON FF UP WITH YOUR PRIMARY CARE PHYSICIAN. Stand-Alone Forms: My [facility] Interventional Spine, Smoking Cessation Medications and DC Order Prescriptions: New prednisone 20 mg tablet 20 mg PO DAILY Qty: 9 0RF Rx Instructions: TAKE 40 MG X 3 DAYS, THEN 20MG X 3 DAYS, THEN STOP doxycycline hyclate 100 mg Capsule 100 mg PO BID 5 Days Qty: 10 0RF sodium chloride 7 % Solution For Nebulization 4 ml NEB BIDR 14 Days Qty: 112 1RF guaifenesin [Mucinex] 600 mg Tablet Extended Release 12hr 600 mg PO Q12 7 Days Qty: 14 0RF hydralazine 25 mg tablet 25 mg PO BID 14 Days Qty: 28 1RF Continued Trelegy Ellipta 200-62.5-25 mcg blister with device 1 inh inhalation DAILY Qty: 60 5RF cetirizine 10 mg tablet 10 mg PO DAILY hydrocodone-acetaminophen 7.5-325 mg tablet 1 tab PO Q6H PRN (Reason: pain) montelukast 10 mg tablet 10 mg PO DAILY omeprazole 20 mg capsule,delayed release(DR/EC) 20 mg PO DAILYBB Label Comments: 20 mg PO 1 hour prior to the first meal of the day; Rx Instructions: 20 mg PO 1 hour prior to the first meal of the day; amiodarone 200 mg tablet 200 mg PO QAM metoprolol tartrate 25 mg tablet 12.5 mg PO BID guaifenesin 200 mg tablet 200 mg PO TID PRN (Reason: congestion/cough) Qty: 30 0RF prednisone 10 mg tablet 10 mg PO UD PRN (Reason: rescue kit) Rx Instructions: take 4 tablets daily for 4 days, then 3 tablets daily for 4 days then 2 tablet daily for 4 days,1 daily for 4 days albuterol sulfate 2.5 mg /3 mL (0.083 %) solution for nebulization 3 mg continuous nebulization DAILY PRN (Reason: shortness of breath or wheezing) Rx Instructions: use in place of rescue inhaler omega-3 fatty acids 1,000 mg Capsule 1,000 mg PO DAILY famotidine 20 mg Tablet 20 mg PO QAM fluticasone propionate 50 mcg/actuation [place],Suspension 2 spray INTRANASAL QAM Rx Instructions: administer into each nostril alum-mag hydroxide-simeth 400-400-40 mg/5 mL Suspension 15 ml PO Q6 PRN (Reason: indigestion or epigastric burning) ipratropium-albuterol 20-100 mcg/actuation Mist 1 puff INHALATION .EVERY 4-6 HRS MDD 6doses PRN (Reason: respiratory sx) Rx Instructions: space evenly during waking hours omalizumab 150 mg/mL Syringe 1.2 mg SUBCUT .EVERY 4 WEEKS warfarin 2.5 mg tablet 2.5 mg PO QPM Rx Instructions: take daily or as directed by [facility] diltiazem HCl 240 mg capsule,extended release 24hr 240 mg PO PM Qty: 30 0RF atorvastatin 80 mg tablet 80 mg PO HS oxybutynin chloride 5 mg Tablet 5 mg PO TID Discontinued furosemide 20 mg tablet 20 mg PO .1-2 DAYS PER WEEK potassium chloride [Klor-Con M10] 10 mEq tablet,ER particles/crystals 10 meq PO .TAKE WITH LASIX Rx Instructions: take with furosemide 1 - 2 days per week losartan 50 mg tablet 50 mg PO BID Discharge Orders: Discharge Order (Routine); Ordered 10/03/21 Ordered By: Jorge Dill Admission Data Admit Date/Time: 09/30/21 23:59 Attending Provider: Jorge Dill Admit Provider: Rikki Dias Primary Care Provider: Paris Lizama Other Providers: Rikki Dias ; Marialuisa Bai Other Interventions: Discharge Summary Assessment (RN) Last Done: 10/03/21 14:26
== END 2021-10-03 15:45 | disposition home or self-care (01) | DRG 189 ==
LOC: ED 18:46 → EDINP 23:59 → 4W 10-01 14:46

== ENCOUNTER 2024-04-27 09:17 | Inpatient (IN) ==
[2024-04-27] MEDS: methylPREDNISolone 125 MG/2 ML VIAL IV STA (09:39)
[2024-04-27] MEDS: dilTIAZem HCl 5 MG/ML 5 ML VIAL IV STA (09:39)
[2024-04-27] MEDS: ALBUT/IPRATROP 3MG/0.5MG NEB 3 ML VIAL NEB STA (09:40)
--- NOTE | 2024-04-27 09:43 | Emergency Department Note ---
Impression & Plan Respiratory distress, Asthma exacerbation, Atrial fibrillation with rapid ventricular response, Pneumonia, Elevated lactic acid level ED Provider Note NAME: JUDITH CROWDER AGE: 73 SEX: M : 1950 ARRIVES VIA: Ambulance INFORMANT: [Patient] ED PROVIDER(S): [Guicho Everett MD] CHIEF COMPLAINT: Shortness of breath HISTORY OF PRESENT ILLNESS: The patient is a 73-year-old male who states that he has been short of breath for a week. He started a home pack of prednisone which seemed to help at first but since last evening, he has been even more short of breath. The patient states that this morning, he started an antibiotic which he has as a home back. The patient did have a nebulizer treatment earlier, this may have helped slightly. The patient states he has not taken any of his typical medications this morning. He also states that he stopped his diuretic a few days ago. The patient has had a somewhat productive cough, some blood-tinged sputum was seen. There has been no fever. No chest pain. He states that he was initially short of breath with exertion, now he feels short of breath just sitting still. PMHx/PSHx/Social Hx: See Below PHYSICAL EXAM: GENERAL: Patient is in mild respiratory distress. HEENT: No acute trauma, normocephalic atraumatic, mucous membranes moist, no nasal congestion. NECK: No stridor, no adenopathy, no meningismus, trachea is midline. LUNGS: Increased respiratory rate, mild respiratory distress, diminished breath sounds with some scattered wheezes. HEART: Markedly tachycardic and irregular. No obvious murmur. ABDOMEN: Soft, nontender, no peritonitis. EXTREMITIES: No cyanosis, full range of motion of all the joints without pain or difficulty. Mild bilateral pedal edema. NEUROLOGIC: Oriented x 3, no acute motor or sensory deficits, no focal weakness. SKIN: No jaundice, no diaphoresis. DIFFERENTIAL DIAGNOSIS: CHF, bronchitis, pneumonia, exacerbation of COPD, dysrhythmia, anemia, IL, among others. EMERGENCY DEPARTMENT PROCEDURES: MEDICAL DECISION MAKING: There is a mild leukocytosis, this could be from infection or just the stress of his presentation. There was a very subtle anemia. There was a normal platelet count. INR was elevated consistent with his warfarin use. VBG did not show any acidosis or CO2 retention. No renal failure or significant electrolyte abnormality. Lactic acid level was elevated, this lactic acid elevation could be secondary to infection versus hypoxia. There was no worrisome liver enzyme elevation. BNP was not elevated making CHF unlikely. ECG showed rapid atrial fibrillation without acute ST elevation. Cardiac enzyme testing x 1 was not consistent with acute cardiac injury. Patient appeared to be in a euthyroid state. Urinalysis showed possible infection versus contamination. No bacteria seen. Respiratory bio fire was negative. Chest film showed some congestion of both lower lungs, no CHF or pneumothorax. On exam, the patient was wheezing with diminished breath sounds. He was significantly tachycardic. He appeared in some mild respiratory distress. The patient was aggressively managed. He was given a DuoNeb. He received IV Solu-Medrol. He was given a bolus of diltiazem and placed on a diltiazem drip. He received IV ceftriaxone as empiric antibiotic coverage. With the above interventions, the patient does feel improved, he no longer appears in respiratory distress. He states he feels much more comfortable. His heart rate has decreased. The patient is in need of a hospital stay. His dyspnea is secondary to pneumonia/bronchitis with a flare of asthma coupled with his rapid atrial fibrillation. I did speak with the patient and case management, the on-call hospitalist was consulted. Of note, I did not give any IV fluids as the patient has a history of heart failure. He was never hypotensive. His symptoms improved with the interventions provided. Prior/Outside records/notes reviewed: Today's EMS notes describing his presentation and transport to this hospital. ECG per my interpretation: Indication was shortness of breath. The ECG shows a rapid atrial fibrillation with a rate of 174. There is diffuse nonspecific ST change. No ST elevation, no PVCs. The QTc is 411. Continuous Cardiac Monitoring per my interpretation: An order was placed for continuous cardiac monitoring. The monitor shows a rate of 165 with rapid atrial fibrillation. Imaging/x-ray results per my interpretation: Chronic Medical/Social conditions affecting care: Advanced age, history of asthma and atrial fibrillation Care/Management discussed with: Case management, the on-call hospitalist Level of care consideration(s): After review of the information above and other included data: --I believe the patient requires escalation of care to admission Critical Care Note: I have personally spent 49 minutes of critical care time in the direct management of this patient. This includes bedside care, interpretation of diagnostic studies, and testing, discussion with consultants, patient, and family members, and other required patient management activities. This 49 minutes is in excess of all separately billable procedures. DISPOSITION: Admission Past Med/Surg History Problem List (Updated 04/27/24 @ 17:18 by Guicho Everett MD) Elevated lactic acid level (Acute) Pneumonia (Acute) Atrial fibrillation with rapid ventricular response (Acute) Asthma exacerbation (Acute) Respiratory distress (Acute) Pneumonia Acute on chronic heart failure with preserved ejection fraction Chronic heart failure with preserved ejection fraction (HFpEF) Atrial fibrillation with RVR Encounter for pre-operative examination SOB (shortness of breath) (Acute) Asthma exacerbation (Acute) Hypoxemia (Acute) Lab test negative for COVID-19 virus (Acute) Acute hypoxemic respiratory failure Asthma-COPD overlap syndrome Morbid obesity Bronchiectasis Pacemaker (Acute) [facility] 01/2021. follows [address] Haider - unsure when it was last checked. GREGG (obstructive sleep apnea) no machine History of paroxysmal supraventricular tachycardia S/P ablation in 2009 Nonischemic cardiomyopathy 2013 echo: EF: 40%, moderate global hypokinesis GERD (gastroesophageal reflux disease) Medical History Hx of gastric ulcer On anticoagulant therapy History of COVID-19 treated at [facility] in 2021. no ventilator On home oxygen therapy 2lpm via n/c Chronic obstructive pulmonary disease Asthma Hx of medication noncompliance CKD (chronic kidney disease), stage III Chronic diastolic heart failure Severe obstructive sleep apnea Tachy-starla syndrome Chronic back pain Paroxysmal atrial fibrillation managed with medication, follows with Dr Haider HLD (hyperlipidemia) HTN (hypertension) Severe persistent asthma, poorly-controlled Coronary artery disease nonobstructive CAD Surgical History History of right cataract surgery S/P cardiac pacemaker procedure (01/2021) [employer] History of colonoscopy History of esophagogastroduodenoscopy (EGD) H/O hernia repair right inguinal hernia repair S/P cholecystectomy S/P appendectomy Family History Other Asthma No family history of adverse response to anesthesia Social History Smoking Status: Never smoker Second Hand Exposure: No; Do You Dip or Chew Tobacco: No; Hx Alcohol Use: Yes (occasionally) Alcohol type: wine Alcohol Intake Frequency: Monthly or Less Hx Substance Use: No Preferred Language: Citizen Of [place] Communication Ability: Effective 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 Required: No Beliefs That Will Affect Care: None marital status: Current Living Situation: Other Current Living Situation Comment: 2 sons and 1 sons gf current occupational status: disabled How many Children do You have: 2 Feels Safe at Home: Yes Assistive Devices: Glasses Allergies Allergies Allergy/AdvReac Type Severity Reaction Status Date / Time cat dander Allergy Intermediate SNEEZING, Verified 04/27/24 12:27 CONGESTION pollen extracts Allergy Intermediate SNEEZING, Verified 04/27/24 12:27 CONGESTION morphine Allergy Unknown Verified 04/27/24 12:27 Home Meds Home Medications Medication Instructions Recorded Confirmed cetirizine 10 mg tablet 10 mg PO QAM 09/18/18 04/27/24 montelukast 10 mg tablet 10 mg PO QAM 09/18/18 04/27/24 omeprazole 20 mg capsule,delayed 20 mg PO DAILYBB 09/18/18 04/27/24 release warfarin 2.5 mg tablet 2.5 mg PO [id number] 05/21/20 04/27/24 atorvastatin 80 mg tablet 80 mg PO QAM 09/30/20 04/27/24 metoprolol tartrate 25 mg tablet 25 mg PO TID 03/01/21 04/27/24 aluminum-mag hydroxide-simethicone 15 ml PO Q6 PRN indigestion or 09/30/21 04/27/24 400 mg-400 mg-40 mg/5 mL oral susp epigastric burning fluticasone propionate 50 2 spray intranasal QAM 09/30/21 04/27/24 mcg/actuation nasal spray,suspension cholecalciferol (vitamin D3) 25 25 mcg PO QAM 03/17/22 04/27/24 mcg (1,000 unit) tablet (Vitamin D3) doxycycline hyclate 100 mg capsule 100 mg PO BID PRN rescue kit 03/17/22 04/27/24 furosemide 20 mg tablet 20 mg PO 3XWK 03/17/22 04/27/24 albuterol sulfate 90 mcg/actuation 2 puff inhalation Q4H PRN 04/27/24 04/27/24 aerosol inhaler Wheezing/SOB fluticasone fur. 200 mcg-umeclid 1 inh inhalation DAILY 04/27/24 04/27/24 62.5 mcg-vilant 25 mcg inhalat.powder (Trelegy Ellipta) omalizumab 150 mg/mL subcutaneous 300 mg subcut MONTHLY 04/27/24 04/27/24 syringe (Xolair) sertraline 25 mg tablet 25 mg PO QAM 04/27/24 04/27/24 Previous Rx's Medication Instructions Recorded diltiazem HCl 240 mg 240 mg PO PM #30 caps 05/23/20 capsule,extended release 24 hr albuterol sulfate 2.5 mg/3 mL See Rx Instructions .Route 08/08/23 (0.083 %) solution for nebulization .COMPLEX #180 mL ipratropium 20 mcg-albuterol 100 See Rx Instructions .Route 10/03/23 mcg/actuation mist for inhalation .COMPLEX #4 grams (Combivent Respimat) prednisone 10 mg tablet See Rx Instructions .Route 04/24/24 .COMPLEX #40 tabs Results & Data (ED) Vital Signs Vital Signs - 24 hr 04/27/24 09:29 04/27/24 09:29 04/27/24 09:36 Temperature 36.9 C Temperature Source Oral Pulse Rate 145 H 161 H Pulse Rate [Apical] Respiratory Rate 22 Respiratory Effort / Characteristics Labored Labored Respiratory Depth Deep Respiratory Pattern Regular Regular Blood Pressure 122/94 Blood Pressure [Left Arm] Blood Pressure Mean 103 Blood Pressure Mean [Left Arm] Blood Pressure Position Lying Blood Pressure Position [Left Arm] Pulse Oximetry 92 Oxygen Delivery Method Room Air Room Air Oxygen Flow Rate Sepsis Recent Fever Within 48 Hours No Sepsis New/Unexplained Change in Mental Status No Sepsis Action Taken by Nursing Physician Notified Oxygen Flow Rate - Titration Pulse Oximetry Post Tiitration 04/27/24 09:51 04/27/24 10:13 04/27/24 10:22 Temperature Temperature Source Pulse Rate Pulse Rate [Apical] 152 H Respiratory Rate 22 Respiratory Effort / Characteristics Non-Labored Spontaneous Respiratory Depth Normal Respiratory Pattern Blood Pressure Blood Pressure [Left Arm] 136/81 Blood Pressure Mean Blood Pressure Mean [Left Arm] 99 Blood Pressure Position Blood Pressure Position [Left Arm] Sitting Pulse Oximetry 92 91 93 Oxygen Delivery Method Room Air Room Air Nasal Cannula Oxygen Flow Rate 3 Sepsis Recent Fever Within 48 Hours Sepsis New/Unexplained Change in Mental Status Sepsis Action Taken by Nursing Oxygen Flow Rate - Titration 3 Pulse Oximetry Post Tiitration 92 04/27/24 11:25 04/27/24 12:22 Temperature Temperature Source Pulse Rate Pulse Rate [Apical] 129 H 103 H Respiratory Rate 20 19 Respiratory Effort / Characteristics Non-Labored Spontaneous Non-Labored Spontaneous Respiratory Depth Normal Normal Respiratory Pattern Blood Pressure Blood Pressure [Left Arm] 135/90 135/76 Blood Pressure Mean Blood Pressure Mean [Left Arm] 105 95 Blood Pressure Position Blood Pressure Position [Left Arm] Sitting Sitting Pulse Oximetry 93 94 Oxygen Delivery Method Nasal Cannula Nasal Cannula Oxygen Flow Rate 3 2 Sepsis Recent Fever Within 48 Hours Sepsis New/Unexplained Change in Mental Status Sepsis Action Taken by Nursing Oxygen Flow Rate - Titration Pulse Oximetry Post Tiitration Home Medications Current Medication List: was personally reviewed by me Laboratory Data Attestation: I reviewed the patient's lab results. 04/27/24 09:04/27/24 09:25 Lab Results 04/27/24 04/27/24 04/27/24 Range/Units 09:25 09:26 09:59 WBC 11.20 H (4.8-10.8) K/ul RBC 4.76 (4.70-6.10) M/uL Hgb 13.5 L (14.0-18.0) g/dl Hct 41.6 L (42.0-52.0) % MCV 87.4 (80.0-100.0) fL MCH 28.4 (25.0-34.0) pg MCHC 32.5 (32.0-36.0) g/dL RDW Std Deviation 49.0 H (36.4-46.3) fL RDW Coeff of Danyell 15.3 H (11.5-14.5) % Plt Count 175 (130-400) K/uL MPV 10.3 (9.4-12.4) fL Immature Gran % (Auto) 0.5 % Neut % (Auto) 87.1 % Lymph % (Auto) 4.2 % [place] % (Auto) 7.8 % Eos % (Auto) 0.2 % Baso % (Auto) 0.2 % Neut # (Auto) 9.76 H (1.40-6.50) K/uL Lymph # (Auto) 0.47 L (1.20-3.40) K/uL [place] # (Auto) 0.87 H (0.11-0.59) K/uL Eos # (Auto) 0.02 (0.00-0.50) K/uL Baso # (Auto) 0.02 (0.00-0.20) K/uL Immature Gran # (Auto) 0.06 (0.01-0.20) K/uL PT 25.2 H (9.0-12.0) Seconds INR 2.5 H (0.9-1.1) APTT 33 H (21-31) Seconds PTT Ratio 1.2 VBG pH 7.41 (7.36-7.41) VBG pCO2 45 (38-50) mmHg VBG pO2 41 mmHg VBG HCO3 29 mmol/L VBG O2 Saturation 71.5 % VBG Base Excess 3.2 mEq/L Sodium 139 (136-145) mmol/L Potassium 3.7 (3.5-5.1) mmol/L Chloride 105 (98-107) mmol/L Carbon Dioxide 28 (21-32) mmol/L Anion Gap 6 (3-11) BUN 21 (6-23) mg/dl Creatinine 1.08 (0.6-1.4) mg/dl Est Cr Clr Drug Dosing 77.0 ml/min eGFR 72.46 BUN/Creatinine Ratio 19.4 (10-20) Glucose 143 H (70-99(Fasting)) mg/dl Lactate (0.4-2.0) mmol/L Calcium 8.6 (8.6-10.3) mg/dl Magnesium 1.7 (1.7-2.4) mg/dl Total Bilirubin 1.0 (0.2-1.0) mg/dl AST 15 (13-39) U/L ALT 19 (7-52) U/L Alkaline Phosphatase 82 (34-104) U/L Troponin I High Sens 9.2 (0-20) pg/ml B-Natriuretic Peptide 86 (0-100) pg/ml Total Protein 6.5 (6.0-8.3) gm/dl Albumin 3.8 (3.4-5.0) gm/dl Globulin 2.7 (2.5-4.0) gm/dl Albumin/Globulin Ratio 1.4 (0.9-2) Procalcitonin 0.05 (0-0.5) ng/ml Adenovirus (PCR) Not Detected (NotDetected) B. pertussis DNA (PCR) Not Detected (NotDetected) B.parapertussis DNA PCR Not Detected (NotDetected) C. pneumoniae DNA (PCR) Not Detected (NotDetected) Coronavirus OC43 (PCR) Not Detected (NotDetected) Coronavirus HKU1 (PCR) Not Detected (NotDetected) Coronavirus 229E (PCR) Not Detected (NotDetected) SARS-CoV-2 (PCR) Not Detected (NotDetected) Coronavirus NL63 (PCR) Not Detected (NotDetected) Human Metapneumovir PCR Not Detected (NotDetected) Influenza Type A (PCR) Not Detected (NotDetected) Influenza Type B (PCR) Not Detected (NotDetected) M. pneumoniae (PCR) Not Detected (NotDetected) Parainfluenza 1 (PCR) Not Detected (NotDetected) Parainfluenza 2 (PCR) Not Detected (NotDetected) Parainfluenza 3 (PCR) Not Detected (NotDetected) Parainfluenza 4 (PCR) Not Detected (NotDetected) RSV (PCR) Not Detected (NotDetected) Entero/Rhino (PCR) Not Detected (NotDetected) 04/27/24 Range/Units 10:55 WBC (4.8-10.8) K/ul RBC (4.70-6.10) M/uL Hgb (14.0-18.0) g/dl Hct (42.0-52.0) % MCV (80.0-100.0) fL MCH (25.0-34.0) pg MCHC (32.0-36.0) g/dL RDW Std Deviation (36.4-46.3) fL RDW Coeff of Danyell (11.5-14.5) % Plt Count (130-400) K/uL MPV (9.4-12.4) fL Immature Gran % (Auto) % Neut % (Auto) % Lymph % (Auto) % [place] % (Auto) % Eos % (Auto) % Baso % (Auto) % Neut # (Auto) (1.40-6.50) K/uL Lymph # (Auto) (1.20-3.40) K/uL [place] # (Auto) (0.11-0.59) K/uL Eos # (Auto) (0.00-0.50) K/uL Baso # (Auto) (0.00-0.20) K/uL Immature Gran # (Auto) (0.01-0.20) K/uL PT (9.0-12.0) Seconds INR (0.9-1.1) APTT (21-31) Seconds PTT Ratio VBG pH (7.36-7.41) VBG pCO2 (38-50) mmHg VBG pO2 mmHg VBG HCO3 mmol/L VBG O2 Saturation % VBG Base Excess mEq/L Sodium (136-145) mmol/L Potassium (3.5-5.1) mmol/L Chloride (98-107) mmol/L Carbon Dioxide (21-32) mmol/L Anion Gap (3-11) BUN (6-23) mg/dl Creatinine (0.6-1.4) mg/dl Est Cr Clr Drug Dosing ml/min eGFR BUN/Creatinine Ratio (10-20) Glucose (70-99(Fasting)) mg/dl Lactate 2.7 H* (0.4-2.0) mmol/L Calcium (8.6-10.3) mg/dl Magnesium (1.7-2.4) mg/dl Total Bilirubin (0.2-1.0) mg/dl AST (13-39) U/L ALT (7-52) U/L Alkaline Phosphatase (34-104) U/L Troponin I High Sens (0-20) pg/ml B-Natriuretic Peptide (0-100) pg/ml Total Protein (6.0-8.3) gm/dl Albumin (3.4-5.0) gm/dl Globulin (2.5-4.0) gm/dl Albumin/Globulin Ratio (0.9-2) Procalcitonin (0-0.5) ng/ml Adenovirus (PCR) (NotDetected) B. pertussis DNA (PCR) (NotDetected) B.parapertussis DNA PCR (NotDetected) C. pneumoniae DNA (PCR) (NotDetected) Coronavirus OC43 (PCR) (NotDetected) Coronavirus HKU1 (PCR) (NotDetected) Coronavirus 229E (PCR) (NotDetected) SARS-CoV-2 (PCR) (NotDetected) Coronavirus NL63 (PCR) (NotDetected) Human Metapneumovir PCR (NotDetected) Influenza Type A (PCR) (NotDetected) Influenza Type B (PCR) (NotDetected) M. pneumoniae (PCR) (NotDetected) Parainfluenza 1 (PCR) (NotDetected) Parainfluenza 2 (PCR) (NotDetected) Parainfluenza 3 (PCR) (NotDetected) Parainfluenza 4 (PCR) (NotDetected) RSV (PCR) (NotDetected) Entero/Rhino (PCR) (NotDetected) Administered Medications Discontinued Medications Albuterol (Albut/Ipratrop 3mg/0.5mg Neb 3 Ml Vial) 3 ml NEB NOW STA; Protocol Stop: 04/27/24 09:34 Last Admin: 04/27/24 09:40 Dose: 3 ml Documented By: LACI Diltiazem HCl (Diltiazem Hcl 5 Mg/Ml 5 Ml Vial) 15 mg IV NOW STA Stop: 04/27/24 09:37 Last Admin: 04/27/24 09:39 Dose: 15 mg Documented By: CC Co-signed By: SM Doxycycline Hyclate (Doxycycline Hyclate 100 Mg Cap) 100 mg PO NOW STA Stop: 04/27/24 13:10 Last Admin: 04/27/24 13:21 Dose: 100 mg Documented By: MR Diltiazem HCl 125 mg/ Dextrose 125 mls @ 0 mls/hr IV .Q0M [facility]; Protocol Stop: 05/27/24 09:44 Last Titration: 04/27/24 15:00 Dose: 0 mg/hr, 0 mls/hr Documented By: CC Co-signed By: BLD Titration: 04/27/24 11:53 Dose: 15 mg/hr, 15 mls/hr Documented By: CC Co-signed By: BLD Titration: 04/27/24 11:20 Dose: 10 mg/hr, 10 mls/hr Documented By: CC Co-signed By: LOVELY Admin: 04/27/24 10:17 Dose: 5 mg/hr, 5 mls/hr Documented By: CC Co-signed By: MR Ceftriaxone Sodium (Rocephin) 2,000 mg in 50 mls @ 100 mls/hr IV NOW STA Stop: 04/27/24 10:42 Last Infusion: 04/27/24 11:49 Dose: Infused Documented By: Admin: 04/27/24 11:12 Dose: 100 mls/hr Documented By: CC Magnesium Sulfate/Dextrose (Magnesium Sulfate / D5w) 1 gm in 100 mls @ 50 mls/hr IV ONE ONE Stop: 04/27/24 15:11 Last Infusion: 04/27/24 14:54 Dose: Infused Documented By: Admin: 04/27/24 13:21 Dose: 50 mls/hr Documented By: MR Sodium Chloride (Nss) 500 mls @ 999 mls/hr IV .Q31M ONE Stop: 04/27/24 13:52 Last Infusion: 04/27/24 15:52 Dose: Infused Documented By: Admin: 04/27/24 14:23 Dose: 999 mls/hr Documented By: CC Methylprednisolone (Methylprednisolone 125 Mg/2 Ml Vial) 60 mg IV NOW STA Stop: 04/27/24 09:38 Last Admin: 04/27/24 09:39 Dose: 60 mg Documented By: CC Metoprolol Tartrate (Metoprolol Tartrate 25 Mg Tab) 12.5 mg PO NOW STA Stop: 04/27/24 13:03 Last Admin: 04/27/24 13:21 Dose: 12.5 mg Documented By: MR Potassium Chloride (Potassium Chloride Crtab 20 Meq Tabcr) 40 meq PO NOW STA Stop: 04/27/24 13:13 Last Admin: 04/27/24 13:21 Dose: 40 meq Documented By: MR Imaging Data Radiologist's Impression: Chest X-Ray 04/27/24 09:26 XR chest 1V portable CLINICAL HISTORY: Dyspnea COMPARISON STUDY: 09/30/2021 FINDINGS: Stable pacemaker. Stable moderate cardiomegaly without pulmonary vascular congestion. There is interval mild stranding opacity in the lung bases. No other consolidation or pleural effusion. No pneumothorax. IMPRESSION: Mild atelectasis versus early pneumonia in the lung bases. ACT 112: Negative or not required by law. Electronically signed by: Florencio Damico M.D. 04/27/2024 10:07 AM Discharge Plan Visit Data Chief Complaint: Shortness of Breath/Dyspnea Stated Complaint: SOB ED Provider: Guicho Everett Discharge Problem: Respiratory distress, Asthma exacerbation, Atrial fibrillation with rapid ventricular response, Pneumonia, Elevated lactic acid level Patient Disposition: Admitted As Inpatient Condition: Serious Discharge Instructions Interventions: ED Discharge Assessment Last Done: 04/27/24 15:09 Discharge Problem: Asthma exacerbation Qualifiers: Asthma severity: moderate Asthma persistence: persistent Qualified Code(s): J 45.41 - Moderate persistent asthma with (acute) exacerbation Pneumonia Qualifiers: Pneumonia type: due to unspecified organism Laterality: bilateral Lung location: lower lobe of lung Qualified Code(s): J18.9 - Pneumonia, unspecified organism
[2024-04-27 10:05] LABS: Base Excess VBG 3.2 mEq/L; HCO3 VBG 29 mmol/L; Oxygen Saturation VBG 71.5 %; PCO2 VBG 45 mmHg (38-50); PO2 VBG 41 mmHg; pH VBG 7.41 (7.36-7.41)
--- NOTE | 2024-04-27 10:09 | XRay Report ---
XR chest 1V portable CLINICAL HISTORY: Dyspnea COMPARISON STUDY: 09/30/2021 FINDINGS: Stable pacemaker. Stable moderate cardiomegaly without pulmonary vascular congestion. There is interval mild stranding opacity in the lung bases. No other consolidation or pleural effusion. No pneumothorax. IMPRESSION: Mild atelectasis versus early pneumonia in the lung bases. ACT 112: Negative or not required by law. Electronically signed by: Florencio Damico M.D. 04/27/2024 10:07 AM
[2024-04-27 10:11] LABS: Basophils # (auto) 0.02 K/uL (0.00-0.20); Basophils % (auto) 0.2 %; Eosinophils # (auto) 0.02 K/uL (0.00-0.50); Eosinophils % (auto) 0.2 %; Hematocrit (blood only) 41.6 % (42.0-52.0); Hemoglobin 13.5 g/dl (14.0-18.0); Immature Granulocytes # (auto) 0.06 K/uL (0.01-0.20); Immature Granulocytes % (auto) 0.5 %; Lymphocytes # (auto) 0.47 K/uL (1.20-3.40); Lymphocytes % (auto) 4.2 %; Mean Corpuscular Hemoglobin 28.4 pg (25.0-34.0); Mean Corpuscular Hgb Conc 32.5 g/dL (32.0-36.0); Mean Corpuscular Volume 87.4 fL (80.0-100.0); Mean Platelet Volume 10.3 fL (9.4-12.4); Monocytes # (auto) 0.87 K/uL (0.11-0.59); Monocytes % (auto) 7.8 %; Neutrophils # (auto) 9.76 K/uL (1.40-6.50); Neutrophils % (auto) 87.1 %; Platelet Count 175 K/uL (130-400); RDW Coefficient of Variation 15.3 % (11.5-14.5); Red Blood Count 4.76 M/uL (4.70-6.10)
[2024-04-27] MEDS: dilTIAZem HCL 125 MG in DEXTROSE 5% 100 ML IV SCH (10:17)
[2024-04-27 10:37] LABS: Albumin Globulin Ratio 1.4 (0.9-2); Albumin Level 3.8 gm/dl (3.4-5.0); BUN Creatinine Ratio 19.4 (10-20); Calcium 8.6 mg/dl (8.6-10.3); Globulin 2.7 gm/dl (2.5-4.0); Magnesium 1.7 mg/dl (1.7-2.4); Potassium 3.7 mmol/L (3.5-5.1); Total Protein 6.5 gm/dl (6.0-8.3)
[2024-04-27 10:42] LABS: Troponin I High Sensitivity 9.2 pg/ml (0-20)
[2024-04-27 10:46] LABS: INR 2.5 (0.9-1.1); Partial Thromboplastin Ratio 1.2; Partial Thromboplastin Time 33 Seconds (21-31); Prothrombin Time 25.2 Seconds (9.0-12.0)
[2024-04-27] MEDS: cefTRIAXone SODIUM 2,000 MG/50 ML BAG IV STA (11:12)
[2024-04-27 11:21] LABS: Adenovirus PCR Not Detected (NotDetected); Bordetella parapertussis PCR Not Detected (NotDetected); Bordetella pertussis PCR Not Detected (NotDetected); Chlamydia pneumoniae PCR Not Detected (NotDetected); Coronavirus 229E PCR Not Detected (NotDetected); Coronavirus CoV-2 (COVID19)PCR Not Detected (NotDetected); Coronavirus HKU1 PCR Not Detected (NotDetected); Coronavirus NL63 PCR Not Detected (NotDetected); Coronavirus OC43PCR Not Detected (NotDetected); Human Metapneumovirus PCR Not Detected (NotDetected); Influenza A PCR Not Detected (NotDetected); Influenza B PCR Not Detected (NotDetected); Mycoplasma pneumoniae PCR Not Detected (NotDetected); Parainfluenza Virus 1 PCR Not Detected (NotDetected); Parainfluenza Virus 2 PCR Not Detected (NotDetected); Parainfluenza Virus 3 PCR Not Detected (NotDetected); Parainfluenza Virus 4 PCR Not Detected (NotDetected); Respiratory Syncytial VirusPCR Not Detected (NotDetected); Rhinovirus/Enterovirus PCR Not Detected (NotDetected)
[2024-04-27] MEDS ORDERED: ACETAMINOPHEN 325 MG TAB PO PRN (12:27)
[2024-04-27] MEDS ORDERED: POLYETHYLENE (MIRALAX) 17 GM PACK PO PRN ×2 (12:27→15:50)
--- NOTE | 2024-04-27 12:27 | History & Physical Report ---
Date of Service April 27, 2024 Assessment & Plan (1) Atrial fibrillation with RVR: Plan: Patient is 73-year-old male with PMH paroxysmal atrial fibrillation, history ablation for atrial flutter in 2009, anticoagulated on warfarin, tachybradycardia syndrome s/p pacemaker in 2020, HFpEF, HTN, HLD, CKD III, severe persistent asthma, environmental allergies, bronchiectasis, GREGG , nocturnal hypoxia on 2L oxygen HS, GERD, known history of medication noncompliance presented to ER with complaint of shortness of breath and productive cough x 4 days. Denies fever/chills. In ER is afebrile, P: 145, R: 22, BP 122/94, 92% on room air TSH: 0.5. Magnesium: 1.7. K: 3.7. Troponin WNL, BNP: 86 EKG Atrial fibrillation, rate 174, nonspecific ST changes per my interpretation In ER placed on Cardizem drip. Patient reassessed at 1222: Heart rate improved to low 100s, BP 135/76, R: 19, 94% on 2 L via nasal cannula. Lung sounds with scattered wheezing, no rales or rhonchi noted. Patient alert and oriented. Brisk capillary refill Patient reports feels less SOB Replace potassium and magnesium Patient reports takes diltiazem in the evening. He is prescribed metoprolol tartrate 25 mg 3 times daily however reports only taking once a day in the morning. Resume pt's home diltiazem metoprolol tartrate 12.5mg Q6H po Anticoagulated on warfarin and INR: 2.5. Continue warfarin. INR in am Echo Cardiology consult BMP, magnesium labs in am (2) Asthma exacerbation: Plan: History severe persistent asthma on Xolair #Asthma exacerbation #Possible Pneumonia SOB likely multifactorial with asthma exacerbation as well as rapid afib and possible volume overload Pt started prednisone taper rescue pack 4 days ago. Today took one doxycycline. WBC: 11.2. Procalcitonin: 0.05. Negative respiratory Biofire panel Lactate: 2.7, 3.3 CXR: Mild atelectasis versus early pneumonia in the lung bases Trend lactate Will give small dose of IVF and reassess with repeat lactate. Suspect pt chronically volume overloaded. Currently lungs without rales, 2+pitting edema BLE. May need to consider dose of lasix In ER given Solu-Medrol 60 mg IV, Rocephin IV Blood culture pending Obtain sputum culture Mucinex, incentive spirometry, flutter valve Xopenex nebulizer Continue home Trelegy, Singulair Prednisone 40 mg daily. Reassess tomorrow, may be able to decrease dose and plan for taper Rocephin, doxycycline Supplemental oxygen as needed CBC in am (3) Chronic heart failure with preserved ejection fraction (HFpEF): Plan: 09/24/2022 echo: EF: 58%, grade 2 diastolic dysfunction, aortic root mildly dilated at 4.2 cm Suspect pt chronically volume overloaded. Currently lungs without rales, 2+pitting edema BLE. May need to consider dose of lasix later today and further determination of lasix dosing Patient prescribed Lasix 3 times a week, however only takes on as-needed basis when he feels his legs are swollen. Resting echo Monitor volume status, I's and O's, daily weight, low sodium diet (4) Tachy-starla syndrome: Plan: S/P Pacemaker Pacemaker interrogation (5) CKD (chronic kidney disease), stage III: Plan: Cr: 1.0. Baseline Cr: 1.3 Monitor renal functions (6) GREGG (obstructive sleep apnea): Plan: #Nocturnal hypoxia Does not use CPAP Continue 2L oxygen HS DVT Prophylaxis anticoagulated on warfarin, INR therapeutic Admit PCU Full Code as per discussion with pt Follows with Dr Lizama for routine care Pt was seen and care coordinated with Dr Martinez. See addendum I spent a total of 65 minutes reviewing notes, outpatient records, labs, medication, coordinating, documenting and providing care for this patient excluding time spent in the performance of separately billed services and excluding time spent by another provider/QHP. History of Present Illness Chief Complaint: SOB Primary Care Provider: Paris Lizama MD Patient is 73-year-old male with PMH paroxysmal atrial fibrillation, history ablation for atrial flutter in 2009, anticoagulated on warfarin, tachybradycardia syndrome s/p pacemaker in 2020, HFpEF, HTN, HLD, CKD III, severe persistent asthma, environmental allergies, bronchiectasis, GREGG , nocturnal hypoxia on 2L oxygen HS, GERD, known history of medication noncompliance presented to ER with complaint of shortness of breath x 4 days. Patient is some what of a poor historian. He reports at baseline has wheezing and has SOB with exertion at baseline. It is unclear how often patient uses his rescue inhaler. He states started with cough 4 days ago and cough productive of whitish sputum. Patient states last evening was noticing increased shortness of breath with just getting up out of a chair. This morning awoke around 5 AM reports significant shortness of breath with getting up out of bed and taking 2 steps. Reports typically after he rests shortness of breath improves however continued to be short of breath at rest this morning. Tried home nebulizer this morning without relief. He reports during the night started with pink-tinged sputum which he was unsure was caused by eating spaghetti sauce last night. Reports has chest pain with severe coughing only. He states he typically does not feel when he goes into atrial fibrillation and denies any palpitations. Since being in ER patient reports is feeling less short of breath. He denies any chest pain currently. Patient states that he takes diltiazem in the evening. He reports he only takes his metoprolol in the morning. Patient did not have any metoprolol or diltiazem today. He is to be taking Lasix 3 times a week per outpatient cardiology note however patient states he does not take regularly and just uses on as needed basis when he feels his legs are swollen. Patient does not feel his legs are swollen currently, however admits that he does not really check. This morning felt a little dizzy with ambulation. Denies fever/chills, diaphoresis, N/V/D/C, RODRIGEZ, syncope, vision changes, neck pain, sore throat, choking, otalgia, rhinorrhea, abdominal pain, paresthesias, weakness, rashes, urinary symptoms. Allergies Allergy/AdvReac Type Severity Reaction Status Date / Time cat dander Allergy Intermediate SNEEZING, Verified 04/27/24 12:27 CONGESTION pollen extracts Allergy Intermediate SNEEZING, Verified 04/27/24 12:27 CONGESTION morphine Allergy Unknown Verified 04/27/24 12:27 Home Medications Medication Instructions Recorded Confirmed Type cetirizine 10 mg tablet 10 mg PO QAM 09/18/18 04/27/24 History montelukast 10 mg tablet 10 mg PO QAM 09/18/18 04/27/24 History omeprazole 20 mg capsule,delayed 20 mg PO DAILYBB 09/18/18 04/27/24 History release warfarin 2.5 mg tablet 2.5 mg PO 6XWK 05/21/20 04/27/24 History diltiazem HCl 240 mg 240 mg PO PM #30 caps 05/23/20 04/27/24 Rx capsule,extended release 24 hr atorvastatin 80 mg tablet 80 mg PO QAM 09/30/20 04/27/24 History metoprolol tartrate 25 mg tablet 25 mg PO TID 03/01/21 04/27/24 History aluminum-mag hydroxide-simethicone 15 ml PO Q6 PRN indigestion or 09/30/21 04/27/24 History 400 mg-400 mg-40 mg/5 mL oral susp epigastric burning fluticasone propionate 50 2 spray intranasal QAM 09/30/21 04/27/24 History mcg/actuation nasal spray,suspension cholecalciferol (vitamin D3) 25 25 mcg PO QAM 03/17/22 04/27/24 History mcg (1,000 unit) tablet (Vitamin D3) doxycycline hyclate 100 mg capsule 100 mg PO BID PRN rescue kit 03/17/22 04/27/24 History furosemide 20 mg tablet 20 mg PO 3XWK 03/17/22 04/27/24 History albuterol sulfate 2.5 mg/3 mL See Rx Instructions .Route 08/08/23 04/27/24 Rx (0.083 %) solution for nebulization .COMPLEX #180 mL ipratropium 20 mcg-albuterol 100 See Rx Instructions .Route 10/03/23 04/27/24 Rx mcg/actuation mist for inhalation .COMPLEX #4 grams (Combivent Respimat) prednisone 10 mg tablet See Rx Instructions .Route 04/24/24 04/27/24 Rx .COMPLEX #40 tabs albuterol sulfate 90 mcg/actuation 2 puff inhalation Q4H PRN 04/27/24 04/27/24 History aerosol inhaler Wheezing/SOB fluticasone fur. 200 mcg-umeclid 1 inh inhalation DAILY 04/27/24 04/27/24 History 62.5 mcg-vilant 25 mcg inhalat.powder (Trelegy Ellipta) omalizumab 150 mg/mL subcutaneous 300 mg subcut MONTHLY 04/27/24 04/27/24 History syringe (Xolair) sertraline 25 mg tablet 25 mg PO QAM 04/27/24 04/27/24 History Past Med/Surg History Problem List (Updated 04/27/24 @ 14:34 by Nupur Smith PA-C) Chronic heart failure with preserved ejection fraction (HFpEF) Atrial fibrillation with RVR Encounter for pre-operative examination SOB (shortness of breath) (Acute) Asthma exacerbation (Acute) Hypoxemia (Acute) Lab test negative for COVID-19 virus (Acute) Acute hypoxemic respiratory failure Asthma-COPD overlap syndrome Morbid obesity Bronchiectasis Pacemaker (Acute) [facility] 01/[address]. follows [address] Haider - unsure when it was last checked. GERGG (obstructive sleep apnea) no machine History of paroxysmal supraventricular tachycardia S/P ablation in 2009 Nonischemic cardiomyopathy 2013 echo: EF: 40%, moderate global hypokinesis GERD (gastroesophageal reflux disease) Medical History Hx of gastric ulcer On anticoagulant therapy History of COVID-19 treated at [facility] in 2021. no ventilator On home oxygen therapy 2lpm via n/c Chronic obstructive pulmonary disease Asthma Hx of medication noncompliance CKD (chronic kidney disease), stage III Chronic diastolic heart failure Severe obstructive sleep apnea Tachy-starla syndrome Chronic back pain Paroxysmal atrial fibrillation managed with medication, follows with Dr Haider HLD (hyperlipidemia) HTN (hypertension) Severe persistent asthma, poorly-controlled Coronary artery disease nonobstructive CAD Surgical History History of right cataract surgery S/P cardiac pacemaker procedure (01/2021) [employer] History of colonoscopy History of esophagogastroduodenoscopy (EGD) H/O hernia repair right inguinal hernia repair S/P cholecystectomy S/P appendectomy Family History Other Asthma No family history of adverse response to anesthesia Social History Smoking Status: Never smoker Second Hand Exposure: No; Do You Dip or Chew Tobacco: No; Hx Alcohol Use: Yes (occasionally) Alcohol type: wine Alcohol Intake Frequency: Monthly or Less Hx Substance Use: No Preferred Language: [place] Irish Communication Ability: Effective [place] Agent Required: No Beliefs That Will Affect Care: None marital status: Current Living Situation: Other Current Living Situation Comment: 2 sons and 1 sons gf current occupational status: disabled How many Children do You have: 2 Feels Safe at Home: Yes Assistive Devices: Glasses Review of Systems Review of Systems: All systems reviewed & are unremarkable except as noted in HPI & below Physical Exam Physical Exam: General: no acute distress sitting up in bed with 2L via NC, +obese elderly male Head: normocephalic, atraumatic Eyes: conjunctiva non-injected, anicteric ENT: normal inspection external ears, nose, mucous membranes moist Neck: supple, trachea midline Lungs: no respiratory distress on current 2 L via NC, R: 20, speaks in sentences. +scattered wheezing throughout, no rhonchi/rales noted CV: irregularly irregulary, 2+ pretibial edema Abd: protuberant, normal BS, soft, non-tender Ext: no cyanosis, no calf tenderness Neuro: A&O x 3, no focal deficits noted, normal affect Skin: warm, dry Results & Data Results & Data Vital Signs (Past 12 Hours) Vital Signs Temp Pulse Pulse Resp BP BP Pulse Ox 04/27/24 12:22 103 H 19 135/76 94 04/27/24 11:25 129 H 20 135/90 93 04/27/24 10:22 152 H 22 136/81 93 04/27/24 10:13 91 04/27/24 09:51 92 04/27/24 09:36 161 H 04/27/24 09:29 04/27/24 09:29 36.9 C 145 H 22 122/94 92 O2 Del Method O2 Flow Rate 04/27/24 12:22 Nasal Cannula 2 04/27/24 11:25 Nasal Cannula 3 04/27/24 10:22 Nasal Cannula 3 04/27/24 10:13 Room Air 04/27/24 09:51 Room Air 04/27/24 09:36 04/27/24 09:29 Room Air 04/27/24 09:29 Room Air Laboratory Results Short CBC 04/27/24 Range/Units 09:25 WBC 11.20 H (4.8-10.8) K/ul Hgb 13.5 L (14.0-18.0) g/dl Hct 41.6 L (42.0-52.0) % Plt Count 175 (130-400) K/uL BMP 04/27/24 09:25 Sodium 139 Potassium 3.7 Chloride 105 Carbon Dioxide 28 BUN 21 Creatinine 1.08 Glucose 143 H Calcium 8.6 Liver Function 04/27/24 Range/Units 09:25 Total Bilirubin 1.0 (0.2-1.0) mg/dl AST 15 (13-39) U/L ALT 19 (7-52) U/L Alkaline Phosphatase 82 (34-104) U/L Albumin 3.8 (3.4-5.0) gm/dl Diagnostic Findings Chest X-Ray 04/27/24 09:26 XR chest 1V portable CLINICAL HISTORY: Dyspnea COMPARISON STUDY: 09/30/2021 FINDINGS: Stable pacemaker. Stable moderate cardiomegaly without pulmonary vascular congestion. There is interval mild stranding opacity in the lung bases. No other consolidation or pleural effusion. No pneumothorax. IMPRESSION: Mild atelectasis versus early pneumonia in the lung bases. ACT 112: Negative or not required by law. Electronically signed by: Florencio Damico M.D. 04/27/2024 10:07 AM ECG Additional Comments: Atrial fibrillation, rate 174, nonspecific ST changes per my interpretation Supervising Physician Co-Signing Physician Notes I have seen and discussed the case with the collaborating advanced practitioner. I agree with the above PN. I have reviewed and confirmed the patients medical history, the findings on physical examination, and the patients diagnosis and treatment plan with Melvingost TURPIN and agree with the information documented. Mr. Springer with complex medical history presented with SOB and to be admitted for atrial fibrillation with RVR and asthma exacerbation. Patient reports over a week of worsening from baseline symptoms of wheezing, increased sputum production . Last echo from 2021 with no sign of RHF, and stable EF at 50-54% Difficult exam for volume status, appears likely chronically overloaded. Coarse/scatter wheezing (reported chronic, even documented in pulm visit notes from 10/2023 as such), no crackles (CXR not able to pull image up), pitting edema of ankles, seeming dry mucous membranes #possible Sepsis iso asthma/COPD exacerbation ( tachycardia, WBC, lactate, resp) biofire negative, no consolidations Home Oxygen therapy status, PRN use Home regimen: Trelegy and Combivent, plus Albuterol Neb PRN, prescribed pred/doxy "rescue pack" Coverage with CTX and doxy for now Manage a fib as as follows Difficult fluid status--BNP mildly elevated in comparison to prior levels and does not use lasix at home; would be concerned that increased lactate 2/2 either dehydration iso poor relative intake, versus RHF--will trial small fluid bolus and repeat lactate, if uptrending despite some fluid and current management will treat with lasix-->bolus added an 4.1 lactate return, suspect volume overload, plan for lasix now Continue steroids, 40mg daily IV #Suspect Right side heart failure/cor pulmonale given increased lactate #Chronic heart failure with preserved EF ECHo as above low threshold to diuresis depending on response to fluid challenge #Atrial fibrillation with RVR #Tachy-starla syndrome s/p pacemaker 2020 diltazem drip in ed started will start metoprolol 12.5 q6h, patient likely not taking this medication as prescribed based on gathered history Resume home dilt ECHO ordered Cardiology consult plan as above I spent a total of 15 minutes coordinating, documenting, and providing care for this patient excluding time spent in the performance of separately billed services. All of the aforementioned completed outside of collaborating with the assigned advanced practitioner for a full treatment plan. I have reviewed the advanced practitioner's documentation, and I agree with, and take responsibility for the plan of care
--- OUTSIDE RECORDS SUMMARY | 2024-04-27 12:33 | External Medical Summary | Summary of Care ---
Author Name Unknown Organization [facility] Address [address] [place] [address] Phone [phone] Care Team Providers Care [employer] Name Role Phone Paris Lizama MD Primary Care Provider + Reason for Referral * Medication Prior Authorization - Closed Specialty Diagnoses / Procedures Referred By Contcooper t Referred To Contact Diagnoses Acute bilateral low back pain with right-sided sciatica Paris Lizama MD [address] [place] [address] Phone: tel: fax: Referral ID Status Reason Start Date Expiration Date Visits Re quested Visits Authorized [id number] Closed 999 999 Reason for Visit * Reason Onset Date Comments Medication Refill 04/16/2024 Encounter Details Date Type Department Care Team (Late st Contact Info) Description 04/16/2024 Refill General Internal Medicine State Marcelino Simpson [address] [place] [address] Paris Lizama MD [address] [address] Acute bilateral low back pain with right-sided sciatica Allergies Active Allergy Reactions Criticality Noted Date Comments Cat Dander 04/27/2012 Asthma attack Morphine Nausea/vomiting 09/15/2015 Pollen 04/27/2012 sneezing documented as of this encounter (statuses as of 04/18/2024) Medications ALBUTEROL SULFATE (2.5 MG/3ML) 0.083% IN NEBUIndications:CO PD, very severe (HCC) 3 ml vial in nebulizer daily as needed, use in place of rescue inhaler 30 Vial 5 08/08/19 13 Active CETIRIZINE HCL 10 MG PO TABSIndications:Al lergic rhinitis TAKE 1 TABLET DAILY 30 Tab 5 09/04/19 14 Active ipratropium-albute rol (COMBIVENT RESPIMAT) 20-100 MCG/ACT InhalerIndications :Need for prophylactic vaccination and inoculation against influenza INHALE 1 DOSE INHALED EVERY 4-6 HOURS NEEDED WITH A MAX OF 6 DOSES PER DAY 1 Inhaler 5 11/12/19 17 Active [place]-3 Fatty Acids (FISH OIL) 1000 MG Capsule Take 1 Capsule by mouth in the morning. Active Trelegy Ellipta 200-62.5-25 MCG/INH Aerosol Powder Breath Activated USE 1 INHALATION DAILY 10/04/19 21 Active hydrALAZINE HCl 25 MG Oral Tablet (Apresoline)Indica tions:Hyperkalemia ,Paroxysmal atrial fibrillation (HCC),Tachy-starla syndrome (HCC),Cardiac pacemaker in situ,Non-ischemic cardiomyopathy (HCC),Coronary artery disease involving [place] coronary artery of [place] heart without angina pectoris,Dyslipide laura, goal LDL below 70,GREGG (obstructive sleep apnea),HTN, goal below 140/90 Take 1 Tablet by mouth in the morning and 1 Tablet before bedtime. Active Fluticasone Propionate 50 MCG/ACT Nasal Suspension (Flonase)Indicatio ns:Chronic maxillary sinusitis ADMINISTER INTO EACH NOSTRIL 2 SPRAYS IN THE MORNING. 48 mL 1 05/13/19 23 Active Additional Information Patient taking differently:2 [place] Each NostrilDAILY PRN, Reported on 01/23/2024 Famotidine 20 MG Oral Tablet (Pepcid)Indication s:Gastroesophageal reflux disease without esophagitis TAKE 1 TABLET BY MOUTH EVERY DAY IN THE MORNING 90 Tablet 2 10/23/19 23 Active Metoprolol Tartrate 25 MG Oral Tablet (Lopressor)Indicat ions:Tachy-starla syndrome (HCC),Paroxysmal atrial fibrillation (HCC),Cardiac pacemaker in situ Take 1 Tablet by mouth in the morning and 1 Tablet at noon and 1 Tablet in the evening. 270 Tablet 3 05/19/19 24 Active Doxycycline Hyclate 100 MG Oral CapsuleIndications :Severe persistent asthma without complication TAKE 1 CAPSULE BY MOUTH 2 TIMES A DAY. A RESCUE PACK USE IT NEEDED. 20 Capsule 5 08/08/19 24 Active Furosemide 20 MG Oral Tablet (Lasix)Indications :Paroxysmal atrial fibrillation (HCC),Tachy-starla syndrome (HCC),Cardiac pacemaker in situ,Non-ischemic cardiomyopathy (HCC),Coronary artery disease involving [place] coronary artery of [place] heart without angina pectoris,Dyslipide laura, goal LDL below 70,GREGG (obstructive sleep apnea),HTN, goal below 140/90 TAKE 1 TABLET 3 TO 4 DAYS PER WEEK 55 Tablet 3 08/09/19 24 Active Montelukast Sodium 10 MG Oral Tablet (Singulair)Indicat ions:Asthma, allergic TAKE 1 TABLET BY MOUTH EVERY DAY 90 Tablet 2 08/22/19 24 Active Additional Information Patient taking differently: 10 mg Oral Daily(AM), Reported on 01/23/2024 Omeprazole 20 MG Oral Capsule Delayed Release (PriLOSEC)Indicati ons:GERD (gastroesophageal reflux disease) TAKE ONE CAPSULE 1 HOUR PRIOR TO THE FIRST MEAL OF THE DAY, 90 Capsule 2 09/16/19 24 Active dilTIAZem HCl ER Coated Beads 240 MG Oral Capsule Extended Release 24 Hour (Cardizem CD)Indications:HTN , goal below 150/90,Paroxysmal atrial fibrillation (HCC) TAKE 1 CAPSULE BY MOUTH IN THE EVENING 90 Capsule 2 09/16/19 24 Active predniSONE 10 MG Oral Tablet (Deltasone)Indicat ions:COPD, group B, by GOLD 2017 classification ([facility]) TAKE 4 TABS BY MOUTH DAILY X4 DAYS, 3 TABS X 4 DAYS, 2 TABS X 4 DAYS, 1 TAB X 4 DAYS-RESCUE KIT 45 Tablet 1 09/19/19 24 Active Albuterol Sulfate HFA 108 (90 Base) MCG/ACT Inhalation Aerosol Solution Inhale 2 Puffs by mouth every 6 hours as needed. Active oxyBUTYnin Chloride 5 MG Oral Tablet (Ditropan)Indicati ons:Urinary frequency TAKE 1 TABLET BY MOUTH THREE TIMES A DAY 270 Tablet 1 11/29/19 24 Active Atorvastatin Calcium 80 MG Oral Tablet (Lipitor)Indicatio ns:Dyslipidemia, goal LDL below 100 TAKE 1 TABLET BY MOUTH EVERY DAY 90 Tablet 02/17/19 25 Active Xolair 150 MG/ML Subcutaneous Solution Prefilled Syringe (Omalizumab) Inject 300 mg (2 syringes) under the skin every 4 weeks. APPROVED GOOD 03/19/24-03/21/25 2 mL 11 5 11:51 AM EST 03/21/19 25 Active HYDROcodone-Acetam inophen 7.5-325 MG Oral TabletIndications: Acute bilateral low back pain with right-sided sciatica Take 1 Tablet by mouth every 6 hours as needed (pain). 120 Tablet 04/19/19 25 Active HYDROcodone-Acetam inophen 7.5-325 MG Oral TabletIndications: Acute bilateral low back pain with right-sided sciatica Take 1 Tablet by mouth every 6 hours as needed (pain). 120 Tablet 03/22/19 25 025 Discontin ued(Refil l) documented as of this encounter (statuses as of 04/18/2024) Active Problems Problem Noted Date Diagnosed Date Morbid (severe) obesity due to excess calories 0 04/14/2023 Renal osteodystrophy 04/14/2023 Depression 04/14/2023 Obstructive sleep apnea of adult 03/19/2022 Nocturnal hypoxemia due to obesity 03/19/2022 Chronic bilateral back pain 10/15/2021 Class 2 severe obesity due t o excess calories with serious comorbidity and body mass index (BMI) of 36.0 to 36.9 in adult 10/08/2020 Tachy-starla syndrome 10/08/2020 Bronchiectasis with acute exacerbation 1 At risk for obstructive sleep apnea 10/08/2020 Chronic kidney disease, stage 3a 07/22/2020 Overview: Per CKD protocol Hypertensive kidney disease with stage 3a chronic kidney disease 06/17/2020 Overview: Per CKD protocol COPD, group B, by GOLD 2017 classification 08/19 Overview: Per COPD GOLD Classification Emphysema, unspecified 08/18/2018 Non-ischemic cardiomyopathy 09/05/2013 HTN, goal below 150/90 09/04/2013 Asthma, severe persistent 03/15/2013 Mixed rhinitis 06/03/2011 GERD (gastroesophageal reflux disease) 2 History of nonadherence to medical treatment DYSLIPIDEMIA, GOAL LDL BELOW 100 01/22/2009 Overview (01/22/2009): Per Lipid Taxonomy. CORON ATHEROSCL [place] CORON VESSEL 12/06/2008 Overview (12/06/2008): 50% LAD Stenosis by cardiac catheterization November, Paroxysmal atrial fibrillation 11/28/2008 MEDICATION USE AGREEMENT documented as of this encounter (statuses as of 04/18/2024) Resolved Problems Problem Noted Date Diagnosed Date Resolved Date Respiratory failure with hypoxia 10/15/2021 10/20/2023 Prediabetes 07/16/2019 12/23/2022 Overview: Per Prediabetes protocol PAF (paroxysmal atrial fibrillation) 11/24/2018 03/19/2022 Overview (03/19/2022): duplicate Bilateral low back pain with sciatica 03/03/2017 09/02/2017 Hypertensive kidney disease with chronic kidney disease stage III 09/22/2015 06/19/2020 Overview: Per CKD protocol #1 Hypoxemia 09/04/2013 03/20/2015 Overview (10/09/2014): 09/2014 PSG - no desats 08/2013 - Refused oxygen COPD, severe 06/03/2011 12/21/2011 Overview: PER COPD PROTOCOL #24. LAST PFT -06/03/11 High triglycerides 10/27/2010 8 Asthma with severity to be determined 07/31/2009 06/03/2011 Overview (05/19/2015): Per Asthma Taxonomy, 04/27/2007- COPD rescue kit ordered today. ICD-10 update of inactive term Atrial flutter 07/17/2009 08/03/2016 Dyslipidemia, goal to be determined 12/06/2008 01/22/2009 Overview (01/22/2009): Per Lipid Taxonomy. Esophageal reflux 12/06/2008 09/02/2017 Palpitations 11/13/2008 11/28/2008 ACTIVE CASE MANAGEMENT- Lu Stewart RN [phone] 04/10/2007 11/24/2009 ADVANCE DIRECTIVE INFORMATION 07/30/2004 03/03/2017 Overview (07/30/2004): given Asthma, allergic 10/16/2002 07/31/2009 Overview (04/27/2007): 04/27/2007- COPD rescue kit ordered today. CHRONIC OBSTRUCTIVE ASTHMA ( WITH OBSTRUCTIVE PULMONARY DISEASE); WITH STATUS A 10/16/20022011 documented as of this encounter (statuses as of 04/18/2024) Immunizations Name Administration Dates Next Due COVID-19 mRNA, LNP-s, No Pre serve, 2-Dose Series (Moderna) 07/21/2020,06/21/2020 Pneumococcal Conjugate Vacc, 13 Valent (Prevnar) 08/14/2014,07/12/2007 Pneumococcal Conjugate Vacci ne, 7 Valent 07/12/2007 Pneumococcal Polysaccharide PPV23 (Pneumovax) 02/20/2016,10/16/2002 Seasonal Influenza Vac., MDV , IM, 0.5 mL (Fluzone) 12/11/2014,12/21/2013,11/21/2012,11/07,10/20/2010,12/08/2009,11/14/19 09,12/01/2007 Seasonal Influenza Virus Vac cine, Unspecified Formulation 03/12/2021 Seasonal Influenza, High Dos e, Trivalent, PF, IM (Fluzone HD) 10/20/2023 Seasonal Influenza, PF, 6 M & above, IM , (FluLaval or Fluzone) 12/20/2019,11/22/2017,11/11/2016 Seasonal Influenza, Quadriva lent Hd (Fluzone Hd) 11/17/2022,10/15/2021,03/12/2021 Seasonal Influenza, Quadriva lent, No Preserve, IM 11/13/2015 11/12/2016 Seasonal Influenza, Trivalen t, Adjuvanted, 65+ YRS, PF, (Fluad) 11/24/2018 TDAP, Age 7 and older, IM (Adacel) 07/28/2018, documented as of this encounter Social History Tobacco Use Types Packs/Day Years Used Date Smoking Tobacco: Never Smokeless Tobacco: Never Comments:passive smoke from girlfriend, son in house Alcohol Use Standard Drinks/Week Comments Yes 0 (1 standard drink = 0.6 oz pur e alcohol) very rare PHQ-2 Answer Date Recorded PHQ Adult Total Score 0 10/20/2023 Hunger Vital Sign Answer Date Recorded Worried About Running Out of Food in the Last Ye ar Never true 07/24/2019 Ran Out of Food in the Last Year Never true 07/24/2019 Sex and Gender Information Value Date Recorded Sex Assigned at Male 08/18/2018 1:19 PM EDT Legal Sex Male 7:02 AM EST Gender Identity Male 08/18/2018 1:19 PM EDT Sexual Orientation Straight 08/18/2018 1: 19 PM EDT Occupation Industry Job Start Date Job End Date disabilty for asthma Not on file Not on file Not on file documented as of this encounter Miscellaneous Notes * Telephone Encounter - Paris Lizama MD - 04/18/2024 8:04 AM EDTSigned Prescriptions: Disp Refills HYDROcodone-Acetaminophen 7.5-325 MG Oral *120 Ta*0 Sig: Take 1 Tablet by mouth every 6 hours as needed (pain). Authorizing Provider: PARIS LIZAMA * Telephone Encounter - Jie Bond [facility] - 04/18/2024 4:34 AM EDTPending Prescriptions: Disp Refills HYDROcodone-Acetaminophen 7.5-325 MG Oral *120 Ta*0 Sig: Take 1 Tablet by mouth every 6 hours as needed (pain). * Telephone Encounter - Sai Bower [facility] - 04/17/2024 3:32 PM EDT Postponed until 04/18/24 I have reviewed the patients controlled substance dispensing history in the Prescription Drug Monitoring Program in compliance with the [facility] regulations before prescribing a controlled substance. PDMP checked on 04/17/2024. Pending Prescriptions: Disp Refills HYDROcodone-Acetaminophen 7.5-325 MG Oral*120 Ta*0 Sig: Take 1 Tablet by mouth every 6 hours as needed (pain). Last Visit: 10/20/2023 (in office), 05/25/2019 (telemedicine) Next Visit: 05/10/2024 Date medication was last filled: 03/22/24 Date medication is due for refill: 04/20/24 [id number] [address] Is this request for a controlled substance? Yes and Urine Drug Screen Not completed Toxicology results: Results for orders placed or performed in visit on 04/14/23 PAIN MANAGEMENT DRUG PANEL, URINE W/ INTERPRETATION Result Value Pain Management Interpretation Based on medication info provided, The presence of hydrocodone, dihydrocodeine and hydromorphone is CONSISTENT with hydrocodone use. Amphetamines Screen, U Negative Benzodiazepines Screen, U Negative Cannabinoids Screen, U Negative Cocaine Metabolite Screen, U Negative Fentanyl Screen, U Negative Hydrocodone Screen, U Refer to confirmation results (A) Methadone Metabolite Screen, U Negative Morphine/Codeine Screen, U Refer to confirmation results (A) Oxycodone Screen, U Refer to confirmation results (A) Specimen Validity Interpretation Normal Creatinine, U 283 Narrative Cutoff Concentrations: Drug Level Amphetamines 500 ng/mL Benzodiazepines 100 ng/mL Cannabinoids 50 ng/mL Cocaine Metabolite 150 ng/mL Fentanyl 1 ng/mL Hydrocodone / Hydromorphone 300 ng/mL Methadone Metabolite 100 ng/mL Morphine / Codeine 300 ng/mL Oxycodone / Oxymorphone 100 ng/mL Screening results are presumptive and can only be used for medical purposes. Confirmatory testing is available upon request. *Note: Due to a large number of results and/or encounters for the requested time period, some results have not been displayed. A complete set of results can be found in Results Review. Please approve if appropriate. Thank You, Sai Saldivar [facility] Clinical Pharmacist [facility] ([facility]) 04/17/2024, 3:33 PM * Telephone Encounter - Juarez Edge[facility] - 04/16/2024 10:48 AM EDT Pt stating that he has about two days of medication left, request too early. Pt did not want to callback at a later date and asked if request could be submitted now so it is done on time. Did you pend patient's preferred pharmacy and medication before forwarding?yes [facility]acy: [id number] [address] Pending Prescriptions: Disp Refills HYDROcodone-Acetaminophen 7.5-325 MG Oral*120 Ta*0 Sig: Take 1 Tablet by mouth every 6 hours as needed (pain). Last Visit: 10/20/2023 (in office), 05/25/2019 (telemedicine) Next Visit: 05/10/2024 If no future appointments scheduled, and last appointment is greater than a year ago, please schedule patient for a follow-up appointment Last date the medication was ordered: 03/22/2024 Is this request for a controlled substance?Yes, What was the last refill date 03/22/2024 w/ quantity 120 and dosage 7.5-325 MG and Urine Drug Screen was completed Urine Drug Screen: Results for orders placed or performed in visit on 04/14/23 PAIN MANAGEMENT DRUG PANEL, URINE W/ INTERPRETATION Result Value Pain Management Interpretation Based on medication info provided, The presence of hydrocodone, dihydrocodeine and hydromorphone is CONSISTENT with hydrocodone use. Amphetamines Screen, U Negative Benzodiazepines Screen, U Negative Cannabinoids Screen, U Negative Cocaine Metabolite Screen, U Negative Fentanyl Screen, U Negative Hydrocodone Screen, U Refer to confirmation results (A) Methadone Metabolite Screen, U Negative Morphine/Codeine Screen, U Refer to confirmation results (A) Oxycodone Screen, U Refer to confirmation results (A) Specimen Validity Interpretation Normal Creatinine, U 283 Narrative Cutoff Concentrations: Drug Level Amphetamines 500 ng/mL Benzodiazepines 100 ng/mL Cannabinoids 50 ng/mL Cocaine Metabolite 150 ng/mL Fentanyl 1 ng/mL Hydrocodone / Hydromorphone 300 ng/mL Methadone Metabolite 100 ng/mL Morphine / Codeine 300 ng/mL Oxycodone / Oxymorphone 100 ng/mL Screening results are presumptive and can only be used for medical purposes. Confirmatory testing is available upon request. *Note: Due to a large number of results and/or encounters for the requested time period, some results have not been displayed. A complete set of results can be found in Results Review. Patient Phone Numbers Labs: Lab Results Component Value Date/Time CREAT 1.3 (H) 01/23/2024 01:35 PM CREAT 1.3 (H) 01/24/2020 02:23 PM POTASSIUM 4.4 01/23/2024 01:35 PM POTASSIUM 4.3 01/24/2020 02:23 PM TSH 2.50 11/11/2021 01:55 PM TSH 0.91 07/09/2019 02:13 PM LDL 65 03/21/2024 12:20 PM LDL 60 11/11/2021 01:55 PM LDL 56 07/09/2019 02:13 PM LDL 63 03/04/2017 10:22 AM ALT 36 08/23/2022 01:17 PM ALT 25 01/24/2020 02:23 PM HGBA1C 5.9 (H) 05/11/2022 04:19 PM HGBA1C 5.8 (H) 01/24/2020 02:23 PM documented in this encounter Plan of Treatment Upcoming Encounters Date Type Department Care Team (Late st Contact Info) Description 05/10/2024 1:40 PM EDT Office Visit General Internal Medicine [place] Henry [address] [place] [address] Paris Lizama MD [address] [place] [address] 05/11/2024 11:00 AM EDT Office Visit Cardiology, [facility] [address] [facility] [address] [address] Shade Paredes PA-C [address] [place] [address] 01/18/2025 2:00 PM EST [facility], [facility] [address] [facility] [id number] Iris Lucero MD [address] [facility] [address] [address] Scheduled Procedures Name Priority Associated Diagnoses Date/Ti me COLONOSCOPY FLEXIBLE PROXIMAL DIAGNOSTIC Recall History of colon polyps Health Maintenance Due Date Last Done Comments Fecal Occult Blood Test 12/28/1995 Sigmoidoscopy 12/28/1995 Adult Wellness Visit 2016 Cologuard 12/11/2021 12/11/2018, 11/07, 11/20/2018, Additional history exists COVID-19 Vaccine ( season) 2023 07/21/2020, 06/21/2020 Colonoscopy 01/17/2024 01/16/2019, 01/16/2019 Colorectal Cancer Screening 01/17/2024 CKD HGB USE SMARTSET [id number] 04/13/202404/13, 04/14/2023, 05/11/2022, Additional history exists CKD PHOS USE SMARTSET [id number] 04/13/2024 03/0 08/2023, 12/09/2022, 09/24/2022, Additional history exists GFR 07/23/2024 01/23/2024, 07/08, 04/14/2023, Additional history exists Albumin/Creatinine Ratio 10/19/2024 024, 09/24/2022, 08/23/2022, Additional history exists Depression Monitoring 10/19/2024 10/20/2023 O2 ASSESSMENT COMPLETED IN PAST YEAR FOR COPD 01/22/2025 01/23/2024 DXA Scan 08/31/2025 08/31/2022, 08/08, 04/10/2014, Additional history exists DTap/Tdap Vaccines (3 - Td or Tdap) 07/28/2028 07/28/2018, 07/11/2009 Pneumococcal Vaccine: 50+ Years Completed 02/20/2016, 08/14/2014, 07/12/2007, Additional history exists RETIRED - COLONOSCOPY-EVERY 5 YRS AGES 18-100 Discontinued 01/16/2019, 01/16/2019 Alpha-1 Antitrypsin Completed 05/11/2022 Zoster Vaccines Completed 11/14/2022, 05/15/2022 Influenza Vaccine (FLU shot) Completed 10/20/2023, 11/17/2022, 10/15/2021, Additional history exists HPV (Gardasil) Vaccine Aged Out No lo nger eligible based on patient's age to complete this topic Hepatitis B Vaccine Aged Out No longe r eligible based on patient's age to complete this topic MENINGOCOCCAL (MENACTRA/MENVEO) Aged Out No longer eligible based on patient's age to complete this topic Meningitis B Vaccine (Bexsero/Trumemba) Aged Out No longer eligible based on patient's age to complete this topic documented as of this encounter Medical Devices Not on filedocumented as of this encounter Visit Diagnoses Diagnosis Acute bilateral low back pain with right-sided sciatica documented in this encounter Care Teams [employer] Relationship Specialty Start Date End Date Paris Lizama MD [address] [place] [address] PCP - General 03/28/08 documented as of this encounter
--- OUTSIDE RECORDS SUMMARY | 2024-04-27 12:33 | External Medical Summary | Summary of Care ---
Author Name Unknown Organization [facility] Address [address] [place] [address] Phone [phone] Care Team Providers Care Dope Mixer Name Role Phone Paris Lizama MD Primary Care Provider + Reason for Visit * Reason Comments Outpatient Testing Encounter Details Date Type Department Care Team (Late st Contact Info) Description 04/16/2024 12:40 PM EDT Laboratory Laboratory, [place] [facility] [address] [place] [address] [place], Laboratory [address] [facility] [place] [id number] Anticoagulation management encounter Allergies Active Allergy Reactions Criticality Noted Date Comments Cat Dander 04/27/2012 Asthma attack Morphine Nausea/vomiting 09/15/2015 Pollen 04/27/2012 sneezing documented as of this encounter (statuses as of 04/16/2024) Medications ALBUTEROL SULFATE (2.5 MG/3ML) 0.083% IN [...] DAY 1 Inhaler 5 11/12/19 17 Active [place]-3 Fatty Acids (FISH OIL) 1000 MG Capsule Take 1 Capsule by mouth in the morning. Active Trelegy Ellipta 200-62.5-25 MCG/INH Aerosol Powder Breath Activated USE 1 INHALATION DAILY 10/04/19 21 Active hydrALAZINE HCl 25 MG Oral Tablet (Apresoline)Indica tions:Hyperkalemia ,Paroxysmal atrial fibrillation (HCC),Tachy-starla syndrome (HCC),Cardiac pacemaker in situ,Non-ischemic cardiomyopathy (HCC),Coronary artery disease involving [place] coronary artery of [place] heart without angina pectoris,Dyslipide laura, goal LDL below 70,GREGG (obstructive sleep apnea),HTN, goal below 140/90 Take 1 Tablet by mouth in the morning and 1 Tablet before bedtime. Active Fluticasone Propionate 50 MCG/ACT Nasal Suspension (Flonase)Indicatio ns:Chronic maxillary sinusitis ADMINISTER INTO EACH NOSTRIL 2 SPRAYS IN THE MORNING. 48 mL 1 05/13/19 23 Active Additional Information Patient taking differently:2 [place] Each NostrilDAILY PRN, Reported on 01/23/2024 Famotidine [...] in situ,Non-ischemic cardiomyopathy (HCC),Coronary artery disease involving [place] coronary artery of [place] heart without angina pectoris,Dyslipide laura, goal LDL [...] ions:COPD, group B, by GOLD 2017 classification ([facility]) TAKE 4 TABS BY MOUTH DAILY X4 [...] EVERY DAY 90 Tablet 02/17/19 25 Active HYDROcodone-Acetam inophen 7.5-325 MG Oral TabletIndications: Acute bilateral low back pain with right-sided sciatica Take 1 Tablet by mouth every 6 hours as needed (pain). 120 Tablet 03/22/19 25 Active Xolair 150 MG/ML Subcutaneous Solution Prefilled Syringe (Omalizumab) Inject 300 mg (2 syringes) under the skin every 4 weeks. APPROVED GOOD 03/19/24-03/21/25 2 mL 11 5 11:51 AM EST 03/21/19 25 Active Warfarin Sodium 2.5 MG Oral Tablet (Coumadin)Indicati ons:Atrial fibrillation (HCC) Take 1 Tablet by mouth in the morning. Or as directed by coag clinic. 90 Tablet 3 04/17/19 25 Active documented as of this encounter (statuses as of 04/16/2024) Active Problems Problem Noted Date Diagnosed Date [...] Tachy-starla syndrome 10/08/2020 Bronchiectasis with acute exacerbation At risk for obstructive sleep apnea 10/08/2020 [...] Overview (01/22/2009): Per Lipid Taxonomy. CORON ATHEROSCL [place] CORON VESSEL 12/06/2008 Overview (12/06/2008): 50% LAD Stenosis by cardiac catheterization November, Paroxysmal atrial fibrillation 11/28/2008 MEDICATION USE AGREEMENT documented as of this encounter (statuses as of 04/16/2024) Resolved Problems Problem Noted Date Diagnosed Date [...] 11/28/2008 ACTIVE CASE MANAGEMENT- Lu Stewart RN [phone] 04/10/2007 11/24/2009 ADVANCE DIRECTIVE INFORMATION 07/30/2004 03/03/2017 Overview (07/30/2004): given Asthma, allergic 10/16/2002 07/31/2009 Overview (04/27/2007): 04/27/2007- COPD rescue kit ordered today. CHRONIC OBSTRUCTIVE ASTHMA ( WITH OBSTRUCTIVE PULMONARY DISEASE); WITH STATUS A 10/16/20022011 documented as of this encounter (statuses as of 04/16/2024) Immunizations Name Administration Dates Next Due COVID-19 [...] on file documented as of this encounter Plan of Treatment Upcoming Encounters Date Type Department Care Team (Late st Contact Info) Description 04/19/2024 6:15 AM EDT Anticoagulation Centralized Clinical Pharmacy Services, Dalton Bishop [address] [place] [address] [place] [address] [facility], [address] [place] [address] 05/10/2024 1:40 PM EDT Office Visit General Internal Medicine [facility] [address] [place] [address] Paris Lizama MD [address] [place] [address] 05/11/2024 11:00 AM EDT Office Visit Cardiology, [facility] [address] [place] [address] Shade Paredes PA-C [address] [place] [address] 01/18/2025 2:00 PM EST Office Visit Nephrology, [facility] [address] [place] [address] Iris Lucero MD [address] [place] [phone] Pending Results Name Type Priority Associated Diagnoses Date /Time PT INR Lab Routine Anticoagulation management encounter 04/16/2024 12:47 PM EDT Scheduled Procedures Name Priority Associated Diagnoses Date/Ti me COLONOSCOPY FLEXIBLE PROXIMAL DIAGNOSTIC Recall History of colon polyps Health Maintenance Due Date Last Done Comments Fecal Occult Blood Test 12/28/1995 Sigmoidoscopy 12/28/1995 Adult Wellness Visit 2016 Cologuard 12/11/2021 12/11/2018, 11/07, 11/20/2018, Additional history exists COVID-19 Vaccine ( season) 2023 07/21/2020, 06/21/2020 Colonoscopy 01/17/2024 01/16/2019, 01/16/2019 Colorectal Cancer Screening 01/17/2024 CKD HGB USE SMARTSET 61881 04/13/202404/13, 04/14/2023, 05/11/2022, Additional history exists CKD PHOS USE SMARTSET 31881 04/13/2024 03/0 08/2023, 12/09/2022, 09/24/2022, Additional history [...] as of this encounter Visit Diagnoses Diagnosis Anticoagulation management encounter Encounter for therapeutic drug monitoring documented in this encounter Care Teams Dope Mixer Relationship Specialty Start Date End Date Paris Lizama MD [address] [facility] [place] [address] PCP - General 03/28/08 documented as of this encounter
--- OUTSIDE RECORDS SUMMARY | 2024-04-27 12:33 | External Medical Summary ---
Author Name Unknown Address Unknown Organization K01:[facility] - [address] [place] [address] Laboratory Report Ordering Provider Test Date Status SANDRA WILLIS 04/16/2024 12:47:11 Final Standing order for pt/inr. < br/>Please draw pt/inr every 1 to 4 weeks as requested
Results to [facility]

Warfarin Therapy
INR: 2.0-3.0 conventional anticoagulation
INR: 2.5-3.5 high intensity anticoagulation Observation Date Value Abnormality Reference (Units ) Status PT 04/16/2024 12:47:11 26.1 Above high normal 11 .6-15.2 (seconds) Final INR 04/16/2024 12:47:11 2.4 Above high normal 0. 8-1.2 Final Performing Location [facility] [place] - [address] [place] [address]
--- OUTSIDE RECORDS SUMMARY | 2024-04-27 12:33 | External Medical Summary | Summary of Care ---
Author Name Unknown Organization [facility] Address [address] [place] [address] Phone [phone] Care Team Providers Care Combiner Operator Name Role Phone Paris Liazma MD Primary Care Provider + Reason for Visit * Reason Onset Date Comments Medication Refill 04/13/2024 Encounter Details Date Type Department Care Team (Late st Contact Info) Description 04/13/2024 Refill General Internal Medicine [facility] [address] [facility] [place] [address] Paris Lizama MD [address] [facility] [place] [address] Atrial fibrillation (HCC) Allergies Active Allergy Reactions Criticality Noted Date [...] DAY 1 Inhaler 5 11/12/19 17 [address] Trail-3 Fatty Acids (FISH OIL) 1000 MG Capsule Take 1 Capsule by mouth in the morning. Active Trelegy Ellipta 200-62.5-25 MCG/INH Aerosol Powder Breath Activated USE 1 INHALATION DAILY 10/04/19 21 Active hydrALAZINE HCl 25 MG Oral Tablet (Apresoline)Indica tions:Hyperkalemia ,Paroxysmal atrial fibrillation (HCC),Tachy-starla syndrome (HCC),Cardiac pacemaker in situ,Non-ischemic cardiomyopathy (HCC),Coronary artery disease involving [place] coronary artery of [place] heart without angina pectoris,Dyslipide laura, goal LDL below 70,GREGG (obstructive sleep apnea),HTN, goal below 140/90 Take 1 Tablet by mouth in the morning and 1 Tablet before bedtime. Active Fluticasone Propionate 50 MCG/ACT Nasal Suspension (Flonase)Indicatio ns:Chronic maxillary sinusitis ADMINISTER INTO EACH NOSTRIL 2 SPRAYS IN THE MORNING. 48 mL 1 05/13/19 23 Active Additional Information Patient taking differently:2 [place] Each NostrilDAILY PRN, Reported on 01/23/2024 Famotidine [...] in situ,Non-ischemic cardiomyopathy (HCC),Coronary artery disease involving [place] coronary artery of [place] heart without angina pectoris,Dyslipide laura, goal LDL [...] ions:COPD, group B, by GOLD 2017 classification ([facility]) TAKE 4 TABS BY MOUTH DAILY X4 [...] clinic. 90 Tablet 3 04/17/19 25 Active Warfarin Sodium 2.5 MG Oral Tablet (Coumadin)Indicati ons:Atrial fibrillation (HCC) TAKE 1 TABLET BY MOUTH IN THE MORNING. OR DIRECTED BY COAG CLINIC. 30 Tablet 11 02/11/19 25 025 Discontin ued(Refil l) documented as [...] Overview (01/22/2009): Per Lipid Taxonomy. CORON ATHEROSCL [place] CORON VESSEL 12/06/2008 Overview (12/06/2008): 50% LAD [...] 11/28/2008 ACTIVE CASE MANAGEMENT- Lu Stewart RN [phone] 04/10/2007 11/24/2009 ADVANCE DIRECTIVE INFORMATION 07/30/2004 03/03/2017 [...] encounter Miscellaneous Notes * Telephone Encounter - Zohaib Tompkins RPh - 04/16/2024 12:37 PM EDTSigned Prescriptions: Disp Refills Warfarin Sodium 2.5 MG Oral Tablet (Coumad*90 Tab*3 Sig: Take 1Tablet by mouth in the morning. Or as directed by [facility].Authorizing Provider: PARIS LIZAMA User: ZOHAIB NO V * Telephone Encounter - Paris Lizama MD - 04/15/2024 3:33 PM EDT Pending Prescriptions: Disp Refills Warfarin Sodium 2.5 MG Oral Tablet (Coumad*90 Tab*3 Sig: Take 1 Tablet by mouth in the morning. Or as directed by [facility]. * Telephone Encounter - Marcela Preciado LPN - 04/13/2024 3:13 PM ESTPending Prescriptions: Disp Refills Warfarin Sodium 2.5 MG Oral Tablet (Coumad*90 Tab*3 Sig: Take 1 Tablet by mouth in the morning. Or as directed by [facility]. * Telephone Encounter - Lashawn Carolina, GREGG - 04/13/2024 9:55 AM EST PHARMACY REQUESTING 90 DAY SUPPLY ending Prescriptions: Disp Refills Warfarin Sodium 2.5 MG Oral Tablet (Couma*30 Tab*11 Sig: Take 1 Tablet by mouth in the morning. Or as directed by [facility]. Last Visit: 10/20/2023 (in office), 05/25/2019 (telemedicine) Next Visit: 05/10/2024 Last date the medication was ordered: 02/12/2024 Patient Active Problem List Diagnosis MEDICATION USE AGREEMENT Paroxysmal atrial fibrillation (HCC) CORON ATHEROSCL [place] CORON VESSEL DYSLIPIDEMIA, GOAL LDL BELOW 100 History of nonadherence to medical treatment Mixed rhinitis GERD (gastroesophageal reflux disease) Asthma, severe persistent HTN, goal below 150/90 Non-ischemic cardiomyopathy (HCC) Emphysema, unspecified (HCC) COPD, group B, by GOLD 2017 classification (HCC) Hypertensive kidney disease with stage 3a chronic kidney disease (HCC) Chronic kidney disease, stage 3a (HCC) Class 2 severe obesity due to excess calories with serious comorbidity and body mass index (BMI) of36.0 to 36.9 in adult (HCC) Tachy-starla syndrome (HCC) Bronchiectasis with acute exacerbation (HCC) At risk for obstructive sleep apnea Chronic bilateral back pain Obstructive sleep apnea of adult Nocturnal hypoxemia due to obesity Morbid (severe) obesity due to excess calories (HCC) Renal osteodystrophy Depression Labs: Lab Results Component Value Date/Time CREATININE - [facility] 1.3 (H) 01/23/2024 01:35 PM CREATININE - [facility] 1.3 (H) 01/24/2020 02:23 PM CREATININE JOSE E 229 01/24/2020 02:31 PM CREATININE JOSE E - [facility] 283 04/14/2023 10:30 AM CREATININE, RANDOM URINE - [facility] 125 10/20/2023 02:35 PM CREATININE, RANDOM URINE - [facility] 27 03/01/2019 01:57 PM Lab Results Component Value Date/Time POTASSIUM - [facility] 4.4 01/23/2024 01:35 PM POTASSIUM - [facility] 4.3 01/24/2020 02:23 PM Lab Results Component Value Date/Time TSH - [facility] 2.50 11/11/2021 01:55 PM TSH - [facility] 0.91 07/09/2019 02:13 PM Lab Results Component Value Date/Time LDL CHOLESTEROL (CALCULATED) - [facility] 60 11/11/2021 01:55 PM LDL CHOLESTEROL (CALCULATED) - [facility] 35 07/31/2020 02:00 PM LDL CHOLESTEROL (CALCULATED) - [facility] 63 03/04/2017 10:22 AM LDL CHOLESTEROL (CALCULATED) - [facility] 43 08/24/2012 11:56 AM LDL CHOLESTEROL (DIRECT MEASURE) - [facility] 65 03/21/2024 12:20 PM LDL CHOLESTEROL (DIRECT MEASURE) - [facility] 89 12/09/2022 03:30 PM LDL CHOLESTEROL (DIRECT MEASURE) - [facility] 56 07/09/2019 02:13 PM LDL CHOLESTEROL (DIRECT MEASURE) - [facility] 82 05/02/2018 11:47 AM Lab Results Component Value Date/Time ALT - [facility] 36 08/23/2022 01:17 PM ALT - [facility] 25 01/24/2020 02:23 PM Hemoglobin AIC Results: Lab Results Component Value Date/Time HEMOGLOBIN A1C - [facility] 5.9 (H) 05/11/2022 04:19 PM HEMOGLOBIN A1C - [facility] 6.1 (H) 03/19/2022 09:32 AM HEMOGLOBIN A1C - [facility] 5.7 (H) 06/19/2021 01:28 PM HEMOGLOBIN A1C - [facility] 5.8 (H) 01/24/2020 02:23 PM HEMOGLOBIN A1C - [facility] 6.0 (H) 07/09/2019 02:13 PM HEMOGLOBIN A1C - [facility] 5.8 (H) 11/24/2018 03:04 PM documented in this encounter Plan of Treatment Upcoming Encounters Date Type Department Care Team (Late st Contact Info) Description 04/19/2024 6:15 AM EDT Anticoagulation Centralized Clinical Pharmacy Services, Dalton Bishop [address] [place] [address] [place] [address] [facility], [facility] [address] [place] [address] 05/10/2024 1:40 PM EDT Office Visit General Internal Medicine [facility] [address] [place] [address] Paris Lizama MD [address] [facility] [place] [address] 05/11/2024 11:00 AM EDT Office Visit Cardiology, [facility] [address] [place] [address] Shade Paredes PA-C [address] [facility] [place] [address] 01/18/2025 2:00 PM EST Office Visit Nephrology, [facility] [address] [place] [address] Iris Lucero MD [address] [place] [phone] Scheduled Procedures Name Priority Associated Diagnoses Date/Ti me COLONOSCOPY FLEXIBLE PROXIMAL DIAGNOSTIC Recall History of colon polyps Health Maintenance Due Date Last Done Comments Fecal Occult Blood Test 12/28/1995 Sigmoidoscopy 12/28/1995 Adult Wellness Visit 2016 Cologuard 12/11/2021 12/11/2018, 11/07, 11/20/2018, Additional history exists COVID-19 Vaccine ( season) 2023 07/21/2020, 06/21/2020 Colonoscopy 01/17/2024 01/16/2019, 01/16/2019 Colorectal Cancer Screening 01/17/2024 CKD HGB USE SMARTSET 77086 04/13/202404/13, 04/14/2023, 05/11/2022, Additional history exists CKD PHOS USE SMARTSET 44858 04/13/2024 03/0 08/2023, 12/09/2022, 09/24/2022, Additional history [...] as of this encounter Visit Diagnoses Diagnosis Atrial fibrillation (HCC) Atrial fibrillation documented in this encounter Care Teams Combiner Operator Relationship Specialty Start Date End Date Paris Lizama MD [address] [place] [address] PCP - General 03/28/08 documented as of this encounter
--- OUTSIDE RECORDS SUMMARY | 2024-04-27 12:33 | External Medical Summary | Summary of Care ---
Author Name Unknown Organization [facility] Address [address] [facility] [address] Phone [phone] Care Team Providers Care Transfer Coordinator Name Role Phone Paris Lizama MD Primary Care Provider + Reason for Visit * Reason Comments Dosage Adjustment Via Phone (anticoag Cl inic) Encounter Details Date Type Department Care Team ([facility] st Contact Info) Description 04/18/2024 6:15 AM EDT Anticoagulation Centralized Clinical Pharmacy Services, Dalton Bishop [address] [place] [address] [place] [address] [place] [address] Paroxysmal atrial fibrillation (HCC)* Allergies Active Allergy Reactions Criticality Noted Date [...] DAY 1 Inhaler 5 11/12/19 17 Active [place]-3 Fatty Acids (FISH OIL) 1000 MG Capsule Take 1 Capsule by mouth in the morning. Active Trelegy Ellipta 200-62.5-25 MCG/INH Aerosol Powder Breath Activated USE 1 INHALATION DAILY 10/04/19 21 Active hydrALAZINE HCl 25 MG Oral Tablet (Apresoline)Indica tions:Hyperkalemia ,Paroxysmal atrial fibrillation (HCC),Tachy-starla syndrome (HCC),Cardiac pacemaker in situ,Non-ischemic cardiomyopathy (HCC),Coronary artery disease involving [place] coronary artery of [place] heart without angina pectoris,Dyslipide laura, goal LDL below 70,GREGG (obstructive sleep apnea),HTN, goal below 140/90 Take 1 Tablet by mouth in the morning and 1 Tablet before bedtime. Active Fluticasone Propionate 50 MCG/ACT Nasal Suspension (Flonase)Indicatio ns:Chronic maxillary sinusitis ADMINISTER INTO EACH NOSTRIL 2 SPRAYS IN THE MORNING. 48 mL 1 05/13/19 23 Active Additional Information Patient taking differently:2 [place] Each NostrilDAILY PRN, Reported on 01/23/2024 Famotidine [...] in situ,Non-ischemic cardiomyopathy (HCC),Coronary artery disease involving [place] coronary artery of [place] heart without angina pectoris,Dyslipide laura, goal LDL [...] ions:COPD, group B, by GOLD 2017 classification ([facility]) TAKE 4 TABS BY MOUTH DAILY X4 [...] clinic. 90 Tablet 3 04/17/19 25 Active HYDROcodone-Acetam inophen 7.5-325 MG Oral TabletIndications: Acute bilateral low back pain with right-sided sciatica Take 1 Tablet by mouth every 6 hours as needed (pain). 120 Tablet 04/19/19 25 Active documented as of this encounter [...] Overview (01/22/2009): Per Lipid Taxonomy. CORON ATHEROSCL [place] CORON VESSEL 12/06/2008 Overview (12/06/2008): 50% LAD [...] 11/28/2008 ACTIVE CASE MANAGEMENT- Lu Stewart RN [phone] 04/10/2007 11/24/2009 ADVANCE DIRECTIVE INFORMATION 07/30/2004 03/03/2017 [...] on file documented as of this encounter Progress Notes * Eduarda Ken RPh - 04/18/2024 3:55 PM EDT Contacts Contact Date/Time Type Contact Phone/Fax 04/18/2024 11:52 AM EDT Phone (Outgoing) Randy Springer (Self) [phone] (H) Left Message - Left generic message. 04/18/2024 12:16 PM EDT Phone (Outgoing) Randy Springer (Self) [phone] (H) No Answer/Busy - no id on vm 04/18/2024 03:15 PM EDT Phone (Outgoing) Randy Springer (Self) [phone] (H) No Answer/Busy - No identifier on VM 04/18/2024 03:54 PM EDT Phone (Outgoing) Randy Springer (Self) [phone] (H) Left Message ADVISED TO ADD NAME TO VM Subjective Advised patient to contact Anticoagulation Clinic if any unusual bruising or bleeding, recent illness, changes in medication, or questions/concerns. PT/INR results, Coumadin dose instructions, and next PT/INR date communicated as noted by Pharmacist: Yes Eduarda Ken RPh 04/18/2024, 3:55 PM * Rylie Lyons [facility] - 04/18/2024 3:15 PM EDT Contacts Contact Date/Time Type Contact Phone/Fax 04/18/2024 11:52 AM EDT Phone (Outgoing) Randy Springer (Self) [phone] (H) Left Message - Left generic message. 04/18/2024 12:16 PM EDT Phone (Outgoing) Randy Springer (Self) [phone] (H) No Answer/Busy - no id on vm 04/18/2024 03:15 PM EDT Phone (Outgoing) Randy Springer (Self) [phone] (H) No Answer/Busy - No identifier on VM Unable to contact patient or leave message. MyG: no Please follow-up later. Thank you, Rylei Lyons CPhT Employee Placement Specialist II Centralized Clinical Pharmacy Services ([facility]) 04/18/2024,3:15 PM * Eduarda Ken RPh - 04/18/2024 9:35 AM EDT Coumadin Clinic (region specific) Objective Current Warfarin Dose As of 04/18/2024 Warfarin maintenance plan: 0 mg every Tue; 2.5 mg (2.5 mg x 1) all other days INR Result As of 04/18/2024 INR goal: 2.0-3.0 INR used for dosin.4 (04/16/2024) Assessment & Plan Warfarin Plan As of 04/18/2024 Full warfarin instructions: 0 mg every Tue; 2.5 mg all other days No change documented: Eduarda Ken RPh Next INR check: 05/14/2024 Repeat PT/INR in 4 week(s) Weekly dose: not changed Additional Dosing Information: Description [facility] to contact patient with dose instructions as noted. Eduarda Ken RPh 04/18/2024, 9:35 AM documented in this encounter Plan of Treatment Upcoming Encounters Date Type Department Care Team (Late st Contact Info) Description 05/10/2024 1:40 PM EDT Office Visit General Internal Medicine [place] [facility] [place] [address] [place] [address] Paris Lizama MD [address] [place] [address] 05/11/2024 11:00 AM EDT Office Visit Cardiology, [facility] [address] [place] [address] Shade Paredes PA-C [address] [place] [address] 05/15/2024 6:15 AM EDT Anticoagulation Centralized Clinical Pharmacy Services, [address] [place] [address] [facility], [address] [place] [address] 01/18/2025 2:00 PM EST Office [address]phrology, [address] [address] Iris Lucero MD [address] [facility] [place] [phone] Scheduled Procedures Name Priority Associated Diagnoses Date/Ti me COLONOSCOPY FLEXIBLE PROXIMAL DIAGNOSTIC Recall History of colon polyps Health Maintenance Due Date Last Done Comments Fecal Occult Blood Test 12/28/1995 Sigmoidoscopy 12/28/1995 Adult Wellness Visit 2016 Cologuard 12/11/2021 12/11/2018, 11/07, 11/20/2018, Additional history exists COVID-19 Vaccine ( season) 2023 07/21/2020, 06/21/2020 Colonoscopy 01/17/2024 01/16/2019, 01/16/2019 Colorectal Cancer Screening 01/17/2024 CKD HGB USE SMARTSET 25964 04/13/202404/13, 04/14/2023, 05/11/2022, Additional history exists CKD PHOS USE SMARTSET 60911 04/13/2024 03/08/2023, 12/09/2022, 09/24/2022, Additional history exists GFR 07/23/2024 [...] as of this encounter Visit Diagnoses Diagnosis Paroxysmal atrial fibrillation (HCC)- Primary Atrial fibrillation documented in this encounter Care Teams Transfer Coordinator Relationship Specialty Start Date End Date Paris Lizama MD [address] [place] [address] PCP - General 03/28/08 documented as of this encounter
[2024-04-27] MEDS: DOXYCYCLINE HYCLATE 100 MG CAP PO STA (13:21)
[2024-04-27] MEDS: POTASSIUM CHLORIDE CRTAB 20 MEQ TABCR PO STA ×2 (13:21→17:12)
[2024-04-27] MEDS: MAGNESIUM SULFATE / D5W 1 GM/100 ML BAG IV ONE (13:21)
[2024-04-27] MEDS: METOPROLOL TARTRATE 25 MG TAB PO STA (13:21)
[2024-04-27] MEDS: SODIUM CHLORIDE 0.9% 500 ML IV ONE (14:23)
[2024-04-27 15:13] LABS: Appearance Urine Clear (Clear); Bacteria Urine Automated None Seen (None Seen); Bilirubin Urine Negative (Negative); Blood Urine Negative (Negative); Cast Urine Automated 0-2 /lpf (0-2); Color Urine Yellow; Epithelial Cell Urine Auto 0-2 /hpf (0-2); Glucose Urine UA Negative (Negative); Ketones Urine Negative (Negative); Leukocyte Esterase Urine 2+ (Negative); Nitrite Urine Negative (Negative); Protein Urine Trace (Negative); RBC Urine Automated 0-2 /hpf (0-2); Specific Gravity Urine 1.015 (1.000-1.030); Urobilinogen Urine Negative (Negative)
--- NOTE | 2024-04-27 16:05 | Cardiology Consultation ---
Date of Consultation April 27, 2024 Assessment & Plan (1) Acute hypoxemic respiratory failure: (2) Acute on chronic heart failure with preserved ejection fraction: (3) Pneumonia: (4) Atrial fibrillation with RVR: Plan Patient admitted with multifactorial SOB, acute on chronic respiratory failure with hypoxia secondary to HFpEF, possible underlying pneumonia vs asthma exacerbation. Started on IV steroids, antibiotics and nebulizer treatments per hospitalist. Patient appears markedly volume overloaded. Recommend IV furosemide - 40 mg IV x 1 dose now. Monitor electrolytes and renal function. Daily weight with standing scale. Based on response, likely need furosemide 40 mg IV BID for several days. Echo during this admission with preserved LVEF. HS troponin negative. Persistent afib, at least for the last few months and increasing burden since then. Amio stopped last year due to concerns for pulm toxicity. Increase metoprolol succinate to 25 mg BID and continue to titrate as needed. (Patient has been likely non compliant with oral metoprolol tartrate at home) Patient on chronic diltiazem oral at home. Consider weaning dose and stopping while increasing beta kenyon as this is likely contributing to his LE edema. Continue warfarin for anticoagulation. Case discussed with Dr. Lara I spent a total of 60minutes on the date of service in preparation, delivery, and documentation of the care provided to this patient, excluding any time spent in the performance of separately billed services. Ayala Chester PA-C Department of Cardiology, [facility] This chart was completed in part utilizing Speech Voice Recognition Software. Grammatical errors, random word insertions, pronoun errors, and incomplete sentences are an occasional consequence of this system due to software limitations, ambient noise, and hardware issues. Any formal questions or concerns about the content, text, or information contained within the body of this dictation should be directly addressed to the provider for clarification. Supervising Physician Co-Signing Physician Notes I have personally performed a history and physical examination on the patient. I have reviewed the advance practitioner's documentation, and I agree with, and take responsibility for the plan of care. 73-year-old patient admitted with acute on chronic heart failure with preserved ejection fraction and persistent atrial fibrillation with rapid ventricular response. Recommend IV diuresis with furosemide 40 mg twice daily. Monitor fluid balance, daily weight, GFR, and electrolytes. Titrate metoprolol to 25 mg twice daily. Utilizing chronic diltiazem at home. Consider weaning off diltiazem with titration of beta-kenyon during hospitalization to improve control of chronic edema. Continue warfarin anticoagulation. Thank you for allow me to participate in care of your patient. I spent a total of 30 minutes on the date of service in preparation, delivery, and documentation of the care provided to this patient, excluding any time spent in the performance of separately billed services. Magdaleno Lara DO, [facility] History of Present Illness Reason for Consultation: CHF; AFib RVR Requesting Physician: Nikhil hospitalist Attending Physician: Dr. Lara History of Present Illness Patient is a complex 73 year old male admitted to [facility] with worsening SOB. Found to have afib RVR in the 170's. Also diagnosed with possible pneumonia vs asthma exacerbation. Treated with IV diltiazem initially. Compliance with home meds questioned. HR's improved with his oral metoprolol and oral Cardizem. Pacemaker was interrogated - discussed with [employer] rep. He has been in persistent afib for the last few months with variable HR's. Mostly elevated. Afib burden was 100% recently. In Jan interrogation afib burden was about 60% Started on IV antibiotics and IV steroids on admission. He has significant LE edema. Patient does not weigh himself but admits to significant weight gain. Ongoing SOB. he had chest pain yesterday but now improved. HS troponin negative on admission. History is complex: 1. Nonischemic cardiomyopathy 2. Nonobstructive coronary artery disease via prior catheterization at [facility] in January 2014, 50% mid LAD stenosis unchanged compared to 2008 3. Paroxysmal atrial fibrillation 4. Prescribed amiodarone since September 2011, discontinued May 2023 5. Status post atrial flutter ablation in July 2009 6. Tachy-Michael Syndrome, status post dual chamber permanent pacemaker 01/07/[address] Swain at [facility] 7. Diastolic congestive heart failure 8. Enlarged aortic root 9. Hypertension 10. Dyslipidemia 11. Stage 3 chronic kidney disease 12. Severe persistent asthma, moderate environmental allergies, end-stage lung disease from untreated asthma for many years 13. Severe obstructive sleep apnea and nocturnal hypoxemia, untreated 14. GERD 15. Prediabetes 16. History of non adherence to medical treatment Allergies Allergy/AdvReac Type Severity Reaction Status Date / Time cat dander Allergy Intermediate SNEEZING, Verified 04/27/24 12:27 CONGESTION pollen extracts Allergy Intermediate SNEEZING, Verified 04/27/24 12:27 CONGESTION morphine Allergy Unknown Verified 04/27/24 12:27 Home Medications Medication Instructions Recorded Confirmed Type cetirizine 10 mg tablet 10 mg PO QAM 09/18/18 04/27/24 History montelukast 10 mg tablet 10 mg PO QAM 09/18/18 04/27/24 History omeprazole 20 mg capsule,delayed 20 mg PO DAILYBB 09/18/18 04/27/24 History release warfarin 2.5 mg tablet 2.5 mg PO 6XWK 05/21/20 04/27/24 History diltiazem HCl 240 mg 240 mg PO PM #30 caps 05/23/20 04/27/24 Rx capsule,extended release 24 hr atorvastatin 80 mg tablet 80 mg PO QAM 09/30/20 04/27/24 History metoprolol tartrate 25 mg tablet 25 mg PO TID 03/01/21 04/27/24 History aluminum-mag hydroxide-simethicone 15 ml PO Q6 PRN indigestion or 09/30/21 04/27/24 History 400 mg-400 mg-40 mg/5 mL oral susp epigastric burning fluticasone propionate 50 2 spray intranasal QAM 09/30/21 04/27/24 History mcg/actuation nasal spray,suspension cholecalciferol (vitamin D3) 25 25 mcg PO QAM 03/17/22 04/27/24 History mcg (1,000 unit) tablet (Vitamin D3) doxycycline hyclate 100 mg capsule 100 mg PO BID PRN rescue kit 03/17/22 04/27/24 History furosemide 20 mg tablet 20 mg PO 3XWK 03/17/22 04/27/24 History albuterol sulfate 2.5 mg/3 mL See Rx Instructions .Route 08/08/23 04/27/24 Rx (0.083 %) solution for nebulization .COMPLEX #180 mL ipratropium 20 mcg-albuterol 100 See Rx Instructions .Route 10/03/23 04/27/24 Rx mcg/actuation mist for inhalation .COMPLEX #4 grams (Combivent Respimat) prednisone 10 mg tablet See Rx Instructions .Route 04/24/24 04/27/24 Rx .COMPLEX #40 tabs albuterol sulfate 90 mcg/actuation 2 puff inhalation Q4H PRN 04/27/24 04/27/24 History aerosol inhaler Wheezing/SOB fluticasone fur. 200 mcg-umeclid 1 inh inhalation DAILY 04/27/24 04/27/24 History 62.5 mcg-vilant 25 mcg inhalat.powder (Trelegy Ellipta) omalizumab 150 mg/mL subcutaneous 300 mg subcut MONTHLY 04/27/24 04/27/24 History syringe (Xolair) sertraline 25 mg tablet 25 mg PO QAM 04/27/24 04/27/24 History Patient History Medical History Hx of gastric ulcer On anticoagulant therapy History of COVID-19 treated at [facility] in 2021. no ventilator On home oxygen therapy 2lpm via n/c Chronic obstructive pulmonary disease Asthma Hx of medication noncompliance CKD (chronic kidney disease), stage III Chronic diastolic heart failure Severe obstructive sleep apnea Tachy-michael syndrome Chronic back pain Paroxysmal atrial fibrillation managed with medication, follows with Dr Meliza REED (hyperlipidemia) HTN (hypertension) Severe persistent asthma, poorly-controlled Coronary artery disease nonobstructive CAD Surgical History History of right cataract surgery S/P cardiac pacemaker procedure (01/2021) [employer] History of colonoscopy History of esophagogastroduodenoscopy (EGD) H/O hernia repair right inguinal hernia repair S/P cholecystectomy S/P appendectomy Family History Other Asthma No family history of adverse response to anesthesia Social History Smoking Status: Never smoker Second Hand Exposure: No; Do You Dip or Chew Tobacco: No; Hx Alcohol Use: Yes (occasionally) Alcohol type: wine Alcohol Intake Frequency: Monthly or Less Hx Substance Use: No Preferred Language: Cymro Communication Ability: Effective Recording Artist Required: No Beliefs That Will Affect Care: None marital status: Current Living Situation: Other Current Living Situation Comment: 2 sons and 1 sons gf current occupational status: disabled How many Children do You have: 2 Feels Safe at Home: Yes Assistive Devices: Glasses Review of Systems Review of Systems: All systems reviewed & are unremarkable except as noted in HPI & below Physical Exam Constitutional: WD/WN, vitals as above + morbidly obese and + disheveled Respiratory: + tachypneic Auscultation: + diminish ed lung sounds, + rales and + wheezes Cardiovascular: Rate/Rhythm: + tachycardic and + irregularly irregular Heart Sounds: normal S1 and normal S2; no murmur Vessels: no JVD Extremities: + edema (2-3+) Gastrointestinal (Abdomen): normal bowel sounds, soft, nontender, no hepatosplenomegaly Musculoskeletal: no cyanosis or clubbing, extremities motor strength 5/5 Results & Data Vital Signs (Past 12 Hours) Vital Signs Temp Pulse Pulse Resp BP BP Pulse Ox 04/27/24 14:45 96 H 20 109/77 94 04/27/24 13:23 102 H 04/27/24 13:15 105 H 22 121/73 94 04/27/24 12:22 103 H 19 135/76 94 04/27/24 11:25 129 H 20 135/90 93 04/27/24 10:22 152 H 22 136/81 93 04/27/24 10:13 91 04/27/24 09:51 92 04/27/24 09:36 161 H 04/27/24 09:29 04/27/24 09:29 36.9 C 145 H 22 122/94 92 O2 Del Method O2 Flow Rate 04/27/24 14:45 Nasal Cannula 2 04/27/24 13:23 04/27/24 13:15 Nasal Cannula 2 04/27/24 12:22 Nasal Cannula 2 04/27/24 11:25 Nasal Cannula 3 04/27/24 10:22 Nasal Cannula 3 04/27/24 10:13 Room Air 04/27/24 09:51 Room Air 04/27/24 09:36 04/27/24 09:29 Room Air 04/27/24 09:29 Room Air Laboratory Results Cardiac Enzymes 04/27/24 Range/Units 09:25 AST 15 (13-39) U/L Troponin I High Sens 9.2 (0-20) pg/ml B-Natriuretic Peptide 86 (0-100) pg/ml Coagulation 04/27/24 Range/Units 09:25 PT 25.2 H (9.0-12.0) Seconds APTT 33 H (21-31) Seconds B-Natriuretic Peptide 86 (0-100) pg/ml CBC 04/27/24 Range/Units 09:25 WBC 11.20 H (4.8-10.8) K/ul RBC 4.76 (4.70-6.10) M/uL Hgb 13.5 L (14.0-18.0) g/dl Hct 41.6 L (42.0-52.0) % Plt Count 175 (130-400) K/uL Neut # (Auto) 9.76 H (1.40-6.50) K/uL Lymph # (Auto) 0.47 L (1.20-3.40) K/uL Dare # (Auto) 0.87 H (0.11-0.59) K/uL Eos # (Auto) 0.02 (0.00-0.50) K/uL Baso # (Auto) 0.02 (0.00-0.20) K/uL Comprehensive Metabolic Panel 04/27/24 Range/Units 09:25 Sodium 139 (136-145) mmol/L Potassium 3.7 (3.5-5.1) mmol/L Chloride 105 (98-107) mmol/L Carbon Dioxide 28 (21-32) mmol/L BUN 21 (6-23) mg/dl Creatinine 1.08 (0.6-1.4) mg/dl Glucose 143 H (70-99(Fasting)) mg/dl Calcium 8.6 (8.6-10.3) mg/dl AST 15 (13-39) U/L ALT 19 (7-52) U/L Alkaline Phosphatase 82 (34-104) U/L Total Protein 6.5 (6.0-8.3) gm/dl Albumin 3.8 (3.4-5.0) gm/dl Intake and Output 04/27/24 04/27/24 04/27/24 06:59 14:59 22:59 Intake Total 160.75 / 707.50 546.75 / 707.50 Balance 160.75 / 707.50 546.75 / 707.50 Intake: IV 160.75 / 707.50 546.75 / 707.50 Magnesium Sulfate / D5w 1 gm In 100 / 100 100 ml @ 50 mls/hr IV ONE ONE Rx#:[id number] Sodium Chloride 0.9% 500 ml @ 500 / 500 999 mls/hr IV .Q31M ONE Rx#: [id number] cefTRIAXone SODIUM 2,000 mg In 50 / 50 50 ml @ 100 mls/hr IV NOW STA Rx#:[id number] dilTIAZem HCL 125 mg In 10.75 / 57.50 46.75 / 57.50 Dextrose 5% 100 ml @ 5 MG/HR 5 mls/hr IV .Q24H [facility] Rx#: [id number] Other: Weight 120.9 kg Weight Measurement Method Built in [facility] Patient Weight 04/28/24 06:59 Weight 120.9 kg Diagnostic Findings Telemetry reviewed: persistent afib - elevated rates on admission, trending down with metoprolol and Cardizem EKG reviewed: Afib with RVR Non specific ST/T wave abnormality - diffuse. Pacemaker interrogation, reviewed by [employer] rep: Persistent afib for the last 2 months. Variable HR. Appropriate lead status and battery Echo reviewed from 04/27/24: LVEF at 55-60% Mild concentric LVH LA is mildly dilated mild TR No pulm hypertension LV systolic function has mildly improved Medications Administered Current Inpatient Medications Acetaminophen (Acetaminophen 325 Mg Tab) 650 mg PO Q4H PRN PRN Reason: Pain or Fever Stop: 05/27/24 15:49 Atorvastatin Calcium (Atorvastatin 40 Mg Tab) 80 mg PO QAM [facility] Stop: 05/28/24 08:59 Cetirizine HCl (Cetirizine Hcl 10 Mg Tablet) 10 mg PO QAM [facility] Stop: 05/28/24 08:59 Diltiazem HCl (Diltiazem Hcl 240 Mg Capcr) 240 mg PO PM [facility] Stop: 05/27/24 20:59 Doxycycline Hyclate (Doxycycline Hyclate 100 Mg Cap) 100 mg PO BID [facility] Stop: 05/02/24 20:59 Fluticasone Furoate (Fluticasone Furoate 200mcg 14 Puffs/Inhaler) 1 puffs INH DAILY WILLY Stop: 05/28/24 08:59 Fluticasone Propionate (Fluticasone Propionate Na Spr 16 Gm Btl) 2 sprays AMITA QAM [facility] Stop: 05/28/24 08:59 Guaifenesin (Guaifenesin 600 Mg Tabcr) 1,200 mg PO Q12 [facility] Stop: 05/27/24 20:59 Ceftriaxone Sodium (Rocephin) 2,000 mg in 50 mls @ 100 mls/hr IV Q24H [facility] Stop: 05/03/24 10:59 Levalbuterol HCl (Levalbuterol 1.25 Mg/3 Ml Neb) 1.25 mg NEB Q6R WILLY Stop: 05/27/24 18:59 Metoprolol Succinate (Metoprolol Succ 25mg Ext Rel Tab) 25 mg PO BID [facility]Y Stop: 05/27/24 20:59 Montelukast Sodium (Montelukast Sodium 10 Mg Tablet) 10 mg PO QAM [facility]Y Stop: 05/28/24 08:59 Pantoprazole Sodium (Pantoprazole 40 Mg Tab) 40 mg PO DAILY [facility]Y Stop: 05/28/24 08:59 Polyethylene Glycol (Polyethylene (Miralax) 17 Gm Pack) 17 gm PO DAILY PRN PRN Reason: Constipation Stop: 05/27/24 15:49 Prednisone (Prednisone 20 Mg Tab) 40 mg PO DAILY WILLY Stop: 05/28/24 08:59 Sertraline HCl (Sertraline Hcl 50 Mg Tablet) 25 mg PO QAM [facility] Stop: 05/28/24 08:59 Umeclidinium/Vilanterol (Umeclidinium/Vilanterol 62.5/25mcg 7 Puffs/Inhaler) 1 puffs INH DAILY [facility] Stop: 05/28/24 08:59 Vitamin D (Cholecalciferol 25 Mcg (1000 Units) Tab) 25 mcg PO QAM [facility] Stop: 05/28/24 08:59 Warfarin Sodium (Warfarin Sod 2.5 Mg Tab) 2.5 mg PO [id number] [facility] Stop: 05/27/24 15:49
[2024-04-27] MEDS: WARFARIN SOD 2.5 MG TAB PO SCH (17:11)
[2024-04-27] MEDS: FUROSEMIDE 40 MG/4 ML VIAL IV ONE (17:16)
[2024-04-27] MEDS ORDERED: METOPROLOL TARTRATE 25 MG TAB PO SCH (18:00)
[2024-04-27] MEDS: LEVALBUTEROL 1.25 MG/3 ML NEB NEB SCH (20:09)
[2024-04-27] MEDS: DOXYCYCLINE HYCLATE 100 MG CAP PO SCH (20:16)
[2024-04-27] MEDS: guaiFENesin 600 MG TABCR PO SCH (20:16)
[2024-04-27] MEDS: METOPROLOL SUCC 25MG EXT REL TAB PO SCH (20:16)
[2024-04-27] MEDS: dilTIAZem HCL 240 MG CAPCR PO SCH (20:16)
[2024-04-27] MEDS: STAT IV Infusion **Titration per Protocol STA (20:19)
--- NOTE | 2024-04-27 20:35 | Electrocardiogram Report ---
Test Reason : Blood Pressure : */* mmHG Vent. Rate : 174 BPM Atrial Rate : * BPM P-R Int : * ms QRS Dur : 94 ms QT Int : 242 ms P-R-T Axes : * 62 -76 degrees QTcB Int : 411 ms Atrial fibrillation with rapid ventricular response Nonspecific ST and T wave abnormality Abnormal ECG When compared with ECG of 30-Sep-2021 19:06, Atrial fibrillation has replaced Electronic atrial pacemaker Vent. rate has increased by [address] no longer elevated in Inferior leads ST now depressed in Lateral leads Nonspecific T wave abnormality now evident in Inferior leads Nonspecific T wave abnormality, worse in Anterolateral leads Confirmed by Nicola Goncalves ([id number]) on 04/27/2024 8:35:09 PM Referred By: Confirmed By: Nicola Goncalves
[2024-04-28] MEDS: methylPREDNISolone 40 MG in SYRINGE 0 ML IV ONE (01:09)
[2024-04-28] MEDS: MAGNESIUM SULFATE / D5W 1 GM/100 ML BAG IV ONE (01:10)
[2024-04-28] MEDS: METOPROLOL TARTRATE 1 MG/ML VIAL IV STA (01:23)
--- NOTE | 2024-04-28 03:26 | XRay Report ---
EXAM: XR chest 1V portable CLINICAL HISTORY: Shortness of breath. TECHNIQUE: X-ray of the chest 1 view: Frontal. COMPARISON: 09/30/2021 FINDINGS: Both costophrenic angles are not completely included in the image. Prominent bronchovascular markings mainly at both lower lung zones suggestive of lung congestion, please correlate clinically. Cardiomegaly. Dual-lead cardiac pacemaker was seen in the proper position. No focal consolidation. Normal mediastinal contour. IMPRESSION: 1. Prominent bronchovascular markings mainly at both lower lung zones suggestive of lung congestion, please correlate clinically. 2. Cardiomegaly. 3. No significant interval changes. Electronically signed by Niranjan Burger 04-28-2024 03:26 AM
[2024-04-28 07:09] LABS: Hematocrit (blood only) 39.7 % (42.0-52.0); Hemoglobin 12.8 g/dl (14.0-18.0); Mean Corpuscular Hemoglobin 28.4 pg (25.0-34.0); Mean Corpuscular Hgb Conc 32.2 g/dL (32.0-36.0); Mean Corpuscular Volume 88.2 fL (80.0-100.0); Mean Platelet Volume 10.4 fL (9.4-12.4); Platelet Count 172 K/uL (130-400); RDW Coefficient of Variation 15.9 % (11.5-14.5); RDW Standard Deviation 51.7 fL (36.4-46.3); White Blood Count 12.87 K/ul (4.8-10.8)
[2024-04-28 07:17] LABS: INR 1.6 (0.9-1.1)
[2024-04-28 07:38] LABS: Basophils # (auto) 0.01 K/uL (0.00-0.20); Basophils % (auto) 0.1 %; Immature Granulocytes # (auto) 0.07 K/uL (0.01-0.20); Immature Granulocytes % (auto) 0.5 %; Lymphocytes # (auto) 0.42 K/uL (1.20-3.40); Lymphocytes % (auto) 3.3 %; Monocytes # (auto) 0.47 K/uL (0.11-0.59); Monocytes % (auto) 3.7 %; Neutrophils % (auto) 92.4 %; Potassium 4.8 mmol/L (3.5-5.1)
[2024-04-28 07:39] LABS: BUN Creatinine Ratio 22.4 (10-20); Calcium 9.2 mg/dl (8.6-10.3); Creatinine Clr Calc Pharmacy 65.3 ml/min; Magnesium 2.4 mg/dl (1.7-2.4)
[2024-04-28 07:49] LABS: Estimated Average Glucose 134 mg/dl; Hemoglobin A1C 6.3 % (4.5-5.6)
--- NOTE | 2024-04-28 08:04 | Electrocardiogram Report ---
Test Reason : Blood Pressure : */* mmHG Vent. Rate : 84 BPM Atrial Rate : * BPM P-R Int : * ms QRS Dur : 96 ms QT Int : 368 ms P-R-T Axes : * 47 28 degrees QTcB Int : 434 ms Atrial fibrillation Abnormal ECG When compared with ECG of 27-Apr-2024 09:23, Vent. rate has decreased by [address] and T wave abnormality no longer present Confirmed by Bart Galloway ([id number] on 04/28/2024 8:04:28 AM Referred By: REFERRED SELF Confirmed By: Bart Galloway
[2024-04-28] MEDS: FLUTICASONE FUROATE 200MCG 14 PUFFS/INHALER INH SCH (08:07)
[2024-04-28] MEDS: FLUTICASONE PROPIONATE NA SPR 16 GM BTL NAE SCH (08:07)
[2024-04-28] MEDS: SERTRALINE HCL 50 MG TABLET PO SCH (08:08)
[2024-04-28] MEDS: predniSONE 20 MG TAB PO SCH (08:08)
[2024-04-28] MEDS: CETIRIZINE HCL 10 MG TABLET PO SCH (08:09)
[2024-04-28] MEDS: PANTOprazole 40 MG TAB PO SCH (08:10)
[2024-04-28] MEDS: CHOLECALCIFEROL 25 MCG (1000 UNITS) TAB PO SCH (08:10)
[2024-04-28] MEDS: ATORVASTATIN 40 MG TAB PO SCH (08:10)
[2024-04-28] MEDS: MONTELUKAST SODIUM 10 MG TABLET PO SCH (08:10)
[2024-04-28] MEDS: ACETAMINOPHEN 325 MG TAB PO PRN (08:12)
[2024-04-28] MEDS: UMECLIDINIUM/VILANTEROL 62.5/25MCG 7 PUFFS/INHALER INH SCH (08:13)
[2024-04-28] MEDS ORDERED: NON-FORMULARY MEDICATION (Fluticasone-Umeclidin-Vilanter [Trelegy Ellipta] 200-62.5-25 mcg INH SCH (09:00)
[2024-04-28] MEDS: cefTRIAXone SODIUM 2,000 MG/50 ML BAG IV SCH (11:55)
[2024-04-28] MEDS: FUROSEMIDE INJ 20 MG/2 ML VIAL IV ONE ×2 (13:30→15:49)
--- NOTE | 2024-04-28 13:35 | Cardiology Progress Note ---
Date of Service April 28, 2024 Assessment & Plan (1) Acute on chronic heart failure with preserved ejection fraction: Plan: Patient is 73-year-old male with PMH paroxysmal atrial fibrillation, history ablation for atrial flutter in 2009, anticoagulated on warfarin, tachybradycardia syndrome s/p pacemaker in 2020, HFpEF, HTN, HLD, CKD III, severe persistent asthma, environmental allergies, bronchiectasis, GREGG , nocturnal hypoxia on 2L oxygen HS, GERD, known history of medication noncompliance presented to ER with complaint of shortness of breath and productive cough x 4 days. Denies fever/chills. Needs more aggressive IV diuresis Give 80mg IV lasix 1, then BID. Add 25mg of aldactone and Jardiance 10mg qday (2) Atrial fibrillation with RVR: Plan: Increase toprol to 75mg qday Wilver Mitchell MD Admission and Anticipated Discharge Date Admission Date: April 27, 2024 Subjective (+) complaints of lower extremity edema No chest pain. No N/V/RODRIGEZ; afebrile. No PND or Orthopnea. Review of Systems Review of Systems: All systems reviewed & are unremarkable except as noted in HPI & below Physical Exam Physical Exam: GEN: AAOx3; NAD HEENT: cannot assess JVD 2/2 body habitus CV: Irregular rhythm; normal rate PULM: (+) decreased breath sounds b/l bases; no wheezes, rales, or rhonchi ABD: (+) obese; soft, NTND EXT: 1+ b/l lower extremity edema NEURO: Deferred. Results & Data Vital Signs (Past 12 Hours) Vital Signs Temp Pulse Pulse Resp BP BP Pulse Ox 04/28/24 12:41 97 H 20 93 04/28/24 11:50 36.6 C 98 H 19 125/80 92 04/28/24 09:43 04/28/24 08:01 36.5 C 97 H 19 114/81 95 04/28/24 07:19 81 20 96 04/28/24 03:10 36.7 C 101 H 20 138/86 95 04/28/24 01:48 104 H 124/77 O2 Del Method O2 Flow Rate 04/28/24 12:41 Room Air 04/28/24 11:50 Room Air 04/28/24 09:43 Nasal Cannula 2 04/28/24 08:01 Nasal Cannula 2.0 03/22/25 07:19 Nasal Cannula 2 04/28/24 03:10 Nasal Cannula 2 04/28/24 01:48 Laboratory Results Laboratory Results WBC 12.87 K/ul (4.8-10.8) H 04/28/24 06:16 RBC 4.50 M/uL (4.70-6.10) L 04/28/24 06:16 Hgb 12.8 g/dl (14.0-18.0) L 04/28/24 06:16 Hct 39.7 % (42.0-52.0) L 04/28/24 06:16 MCV 88.2 fL (80.0-100.0) 04/28/24 06:16 MCH 28.4 pg (25.0-34.0) 04/28/24 06:16 MCHC 32.2 g/dL (32.0-36.0) 04/28/24 06:16 RDW Std Deviation 51.7 fL (36.4-46.3) H 04/28/24 06:16 RDW Coeff of Danyell 15.9 % (11.5-14.5) H 04/28/24 06:16 Plt Count 172 K/uL (130-400) 04/28/24 06:16 MPV 10.4 fL (9.4-12.4) 04/28/24 06:16 Immature Gran % (Auto) 0.5 % 04/28/24 06:16 Neut % (Auto) 92.4 % 04/28/24 06:16 Lymph % (Auto) 3.3 % 04/28/24 06:16 [place] % (Auto) 3.7 % 04/28/24 06:16 Eos % (Auto) 0.0 % 04/28/24 06:16 Baso % (Auto) 0.1 % 04/28/24 06:16 Neut # (Auto) 11.90 K/uL (1.40-6.50) H 04/28/24 06:16 Lymph # (Auto) 0.42 K/uL (1.20-3.40) L 04/28/24 06:16 [place] # (Auto) 0.47 K/uL (0.11-0.59) 04/28/24 06:16 Eos # (Auto) 0.00 K/uL (0.00-0.50) 04/28/24 06:16 Baso # (Auto) 0.01 K/uL (0.00-0.20) 04/28/24 06:16 Immature Gran # (Auto) 0.07 K/uL (0.01-0.20) 04/28/24 06:16 PT 17.0 Seconds (9.0-12.0) H 04/28/24 06:16 INR 1.6 (0.9-1.1) H 04/28/24 06:16 APTT 33 Seconds (21-31) H 04/27/24 09:25 PTT Ratio 1.2 04/27/24 09:25 VBG pH 7.41 (7.36-7.41) 04/27/24 09:59 VBG pCO2 45 mmHg (38-50) 04/27/24 09:59 VBG pO2 41 mmHg 04/27/24 09:59 VBG HCO3 29 mmol/L 04/27/24 09:59 VBG O2 Saturation 71.5 % 04/27/24 09:59 VBG Base Excess 3.2 mEq/L 04/27/24 09:59 Sodium 140 mmol/L (136-145) 04/28/24 06:16 Potassium 4.8 mmol/L (3.5-5.1) D 04/28/24 06:16 Chloride 105 mmol/L (98-107) 04/28/24 06:16 Carbon Dioxide 31 mmol/L (21-32) 04/28/24 06:16 Anion Gap 4 (3-11) 04/28/24 06:16 BUN 28 mg/dl (6-23) H 04/28/24 06:16 Creatinine 1.25 mg/dl (0.6-1.4) 04/28/24 06:16 Est Cr Clr Drug Dosing 65.3 ml/min 04/28/24 06:16 eGFR 60.80 04/28/24 06:16 BUN/Creatinine Ratio 22.4 (10-20) H 04/28/24 06:16 Glucose 142 mg/dl (70-99(Fasting)) H 04/28/24 06:16 Estimat Average Glucose 134 mg/dl 04/28/24 06:16 Hemoglobin A1c 6.3 % (4.5-5.6) H 04/28/24 06:16 Lactate 4.2 mmol/L (0.4-2.0) H* 04/27/24 17:53 Calcium 9.2 mg/dl (8.6-10.3) 04/28/24 06:16 Magnesium 2.4 mg/dl (1.7-2.4) 04/28/24 06:16 Total Bilirubin 1.0 mg/dl (0.2-1.0) 04/27/24 09:25 AST 15 U/L (13-39) 04/27/24 09:25 ALT 19 U/L (7-52) 04/27/24 09:25 Alkaline Phosphatase 82 U/L (34-104) 04/27/24 09: Troponin I High Sens 9.2 pg/ml (0-20) 04/27/24 09:25 B-Natriuretic Peptide 86 pg/ml (0-100) 04/27/24 09: Total Protein 6.5 gm/dl (6.0-8.3) 04/27/24 09:25 Albumin 3.8 gm/dl (3.4-5.0) 04/27/24 09:25 Globulin 2.7 gm/dl (2.5-4.0) 04/27/24 09: Albumin/Globulin Ratio 1.4 (0.9-2) 04/27/24 09:25 Procalcitonin 0.05 ng/ml (0-0.5) 04/27/24 09:25 TSH 0.574 uIu/ml (0.300-4.500) 04/27/24 12:46 Urine Color Yellow 04/27/24 14:56 Urine Appearance Clear (Clear) 04/27/24 14:56 Urine pH 6.0 (4.5-7.5) 04/27/24 14:56 Ur Specific [place] 1.015 (1.000-1.030) 04/27/24 14:56 Urine Protein Trace (Negative) H 04/27/24 14:56 Urine Glucose (UA) Negative (Negative) 04/27/24 14:56 Urine Ketones Negative (Negative) 04/27/24 14:56 Urine Blood Negative (Negative) 04/27/24 14:56 Urine Nitrite Negative (Negative) 04/27/24 14:56 Urine Bilirubin Negative (Negative) 04/27/24 14:56 Urine Urobilinogen Negative (Negative) 04/27/24 14:56 Ur Leukocyte Esterase 2+ (Negative) H 04/27/24 14:56 Urine WBC (Auto) 6-10 /hpf (0-5) H 04/27/24 14:56 Urine RBC (Auto) 0-2 /hpf (0-2) 04/27/24 14:56 U Hyaline Cast (Auto) 0-2 /lpf (0-2) 04/27/24 14:56 U Epithel Cells (Auto) 0-2 /hpf (0-2) 04/27/24 14:56 Urine Bacteria (Auto) None Seen (None Seen) 04/27/24 14:56 Adenovirus (PCR) Not Detected (NotDetected) 04/27/24 09:26 B. pertussis DNA (PCR) Not Detected (NotDetected) 04/27/24 09:26 B.parapertussis DNA PCR Not Detected (NotDetected) 04/27/24 09:26 C. pneumoniae DNA (PCR) Not Detected (NotDetected) 04/27/24 09:26 Coronavirus OC43 (PCR) Not Detected (NotDetected) 04/27/24 09:26 Coronavirus HKU1 (PCR) Not Detected (NotDetected) 04/27/24 09:26 Coronavirus 229E (PCR) Not Detected (NotDetected) 04/27/24 09:26 SARS-CoV-2 (PCR) Not Detected (NotDetected) 04/27/24 09:26 Coronavirus NL63 (PCR) Not Detected (NotDetected) 04/27/24 09:26 Human Metapneumovir PCR Not Detected (NotDetected) 04/27/24 09:26 Influenza Type A (PCR) Not Detected (NotDetected) 04/27/24 09:26 Influenza Type B (PCR) Not Detected (NotDetected) 04/27/24 09:26 M. pneumoniae (PCR) Not Detected (NotDetected) 04/27/24 09:26 Parainfluenza 1 (PCR) Not Detected (NotDetected) 04/27/24 09:26 Parainfluenza 2 (PCR) Not Detected (NotDetected) 04/27/24 09:26 Parainfluenza 3 (PCR) Not Detected (NotDetected) 04/27/24 09:26 Parainfluenza 4 (PCR) Not Detected (NotDetected) 04/27/24 09:26 RSV (PCR) Not Detected (NotDetected) 04/27/24 09:26 Entero/Rhino (PCR) Not Detected (NotDetected) 04/27/24 09:26 Impressions Chest X-Ray 04/28/24 01:14 EXAM: XR chest 1V portable CLINICAL HISTORY: Shortness of breath. TECHNIQUE: X-ray of the chest 1 view: Frontal. COMPARISON: 09/30/2021 FINDINGS: Both costophrenic angles are not completely included in the image. Prominent bronchovascular markings mainly at both lower lung zones suggestive of lung congestion, please correlate clinically. Cardiomegaly. Dual-lead cardiac pacemaker was seen in the proper position. No focal consolidation. Normal mediastinal contour. IMPRESSION: 1. Prominent bronchovascular markings mainly at both lower lung zones suggestive of lung congestion, please correlate clinically. 2. Cardiomegaly. 3. No significant interval changes. Electronically signed by Niranjan Burger 04-28-2024 03:26 AM Medications Administered Home Medications Medication Instructions Recorded Confirmed Last Taken cetirizine 10 mg tablet 10 mg PO QAM 09/18/18 04/27/24 04/05/22 montelukast 10 mg tablet 10 mg PO QAM 09/18/18 04/27/24 04/26/24 omeprazole 20 mg capsule,delayed 20 mg PO DAILYBB 09/18/18 04/27/24 04/26/24 release warfarin 2.5 mg tablet 2.5 mg PO 6XWK 05/21/20 04/27/24 04/26/24 diltiazem HCl 240 mg 240 mg PO PM #30 caps 05/23/20 04/27/24 04/26/24 capsule,extended release 24 hr atorvastatin 80 mg tablet 80 mg PO QAM 09/30/20 04/27/24 04/26/24 metoprolol tartrate 25 mg tablet 25 mg PO TID 03/01/21 04/27/24 04/26/24 aluminum-mag hydroxide-simethicone 15 ml PO Q6 PRN indigestion or 09/30/21 04/27/24 Unknown 400 mg-400 mg-40 mg/5 mL oral susp epigastric burning fluticasone propionate 50 2 spray intranasal QAM 09/30/21 04/27/24 04/05/22 mcg/actuation nasal spray,suspension cholecalciferol (vitamin D3) 25 25 mcg PO QAM 03/17/22 04/27/24 04/05/22 mcg (1,000 unit) tablet (Vitamin D3) doxycycline hyclate 100 mg capsule 100 mg PO BID PRN rescue kit 03/17/22 04/27/24 04/27/24 furosemide 20 mg tablet 20 mg PO 3XWK 03/17/22 04/27/24 Unknown albuterol sulfate 2.5 mg/3 mL See Rx Instructions .Route 08/08/23 04/27/24 Unknown (0.083 %) solution for nebulization .COMPLEX #180 mL ipratropium 20 mcg-albuterol 100 See Rx Instructions .Route 10/03/23 04/27/24 04/27/24 mcg/actuation mist for inhalation .COMPLEX #4 grams (Combivent Respimat) prednisone 10 mg tablet See Rx Instructions .Route 04/24/24 04/27/24 04/27/24 .COMPLEX #40 tabs albuterol sulfate 90 mcg/actuation 2 puff inhalation Q4H PRN 04/27/24 04/27/24 Unknown aerosol inhaler Wheezing/SOB fluticasone fur. 200 mcg-umeclid 1 inh inhalation DAILY 04/27/24 04/27/24 04/27/24 62.5 mcg-vilant 25 mcg inhalat.powder (Trelegy Ellipta) omalizumab 150 mg/mL subcutaneous 300 mg subcut MONTHLY 04/27/24 04/27/24 1 Week Ago syringe (Xolair) ~04/20/24 sertraline 25 mg tablet 25 mg PO QAM 04/27/24 04/27/24 04/26/24 hydrocodone 7.5 mg-acetaminophen 1 tab PO Q6H PRN Pain 04/28/24 04/28/24 Unknown 325 mg tablet Active Medications Generic Name Dose Route Start Last Admin Trade Name Freq PRN Reason Stop Dose Admin Acetaminophen 650 mg 04/27/24 15:50 04/28/24 08:12 Acetaminophen 325 Mg Tab PO 05/27/24 15:49 650 mg Q4H PRN Administration Mild Pain or Fever Atorvastatin Calcium 80 mg 04/28/24 09:00 04/28/24 08:10 Atorvastatin 40 Mg Tab PO 05/28/24 08:59 80 mg QAM WILLY Administration Cetirizine HCl 10 mg 04/28/24 09:00 04/28/24 08:09 Cetirizine Hcl 10 Mg Tablet PO 05/28/24 08:59 10 mg QAM WILLY Administration Diltiazem HCl 240 mg 04/27/24 21:00 04/27/24 20:16 Diltiazem Hcl 240 Mg Capcr PO 05/27/24 20:59 240 mg PM WILLY Administration Doxycycline Hyclate 100 mg 04/27/24 21:00 04/28/24 09:03 Doxycycline Hyclate 100 Mg Cap PO 05/02/24 20:59 100 mg BID WILLY Administration Fluticasone Furoate 1 puffs 04/28/24 09:00 04/28/24 08:07 Fluticasone Furoate 200mcg 14 Puffs/Inhaler INH 05/28/24 08:59 1 puffs DAILY WILLY Administration Fluticasone Propionate 2 sprays 04/28/24 09:00 04/28/24 08:07 Fluticasone Propionate Na Spr 16 Gm Btl AMITA 05/28/24 08:59 2 sprays QAM WILLY Administration Guaifenesin 1,200 mg 04/27/24 21:00 04/28/24 08:09 Guaifenesin 600 Mg Tabcr PO 05/27/24 20:59 1,200 mg Q12 WILLY Administration Ceftriaxone Sodium 2,000 mg in 50 mls @ 100 mls/hr 04/28/24 11:00 04/28/24 12:27 Rocephin IV 05/03/24 10:59 Infused Q24H WILLY Infusion Levalbuterol HCl 1.25 mg 04/27/24 19:00 04/28/24 12:41 Levalbuterol 1.25 Mg/3 Ml Neb NEB 05/27/24 18:59 1.25 mg Q6R WILLY Administration Metoprolol Succinate 25 mg 04/27/24 21:00 04/28/24 08:10 Metoprolol Succ 25mg Ext Rel Tab PO 05/27/24 20:59 25 mg BID WILLY Administration Montelukast Sodium 10 mg 04/28/24 09:00 04/28/24 08:10 Montelukast Sodium 10 Mg Tablet PO 05/28/24 08:59 10 mg QAM WILLY Administration Pantoprazole Sodium 40 mg 04/28/24 09:00 04/28/24 08:10 Pantoprazole 40 Mg Tab PO 05/28/24 08:59 40 mg DAILY WILLY Administration Prednisone 40 mg 04/28/24 09:00 04/28/24 08:08 Prednisone 20 Mg Tab PO 05/28/24 08:59 40 mg DAILY WILLY Administration Sertraline HCl 25 mg 04/28/24 09:00 04/28/24 08:08 Sertraline Hcl 50 Mg Tablet PO 05/28/24 08:59 25 mg QAM WILLY Administration Umeclidinium/Vilanterol 1 puffs 04/28/24 09:00 04/28/24 08:13 Umeclidinium/Vilanterol 62.5/25mcg 7 Puffs/Inhaler INH 05/28/24 08:59 1 puffs DAILY WILLY Administration Vitamin D 25 mcg 04/28/24 09:00 04/28/24 08:10 Cholecalciferol 25 Mcg (1000 Units) Tab PO 05/28/24 08:59 25 mcg QAM WILLY Administration
[2024-04-28] MEDS: METOPROLOL SUCC 50MG EXT REL TAB PO STA (13:55)
--- NOTE | 2024-04-28 14:47 | Hospitalist Progress Note ---
Date of Service April 28, 2024 Assessment & Plan (1) Atrial fibrillation with RVR: Plan: Patient is 73-year-old male with PMH paroxysmal atrial fibrillation, history ablation for atrial flutter in 2009, anticoagulated on warfarin, tachybradycardia syndrome s/p pacemaker in 2020, HFpEF, HTN, HLD, CKD III, severe persistent asthma, environmental allergies, bronchiectasis, GREGG , nocturnal hypoxia on 2L oxygen HS, GERD, known history of medication noncompliance presented to ER with complaint of shortness of breath and productive cough x 4 days. Denies fever/chills. A-fib RVR Subtherapeutic INR TSH normal -ECHO: EF 55 to 60%. Mild concentric LVH. Left atrium is mildly dilated. Mild tricuspid regurgitation. Monitor and replete electrolytes as needed Metoprolol succinate increased to 75 mg daily Continue Cardizem Currently rate controlled Coumadin dose increased to 5 mg daily Monitor INR 1.6 today Appreciate cardiology input Acute on chronic HFpEF--POA Echo as above Continue IV Lasix Monitor volume status, renal function Added Aldactone, Jardiance Monitor I's and O's, daily weight (2) Asthma exacerbation: Plan: History severe persistent asthma on Xolair Acute asthma exacerbation Suspected pneumonia Normal procalcitonin Bio fire negative Blood cultures negative to date Empirically on Rocephin, doxycycline Follow-up sputum cultures Pulmonary hygiene Continue home inhalers Continue prednisone Saturating well on room air (3) Chronic heart failure with preserved ejection fraction (HFpEF): Plan: Management as above (4) Tachy-starla syndrome: Plan: S/P Pacemaker Pacemaker interrogation (5) CKD (chronic kidney disease), stage III: Plan: Creatinine at baseline Monitor renal function (6) GREGG (obstructive sleep apnea): Plan: Nocturnal hypoxia Does not use CPAP Continue 2L oxygen HS Obesity BMI 39 Counseled lifestyle changes DVT Prx Coumadin CODE STATUS Full code Admission and Anticipated Discharge Date Admission Date: April 27, 2024 Subjective Patient is seen and examined at bedside States feeling better today Dyspnea, chest congestion less when compared to yesterday A-fib on monitor, rate controlled Family at bedside Still has cough with some expectoration Saturating well on room air No other complaints Review of Systems Review of Systems: All systems reviewed & are unremarkable except as noted in Subjective Physical Exam Physical Exam: Physical Exam: Vitals signs as noted above General Appearance: Obese, no apparent distress Head: normocephalic, Atraumatic Eyes: normal inspection, EOMI Neck: supple, Trachea midline Respiratory/Chest: Decreased breath sounds, scattered wheezes, No accessory muscle use Cardiovascular: Irregularly irregular, No murmur Abdomen/GI:Soft, Non tender, Bowel sounds present Extremities/Musculoskeletal:normal inspection, 1-2+edema Neurologic/Psych:AAOX3, grossly no focal neurological deficits Skin: normal color, warm Results & Data Results & Data Vital Signs (Past 12 Hours) Vital Signs Temp Pulse Resp BP Pulse Ox O2 Del Method O2 Flow Rate 04/28/24 12:41 97 H 20 93 Room Air 04/28/24 11:50 36.6 C 98 H 19 125/80 92 Room Air 04/28/24 09:43 Nasal Cannula 2 04/28/24 08:01 36.5 C 97 H 19 114/81 95 Nasal Cannula 2.0 04/28/24 07:19 81 20 96 Nasal Cannula 2 04/28/24 03:10 36.7 C 101 H 20 138/86 95 Nasal Cannula 2 Laboratory Results Short CBC 04/28/24 Range/Units 06:16 WBC 12.87 H (4.8-10.8) K/ul Hgb 12.8 L (14.0-18.0) g/dl Hct 39.7 L (42.0-52.0) % Plt Count 172 (130-400) K/uL BMP 04/28/24 06:16 Sodium 140 Potassium 4.8 D Chloride 105 Carbon Dioxide 31 BUN 28 H Creatinine 1.25 Glucose 142 H Calcium 9.2 Urine 04/27/24 Range/Units 14:56 Urine Color Yellow Urine Appearance Clear (Clear) Urine pH 6.0 (4.5-7.5) Ur Specific [place] 1.015 (1.000-1.030) Urine Protein Trace H (Negative) Urine Glucose (UA) Negative (Negative)
[2024-04-28] MEDS: EMPAGLIFLOZIN 10 MG TAB PO SCH (15:48)
[2024-04-28] MEDS: SPIRONOLACTONE 25 MG TAB PO SCH (15:49)
[2024-04-28] MEDS: WARFARIN SOD 5 MG TAB PO SCH (15:50)
[2024-04-28] MEDS: FUROSEMIDE 40 MG/4 ML VIAL IV SCH (20:36)
[2024-04-28] MEDS: POTASSIUM CHLORIDE 10 MEQ TABCR PO SCH (20:37)
[2024-04-29 07:35] LABS: Hematocrit (blood only) 39.8 % (42.0-52.0); Mean Corpuscular Hemoglobin 28.6 pg (25.0-34.0); Mean Corpuscular Hgb Conc 32.7 g/dL (32.0-36.0); Mean Corpuscular Volume 87.7 fL (80.0-100.0); Mean Platelet Volume 10.1 fL (9.4-12.4); Nucleated RBC # (auto) 0.02 K/uL (0.00-0.12); Nucleated RBC % (auto) 0.1 %; Platelet Count 199 K/uL (130-400); RDW Coefficient of Variation 15.8 % (11.5-14.5); RDW Standard Deviation 50.7 fL (36.4-46.3); Red Blood Count 4.54 M/uL (4.70-6.10); White Blood Count 13.94 K/ul (4.8-10.8)
[2024-04-29 07:50] LABS: BUN Creatinine Ratio 32.6 (10-20); Creatinine Clr Calc Pharmacy 58.6 ml/min; Magnesium 2.3 mg/dl (1.7-2.4); Potassium 4.4 mmol/L (3.5-5.1)
[2024-04-29 07:57] LABS: INR 2.2 (0.9-1.1); Prothrombin Time 22.6 Seconds (9.0-12.0)
[2024-04-29] MEDS: METOPROLOL SUCC 25MG EXT REL TAB PO SCH ×2 (09:15→20:37)
[2024-04-29] MEDS ORDERED: LEVALBUTEROL 1.25 MG/3 ML NEB NEB PRN (11:55)
--- NOTE | 2024-04-29 14:45 | Cardiology Progress Note ---
Date of Service April 29, 2024 Assessment & Plan (1) Acute on chronic heart failure with preserved ejection fraction: Plan: Patient is 73-year-old male with PMH paroxysmal atrial fibrillation, history ablation for atrial flutter in 2009, anticoagulated on warfarin, tachybradycardia syndrome s/p pacemaker in 2020, HFpEF, HTN, HLD, CKD III, severe persistent asthma, environmental allergies, bronchiectasis, GREGG , nocturnal hypoxia on 2L oxygen HS, GERD, known history of medication noncompliance presented to ER with complaint of shortness of breath and productive cough x 4 days. Denies fever/chills. Needs more aggressive IV diuresis Changing IV lasix to 80mg BID. Continue Jardiance and Aldactone. (2) Atrial fibrillation with RVR: Plan: Increase toprol to 75mg BID Wilver Mitchell MD Admission and Anticipated Discharge Date Admission Date: April 27, 2024 Subjective Feeling better HR is still elevated; afib Review of Systems Review of Systems: All systems reviewed & are unremarkable except as noted in HPI & below Physical Exam Physical Exam: GEN: AAOx3; NAD HEENT: cannot assess JVD 2/2 body habitus CV: Irregular rhythm; normal rate PULM: (+) decreased breath sounds b/l bases; no wheezes, rales, or rhonchi ABD: (+) obese; soft, NTND EXT: 1+ b/l lower extremity edema NEURO: Deferred. Results & Data Vital Signs (Past 12 Hours) Vital Signs Temp Pulse Resp BP Pulse Ox O2 Del Method 04/29/24 11:57 87 20 96 Room Air 04/29/24 11:38 36.3 C L 86 19 122/81 91 Room Air 04/29/24 08:46 Room Air 04/29/24 08:30 36.8 C 82 19 123/67 92 Room Air 04/29/24 07:29 70 18 93 Room Air 04/29/24 04:48 82 18 117/93 92 Room Air Laboratory Results Coagulation 04/29/24 Range/Units 07:07 PT 22.6 H (9.0-12.0) Seconds CBC 04/29/24 Range/Units 07:07 WBC 13.94 H (4.8-10.8) K/ul RBC 4.54 L (4.70-6.10) M/uL Hgb 13.0 L (14.0-18.0) g/dl Hct 39.8 L (42.0-52.0) % Plt Count 199 (130-400) K/uL Comprehensive Metabolic Panel 04/29/24 Range/Units 07:07 Sodium 142 (136-145) mmol/L Potassium 4.4 (3.5-5.1) mmol/L Chloride 102 (98-107) mmol/L Carbon Dioxide 34 H (21-32) mmol/L BUN 45 H (6-23) mg/dl Creatinine 1.38 (0.6-1.4) mg/dl Glucose 98 (70-99(Fasting)) mg/dl Calcium 9.0 (8.6-10.3) mg/dl Intake and Output 04/28/24 04/29/24 04/29/24 22:59 06:59 14:59 Intake Total 860 / 1270 400 / 400 Output Total 1851 / 3002 150 / 3002 600 / 600 Balance -991 / -1732 -150 / -1732 -200 / -200 Intake: IV 50 / 50 cefTRIAXone SODIUM 2,000 mg In 50 / 50 50 ml @ 100 mls/hr IV Q24H [facility] Rx#:[id number] Oral 860 / 1220 350 / 350 Output: Urine 1850 / 3000 150 / 3000 600 / 600 # Bowel Movements 1 / 2 Other: Weight 114.5 kg Weight Measurement Method Built in [facility] Medications Administered Home Medications Medication Instructions Recorded Confirmed Last Taken cetirizine 10 mg tablet 10 mg PO QAM 09/18/18 04/27/24 04/05/22 montelukast 10 mg tablet 10 mg PO QAM 09/18/18 04/27/24 04/26/24 omeprazole 20 mg capsule,delayed 20 mg PO DAILYBB 09/18/18 04/27/24 04/26/24 release warfarin 2.5 mg tablet 2.5 mg PO 6XWK 05/21/20 04/27/24 04/26/24 diltiazem HCl 240 mg 240 mg PO PM #30 caps 05/23/20 04/27/24 04/26/24 capsule,extended release 24 hr atorvastatin 80 mg tablet 80 mg PO QAM 09/30/20 04/27/24 04/26/24 metoprolol tartrate 25 mg tablet 25 mg PO TID 03/01/21 04/27/24 04/26/24 aluminum-mag hydroxide-simethicone 15 ml PO Q6 PRN indigestion or 09/30/21 04/27/24 Unknown 400 mg-400 mg-40 mg/5 mL oral susp epigastric burning fluticasone propionate 50 2 spray intranasal QAM 09/30/21 04/27/24 04/05/22 mcg/actuation nasal spray,suspension cholecalciferol (vitamin D3) 25 25 mcg PO QAM 03/17/22 04/27/24 04/05/22 mcg (1,000 unit) tablet (Vitamin D3) doxycycline hyclate 100 mg capsule 100 mg PO BID PRN rescue kit 03/17/22 04/27/24 04/27/24 furosemide 20 mg tablet 20 mg PO 3XWK 03/17/22 04/27/24 Unknown albuterol sulfate 2.5 mg/3 mL See Rx Instructions .Route 08/08/23 04/27/24 Unknown (0.083 %) solution for nebulization .COMPLEX #180 mL ipratropium 20 mcg-albuterol 100 See Rx Instructions .Route 10/03/23 04/27/24 04/27/24 mcg/actuation mist for inhalation .COMPLEX #4 grams (Combivent Respimat) prednisone 10 mg tablet See Rx Instructions .Route 04/24/24 04/27/24 04/27/24 .COMPLEX #40 tabs albuterol sulfate 90 mcg/actuation 2 puff inhalation Q4H PRN 04/27/24 04/27/24 Unknown aerosol inhaler Wheezing/SOB fluticasone fur. 200 mcg-umeclid 1 inh inhalation DAILY 04/27/24 04/27/24 04/27/24 62.5 mcg-vilant 25 mcg inhalat.powder (Trelegy Ellipta) omalizumab 150 mg/mL subcutaneous 300 mg subcut MONTHLY 04/27/24 04/27/24 1 Week Ago syringe (Xolair) ~04/20/24 sertraline 25 mg tablet 25 mg PO QAM 04/27/24 04/27/24 04/26/24 hydrocodone 7.5 mg-acetaminophen 1 tab PO Q6H PRN Pain 04/28/24 04/28/24 Unknown 325 mg tablet Active Medications Generic Name Dose Route Start Last Admin Trade Name Kirsten PRN Reason Stop Dose Admin Acetaminophen 650 mg 04/27/24 15:50 04/28/24 20:44 Acetaminophen 325 Mg Tab PO 05/27/24 15:49 650 mg Q4H PRN Administration Mild Pain or Fever Atorvastatin Calcium 80 mg 04/28/24 09:00 04/29/24 09:13 Atorvastatin 40 Mg Tab PO 05/28/24 08:59 80 mg QAM WILLY Administration Cetirizine HCl 10 mg 04/28/24 09:00 04/29/24 09:12 Cetirizine Hcl 10 Mg Tablet PO 05/28/24 08:59 10 mg QAM WILLY Administration Diltiazem HCl 240 mg 04/27/24 21:00 04/28/24 20:36 Diltiazem Hcl 240 Mg Capcr PO 05/27/24 20:59 240 mg PM WILLY Administration Doxycycline Hyclate 100 mg 04/27/24 21:00 04/29/24 09:15 Doxycycline Hyclate 100 Mg Cap PO 05/02/24 20:59 100 mg BID WILLY Administration Empagliflozin 10 mg 04/28/24 15:00 04/29/24 10:49 Empagliflozin 10 Mg Tab PO 05/28/24 14:59 10 mg DAILY WILLY Administration Fluticasone Furoate 1 puffs 04/28/24 09:00 04/29/24 09:12 Fluticasone Furoate 200mcg 14 Puffs/Inhaler INH 05/28/24 08:59 1 puffs DAILY WILLY Administration Fluticasone Propionate 2 sprays 04/28/24 09:00 04/29/24 09:16 Fluticasone Propionate Na Spr 16 Gm Btl AMITA 05/28/24 08:59 Not Given QAM WILLY Guaifenesin 1,200 mg 04/27/24 21:00 04/29/24 09:15 Guaifenesin 600 Mg Tabcr PO 05/27/24 20:59 1,200 mg Q12 WILLY Administration Ceftriaxone Sodium 2,000 mg in 50 mls @ 100 mls/hr 04/28/24 11:00 04/29/24 11:22 Rocephin IV 05/03/24 10:59 Infused Q24H WILLY Infusion Montelukast Sodium 10 mg 04/28/24 09:00 04/29/24 09:13 Montelukast Sodium 10 Mg Tablet PO 05/28/24 08:59 10 mg QAM WILLY Administration Pantoprazole Sodium 40 mg 04/28/24 09:00 04/29/24 09:15 Pantoprazole 40 Mg Tab PO 05/28/24 08:59 40 mg DAILY WILLY Administration Prednisone 40 mg 04/28/24 09:00 04/29/24 09:14 Prednisone 20 Mg Tab PO 05/28/24 08:59 40 mg DAILY WILLY Administration Sertraline HCl 25 mg 04/28/24 09:00 04/29/24 09:13 Sertraline Hcl 50 Mg Tablet PO 05/28/24 08:59 25 mg QAM WILLY Administration Spironolactone 25 mg 04/28/24 15:00 04/29/24 10:48 Spironolactone 25 Mg Tab PO 05/28/24 14:59 25 mg QAM WILLY Administration Umeclidinium/Vilanterol 1 puffs 04/28/24 09:00 04/29/24 09:12 Umeclidinium/Vilanterol 62.5/25mcg 7 Puffs/Inhaler INH 05/28/24 08:59 1 puffs DAILY WILLY Administration Vitamin D 25 mcg 04/28/24 09:00 04/29/24 09:15 Cholecalciferol 25 Mcg (1000 Units) Tab PO 05/28/24 08:59 25 mcg QAM WILLY Administration
[2024-04-29] MEDS: WARFARIN SOD 2.5 MG TAB PO SCH (15:15)
--- NOTE | 2024-04-29 17:41 | Hospitalist Progress Note ---
Date of Service April 29, 2024 Assessment & Plan (1) Atrial fibrillation with RVR: Plan: Patient is 73-year-old male with PMH paroxysmal atrial fibrillation, history ablation for atrial flutter in 2009, anticoagulated on warfarin, tachybradycardia syndrome s/p pacemaker in 2020, HFpEF, HTN, HLD, CKD III, severe persistent asthma, environmental allergies, bronchiectasis, GREGG , nocturnal hypoxia on 2L oxygen HS, GERD, known history of medication noncompliance presented to ER with complaint of shortness of breath and productive cough x 4 days. Denies fever/chills. A-fib RVR Subtherapeutic INR TSH normal -ECHO: EF 55 to 60%. Mild concentric LVH. Left atrium is mildly dilated. Mild tricuspid regurgitation. Monitor and replete electrolytes as needed Metoprolol succinate increased to 75 mg daily Continue Cardizem Continue Coumadin for anticoagulation INR 2.2 today Appreciate cardiology input Metoprolol dose increased to 75 mg twice a day Titrate Coumadin dose as needed Acute on chronic HFpEF--POA Echo as above Continue IV Lasix Monitor volume status, renal function Added Aldactone, Jardiance Monitor I's and O's, daily weight Lasix dose increased to 80 mg twice a day Cardiology following (2) Asthma exacerbation: Plan: History severe persistent asthma on Xolair Acute asthma exacerbation Suspected pneumonia Normal procalcitonin Bio fire negative Blood cultures negative to date Empirically on Rocephin, doxycycline Sputum culture--moderate normal leydi Pulmonary hygiene Continue home inhalers Continue prednisone Saturating well on room air (3) Chronic heart failure with preserved ejection fraction (HFpEF): Plan: Management as above (4) Tachy-starla syndrome: Plan: S/P Pacemaker Pacemaker interrogation (5) CKD (chronic kidney disease), stage III: Plan: Creatinine at baseline Monitor renal function (6) GREGG (obstructive sleep apnea): Plan: Nocturnal hypoxia Does not use CPAP Continue 2L oxygen HS Obesity BMI 39 Counseled lifestyle changes DVT Prx Coumadin CODE STATUS Full code Disposition PT OT prior to discharge Admission and Anticipated Discharge Date Admission Date: April 27, 2024 Subjective Patient is seen and examined at bedside Continues to feel better today Dyspnea, chest congestion slowly improving Less cough today Review of Systems Review of Systems: All systems reviewed & are unremarkable except as noted in Subjective Physical Exam Physical Exam: Physical Exam: Vitals signs as noted above General Appearance: Obese, no apparent distress Head: normocephalic, Atraumatic Eyes: normal inspection, EOMI Neck: supple, Trachea midline Respiratory/Chest: Decreased breath sounds, basal crackles, No accessory muscle use Cardiovascular: Irregularly irregular, No murmur Abdomen/GI:Soft, Non tender, Bowel sounds present Extremities/Musculoskeletal:normal inspection, 1-2+edema Neurologic/Psych:AAOX3, grossly no focal neurological deficits Skin: normal color, warm Results & Data Results & Data Vital Signs (Past 12 Hours) Vital Signs Temp Pulse Resp BP Pulse Ox O2 Del Method 04/29/24 14:59 37.0 C 84 19 116/75 91 Room Air 04/29/24 11:57 87 20 96 Room Air 04/29/24 11:38 36.3 C L 86 19 122/81 91 Room Air 04/29/24 08:46 Room Air 04/29/24 08:30 36.8 C 82 19 123/67 92 Room Air 04/29/24 07:29 70 18 93 Room Air Laboratory Results Short CBC 04/29/24 Range/Units 07:07 WBC 13.94 H (4.8-10.8) K/ul Hgb 13.0 L (14.0-18.0) g/dl Hct 39.8 L (42.0-52.0) % Plt Count 199 (130-400) K/uL BMP 04/29/24 07:07 Sodium 142 Potassium 4.4 Chloride 102 Carbon Dioxide 34 H BUN 45 H Creatinine 1.38 Glucose 98 Calcium 9.0
[2024-04-29] MEDS: FUROSEMIDE 40 MG/4 ML VIAL IV SCH (20:36)
[2024-04-29] MEDS: HYDROCODONE/ACETAMINOPHEN 7.5/325MG TAB PO PRN (20:44)
[2024-04-30 07:39] LABS: Hematocrit (blood only) 41.5 % (42.0-52.0); Hemoglobin 13.3 g/dl (14.0-18.0); Mean Corpuscular Hemoglobin 27.6 pg (25.0-34.0); Mean Corpuscular Volume 86.1 fL (80.0-100.0); Platelet Count 195 K/uL (130-400); RDW Coefficient of Variation 15.8 % (11.5-14.5); RDW Standard Deviation 49.8 fL (36.4-46.3); Red Blood Count 4.82 M/uL (4.70-6.10); White Blood Count 8.39 K/ul (4.8-10.8)
[2024-04-30 07:44] LABS: BUN Creatinine Ratio 31.9 (10-20); Calcium 8.7 mg/dl (8.6-10.3); Creatinine Clr Calc Pharmacy 58.4 ml/min; Magnesium 2.3 mg/dl (1.7-2.4); Potassium 3.9 mmol/L (3.5-5.1)
[2024-04-30 07:46] LABS: INR 3.6 (0.9-1.1); Prothrombin Time 35.1 Seconds (9.0-12.0)
--- NOTE | 2024-04-30 12:35 | Cardiology Progress Note ---
Date of Service April 30, 2024 Assessment & Plan (1) Acute on chronic heart failure with preserved ejection fraction: Plan: Patient is 73-year-old male with PMH paroxysmal atrial fibrillation, history ablation for atrial flutter in 2009, anticoagulated on warfarin, tachybradycardia syndrome s/p pacemaker in 2020, HFpEF, HTN, HLD, CKD III, severe persistent asthma, environmental allergies, bronchiectasis, GREGG , nocturnal hypoxia on 2L oxygen HS, GERD, known history of medication noncompliance presented to ER with complaint of shortness of breath and productive cough x 4 days. Denies fever/chills. Continue furosemide 40 mg IV twice daily. Continue Jardiance and Aldactone. (2) Atrial fibrillation with RVR: Plan: Continue metoprolol succinate 75 mg twice daily, dose adjusted this admission. Hold Coumadin for INR 3.6 Admission and Anticipated Discharge Date Admission Date: April 27, 2024 Subjective Patient seen in cardiology follow-up of his chief complaint of shortness of breath. Still with lower extremity edema but improving. Shortness of breath sl ightly improved compared to symptoms that prompted her to go to the hospital, but not back to his baseline as of yet. Telemetry reveals atrial fibrillation with ventricular rate in the 90s. Review of Systems Review of Systems: All systems reviewed & are unremarkable except as noted in HPI & below Physical Exam Physical Exam: GEN: AAOx3; NAD HEENT: cannot assess JVD 2/2 body habitus CV: Irregular rhythm; normal rate PULM: (+) decreased breath sounds b/l bases; no wheezes, rales, or rhonchi ABD: (+) obese; soft, NTND EXT: 1+ b/l lower extremity edema NEURO: Deferred. Constitutional: WD/WN, vitals as above + morbidly obese Respiratory: + tachypneic Auscultation: + diminish ed lung sounds, + rales and + wheezes Cardiovascular: Rate/Rhythm: + irregularly irregular Heart Sounds: normal S1 and normal S2; no murmur Vessels: no JVD Extremities: + edema (2-3+) Gastrointestinal (Abdomen): normal bowel sounds, soft, nontender, no hepatosplenomegaly Musculoskeletal: no cyanosis or clubbing, extremities motor strength 5/5 Results & Data Vital Signs (Past 12 Hours) Vital Signs Temp Pulse Pulse Resp BP Pulse Ox O2 Del Method 04/30/24 12:12 Room Air 04/30/24 11:47 36.9 C 91 H 22 122/88 90 Room Air 04/30/24 07:00 36.5 C 84 22 141/92 H 92 Room Air 04/30/24 03:02 36.7 C 79 18 123/83 93 Room Air Laboratory Results Coagulation 04/30/24 Range/Units 06:45 PT 35.1 H (9.0-12.0) Seconds 04/30/2024, INR 3.6 CBC 04/30/24 Range/Units 06:45 WBC 8.39 (4.8-10.8) K/ul RBC 4.82 (4.70-6.10) M/uL Hgb 13.3 L (14.0-18.0) g/dl Hct 41.5 L (42.0-52.0) % Plt Count 195 (130-400) K/uL Comprehensive Metabolic Panel 04/30/24 Range/Units 06:45 Sodium 140 (136-145) mmol/L Potassium 3.9 (3.5-5.1) mmol/L Chloride 99 (98-107) mmol/L Carbon Dioxide 34 H (21-32) mmol/L BUN 44 H (6-23) mg/dl Creatinine 1.38 (0.6-1.4) mg/dl Glucose 90 (70-99(Fasting)) mg/dl Calcium 8.7 (8.6-10.3) mg/dl Intake and Output 04/29/24 04/30/24 04/30/24 22:59 06:59 14:59 Intake Total 390 / 1520 250 / 1520 50 / 50 Output Total 3876 / 5976 1000 / 5976 Balance -3486 / -4456 -750 / -4456 50 / 50 Intake: IV 50 / 50 cefTRIAXone SODIUM 2,000 mg In 50 / 50 50 ml @ 100 mls/hr IV Q24H [facility] Rx#:[id number] Oral 390 / 1470 250 / 1470 Output: Urine 3875 / 5975 1000 / 5975 # Bowel Movements Other: Weight 113.9 kg Weight Measurement Method Standing Scale Diagnostic Findings EKG performed 04/28/2024 at 4:59 AM and interpret independently: Atrial fibrillation 84 bpm, no significant repolarization abnormalities, corrected QT interval 434 ms. Stable findings. Transthoracic echocardiogram performed 04/27/2024: LVEF normal 55 to 60%, mild concentric left ventricular perjury, mild left atrial lodgment, Doppler findings do not suggest pulmonary hypertension, compared to the previous dating back to 05/22/2020, the left ventricular ejection fraction has improved with ejection fraction the range of 50 to 55% at that time
--- NOTE | 2024-04-30 14:47 | Hospitalist Progress Note ---
Date of Service April 30, 2024 Assessment & Plan (1) Atrial fibrillation with RVR: Plan: Patient is 73-year-old male with PMH paroxysmal atrial fibrillation, history ablation for atrial flutter in 2009, anticoagulated on warfarin, tachybradycardia syndrome s/p pacemaker in 2020, HFpEF, HTN, HLD, CKD III, severe persistent asthma, environmental allergies, bronchiectasis, GREGG , nocturnal hypoxia on 2L oxygen HS, GERD, known history of medication noncompliance presented to ER with complaint of shortness of breath and productive cough x 4 days. Denies fever/chills. A-fib RVR Subtherapeutic INR TSH normal -ECHO: EF 55 to 60%. Mild concentric LVH. Left atrium is mildly dilated. Mild tricuspid regurgitation. Monitor and replete electrolytes as needed Metoprolol succinate increased to 75 mg daily Continue Cardizem INR 3.6 today Hold Coumadin for now Appreciate cardiology input Metoprolol dose increased to 75 mg twice a day Needs follow-up with Coumadin clinic on discharge Acute on chronic HFpEF--POA Echo as above Continue IV Lasix Monitor volume status, renal function Added Aldactone, Jardiance Monitor I's and O's, daily weight Cardiology following Diuresing well Follow-up with cardiology on discharge (2) Asthma exacerbation: Plan: History severe persistent asthma on Xolair Acute asthma exacerbation Suspected pneumonia Normal procalcitonin Bio fire negative Blood cultures negative to date Continue Rocephin, doxycycline Sputum culture--moderate normal leydi Pulmonary hygiene Continue home inhalers Continue prednisone Saturating well on room air Will decrease prednisone to 30 mg daily for now May need 2 step prior to discharge (3) Chronic heart failure with preserved ejection fraction (HFpEF): Plan: Management as above (4) Tachy-starla syndrome: Plan: S/P Pacemaker Pacemaker interrogation (5) CKD (chronic kidney disease), stage III: Plan: Creatinine at baseline Monitor renal function (6) GREGG (obstructive sleep apnea): Plan: Nocturnal hypoxia Does not use CPAP Continue 2L oxygen HS Obesity BMI 39 Counseled lifestyle changes DVT Prx Coumadin--held Supratherapeutic INR CODE STATUS Full code Disposition PT OT prior to discharge Admission and Anticipated Discharge Date Admission Date: April 27, 2024 Subjective Patient is seen and examined at bedside Leg edema improving Dyspnea much improved as well No new complaints Denies any chest pain, nausea, vomiting, abdominal pain No significant cough today Review of Systems Review of Systems: All systems reviewed & are unremarkable except as noted in Subjective Physical Exam Physical Exam: Physical Exam: Vitals signs as noted above General Appearance: Obese, no apparent distress Head: normocephalic, Atraumatic Eyes: normal inspection, EOMI Neck: supple, Trachea midline Respiratory/Chest: Decreased breath sounds, scant wheezing, No accessory muscle use Cardiovascular: Irregularly irregular, No murmur Abdomen/GI:Soft, Non tender, Bowel sounds present Extremities/Musculoskeletal:normal inspection, 1-2+edema Neurologic/Psych:AAOX3, grossly no focal neurological deficits Skin: normal color, warm Results & Data Results & Data Vital Signs (Past 12 Hours) Vital Signs Temp Pulse Pulse Resp BP Pulse Ox O2 Del Method 04/30/24 12:12 Room Air 04/30/24 11:47 36.9 C 91 H 22 122/88 90 Room Air 04/30/24 07:00 36.5 C 84 22 141/92 H 92 Room Air 04/30/24 03:02 36.7 C 79 18 123/83 93 Room Air Laboratory Results Short CBC 04/30/24 Range/Units 06:45 WBC 8.39 (4.8-10.8) K/ul Hgb 13.3 L (14.0-18.0) g/dl Hct 41.5 L (42.0-52.0) % Plt Count 195 (130-400) K/uL BMP 04/30/24 06:45 Sodium 140 Potassium 3.9 Chloride 99 Carbon Dioxide 34 H BUN 44 H Creatinine 1.38 Glucose 90 Calcium 8.7
[2024-04-30] MEDS: FUROSEMIDE 40 MG/4 ML VIAL IV SCH (21:04)
[2024-05-01] MEDS: predniSONE 10 MG TABLET PO SCH (09:00)
[2024-05-01 09:20] LABS: INR 3.1 (0.9-1.1); Prothrombin Time 30.3 Seconds (9.0-12.0)
[2024-05-01 09:34] LABS: Calcium 9.3 mg/dl (8.6-10.3); Magnesium 2.2 mg/dl (1.7-2.4); Potassium 3.7 mmol/L (3.5-5.1)
[2024-05-01 09:39] LABS: BUN Creatinine Ratio 27.7 (10-20)
--- NOTE | 2024-05-01 11:06 | Cardiology Progress Note ---
Date of Service May 01, 2024 Assessment & Plan (1) Acute on chronic heart failure with preserved ejection fraction: Plan: Patient is 73-year-old male with PMH paroxysmal atrial fibrillation, history ablation for atrial flutter in 2009, anticoagulated on warfarin, tachybradycardia syndrome s/p pacemaker in 2020, HFpEF, HTN, HLD, CKD III, severe persistent asthma, environmental allergies, bronchiectasis, GREGG , nocturnal hypoxia on 2L oxygen HS, GERD, known history of medication noncompliance presented to ER with complaint of shortness of breath and productive cough x 4 days. Denies fever/chills. Furosemide had been increased to 80 mg twice a day, which he received yesterday, 04/30/2024 for a.m. dose, and then 40 mg for the p.m. dose. He received another 40 mg this morning. Creatinine up to 1.77. Will hold this afternoon's dose and recheck chemistry panel tomorrow. Supplement potassium Continue Jardiance and Aldactone. (2) Atrial fibrillation with RVR: Plan: Continue metoprolol succinate 75 mg twice daily, dose adjusted this admission.Continue prior to hospital dose of diltiazem. Patient with a history of longstanding wheezing. Lungs clear at present, he is tolerating the increase of metoprolol dose. Coumadin has been held for INR 3.6. INR down to 3.1 today 05/01/2024. Resume Coumadin 2.5 mg daily today. Repeat INR tomorrow. Case discussed with Dr. Brasher of the hospitalist service for the purpose of coordination of care. Will reassess progress with regards to potential discharge on 05/02/2024. Admission and Anticipated Discharge Date Admission Date: April 27, 2024 Subjective Patient seen in cardiology follow-up of history of complaint of shortness of breath. Continues to feel subjective improvement. Atrial fibrillation noted on telemetry with rate in the 70s. Lower extremity edema improved. Patient notes significant urination overnight last night with IV furosemide. 5.9 L of urine output noted on 04/30, 2.6 L observed thus far today. Physical Exam Physical Exam: Temp Pulse Resp BP Pulse Ox O2 Del Method O2 Flow Rate 36.4 C L 81 19 118/84 91 Room Air 2 05/01/24 11:00 05/01/24 11:00 05/01/24 11:00 05/01/24 11:00 05/01/24 11:00 05/01/24 11:00 04/28/24 09:43 . Constitutional: WD/WN, vitals as above + morbidly obese Respiratory: + tachypneic Auscultation: + diminish ed lung sounds, + rales and + wheezes Cardiovascular: Rate/Rhythm: + irregularly irregular Heart Sounds: normal S1 and normal S2; no murmur Vessels: no JVD Extremities: + edema (2-3+) Gastrointestinal (Abdomen): normal bowel sounds, soft, nontender, no hepatosplenomegaly Musculoskeletal: no cyanosis or clubbing, extremities motor strength 5/5 Results & Data Vital Signs (Past 12 Hours) Vital Signs Temp Pulse Resp BP Pulse Ox O2 Del Method 05/01/24 11:00 36.4 C L 81 19 118/84 91 Room Air 05/01/24 07:45 36.5 C 78 19 120/71 90 Room Air 05/01/24 03:16 36.7 C 78 20 144/93 H 91 Room Air Laboratory Results Coagulation 05/01/24 Range/Units 08:44 PT 30.3 H (9.0-12.0) Seconds 05/01/2024, INR 3.1 Comprehensive Metabolic Panel 05/01/24 Range/Units 08:44 Sodium 139 (136-145) mmol/L Potassium 3.7 (3.5-5.1) mmol/L Chloride 97 L (98-107) mmol/L Carbon Dioxide 34 H (21-32) mmol/L BUN 49 H (6-23) mg/dl Creatinine 1.77 H D (0.6-1.4) mg/dl Glucose 132 H (70-99(Fasting)) mg/dl Calcium 9.3 (8.6-10.3) mg/dl Intake and Output 04/30/24 05/01/24 05/01/24 22:59 06:59 14:59 Intake Total 240 / 1250 240 / 1250 50 / 50 Output Total 1551 / 2601 400 / 2601 Balance -1311 / -1351 -160 / -1351 50 / 50 Intake: IV 50 / 50 cefTRIAXone SODIUM 2,000 mg In 50 / 50 50 ml @ 100 mls/hr IV Q24H [facility] Rx#:[id number] Oral 240 / 1200 240 / 1200 Output: Urine 1550 / 2600 400 / 2600 # Bowel Movements Other: Weight 111.2 kg Weight Measurement Method Built in [facility]
[2024-05-01] MEDS: POTASSIUM CHLORIDE CRTAB 20 MEQ TABCR PO STA (11:15)
--- NOTE | 2024-05-01 14:45 | Hospitalist Progress Note ---
Date of Service May 01, 2024 Assessment & Plan (1) Atrial fibrillation with RVR: Plan: Patient is 73-year-old male with PMH paroxysmal atrial fibrillation, history ablation for atrial flutter in 2009, anticoagulated on warfarin, tachybradycardia syndrome s/p pacemaker in 2020, HFpEF, HTN, HLD, CKD III, severe persistent asthma, environmental allergies, bronchiectasis, GREGG , nocturnal hypoxia on 2L oxygen HS, GERD, known history of medication noncompliance presented to ER with complaint of shortness of breath and productive cough x 4 days. Denies fever/chills. A-fib RVR Subtherapeutic INR TSH normal -ECHO: EF 55 to 60%. Mild concentric LVH. Left atrium is mildly dilated. Mild tricuspid regurgitation. Monitor and replete electrolytes as needed Metoprolol succinate increased to 75 mg daily Continue Cardizem INR 3.1 today Coumadin resumed, adjust dose as needed Appreciate cardiology input Metoprolol dose increased to 75 mg twice a day Needs follow-up with Coumadin clinic on discharge Acute on chronic HFpEF--POA Echo as above IV Lasix--hold for today due to rise in Cr levels Monitor volume status, renal function Added Aldactone, Jardiance Monitor I's and O's, daily weight Cardiology following Diuresing well Resume PO Lasix tomorrow if renal function stable (2) Asthma exacerbation: Plan: History severe persistent asthma on Xolair Acute asthma exacerbation Suspected pneumonia Normal procalcitonin Bio fire negative Blood cultures negative to date Continue Rocephin, doxycycline Sputum culture--moderate normal leydi Pulmonary hygiene Continue home inhalers Continue prednisone Saturating well on room air Titrate down prednisone as able May need 2 step prior to discharge (3) Chronic heart failure with preserved ejection fraction (HFpEF): Plan: Management as above (4) Tachy-starla syndrome: Plan: S/P Pacemaker Pacemaker interrogation (5) CKD (chronic kidney disease), stage III: Plan: SEKOU on CKD stage III Creatinine 1.7 today Expected secondary to IV diuretics Monitor renal function Avoid nephrotoxic agents as able (6) GREGG (obstructive sleep apnea): Plan: Nocturnal hypoxia Does not use CPAP Continue 2L oxygen HS Obesity BMI 39 Counseled lifestyle changes DVT Prx Coumadin CODE STATUS Full code Disposition PT OT prior to discharge Admission and Anticipated Discharge Date Admission Date: April 27, 2024 Subjective Patient is seen and examined at bedside Dyspnea on exertion, leg edema continues to improve Noted rising creatinine Denies any chest pain, nausea, vomiting, abdominal pain Saturating well on room air Heart rate is controlled Review of Systems Review of Systems: All systems reviewed & are unremarkable except as noted in Subjective Physical Exam Physical Exam: Physical Exam: Vitals signs as noted above General Appearance: Obese, no apparent distress Head: normocephalic, Atraumatic Eyes: normal inspection, EOMI Neck: supple, Trachea midline Respiratory/Chest: Decreased breath sounds, scant wheezing, No accessory muscle use Cardiovascular: Irregularly irregular, No murmur Abdomen/GI:Soft, Non tender, Bowel sounds present Extremities/Musculoskeletal:normal inspection, 1-2+edema Neurologic/Psych:AAOX3, grossly no focal neurological deficits Skin: normal color, warm Results & Data Results & Data Vital Signs (Past 12 Hours) Vital Signs Temp Pulse Resp BP Pulse Ox O2 Del Method 05/01/24 13:39 Room Air 05/01/24 11:00 36.4 C L 81 19 118/84 91 Room Air 05/01/24 07:45 36.5 C 78 19 120/71 90 Room Air 05/01/24 03:16 36.7 C 78 20 144/93 H 91 Room Air Laboratory Results [facility] 05/01/24 08:44 Sodium 139 Potassium 3.7 Chloride 97 L Carbon Dioxide 34 H BUN 49 H Creatinine 1.77 H D Glucose 132 H Calcium 9.3
[2024-05-02 06:07] LABS: Hematocrit (blood only) 43.8 % (42.0-52.0); Hemoglobin 14.7 g/dl (14.0-18.0); Mean Corpuscular Hemoglobin 28.5 pg (25.0-34.0); Mean Corpuscular Hgb Conc 33.6 g/dL (32.0-36.0); Platelet Count 236 K/uL (130-400); RDW Coefficient of Variation 15.3 % (11.5-14.5); RDW Standard Deviation 47.8 fL (36.4-46.3); Red Blood Count 5.15 M/uL (4.70-6.10)
[2024-05-02 06:19] LABS: BUN Creatinine Ratio 34.8 (10-20); Calcium 9.1 mg/dl (8.6-10.3); Creatinine Clr Calc Pharmacy 51.3 ml/min; Magnesium 2.5 mg/dl (1.7-2.4); Potassium 4.2 mmol/L (3.5-5.1)
[2024-05-02 06:29] LABS: Prothrombin Time 29.3 Seconds (9.0-12.0)
[2024-05-02] MEDS: predniSONE 20 MG TAB PO SCH (09:16)
[2024-05-02 15:58] VITALS: BP 116/67; RESP 20; TEMP 97.9; O2SAT 93
--- NOTE | 2024-05-02 15:58 | Cardiology Progress Note ---
Date of Service May 02, 2024 Assessment & Plan (1) Acute on chronic heart failure with preserved ejection fraction: Plan: Patient is 73-year-old male with PMH paroxysmal atrial fibrillation, history ablation for atrial flutter in 2009, anticoagulated on warfarin, tachybradycardia syndrome s/p pacemaker in 2020, HFpEF, HTN, HLD, CKD III, severe persistent asthma, environmental allergies, bronchiectasis, GRGEG , nocturnal hypoxia on 2L oxygen HS, GERD, known history of medication noncompliance presented to ER with complaint of shortness of breath and productive cough x 4 days. Denies fever/chills. Serum creatinine had increased to 1.77 mg/dL on 05/01/2024 and improved to 1.55 today having held his furosemide. Patient states that he was only taking furosemide 20 mg rarely not even 3 times per week. He describes difficulty with voiding and incomplete bladder emptying. He states that if he takes the furosemide he really needs to stay home and is unable to do anything. Will plan on having the patient obtain a scale either from the outpatient case management team or he can obtain on his own. If his weight increases by 3 pounds in 24 hours of 5 pounds over 48 to 72 hours he should double his furosemide dose for 3 days. Patient stable for discharge on the following medications: Add Flomax 0.4 mg at bedtime to help with urinary retention and I will facilitate diuretic therapy. In future, this may need to be moved to a morning dose will start with p.m. dose to avoid dizziness when taken with other medications Discharge on furosemide 20 mg p.o. daily Spironolactone 25 mg daily Jardiance 10 mg daily (2) Atrial fibrillation with RVR: Plan: INR 3 today, continue prior to hospital treatment with Coumadin. Patient is due for 2.5 mg today. Continue chronic diltiazem CD 240 mg daily.-Decision has been used historically on this patient due to his underlying bronchospastic lung disease. Metoprolol succinate has been increased to 75 mg twice daily and he is tolerati ng from a respiratory status standpoint. Case discussed with Dr. Fajardo of the hospitalist service for the purpose of coordination of care. Will reassess progress with regards to potential discharge on 05/02/2024. -Cardiology follow-up will be arranged. Admission and Anticipated Discharge Date Admission Date: April 27, 2024 Subjective Patient seen in cardiology follow-up. He is feeling well. Lower extremity edema improved. Dyspnea exertion is back to his usual baseline. Telemetry reveals rate controlled atrial fibrillation in the 70s to 90s. Physical Exam Physical Exam: Temp Pulse Resp BP Pulse Ox O2 Del Method O2 Flow Rate 36.8 C 93 H 18 115/68 91 Room Air 2 05/02/24 15:44 05/02/24 15:44 05/02/24 15:44 05/02/24 15:44 05/02/24 15:44 05/02/24 15:44 04/28/24 09:43 . Constitutional: WD/WN, vitals as above + morbidly obese Respiratory: + tachypneic Auscultation: + diminish ed lung sounds, + rales and + wheezes Cardiovascular: Rate/Rhythm: + irregularly irregular Heart Sounds: normal S1 and normal S2; no murmur Vessels: no JVD Extremities: + edema (Trace bilateral lower extremity edema) Gastrointestinal (Abdomen): normal bowel sounds, soft, nontender, no hepatosplenomegaly Musculoskeletal: no cyanosis or clubbing, extremities motor strength 5/5 Results & Data Vital Signs (Past 12 Hours) Vital Signs Temp Pulse Pulse Resp BP Pulse Ox O2 Del Method 05/02/24 15:44 36.8 C 93 H 18 115/68 91 Room Air 05/02/24 11:00 36.7 C 78 18 112/74 91 Room Air 05/02/24 09:36 Room Air 05/02/24 07:35 36.7 C 83 16 110/82 90 Room Air 05/02/24 07:17 78 Laboratory Results Coagulation 05/02/24 Range/Units 05:26 PT 29.3 H (9.0-12.0) Seconds CBC 05/02/24 Range/Units 05:26 WBC 9.60 (4.8-10.8) K/ul RBC 5.15 (4.70-6.10) M/uL Hgb 14.7 (14.0-18.0) g/dl Hct 43.8 (42.0-52.0) % Plt Count 236 (130-400) K/uL Comprehensive Metabolic Panel 05/02/24 Range/Units 05:26 Sodium 138 (136-145) mmol/L Potassium 4.2 (3.5-5.1) mmol/L Chloride 100 (98-107) mmol/L Carbon Dioxide 34 H (21-32) mmol/L BUN 54 H (6-23) mg/dl Creatinine 1.55 H (0.6-1.4) mg/dl Glucose 93 (70-99(Fasting)) mg/dl Calcium 9.1 (8.6-10.3) mg/dl Intake and Output 05/02/24 05/02/24 05/02/24 06:59 14:59 22:59 Intake Total 730 / 730 Output Total 800 / 2250 400 / 400 Balance -800 / -1620 330 / 330 Intake: IV 50 / 50 cefTRIAXone SODIUM 2,000 mg In 50 / 50 50 ml @ 100 mls/hr IV Q24H [facility] Rx#:[id number] Oral 680 / 680 Output: Urine 800 / 2250 400 / 400 Other: Weight 111 kg
--- NOTE | 2024-05-02 16:41 | Discharge Summary ---
Date of Service May 02, 2024 Admission HPI Per Admitting Provider Patient is 73-year-old male with PMH paroxysmal atrial fibrillation, history ablation for atrial flutter in 2009, anticoagulated on warfarin, tachybradycardia syndrome s/p pacemaker in 2020, HFpEF, HTN, HLD, CKD III, s evere persistent asthma, environmental allergies, bronchiectasis, GREGG , nocturnal hypoxia on 2L oxygen HS, GERD, known history of medication noncompliance presented to ER with complaint of shortness of breath x 4 days. Patient is some what of a poor historian. He reports at baseline has wheezing and has SOB with exertion at baseline. It is unclear how often patient uses his rescue inhaler. He states started with cough 4 days ago and cough productive of whitish sputum. Patient states last evening was noticing increased shortness of breath with just getting up out of a chair. This morning awoke around 5 AM reports significant shortness of breath with getting up out of bed and taking 2 steps. Reports typically after he rests shortness of breath improves however continued to be short of breath at rest this morning. Tried home nebulizer this morning without relief. He reports during the night started with pink-tinged sputum which he was unsure was caused by eating spaghetti sauce last night. Reports has chest pain with severe coughing only. He states he typically does not feel when he goes into atrial fibrillation and denies any palpitations. Since being in ER patient reports is feeling less short of breath. He denies any chest pain currently. Patient states that he takes diltiazem in the evening. He reports he only takes his metoprolol in the morning. Patient did not have any metoprolol or diltiazem today. He is to be taking Lasix 3 times a week per outpatient cardiology note however patient states he does not take regularly and just uses on as needed basis when he feels his legs are swollen. Patient does not feel his legs are swollen currently, however admits that he does not really check. This morning felt a little dizzy with ambulation. Denies fever/chills, diaphoresis, N/V/D/C, RODRIGEZ, syncope, vision changes, neck pain, sore throat, choking, otalgia, rhinorrhea, abdominal pain, paresthesias, weakness, rashes, urinary symptoms. Admission Exam Per Admitting Provider General: no acute distress sitting up in bed with 2L via NC, +obese elderly male Head: normocephalic, atraumatic Eyes: conjunctiva non-injected, anicteric ENT: normal inspection external ears, nose, mucous membranes moist Neck: supple, trachea midline Lungs: no respiratory distress on current 2 L via NC, R: 20, speaks in sentences. +scattered wheezing throughout, no rhonchi/rales noted CV: irregularly irregulary, 2+ pretibial edema Abd: protuberant, normal BS, soft, non-tender Ext: no cyanosis, no calf tenderness Neuro: A&O x 3, no focal deficits noted, normal affect Skin: warm, dry Principal Diagnosis Acute on chronic heart failure with preserved ejection fraction Atrial fibrillation with RVR Acute asthma exacerbation Suspected pneumonia Discharge Exam General Appearance: Obese, no apparent distress Head: normocephalic, Atraumatic Eyes: normal inspection, EOMI Neck: supple Respiratory/Chest: Decreased breath sounds, scant wheezing, No accessory muscle use Cardiovascular: Irregularly irregular, No murmur Abdomen/GI:Soft, Non tender, Bowel sounds present Extremities/Musculoskeletal:normal inspection, 1-2+edema Neurologic/Psych:AAOX3, grossly no focal neurological deficits Skin: normal color, warm Discharge Data Allergies Allergy/AdvReac Type Severity Reaction Status Date / Time cat dander Allergy Intermediate SNEEZING, Verified 04/27/24 12:27 CONGESTION pollen extracts Allergy Intermediate SNEEZING, Verified 04/27/24 12:27 CONGESTION morphine Allergy Unknown Verified 04/27/24 12:27 Consultations 04/27/24 12:12 ED Decision to Admit Stat 04/27/24 12:27 Consult Cardiology Routine Hospital Course (1) Atrial fibrillation with RVR: Patient is 73-year-old male with PMH paroxysmal atrial fibrillation, history ablation for atrial flutter in 2009, anticoagulated on warfarin, tachybradycardia syndrome s/p pacemaker in 2020, HFpEF, HTN, HLD, CKD III, severe persistent asthma, environmental allergies, bronchiectasis, GREGG , nocturnal hypoxia on 2L oxygen HS, GERD, known history of medication noncompliance presented to ER with complaint of shortness of breath and productive cough x 4 days. Denies fever/chills. A-fib RVR Subtherapeutic INR TSH normal -ECHO: EF 55 to 60%. Mild concentric LVH. Left atrium is mildly dilated. Mild tricuspid regurgitation. Monitor and replete electrolytes as needed Metoprolol succinate increased to 75 mg BID Continue Cardizem INR 3.0 today Coumadin resumed, adjust dose as needed Appreciate cardiology input Needs follow-up with Coumadin clinic on discharge Acute on chronic HFpEF--POA Echo as above IV Lasix-while inpt - noted rise in Cr levels, now Cr improved Monitor volume status, renal function Added Aldactone, Jardiance Monitor I's and O's, daily weight Cardiology following Diuresing well Plan to discharge on furosemide 20 mg daily per cardiology. (2) Asthma exacerbation: History severe persistent asthma on Xolair Acute asthma exacerbation Suspected pneumonia Normal procalcitonin Bio fire negative Blood cultures negative to date Continued Rocephin, doxycycline while inpt - for 5 days Sputum culture--moderate normal leydi Pulmonary hygiene Continue home inhalers Continue prednisone taper Saturating well on room air Titrate down prednisone (3) Chronic heart failure with preserved ejection fraction (HFpEF): Management as above (4) Tachy-starla syndrome: S/P Pacemaker Pacemaker interrogation (5) CKD (chronic kidney disease), stage III: SEKOU on CKD stage III Creatinine 1.55 today Expected secondary to IV diuretics Monitor renal function Avoid nephrotoxic agents as able (6) GREGG (obstructive sleep apnea): Nocturnal hypoxia Does not use CPAP Continue 2L oxygen HS Obesity BMI 39 Counseled lifestyle changes Total Time Total Time Spent Total Time Spent (In Minutes): 60 Discharge Plan Discharge Items Patient Disposition: Home - Self-Care Reason For Visit: RAPID AFIB Discharge Diagnosis: Acute on chronic heart failure with preserved ejection fraction Atrial fibrillation with RVR Acute asthma exacerbation Suspected pneumonia Condition on Discharge: Fair Activity: Per Instructions section Non-emergency contact: Primary Care Provider and It Security Specialist Call non-emergency contact if: you have any medication questions and your symptoms worsen Follow-up/Referrals: Paris Lizama MD [Primary Care Provider] - (Date & Time 05/10/2024 1:40 PM Provider: Paris Lizama MD General Internal Medicine [facility] ) Diet: Carb Consistent or DM2, Heart Healthy and Low Sodium (2gm) Addtl Attending Provider Instructions: Follow up with your primary care doctor and slitter service and setter. The appointment with your primary care doctor was scheduled for you for 05/10/2024. Take metoprolol 75 mg twice a day. Take furosemide 20 mg daily. Take tamsulosin 0.4 mg nightly. Take spironolactone 25 mg daily and Jardiance 10 mg daily. Continue diltiazem 240 mg daily. If your weight increases by 3 pounds in 24 hours of 5 pounds over 48 to 72 hours, you should double your furosemide dose for 3 days. Addtl Occup Ther Provider Instructions: Call your Primary Care doctor if any of the following symptoms or problems start or get worse: * Shortness of breath or difficulty breathing * Wake up at night short of breath * Chest pain * Cough * Swelling of your hands, feet, or legs * More fatigued or tired with your normal activity * Palpitations - sudden fast heart beats WEIGHT * Weigh yourself every morning after using the bathroom. * Use the same scale. * Wear the same amount of clothing. * Write your weight down on a chart. * Call your Primary Care doctor if you gain more than 2-3 pounds in 1-2 days. MEDICATIONS * Use this discharge instruction sheet for medication instructions. * Take your medications at the time your doctor ordered. * Do not skip a dose of your medicines. * If you miss a dose of medicine, take it as soon as possible, but DO NOT DOUBLE A DOSE. * Read your medicine information when you get home. * Know all of the side effects of your medicine. If in doubt, ask your pharmacist * Call your Primary Care doctor's office if you have any side effects. * Be sure all of your doctors know what medicine and herbs you take (including cold, flu, and herbal medicine). Take the following with you to your follow-up doctor appointments: * Weight Chart * Medication List * List of questions Do not drink excessive alcohol, beer or wine. Pending Studies at Discharge: No Stand-Alone Forms: My [facility], Smoking Cessation Medications and DC Order Prescriptions: New tamsulosin 0.4 mg Capsule 0.4 mg PO HS Qty: 30 0RF metoprolol succinate 25 mg Tablet Extended Release 24 Hr 75 mg PO BID Qty: 60 0RF furosemide 20 mg Tablet 20 mg PO QAM Qty: 30 0RF guaifenesin [Mucinex] 600 mg Tablet Extended Release 12hr 1,200 mg PO Q12 Qty: 14 0RF spironolactone 25 mg Tablet 25 mg PO QAM Qty: 30 0RF Jardiance 10 mg Tablet 10 mg PO DAILY Qty: 30 0RF prednisone 10 mg tablet 10 mg PO UD Qty: 10 0RF Rx Instructions: Take 2 tabs for 3 days, then take 1 tab for 4 days Continued albuterol sulfate 2.5 mg /3 mL (0.083 %) solution for nebulization See Rx Instructions .ROUTE .COMPLEX Qty: 180 5RF Dose Instruction: INHALE 1 VIAL VIA CONTINUOUS NEBULIZATION DAILY NEEDED FOR SHORTNESS OF BREATH OR WHEEZING USE IN PLACE OF RESCUE INHALER FOR CHRONIC SEVERE ASTHMA Rx Instructions: INHALE 1 VIAL VIA CONTINUOUS NEBULIZATION DAILY NEEDED FOR SHORTNESS OF BREATH OR WHEEZING USE IN PLACE OF RESCUE INHALER FOR CHRONIC SEVERE ASTHMA Combivent Respimat 20-100 mcg/actuation mist See Rx Instructions .ROUTE .COMPLEX Qty: 4 11RF Dose Instruction: INHALE 1 PUFF EVERY 4-6 HRS NEEDED FOR RESPIRATORY SYMPTOMS. MAX DAILY DOSE: 6DOSES. SPACE EVENLY DURING WAKING HOURS Rx Instructions: INHALE 1 PUFF EVERY 4-6 HRS NEEDED FOR RESPIRATORY SYMPTOMS. MAX DAILY DOSE: 6DOSES. SPACE EVENLY DURING WAKING HOURS prednisone 10 mg tablet See Rx Instructions .ROUTE .COMPLEX Qty: 40 2RF Dose Instruction: USE DIRECTED NEEDED FOR RESCUE KIT TAKE 4 TABLETS DAILY FOR 4 DAYS, THEN 3 TABLETS DAILY FOR 4 DAYS THEN 2 TABLET DAILY FOR 4 DAYS,1 DAILY FOR 4 DAYS Rx Instructions: USE DIRECTED NEEDED FOR RESCUE KIT TAKE 4 TABLETS DAILY FOR 4 DAYS, THEN 3 TABLETS DAILY FOR 4 DAYS THEN 2 TABLET DAILY FOR 4 DAYS,1 DAILY FOR 4 DAYS cetirizine 10 mg tablet 10 mg PO QAM montelukast 10 mg tablet 10 mg PO QAM omeprazole 20 mg capsule,delayed release(DR/EC) 20 mg PO DAILYBB Patient Comments: 20 mg PO 1 hour prior to the first meal of the day; Rx Instructions: 20 mg PO 1 hour prior to the first meal of the day; fluticasone propionate 50 mcg/actuation [place],Suspension 2 spray INTRANASAL QAM Rx Instructions: administer into each nostril alum-mag hydroxide-simeth 400-400-40 mg/5 mL Suspension 15 ml PO Q6 PRN (Reason: indigestion or epigastric burning) warfarin 2.5 mg tablet 2.5 mg PO 6XWK Rx Instructions: Per patient: 2.5mg every day except Tuesday, pt skips Tuesdays diltiazem HCl 240 mg capsule,extended release 24hr 240 mg PO PM Qty: 30 0RF atorvastatin 80 mg tablet 80 mg PO QAM doxycycline hyclate 100 mg Capsule 100 mg PO BID PRN (Reason: rescue kit) cholecalciferol (vitamin D3) [Vitamin D3] 25 mcg (1,000 unit) Tablet 25 mcg PO QAM sertraline 25 mg tablet 25 mg PO QAM albuterol sulfate 90 mcg/actuation HFA aerosol inhaler 2 puff inhalation Q4H PRN (Reason: Wheezing/SOB) Xolair 150 mg/mL syringe 300 mg subcut MONTHLY Rx Instructions: INJECT 300 mg subcutaneously EVERY 4 WEEKS APPROVED GOOD 03/19/24-03/21/25 Trelegy Ellipta 200-62.5-25 mcg blister with device 1 inh inhalation DAILY hydrocodone-acetaminophen 7.5-325 mg tablet 1 tab PO Q6H PRN (Reason: Pain) Discontinued metoprolol tartrate 25 mg tablet 25 mg PO TID Rx Instructions: Prescribed TID however pt takes once daily furosemide 20 mg Tablet 20 mg PO 3XWK Rx Instructions: Pt prescribed 3xwk however pt uses on prn basis Discharge Orders: Discharge Order- CHF (Routine); Ordered 05/02/24 Ordered By: Neymar Bynum/Other Patient Handouts: Prediabetes, 5 Steps for Eating Healthier Admission Data Admit Date/Time: 04/27/24 12:27 Attending Provider: Neymar Fajardo Admit Provider: Aminta Martinez Primary Care Provider: Paris Lizama Other Providers: Aminta Martinez; Magdaleno Lara; Govind Brasher
[2024-05-02 17:35] VITALS: PULSE 84
[2024-05-02] MEDS ORDERED: TAMSULOSIN HCL 0.4 MG CAP PO SCH (21:00)
[2024-05-03] MEDS ORDERED: FUROSEMIDE 20 MG TAB PO SCH (09:00)
== END 2024-05-02 17:54 | disposition home or self-care (01) | DRG 291 ==
LOC: ED 09:17 → 2E 12:27 → SUATTDRO 12:27 → 2E 15:09
DX: J45.51 Severe persistent asthma with (acute) exacerbation; I42.8 Other cardiomyopathies; N18.30 Chronic kidney disease, stage 3 unspecified; Z88.5 Allergy status to narcotic agent; I13.0 Hypertensive heart and chronic kidney disease with heart failure and stage 1 through stage 4 chronic kidney disease, or unspecified chronic kidney disease; I48.0 Paroxysmal atrial fibrillation; I50.810 Right heart failure, unspecified; Z68.39 Body mass index [BMI] 39.0-39.9, adult; E66.9 Obesity, unspecified; Z79.01 Long term (current) use of anticoagulants; J96.21 Acute and chronic respiratory failure with hypoxia; I48.19 Other persistent atrial fibrillation; J18.9 Pneumonia, unspecified organism; I50.33 Acute on chronic diastolic (congestive) heart failure; J44.0 Chronic obstructive pulmonary disease with (acute) lower respiratory infection; Z95.0 Presence of cardiac pacemaker; I49.5 Sick sinus syndrome